=== PATIENT | male | born 1955 | race Caucasian/White ===

== ENCOUNTER 2022-10-31 07:12 | Day surgery (SDC) | payer OTHER ==
[2022-10-29 13:40] LABS: Protime INR 5.25
[2022-10-31 07:51] LABS: Hematocrit 46.9 % (39.6-49.0); Lymphocytes % 21.9 % (15.3-44.8); MCV 89.4 fL (80-100); RBC Red Blood Cell Count 5.25 M/uL (4.33-5.43)
[2022-10-31 08:00] LABS: Protime INR 1.83
[2022-10-31 08:05] LABS: Potassium 4.6 mmol/L (3.5-5.1)
[2022-10-31] MEDS ORDERED: Ringers Lactate 1,000 ML IV ONE (08:15)
[2022-10-31] MEDS ORDERED: CEFAZOLIN SODIUM 1 GM/VIAL ONE (08:15)
[2022-10-31] MEDS ORDERED: LIDOCAINE 1% MPF 30 ML VIAL ONE (08:52)
--- NOTE | 2022-10-31 08:55 | RAD REPORT ---
EXAM DESCRIPTION: RAD - Chest Single View - 10/31/2022 7:30 am CLINICAL HISTORY: PRE-OP Chest pain. COMPARISON: CHEST SINGLE VIEW dated 10/20/2010; CHEST SINGLE VIEW dated 10/20/2010; CHEST SINGLE VIEW dated 09/27/2010; CHEST SINGLE VIEW dated 09/24/2009 FINDINGS: Portable technique limits examination quality. The lungs are grossly clear. The heart is normal in size. No displaced fractures.Postsurgical clips a re present upper right chest. Cervical hardware plate. IMPRESSION: No acute intrathoracic process suspected.
--- NOTE | 2022-10-31 09:55 | RAD REPORT ---
EXAM DESCRIPTION: RAD - Fluoroscopy <1 Hour - 10/31/2022 9:51 am CLINICAL HISTORY: FB REMOVAL FROM LEFT HAND COMPARISON: No comparisons FINDINGS: Fluoroscopy time: 0.1 minutes
--- NOTE | 2022-10-31 09:59 | P.OP ---
Date of Service: 10/31/22 Preop diagnosis: Foreign body left hand Postop diagnosis: Same Procedure performed: Removal foreign body left hand and fluoroscopy Surgeon: Arturo Vuong MD Frog Catcher: None Estimated blood loss: Minimal Specimen: Foreign body, piece of wood Findings: As above Anesthesia: Local Complications: None Drains: None Fluids and blood products: Nonapplicable Disposition: Day surgery Operative note: Patient brought to the OR and placed in supine position. Patient prepped and draped in usual sterile fashion. Lidocaine 1% infiltrated locally. C arm used but was unable to localize the foreign body. A 2 cm incision was made on the thenar eminence of the left hand overlying the suspected area of the foreign body. Subcutaneous tissue divided. Bleeding controlled with cautery. Wound examined and a 2.5 cm piece of wood identified and removed. Wound thoroughly irrigated with saline. No other foreign body seen. 5-0 nylon used to close skin. Sterile dressing applied. Patient awakened and taken to day surgery in good general condition. CC:
[2022-10-31] MEDS ORDERED: HYDROCODONE/APAP 7.5/325 MG TAB PO PRN (10:02)
[2022-10-31 14:22] VITALS: BP 127/76; TEMP 97.2; O2SAT 100
--- NOTE | 2022-10-31 18:11 | EKG ---
Test Date: 2022-10-31 Test Time: 08:06:37 [place] Operator: KEISHA MEASUREMENT RESULTS: Intervals: Rate: 61 DE: 212 QRSD: 112 QT: 394 QTc: 396 [place]: P: 48 DE: 212 QRS: 45 T: 35 INTERPRETIVE STATEMENTS: Sinus rhythm with 1st degree AV block with premature atrial complexes in a pattern of bigeminy Moderate voltage criteria for LVH, may be normal variant Early repolarization Borderline ECG Compared to ECG 04/04/2012 19:04:12 Atrial premature complex(es) now present First degree AV block now present Sinus bradycardia no longer present Electronically Signed On 10-31-22 18:10:25 [employer] by Nicolas Whitmore
== END 2022-10-31 10:28 | disposition home or self-care (01) ==
LOC: OR 07:12
PROVIDERS: ATTEND Surgery
PROC: 0JCK0ZZ Extirpation of Matter from Left Hand Subcutaneous Tissue and Fascia, Open Approach (ICD-10-PCS; principal; 2022-10-31 09:30)
DX: S61.442A Puncture wound with foreign body of left hand, initial encounter (principal); X58.XXXA Exposure to other specified factors, initial encounter
CPT/HCPCS: 93005; 85025; 80048; 36415 ×2; 85610 ×2; 88300; 71045; 10120; J2001; J7120; J0690; 76000

== ENCOUNTER 2023-02-21 20:39 | Emergency (ER) | payer OTHER ==
--- OUTSIDE RECORDS SUMMARY | 2023-02-21 20:48 | XMS REPORT | Continuity of Care Document ---
:1955 Author Organization [facility] t Address [address] [place] [address] Care Team Providers Name Role Phone Vickie Avila MD Primary Care Physician Ghassan Bright Attending Clinician Unavailable Obinna Wallace Attending Clinician Unavailable GREYSON NGUYEN Attending Clinician Unavailable RAMÍREZ FORREST Attending Clinician Unavailable EDA ALANIS Attending Clinician Unavailable IVA MEREDITH Attending Clinician Unavailable Mateo Saxena MD Attending Clinician MYRNA SEE Attending Clinician Unavailable Clara Pop MA Attending Clinician Unavailable Kiki Clark MA Attending Clinician Unavailable Estrella Attending Clinician Unavailable VICKIE GARAY Attending Clinician Unavailable ANGELIQUE FELIPE Attending Clinician Unavailable EL ARAYA Attending Clinician Unavailable MD EL ARAYA Attending Clinician Unavailable MD VICKIE GARAY Attending Clinician Unavailable FELA BOOGIE Attending Clinician Unavailable MD ANGELIQUE FELIPE Attending Clinician Unavailable MATEUS BIRD Attending Clinician Unavailable CHEL LOVE Attending Clinician Unavailable LAMBERTO PAGAN M.D. Attending Clinician UnavailELVIN Contreras Attending Clinician Unavailable SIMEON BARAKAT Attending Clinician Unavailable BASIL CRUZ Attending Clinician Unavailable CELESTINO GUSMAN Attending Clinician Unavailable NICHOLE METZGER Attending Clinician Unavailable SABRINA LOPEZ Attending Clinician Unavailable GERTRUDIS QUEEN Attending Clinician Unavailable Kanu Douglas PA-C Attending Clinician OUMOU BOYKIN Attending Clinician Unavailable ANALIA MALLORY M.D. Attending Clinician Unavailable ZIYAD CUMMINGS M.D. Attending Clinician Unavailable TINO MART M.D. Attending Clinician Unavailable MATEO SAXENA Attending Clinician Unavailable UNDEFINED Admitting Clinician Unavailable Physician, No Primary or Family Admitting Clinician UnavailEDA Shah Admitting Clinician Unavailable Estrella Admitting Clinician Unavailable EL ARAYA Admitting Clinician Unavailable MD EL ARAYA Admitting Clinician Unavailable VICKIE GARAY Admitting Clinician Unavailable MD VICKIE GARAY Admitting Clinician Unavailable ANGELIQUE FELIPE Admitting Clinician Unavailable MD ANGELIQUE FELIPE Admitting Clinician Unavailable MATEUS BIRD Admitting Clinician Unavailable BASIL CRUZ Admitting Clinician Unavailable VICKIE NAVARRETE Admitting Clinician Unavailable OUMOU BOYKIN Admitting Clinician Unavailable Payers Payer Name Policy Type Policy Number Effective Date Expiration Date S aye [employer] MEDICARE PPO [id number] 2022 00:00:00 PPO/POS - [employer] [id number] 2016 00:00:00 PPO/EPO - BCBS [id number] 2015 00:00:00 CHOICE/CHOICE [id number] PLUS/OPTIONS O - UHC MEDICARE PART A [id number] \\T\\ B - MEDICARE [employer] [id number] (PPO) Problems Condition Condition Condition Status Onset Resolution Last Treating Co mments Source Name Details Category Date Date Treatment Clinician Date Left-sided Left-sided Disease Active 0 M ethodi weakness weakness 6-11 st 00:00: Hospita 00 l Protruding Protruding Disease Active M ethodi sternal sternal 4-09 st wires wires 00:00: Hospita 00 l Lipoma of Lipoma of Disease Active Met hodi both upper both upper 4-09 st extremitie extremitie 00:00: Ho spita s s 00 l S/P AVR S/P AVR Disease Active Overview: Meth clark 4- Formattin st 00:00: g of this Hospita 00 note l might be different from the original. Added automatic ally from request for surgery [id number] Denervatio Denervatio Disease Active M ethodi n of n of 1 st muscle muscle 00:00: Hospita 00 l Pre-op Pre-op Disease Active Methodi testing testing 1 st 00:00: Hospita 00 l Atrial Atrial Disease Active 2019-[address] Method[facility] [address] 00:00: Hospita 00 l Nerve Nerve Disease Active Overview: Method i injury injury [address] 00:00: g of this Hospita 00 note l might be different from the original. 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 CVA CVA Disease Active Methodi (cerebral (cerebral [address] st vascular vascular 00:00: Hospit a accident) accident) 00 l Prosthetic Prosthetic Disease Active M ethodi valve valve 224 st endocardit endocardit 00:00: Ho spita is is 00 l Paced Paced Disease Active Methodi rhythm on rhythm on [address] st cardiac cardiac 00:00: Hospita monitor monitor 00 l s/p Redo s/p Redo Disease Active Metho di Aortic Aortic [address] st Root Root 00:00: Hospita Replacemen Replacemen 00 l t with t with Mechanical Mechanical AV Conduit AV Conduit Nonrheumat Nonrheumat Disease Active Overview : Methodi ic aortic ic aortic 2-13 Formattin s t valve valve 00:00: g of this Hospita insufficie insufficie 00 note l ncy ncy might be different from the original. Added automatic ally from request for surgery [id number] Chest pain Chest pain Disease Active M ethodi 2- st 00:00: Hospita 00 l Dyspnea on Dyspnea on Disease Active M ethodi exertion exertion 2-09 st 00:00: Hospita 00 l Postoperat Postoperat Disease Active M ethodi ariana ariana 4-18 st hemorrhage hemorrhage 00:00: Ho spita of of 00 l musculoske musculoske letal letal structure structure following following musculoske musculoske letal letal procedure procedure Osteoarthr Osteoarthr Disease Active M ethodi itis of itis of 3-14 st hip hip 00:00: Hospita 00 l Low Low Disease Active Methodi testostero testostero 1-16 st ne in male ne in male 00:00: Ho spita 00 l Vitamin D Vitamin D Disease Active Met hodi deficiency deficiency 1-16 st 00:00: Hospita 00 l Paget's Paget's Disease Active Methodi bone bone 1-16 st disease disease 00:00: Hospita 00 l Postprandi Postprandi Disease Active M ethodi al al 1-16 st hypoglycem hypoglycem 00:00: Ho spita ia ia 00 l Osteoarthr Osteoarthr Disease Active M ethodi itis itis 1-08 st resulting resulting 00:00: Hosp debbie from right from right 00 l hip hip dysplasia dysplasia Paroxysmal Paroxysmal Disease Active M ethodi atrial atrial 4-11 st fibrillati fibrillati 00:00: Ho spita on on 00 l Dry eye Dry eye Disease Active [facility] 3-13 College 00:00: of 00 Medicin e MGD MGD Disease Active [facility] (meibomian (meibomian 3-13 Co llege gland gland 00:00: of disease) disease) 00 Medici n e Conjunctiv Conjunctiv Disease Active [facility] ochalasis ochalasis 3-13 [place] 00:00: of 00 Medicin e Atrial Atrial Disease Active Methodi fibrillati fibrillati 2-23 st on, on, 00:00: Hospita persistent persistent 00 l Weakness Weakness Disease Active 2015-10 Metho di 10-26 st 00:00: Hospita 00 l 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 ethodi 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 [place] sioux 00:00: Hospita 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 Hypertensi Hypertensi Problem Active [facility] ve ve 8-04 Family disorder Disorder 00:00: Practi c 00 e Hiatal Hiatal Problem Active [place] her[facility] Hernia 8-04 Family 00:00: Practic 00 e Hx of Hx of Disease Active [facility] gastroesop gastroesop 5-16 Serge kes hageal hageal 00:00: Medical reflux reflux 00 Center (GERD) (GERD) S/P Alida S/P Alida Disease Active [facility] fundoplica fundoplica 5-16 Serge kes tion tion 00:00: Medical 00 Center Aortic Aortic Disease Active [facility] replacemen replacemen 00:00: Me dical t in 2002 t in 2002 00 Cent er with with [address] stentless stentless root root replacemen replacemen t t History of History of Disease Active [facility] Low Low 5-16 [facility] testostero testostero 00:00: Me dical ne ne 00 Center Aortic Aortic Disease Active [facility] insufficie insufficie 5-15 Serge kes ncy ncy 00:00: Medical 00 Center s/p re-do s/p re-do Disease Active [facility] sternotomy sternotomy 5-15 Serge kes , , 00:00: Medical bioprosthe bioprosthe 00 Ce nter tic aortic tic aortic valve valve replacemen replacemen t, repair t, repair of of ascending ascending aortic aortic aneurysm aneurysm and and paulina-arch paulina-arch repair repair (02/17) (02/17) Aortic Aortic Disease Active [facility] regurgitat regurgitat 4-15 Co llege ion ion 00:00: of 00 Medicin e Hypogonadi Hypogonadi Disease Active [facility] sm male sm male 8-31 College 00:00: 00 Medicin e Hiatal Hiatal Disease Active [facility] hernia hernia 3-08 College 00:00: of 00 Medicin e Aneurysm Aneurysm Problem Active [place] [facility] of of 10-06 Family ascending Ascending 00:00: Prac tic aorta Aorta 00 e Primary Primary Problem Active 2020-10-12 Me moria osteoarthr osteoarthr 03:50:26 l itis, itis, Dick right hand right hand Active Problem 10/12/2020 [facility] Chronic Chronic Problem Active 2020-10-12 M emoria fatigue fatigue 03:50:26 l Active [place] Problem 10/12/2020 [facility] Hypoglycem Hypoglyce Problem Active 2020-10-12 Memoria ia jasmeet Active 03:50:26 l Problem Dick 10/12/2020 [facility] Arm Arm Problem Active 2020-10-12 Memor ia paresthesi paresthesi 03:50:26 l a, left a, left [place] Active Problem 10/12/2020 [facility] Primary Primary Problem Active 2020-10-12 M emoria osteoarthr osteoarthr 03:50:26 l itis of itis of Dick left hand left hand Active Problem 10/12/2020 [facility] Food Food Problem Active 2018-10-21 Memor ia allergy allergy 03:52:44 l Active Dick Problem 10/21/2018 [facility] Chronic Chronic Problem Active 2020-10-12 Me moria GERD GERD 03:50:26 l Active Dick Problem 10/12/2020 [facility] History of History Problem Active 2020-10-12 Memoria Alida of Alida 03:50:26 l fundoplica fundoplica He rmann tion tion Active Problem 10/12/2020 [facility] Family Family Problem Active 2020-10-12 [place] history of history of 03:50:26 l pancreatic pancreatic He rmann cancer cancer Active Problem 10/12/2020 [facility] Vitamin D Vitamin D Problem Active 2020-10-12 Memoria deficiency deficiency 03:50:26 l Active [place] Problem 10/12/2020 [facility] Paget Paget Problem Active 2020-10-12 Memor ia disease of disease of 03:50:26 l bone bone [place] Active Problem 10/12/2020 [facility] Insomnia, Insomnia, Problem Active 2020-10-12 Memoria unspecifie unspecifie 03:50:26 l d type d type Dick Active Problem 10/12/2020 [facility] Osteoarthr Osteoarth Problem Active 2020-10-12 Memoria itis of ritis of 03:50:26 l hip hip Active David n Problem 10/12/2020 [facility] Hyperchole Hyperchol Problem Active 2020-10-12 Memoria sterolemia esterolemi 03:50:26 l a Active [place] Problem 10/12/2020 [facility] Osteopenia Problem Active 2020-10-12 M emoria of Osteopenia 03:50:26 l multiple of [place] sites multiple sites Active Problem 10/12/2020 [facility] Fatigue, Fatigue, Diagnosis Active 2019-09-11 Memoria unspecifie unspecifie 03:45:34 l d type d type Dick Active Diagnosis 09/11/2019 [facility] Stage 3 Stage 3 Diagnosis Active 2017-07-10 Memoria chronic chronic 02:50:13 l kidney kidney [place] disease disease Active Diagnosis 07/10/2017 [facility] History of History Diagnosis Active 2017-06-06 Memoria atrial of atrial 02:48:11 l fibrillati fibrillati He rmann on on Active Diagnosis 06/06/2017 [facility] Polyarthra Diagnosis Active 2017-06-06 Memoria lgia Polyarthra 02:48:11 l lgia Dick Active Diagnosis 06/06/2017 [facility] Cervical Cervical Diagnosis Active 2018-06-23 Memoria radiculopa radiculopa 02:48:49 l thy at C7 thy at C7 Herm yesy Active Diagnosis 06/23/2018 [facility] MARY GRACE MARY GRACE Diagnosis Active 2017-07-10 Mem oria positive positive 02:50:13 l Active [place] Diagnosis 07/10/2017 [facility] Encounter Diagnosis Active 2019-09-11 Memoria for Encounter 03:45:34 l immunizati for David n on immunizati on Active Diagnosis 09/11/2019 [facility] Paroxysmal Paroxysma Diagnosis Active 2020-10-12 Memoria atrial l atrial 03:50:26 l fibrillati fibrillati He rmann on on Active Diagnosis 10/12/2020 [facility] Anemia due Anemia Problem Active 2020-10-12 Memoria to blood due to 03:50:26 l loss blood loss David n Active Problem 10/12/2020 [facility] Endocardit Endocardi Problem Active 2020-10-12 Memoria is and tis and 03:50:26 l heart heart [place] valve valve disorders disorders in in diseases diseases classified classified elsewhere elsewhere Active Problem 10/12/2020 [facility] Cerebrovas Cerebrova Problem Active 2020-10-12 Memoria cular scular 03:50:26 l accident accident David n (CVA) due (CVA) due to other to other mechanism mechanism Active Problem 10/12/2020 [facility] Screening Screening Diagnosis Active 2019-06-20 Memoria for for 02:45:31 l prostate prostate David n cancer cancer Active Diagnosis 06/20/2019 [facility] Screening Screening Diagnosis Active 2019-06-20 Memoria for HIV for HIV 02:45:31 l (human (human [place] immunodefi immunodefi ciency ciency virus) virus) Active Diagnosis 06/20/2019 [facility] Cough Cough Diagnosis Active 2019-09-11 Mem oria Active 03:45:45 l Diagnosis Dick 09/11/2019 [facility] Wheezing Wheezing Diagnosis Active 2017-12-27 Memoria Active 02:49:23 l Diagnosis Dick 12/27/2017 [facility] Groin Groin Diagnosis Active 2018-02-19 Mem oria strain, strain, 02:48:22 l right, right, [place] initial initial encounter encounter Active Diagnosis 02/19/2018 [facility] Fungal Fungal Diagnosis Active 2018-06-23 Me moria infection infection 02:48:49 l Active [place] Diagnosis 06/23/2018 [facility] Right Right Diagnosis Active 2018-02-19 Mem oria groin pain groin pain 02:48:22 l Active [place] Diagnosis 02/19/2018 [facility] Depression Depressio Diagnosis Active 2018-02-19 Memoria screening n 02:48:22 l screening [place] Active Diagnosis 02/19/2018 [facility] Bronchitis Bronchiti Diagnosis Active 2019-09-11 Memoria s Active 03:45:40 l Diagnosis [place] 09/11/2019 [facility] Adventitio Adventiti Diagnosis Active 2017-12-27 Memoria us breath ous breath 02:48:30 l sounds sounds Dick Active Diagnosis 12/27/2017 [facility] Encounter Encounter Diagnosis Active 2018-10-21 Memoria for for 03:49:00 l preprocedu preprocedu He rmann ral ral cardiovasc cardiovasc ular ular examinatio examinatio n n Active Diagnosis 10/21/2018 [facility] Right hip Right hip Diagnosis Active 2018-10-10 Memoria pain pain 03:45:10 l Active [place] Diagnosis 10/10/2018 [facility] Burning Burning Diagnosis Active 2018-10-10 Memoria with with 03:45:10 l urination urination Herm ysey Active Diagnosis 10/10/2018 [facility] SOB SOB Diagnosis Active 2019-09-11 Mem oria (shortness (shortness 03:45:40 l of breath) of breath) He rmann Active Diagnosis 09/11/2019 [facility] Generalize Generaliz Diagnosis Active 2019-09-11 Memoria d ed 03:45:34 l abdominal abdominal Herm yesy pain pain Active Diagnosis 09/11/2019 [facility] Abnormal Abnormal Diagnosis Active 2019-09-11 Memoria stool stool 03:45:34 l color color [place] Active Diagnosis 09/11/2019 [facility] Diarrhea, Diarrhea, Diagnosis Active 2019-09-11 Memoria unspecifie unspecifie 03:45:34 l d type d type [place] Active Diagnosis 09/11/2019 [facility] PND PND Diagnosis Active 2019-09-11 Mem oria (post-nasa (post-nasa 03:45:45 l l drip) l drip) Dick Active Diagnosis 09/11/2019 [facility] COVID-19 COVID-19 Diagnosis Active 2020-10-12 Memoria virus virus 03:50:26 l infection infection Herm yesy Active Diagnosis 10/12/2020 [facility] Sore Sore Diagnosis Active 2019-09-11 Mem oria throat throat 03:45:45 l Active [place] Diagnosis 09/11/2019 [facility] Encounter Diagnosis Active 2020-09-20 Memoria for Encounter 03:58:24 l screening for [place] laboratory screening testing laboratory for testing COVID-19 for virus COVID-19 virus Active Diagnosis 09/20/2020 [facility] Viral Viral Diagnosis Active 2020-09-20 Mem oria illness illness 03:58:24 l Active Dick Diagnosis 09/20/2020 [facility] Mechanical Mechanica Problem Active 2020-10-12 Memoria heart l heart 03:50:26 l valve valve [place] present present Active Problem 10/12/2020 [facility] Testostero Testoster Problem Active 2020-10-12 Memoria ne one 03:50:26 l deficiency deficiency He rmann Active Problem 10/12/2020 [facility] History of History Problem Active 2020-10-12 Memoria hypothyroi of 03:50:26 l dism hypothyroi David n dism Active Problem 10/12/2020 [facility] History of History of Problem Resolve [facility] blood blood d Physici transfusio transfusio an s n n Low Low Problem Active [facility] testostero testostero Ph ysici ne in male ne in male an s Encounter Encounter Problem Active [facility] to to Physici establish establish ans care care Obesity Obesity Problem Active [facility] Physici ans Allergies, Adverse Reactions, Alerts Allergy Allergy Status Severity Reaction(s) Onset Inactive Treating Comm ents Source Name Type Date Date Clinician Citrullu Allergy Active [facility] s to 06-05 Health Vulgaris substan 00:00: e 00 [place] Allergy Active [facility] Extract to 06-05 Health substan 00:00: e 00 Evolocum Allergy Active [facility] ab to 06-05 Health substan 00:00: e 00 Iodine Allergy Active [facility] to 06-05 Health substan 00:00: e 00 Vacciniu Allergy Active [facility] m to 06-05 Health Angustif substanc 00:00: olium e 00 Atorvast Propensi Active Anaphylaxis 2020-10 [facility] at[facility] ty to 2-16 College adverse 00:00: of reaction 00 Medicin s to e drug Iodinate Propensi Active 2020-10 [facility] d ty to 2-16 College Diagnost adverse 00:00: of ic reaction 00 Medicin Agents s to e drug Wheat Propensi Active 2020-10 [facility] Husk ty to 2-16 College Fiber adverse 00:00: of reaction 00 Medicin s to e drug Iodinate Allergy Active 2020-10 [facility] d to 216 Health Diagnost substanc 00:00: ic e 00 Agents Wheat Allergy Active 2020-10 Other [facility] Bran to 216 reaction( Health substan 00:00: s): GI e 00 Intoleran ceDue to Celiac disease Atorvast Allergy Active Anaphylaxis [facility] atin to 6-12 Health substanc 00:00: e 00 Atorvast Propensi Active Anaphylaxis M ethodi atin ty to 6-12 st adverse 00:00: Hospita reaction 00 l s to drug Cyanoacr Propensi Active 2021-0 Other [facility] ylate ty to 01-10 reaction( Health adverse 00:00: s): Other reaction 00 (See s Comments) Skin tear Octyl Propensi Active Other (See Skin tear M ethodi 2-Cyanoa ty to Comments) 01-10 st crylate adverse 00:00: Hospita reaction 00 l s to drug Hydrocod Propensi Active Other [facility] one-Acet ty to 01-02 reaction( Healt h aminophe adverse 00:00: s): n reaction 00 Hallucina s tions Hydrocod Propensi Active Hallucinatio Methodi one-Acet ty to ns 3- st aminophe adverse 00:00: Hospita n reaction 00 l s to drug hydrocod hydrocod Active Hallucinatio 2019-1 Memoria one one ns 2-17 l 00:00: [place] 00 oxycodon oxycodon Active Hallucinatio 2019-1 Memoria e e ns 2-17 l 00:00: Dick 00 nuts nuts Active hives 2019-1 Memoria 2-17 l 00:00: Dick 00 diazepam DA Active SV 2020-0 [facility] 06[facility]06 [place] 00:[facility]: [facility] 00 dic Hospita l hydrocod DA Active U 2020-0 [facility] one 06-06 [place] 00:00: [facility] 00 dic Hospita l acetamin DA Active U 2020-0 [facility] ophen 06-06 [place] 00:00: Orth[facility] 00 dic Hospita l diazepam DA Active SV DIZZINESS 2020-0 [facility] 06-06 [place] 00:00: [facility] 00 dic Hospita l hydrocod DA Active U HALLUCINATIO 2020-0 HC A one NS 06-06 [place] 00:00: Orthope 00 dic Hospita l hydrocod DA Active U HALLUCINATIO 2020-0 HC A one NS 06-06 [place] 00:00: Orthope 00 dic Hospita l acetamin DA Active U HALLUCINATIO 2020-0 HC A ophen NS 06-06 [place] 00:00: Orthope 00 dic Hospita l Acetamin Propensi Active 2019-0 Other [facility] ophen ty to 06-06 reaction( [place] adverse 00:00: s): of reaction 00 HALLUCINA Medic in s to TIONS e drug Diazepam Propensi Active 2019-0 Other [facility] ty to 06-06 reaction( [place] adverse 00:00: s): of reaction 00 DIZZINESS Medic in s to e drug Diazepam Allergy Active 2020-0 Other [facility] to 06-06 reaction( Health substanc 00:00: s): e 00 DIZZINESS Other reaction( s): DIZZINESS Acetamin Allergy Active 2020-0 Other [facility] ophen to 06-06 reaction( Health substanc 00:00: s): e 00 HALLUCINA TIONSOthe r reaction( s): HALLUCINA TIONS Amiodaro Propensi Active Anaphylaxis Other [facility] ty to 06-02 reaction( College adverse 00:00: s): VERY of reaction 00 HARD TO Medicin s to BREATH e drug Justicia Propensi Active Other [facility] Adhatoda ty to 06-02 reaction( [facility] ge adverse 00:00: s): SWELL of reaction 00 UP, VERY Medici n s to HARD TO e drug BREATHE Justicia Allergy Active 0 Other [facility] Adhatoda to 06-02 reaction( Healt h substanc 00:00: s): SWELL e 00 UP, VERY HARD TO BREATHE Other reaction( s): SWELL UP, VERY HARD TO BREATHE nitrogly DA Active SV 2020-0 [facility] cerin 8-28 Clear 00:00: [facility] lactose FA Active WI 2020-0 [facility] 8-28 Clear 00:00: [facility] amiodaro DA Active SV 2020-0 [facility] ne 8- Clear 00:00: [facility] egg yolk FA Active [place] 2020-0 [facility] 8-28 Clear 00:00: [facility] gluten FA Active MO 2020-0 [facility] 8-28 Clear 00:00: [facility] tree nut FA Active SV 2020-0 [facility] 8-28 Clear 00:00: [facility] SURGICAL DA Active MO VERY ITCHY. 2020-0 [facility] GLUE 8-28 Clear 00:00: [facility] tree nut FA Active SV SWELL UP, 2020-0 [facility] VERY HARD TO 8-28 Maddy r BREATHE 00:00: [facility] nitrogly DA Active SV RAISES BP UP 2020-0 HC A cerin TO 2OO AND 8- Clear HEADACHE 00:00: [facility] lactose FA Active WI INTOLERANT - 2020-0 [facility] DIARRHEA 8-28 Clear 00:00: Louise 00 [facility] amiodaro DA Active SV VERY HARD TO HC A ne BREATH 06-02 Clear 00:00: [facility] egg yolk FA Active [place] GASTRO [facility] PROBLEMS. 8 Clear 00:00: [facility] gluten FA Active MO GET SORE, [facility] DIARRHEA 06-02 Clear 00:00: [facility] morphine morphine Active itchy Memori a 4-30 l 00:00: [place] 00 Eggshell Propensi Active Other [facility] Membrane ty to 2-06 reaction( Colle ge (Chicken adverse 00:00: s): of ) reaction 00 GASTRO Medicin s to PROBLEMS. e drug , GI Intoleran ce Egg Allergy Active Other [facility] Shells to 2-06 reaction( Health substanc 00:00: s): e 00 GASTRO PROBLEMS. , GI Intoleran ce Egg Yolk Allergy Active Other [facility] to 2-06 reaction( Health substanc 00:00: s): e 00 GASTRO PROBLEMS. , GI Intoleran ce Gluten Allergy Active Other [facility] Meal to 2-06 reaction( Health substanc 00:00: s): GET e 00 SORE, DIARRHEA, Unknown ReactionO ther reaction( s): GET SORE, DIARRHEA, Unknown Reaction" get sore""get sore" Chocolat Propensi Active Unknown " Metho di e Flavor ty to Reaction 2-[address] adverse 00:00: breaks Hospita reaction 00 out" l s to drug Egg Yolk Propensi Active GI Method i ty to Intolerance 2-06 st adverse 00:00: Hospita reaction 00 l s to drug Gluten Propensi Active Unknown "get Methodi ty to Reaction 2-06 sore" st adverse 00:00: Hospita reaction 00 l s to drug Latex Propensi Active Rash " skin Methodi ty to 2-[address] adverse 00:00: [facility] a reaction 00 y" l s to drug peanut FA Active MO 2018-10 [facility] 2-12 Clear 00:00: [facility] adhesive DA Active U 2018-10 [facility] tape 2- Clear 00:00: [facility] chocolat FA Active [place] 2018-10 [facility] e flavor 2-12 Clear 00:00: [facility] latex DA Active WI 2018- [facility] 2-12 Clear 00:00: [facility] shrimp FA Active MO 2018- [facility] 2-12 Clear 00:00: [facility] latex DA Active WI RASH;SKIN 2018-10 [facility] IRRITATION 212 Clear 00:00: [facility] shrimp FA Active MO swelling 2018-10 [facility] 2-12 Clear 00:00: [facility] peanut FA Active MO stiff joints 2018-10 [facility] 2-12 Clear 00:00: [facility] adhesive DA Active U RASH, PEELS 2018-10 [facility] tape SKIN OFF 12 Clear 00:00: [facility] chocolat FA Active WI ITCHING 2018-10 [facility] e flavor 2-12 Clear 00:00: [facility] ADHESIVE Allergy Active Moderate Rash [place] ge TAPE to to severe 04-26 Family substanc 00:00: Practic e 00 e Hydrocod Propensi Active Hallucinatio Other [facility] one ty to ns 4-24 reaction( College adverse 00:00: s): of reaction 00 Hallucina Medic in s to tions, e drug HALLUCINA TIONS Morphine Propensi Active Other [facility] ty to 4-24 reaction( College adverse 00:00: s): itchy of reaction 00 Medicin s to e drug Oxycodon Propensi Active Other Chente e ty to 4-24 reaction( College adverse 00:00: s): of reaction 00 Hallucina Medic in s to tions e drug Morphine Morphine Active itchy Memori a 4-24 l 00:00: Dick 00 Hydrocod Allergy Active Hallucinatio Other U T one to ns 4-24 reaction( Health substanc 00:00: s): e 00 HALLUCINA TIONS, HALLUCINA TIONSOthe r reaction( s): Hallucina tions, HALLUCINA TIONS Oxycodon Allergy Active Other UT e to 4-24 reaction( Health substanc 00:00: s): e 00 Hallucina tionsOthe r reaction( s): Hallucina tions Lactose Allergy Active Other [facility] to 3-04 reaction( Health substanc 00:00: s): GI e 00 Intoleran ce, INTOLERAN T - DIARRHEAO ther reaction( s): GI Intoleran ce, INTOLERAN T - DIARRHEAL actose Intoleran tLactose Intoleran t Lactose Propensi Active GI Lactose Method i ty to Intolerance 3-[address] adverse 00:00: t Hospita reaction 00 l s to drug Nitrogly Allergy Active 2016-10 Other [facility] cerin to 10-06 reaction( Health substanc 00:00: s): Other e 00 (See Comments) , RAISES BP UP TO 2OO AND HEADACHE, Tachycard iaOther reaction( s): Other (See Comments) , RAISES BP UP TO 2OO AND HEADACHE, Tachycard ia"Raises blood pressure up to 200 and head pain""Winters ses blood pressure up to 200 and head pain" Warfarin Allergy Active 2016-10 Other [facility] to 10-06 reaction( Health substanc 00:00: s): Other e 00 (See Comments) Nitrogly Propensi Active Other (See 2016-10 "Raises M ethodi cerin ty to Comments) 10-[address] adverse 00:00: pressure Hospita reaction 00 up to 200 l s to and head drug pain" N.K.D.A. N.K.D.A. Active Info Not [place] Available 8-31 l 00:00: [place] 00 Propafen Allergy Active Shortness of U T one to breath 4-11 Health substanc 00:00: e 00 Amiodaro Allergy Active Shortness of Other U T ne to breath 4-11 reaction( Health substanc 00:00: s): VERY e 00 HARD TO BREATHOth er reaction( s): VERY HARD TO BREATH Amiodaro Propensi Active Shortness Of Methodi ne ty to Breath 4-11 st adverse 00:00: Hospita reaction 00 l s to drug Peanut-C Propensi Active Swelling 2015-10 Other [facility] or ontainin ty to 10-28 reaction( Colle ge g Drug adverse 00:00: s): stiff of Products reaction 00 joints Medici n s to e drug Peanut-C Allergy Active Swelling 2015-10 Other [facility] ontainin to 10-28 reaction( Healt h g Drug substanc 00:00: s): stiff Products e 00 joints Other reaction( s): stiff joints Shrimp Propensi Active Swelling 2015-10 joints Method i ty to 10-26 adverse 00:00: Hospita reaction 00 l s to drug adhesive DA Active U [facility] tape 06-24 00:00: [facility] chocolat FA Active WI [facility] e flavor 06-24 00:00: [facility] latex DA Active [place] [facility] 06-24 00:00: [facility] SHRIMP DA Active [place] [facility] 06-24 [place] 00:00: [facility] 00 dic [facility] l Adhesive Propensi Active Rash Other [facility] Tape ty to 06-24 reaction( [place] adverse 00:00: s): RASH, of reaction 00 PEELS Medicin s to SKIN OFF e substanc e Chocolat Propensi Active Other (See Other Ba ylor e Flavor ty to Comments) 06-24 reaction( Co llege adverse 00:00: s): of reaction 00 ITCHING" Medici n s to psoriasis e drug breaks out" Latex Propensi Active Rash Other [facility] ty to 06-24 reaction( [place] adverse 00:00: s): of reaction 00 RASH;SKIN Medic in s to IRRITATIO e substanc N" skin e comes off eventuall y" Shrimp Propensi Active Other [facility] ty to 06-24 reaction( [place] adverse 00:00: s): of reaction 00 swelling Medici n s to e food Latex Allergy Active Rash Other [facility] to 06-24 reaction( Health substanc 00:00: s): e 00 RASH;SKIN IRRITATIO NOther reaction( s): RASH;SKIN IRRITATIO N" skin comes off eventuall y"" skin comes off eventuall y" Shrimp Allergy Active Swelling Other UT Extract to 06-24 reaction( Health Allergy substanc 00:00: s): Skin e 00 swellingO Test ther reaction( s): swellingj oints Adhesive Drug Active Rash Other UT Tape Allergy 06-24 reaction( Health 00:00: s): RASH, 00 PEELS SKIN OFFOther reaction( s): RASH, PEELS SKIN OFF Chocolat Allergy Active Other UT e Flavor to 06-24 reaction( Healt h substanc 00:00: s): e 00 ITCHING, Other (See Comments) , Unknown ReactionO ther reaction( s): ITCHING" psoriasis breaks out"" psoriasis breaks out" NUTS DA Active [place] [facility] 06-08 [place] 00:00: [facility] 00 dic Hospita l Nuts Propensi Active Other [facility] ty to 06-08 reaction( College adverse 00:00: s): hives of reaction 00 Medicin s to e food Other Allergy Active Other [facility] to 06-08 reaction( Health substanc 00:00: s): e 00 hivesOthe r reaction( s): hives Morphine Drug Active Rash [facility] MORPHINE Allergy Active Med Rash [facility] PEANUTS DA Active [place] 2010-10 [facility] 10-06 [place] 00:00: [facility] 00 dic Hospita l Peanuts Propensi Active 2010-10 [facility] ty to 10-06 College adverse 00:00: of reaction 00 Medicin s to e food Morphine Propensi Active Rash 2010-10 [facility] Sulfate ty to 0 College adverse 00:00: of reaction 00 Medicin s to e drug Morphine Allergy Active Rash 2010-10 Other [facility] to reaction( Health substanc 00:00: s): e 00 itchyOthe r reaction( s): itchy Atorvast Allergy Active Severe Anaphylaxis Vi llage atin to Family substanc Practic e e Shrimp Allergy Active UT to Physici substanc ans e (finding ) Wheat Allergy Active UT to Physici substanc ans e (finding ) Nuts Allergy Active UT to Physici substanc ans e (finding ) amiodaro Allergy Active UT ne to drug Physici (finding ans ) Wheat Propensi Active GI Due to Methodi ty to Intolerance Celiac st adverse disease Hospita reaction l s to drug Family History Family Member Diagnosis Comments Start Date Stop Date Source Natural brother Psoriasis [facility] father Arthritis [facility] Natural father Hypertension [facility] Natural mother [facility] mother Hypertension [facility] Mother Family [facility] of [facility] heart disease Father Family history of [facility] pancreatic cancer Social History Social Habit Start Date Stop Date Quantity Comments Source Exposure to 2022-05-26 2022-06-05 Not sure [facility] SARS-CoV-2 00:00:00 10:24:00 (event) Tobacco use and 2021-01-10 2021-01-10 Smokeless tobacco [facility] exposure 00:00:[facility] 00:00:00 non-user Hospital Alcohol Comment 2021-01-10 2021-01-10 None [facility] Tobacco Comment 2018-12-07 2018-12-07 Father [facility] 00:[facility] Hospital Alcohol intake 2014-02-18 2014-02-18 [facility]00 of [facility] (finding) Sex Ass[birth year] At [birth year] FAISAL [facility] 00:[facility] Smoking Status Start Date Stop Date Source Never smoked tobacco [facility] Medications Ordered Filled Start Stop Current Ordering Indication Dosage Frequency Signature Comments Components Source Medication Medication Date Date Medication? Clinician (SIG) Name Name quin Yes 20mg Inject 20 U T e enanthate 8-31 mg into Healt h ([place] 10:57: the l) 200 49 shoulder, MG/ML thigh, or injection buttocks 2 (two) times a week. metoprolol Yes metoprolol U T succinate 8-31 succinate Healt h XL 10:57: ER 25 mg (Toprol-XL) 49 tablet,ext 25 MG 24 hr ended tablet release 24 hr as needed esomeprazol Yes esomeprazo UT e (NexIUM) 8-[address] 10:57: magnesium capsule 49 40 mg capsule,de layed release TAKE ONE (1) CAPSULE(S) BY MOUTH ONCE A DAY. albuterol Yes albuterol UT 108 (90 8-31 sulfate Health Base) 10:57: HFA 90 MCG/ACT 48 mcg/actuat inhaler ion aerosol inhaler INHALE ONE (1) PUFF(S) BY MOUTH EVERY 6 HOURS NEEDED FOR WHEEZING. warfarin Yes warfarin 5 UT (Coumadin) 8-31 mg tablet Heal th 5 MG tablet 10:57: TAKE ONE 48 (1) TABLET BY MOUTH DAILY ON FRI, FRI, Fri, AND FRI, 2 BY MOUTH ON FRI AND BRAND NAME ONLY. anastrozole Yes .5mg Q.5W Take 0.5 [facility] (ARIMIDEX) 6-[address] 1 mg chemo 11:37: mouth 2 Hosp [facility]bie tablet 51 (two) l times a week. On Friday and Friday albuterol Yes 1{puff} Q6H Inhale 1 M ethodi (PROAIR 6-[address] HFA) 90 11:37: 6 (six) Hospita mcg/actuati 51 hours as l on inhaler needed for wheezing or shortness of breath. testosteron Yes 20mg Q.5W Inject 20 M ethodi e enanthate 6-[address] (DELATESTRY 11:37: the Hospit a L) 200 51 shoulder, l mg/mL thigh, or injection buttocks 2 (two) times a week. On Friday and Friday metoprolol Yes 12.5mg Q.5D Take 12.5 Methodi tartrate 6-[address] (LOPRESSOR) 11:37: mouth 2 Hos anila 25 mg 51 (two) l tablet times a day as needed (HR>60). esomeprazol Yes 40mg QD Take 40 mg Methodi e (NexIUM) 6-[address] 40 MG 11:37: daily Hospita capsule 51 before l breakfast. warfarin Yes 5mg QD Take 5 mg Meth clark (COUMADIN) 6-[address] 5 MG tablet 11:37: daily. At H ospita 51 9am. INR l Goal: 2.6-3.5Ind ication: Artificial Heart Valve Anastrozole 2020-10- No anastrozol [facility] (ARIMIDEX 2-16 e 0.5mg Colleg e OR) 12:11: 00:00 once a of 00 :00 week Medicin e warfarin 2020-10- No 7mg 7 mg. [facility] (COUMADIN) [id number] College 3 MG tablet 12:09: 00:00 of 24 :00 Medicin e anastrozole 2020-10 Yes Take one Ba ylor (ARIMIDEX) 2-16 tablet by [place] 1 MG tablet 00:00: mouth of 00 twice Medicin weekly. e anastrozole 2020-10 Yes 1{tbl} Take 1 UT (Arimidex) 2-16 tablet by Heal th 1 MG chemo 00:00: mouth 2 tablet 00 (two) times a week. metoprolol 2020-10 Yes TAKE ONE [facility] (LOPRESSOR) 1-22 (1) College 25 MG 00:00: TABLET(S) of tablet 00 BY MOUTH Medicin TWICE A e DAY. doxycycline 2020-10 Yes TAKE ONE Ba ylor (PERIOSTAT) 0-04 (1) College 20 MG 00:00: TABLET(S) of tablet 00 BY MOUTH Medicin TWICE A e DAY. metoprolol Yes metoprolol [place] (TOPROL-XL) 8-23 succinate Col lege 25 MG XL 12:26: ER 25 mg of tablet 44 tablet,ext Medicin ended e release 24 hr as needed doxycycline TAKE ONE [place] (PERIOSTAT) 6-15 12-16 (1) College 20 MG 00:00: 00:00 TABLET(S) of tablet 00 :00 BY MOUTH Medicin TWICE A e DAY. meloxicam Yes meloxicam UT (Mobic) 15 3-25 15 mg Health MG tablet 00:00: tablet 00 TAKE ONE (1) TABLET(S) BY MOUTH ONCE A DAY. meloxicam Yes 15mg Q24H Take 15 mg [facility] (MOBIC) 15 3-[address] mg tablet 00:00: daily as [facility]osp [facility] 00 needed for l mild pain. Albuterol Yes DILEEP 2 puffs Mem oria 1-07 CLE[facility] l 03:50: DOXYCYCLINE Yes DILEEP 1 tab(s) Memoria (GEN) 1- CLEMENT l 03:50: testosteron Yes DILEEP 200 mg Me moria e 1-07 CLEMENT l 03:50: Coumadin Yes DILEEP 1 tab(s) Mem oria 1-07 CLEMENT l 03:50: [place] 26 meloxicam Yes DILEEP TAKE ONE Me moria 1-07 CLEMENT (1) l 03:50: TABLET(S) [place] 26 BY MOUTH ONCE A DAY. Metoprolol 0 Yes DILEEP 1/2 tab(s) Memoria Tartrate 1-07 CLEMENT l 03:50: [place] 26 anastrozole 0 Yes DILEEP 1 tab(s) Memoria 1-07 CLEMENT l 03:50: Ventolin 0 Yes DILEEP 2 puff(s) Me moria HFA 1-07 CLEMENT l 03:50: anastrozole Yes DILEEP 1 tab(s) Memoria 1-07 CLEMENT l 03:50: Metoprolol Yes DILEEP 1/2 tab(s) Memoria Tartrate 1-07 CLEMENT l 03:50: meloxicam Yes DILEEP TAKE ONE Me moria 1-07 CLEMENT (1) l 03:50: TABLET(S) [place] 26 BY MOUTH ONCE A DAY. Albuterol Yes DILEEP 2 puffs Mem oria 1-07 CLEMENT l 03:50: DOXYCYCLINE 0 Yes DILEEP 1 tab(s) Memoria (GEN) 1-07 CLEMENT l 03:50: testosteron 0 Yes DILEEP 200 mg Me moria e 1-07 CLEMENT l 03:50: Coumadin 0 Yes DILEEP 1 tab(s) Mem oria 1-07 CLEMENT l 03:50: Ventolin 0 Yes DILEEP 2 puff(s) Me moria HFA 1-07 CLEMENT l 03:50: anastrozole 0 Yes DILEEP 1 tab(s) Memoria 1-07 CLEMENT l 03:50: Metoprolol 0 Yes DILEEP 1/2 tab(s) Memoria Tartrate 1-07 CLEMENT l 03:50: meloxicam 0 Yes DILEEP TAKE ONE Me moria 1-07 CLEMENT (1) l 03:50: TABLET(S) Dick 26 BY MOUTH ONCE A DAY. Albuterol 2021-0 Yes DILEEP 2 puffs Mem oria 1-07 CLEMENT l 03:50: [place] 26 DOXYCYCLINE 0 Yes DILEEP 1 tab(s) Memoria (GEN) 1-07 CLEMENT l 03:50: [place] testosteron Yes DILEEP 200 mg Me moria e -07 CLEMENT l 03:50: [place] 26 Coumadin 0 Yes DILEEP 1 tab(s) Mem oria 1-07 CLEMENT l 03:50: [place] Ventolin 0 Yes DILEEP 2 puff(s) Me moria HFA -07 CLEMENT l 03:50: [place] anastrozole Yes DILEEP 1 tab(s) Memoria 1-07 CLEMENT l 03:50: Metoprolol Yes DILEEP 1/2 tab(s) Memoria Tartrate -07 CLEMENT l 03:50: [place] 26 meloxicam Yes DILEEP TAKE ONE Me moria 1-07 CLEMENT (1) l 03:50: TABLET(S) Dick 26 BY MOUTH ONCE A DAY. Albuterol Yes DILEEP 2 puffs Mem oria 1-07 CLEMENT l 03:50: [place] 26 DOXYCYCLINE 0 Yes DILEEP 1 tab(s) Memoria (GEN) -07 CLEMENT l 03:50: [place] testosteron 0 Yes DILEEP 200 mg Me moria e -07 CLEMENT l 03:50: Coumadin Yes DILEEP 1 tab(s) Mem oria 1-07 CLEMENT l 03:50: [place] Ventolin Yes DILEEP 2 puff(s) Me moria HFA 1-07 CLEMENT l 03:50: [place] anastrozole 0 Yes DILEEP 1 tab(s) Memoria 1-07 CLEMENT l 03:50: Dick Metoprolol 0 Yes DILEEP 1/2 tab(s) Memoria Tartrate 1-07 CLEMENT l 03:50: [place] 26 meloxicam 0 Yes DILEEP TAKE ONE Me moria 1-07 CLEMENT (1) l 03:50: TABLET(S) Dick 26 BY MOUTH ONCE A DAY. Albuterol Yes DILEEP 2 puffs Mem oria 1-07 CLEMENT l 03:50: [place] DOXYCYCLINE 0 Yes DILEEP 1 tab(s) Memoria (GEN) 1-07 CLEMENT l 03:50: [place] 26 testosteron Yes DILEEP 200 mg Me moria e 1-07 CLEMENT l 03:50: Coumadin Yes DILEEP 1 tab(s) Mem oria 1-07 CLEMENT l 03:50: Ventolin Yes DILEEP 2 puff(s) Me moria HFA 1-07 CLEMENT l 03:50: anastrozole Yes DILEEP 1 tab(s) Memoria 1-07 CLEMENT l 03:50: Metoprolol Yes DILEEP 1/2 tab(s) Memoria Tartrate 1-07 CLEMENT l 03:50: meloxicam Yes DILEEP TAKE ONE Me moria 1-07 CLEMENT (1) l 03:50: TABLET(S) [place] 26 BY MOUTH ONCE A DAY. Albuterol Yes DILEEP 2 puffs Mem oria 1-07 CLEMENT l 03:50: DOXYCYCLINE 0 Yes DILEEP 1 tab(s) Memoria (GEN) 1-07 CLEMENT l 03:50: testosteron 0 Yes DILEEP 200 mg Me moria e 1-07 CLEMENT l 03:50: Coumadin Yes DILEEP 1 tab(s) Mem oria 1-07 CLEMENT l 03:50: Ventolin Yes DILEEP 2 puff(s) Me moria HFA 1-07 CLEMENT l 03:50: anastrozole 0 Yes DILEEP 1 tab(s) Memoria 1-07 CLEMENT l 03:50: Metoprolol 0 Yes DILEEP 1/2 tab(s) Memoria Tartrate 1-07 CLEMENT l 03:50: meloxicam Yes DILEEP TAKE ONE Me moria 1-07 CLEMENT (1) l 03:50: TABLET(S) [place] 26 BY MOUTH ONCE A DAY. Albuterol Yes DILEEP 2 puffs Mem oria -07 CLEMENT l 03:50: DOXYCYCLINE Yes DILEEP 1 tab(s) Memoria (GEN) 10-12 CLEMENT l 03:50: testosteron Yes DILEEP 200 mg Me moria e - CLEMENT l 03:50: Coumadin Yes DILEEP 1 tab(s) Mem oria -07 CLEMENT l 03:50: Ventolin Yes DILEEP 2 puff(s) Me moria HFA - CLEMENT l 03:50: anastrozole Yes DILEEP 1 tab(s) Memoria 07 CLEMENT l 03:50: Metoprolol Yes DILEEP 1/2 tab(s) Memoria Tartrate 10-12 CLEMENT l 03:50: meloxicam Yes DILEEP TAKE ONE Me moria - CLEMENT (1) l 03:50: TABLET(S) [place] 26 BY MOUTH ONCE A DAY. Albuterol Yes DILEEP 2 puffs Mem oria -07 CLEMENT l 03:50: DOXYCYCLINE Yes DILEEP 1 tab(s) Memoria (GEN) 10-12 CLEMENT l 03:50: testosteron Yes DILEEP 200 mg Me moria e - CLEMENT l 03:50: Coumadin Yes DILEEP 1 tab(s) Mem oria -07 CLEMENT l 03:50: Ventolin Yes DILEEP 2 puff(s) Me moria HFA -07 CLEMENT l 03:50: Albuterol 0 Yes DILEEP 2 puffs Mem oria -07 CLEMENT l 03:50: DOXYCYCLINE Yes DILEEP 1 tab(s) Memoria (GEN) -07 CLEMENT l 03:50: testosteron 0 Yes DILEEP 200 mg Me moria e -07 CLEMENT l 03:50: [place] 26 Coumadin 2020- Yes DILEEP 1 tab(s) Mem oria -07 CLEMENT l 03:50: Dick meloxicam 2020- Yes DILEEP TAKE ONE Me moria -07 CLEMENT (1) l 03:50: TABLET(S) [place] 26 BY MOUTH ONCE A DAY. Metoprolol Yes DILEEP 1/2 tab(s) Memoria Tartrate - CLEMENT l 03:50: [place] 26 anastrozole 2020- Yes DILEEP 1 tab(s) Memoria - CLEMENT l 03:50: [place] Ventolin Yes DILEEP 2 puff(s) Me moria HFA - CLEMENT l 03:50: [place] 26 Lamisil 2019-10 Yes CHANTELL 1 tab(s) M emoria 2-16 ARAM l 03:58: [place] 24 Robitussin 2019- Yes CHANTELL 2 Me moria AC 2-16 ARAM teaspoons l 03:58: [place] 24 benzonatate 2019- Yes CHANTELL TAKE ONE Memoria 2-16 ARAM (1) l 03:58: CAPSULE(S) [place] 24 BY MOUTH THREE TIMES A DAY FOR 5 DAYS. Valacyclovi 2019-10 Yes CHANTELL 1 tab(s) Memoria r 2-16 ARAM l Hydrochlori 03:58: David n de 24 Terbinafine 2019- Yes CHANTELL 1 tab(s) Memoria Hydrochlori 2-16 ARAM l de 03:58: [place] 24 prednisone 2019- Yes CHANTELL 1 tab(s) Memoria 2-16 ARAM l 03:58: [place] 24 Eliquis 2020- Yes CHANTELL 1 tab(s) M emoria 2-16 ARAM l 03:58: [place] 24 Lamisil 2020- Yes CHANTELL 1 tab(s) M emoria 2-16 ARAM l 03:58: [place] 24 Robitussin 2020- Yes CHANTELL 2 Me moria AC 2-16 ARAM teaspoons l 03:58: [place] 24 benzonatate 2020- Yes CHANTELL TAKE ONE Memoria 2-16 ARAM (1) l 03:58: CAPSULE(S) [place] 24 BY MOUTH THREE TIMES A DAY FOR 5 DAYS. Valacyclovi 2020- Yes CHANTELL 1 tab(s) Memoria r 2-16 ARAM l Hydrochlori 03:58: David n de 24 Terbinafine 2020- Yes CHANTELL 1 tab(s) Memoria Hydrochlori 2-16 ARAM l de 03:58: [place] 24 prednisone 2020- Yes CHANTELL 1 tab(s) Memoria 2-16 ARAM l 03:58: [place] 24 Eliquis 2020- Yes CHANTELL 1 tab(s) M emoria 2-16 ARAM l 03:58: [place] 24 Lamisil 2020- Yes CHANTELL 1 tab(s) M emoria 2-16 ARAM l 03:58: [place] 24 Robitussin 2020- Yes CHANTELL 2 Me moria AC 2-16 ARAM teaspoons l 03:58: [place] 24 benzonatate 2020- Yes CHANTELL TAKE ONE Memoria 2-16 ARAM (1) l 03:58: CAPSULE(S) [place] 24 BY MOUTH THREE TIMES A DAY FOR 5 DAYS. Valacyclovi 2020- Yes CHANTELL 1 tab(s) Memoria r 2-16 ARAM l Hydrochlori 03:58: [place] n de 24 Terbinafine 2020- Yes CHANTELL 1 tab(s) Memoria Hydrochlori 2-16 ARAM l de 03:58: [place] 24 prednisone 2020-1 Yes CHANTELL 1 tab(s) Memoria 2-16 ARAM l 03:58: [place] 24 Eliquis 2020-1 Yes CHANTELL 1 tab(s) M emoria 2-16 ARAM l 03:58: [place] 24 Lamisil 2020- Yes CHANTELL 1 tab(s) M emoria 2-16 ARAM l 03:58: [place] 24 Robitussin 2020-1 Yes CHANTELL 2 Me moria AC 2-16 ARAM teaspoons l 03:58: [place] 24 benzonatate 2020- Yes CHANTELL TAKE ONE Memoria 2-16 ARAM (1) l 03:58: CAPSULE(S) [place] 24 BY MOUTH THREE TIMES A DAY FOR 5 DAYS. Valacyclovi 2020-1 Yes CHANTELL 1 tab(s) Memoria r 2-16 ARAM l Hydrochlori 03:58: [place] n de 24 Terbinafine 2020- Yes CHANTELL 1 tab(s) Memoria Hydrochlori 2-16 ARAM l de 03:58: [place] 24 prednisone 2019- Yes CHANTELL 1 tab(s) Memoria 2-16 ARAM l 03:58: [place] 24 Eliquis 2020 Yes CHANTELL 1 tab(s) M emoria 2-16 ARAM l 03:58: [place] 24 Lamisil 2020- Yes CHANTELL 1 tab(s) M emoria 2-16 ARAM l 03:58: [place] 24 Robitussin 2020- Yes CHANTELL 2 Me moria AC 2-16 ARAM teaspoons l 03:58: [place] 24 benzonatate 2019-10 Yes CHANTELL TAKE ONE Memoria 2-16 ARAM (1) l 03:58: CAPSULE(S) [place] 24 BY MOUTH THREE TIMES A DAY FOR 5 DAYS. Valacyclovi 2020 Yes CHANTELL 1 tab(s) Memoria r 2-16 ARAM l Hydrochlori 03:58: [place] n de 24 Terbinafine 2020 Yes CHANTELL 1 tab(s) Memoria Hydrochlori 2-16 ARAM l de 03:58: [place] 24 prednisone 2019- Yes CHANTELL 1 tab(s) Memoria 2-16 ARAM l 03:58: [place] 24 Eliquis 2019-10 Yes CHANTELL 1 tab(s) M emoria 2-16 ARAM l 03:58: [place] 24 Lamisil 2020- Yes CHANTELL 1 tab(s) M emoria 2-16 ARAM l 03:58: [place] 24 Robitussin 2020- Yes CHANTELL 2 Me moria AC 2-16 ARAM teaspoons l 03:58: [place] 24 benzonatate 2020- Yes CHANTELL TAKE ONE Memoria 2-16 ARAM (1) l 03:58: CAPSULE(S) [place] 24 BY MOUTH THREE TIMES A DAY FOR 5 DAYS. Valacyclovi 2020 Yes CHANTELL 1 tab(s) Memoria r 2-16 ARAM l Hydrochlori 03:58: [place] n de 24 Terbinafine 2020-1 Yes CHANTELL 1 tab(s) Memoria Hydrochlori 2-16 ARAM l de 03:58: [place] 24 prednisone 2020- Yes CHANTELL 1 tab(s) Memoria 2-16 ARAM l 03:58: [place] 24 Eliquis 2020- Yes CHANTELL 1 tab(s) M emoria 2-16 ARAM l 03:58: [place] 24 Lamisil 2020- Yes CHANTELL 1 tab(s) M emoria 2-16 ARAM l 03:58: [place] 24 Robitussin 2020- Yes CHANTELL 2 Me moria AC 2-16 ARAM teaspoons l 03:58: [place] 24 benzonatate 2020- Yes CHANTELL TAKE ONE Memoria 2-16 ARAM (1) l 03:58: CAPSULE(S) [place] 24 BY MOUTH THREE TIMES A DAY FOR 5 DAYS. Valacyclovi 2019-10 Yes CHANTELL 1 tab(s) Memoria r 2-16 ARAM l Hydrochlori 03:58: [place] n de 24 Terbinafine 2020- Yes CHANTELL 1 tab(s) Memoria Hydrochlori 2-16 ARAM l de 03:58: [place] 24 prednisone 2019- Yes CHANTELL 1 tab(s) Memoria 2-16 ARAM l 03:58: [place] 24 Eliquis 2020- Yes CHANTELL 1 tab(s) M emoria 2-16 ARAM l 03:58: [place] 24 Lamisil 2020- Yes CHANTELL 1 tab(s) M emoria 2-16 ARAM l 03:58: [place] 24 Robitussin 2020- Yes CHANTELL 2 Me moria AC 2-16 ARAM teaspoons l 03:58: [place] 24 benzonatate 2020- Yes CHANTELL TAKE ONE Memoria 2-16 ARAM (1) l 03:58: CAPSULE(S) [place] 24 BY MOUTH THREE TIMES A DAY FOR 5 DAYS. Valacyclovi 2020- Yes CHANTELL 1 tab(s) Memoria r 2-16 ARAM l Hydrochlori 03:58: [place] n de 24 Terbinafine 2020- Yes CHANTELL 1 tab(s) Memoria Hydrochlori 2-16 ARAM l de 03:58: [place] 24 prednisone 2019-10 Yes CHANTELL 1 tab(s) Memoria -16 ARAM l 03:58: [place] 24 Eliquis 2019-10 Yes CHANTELL 1 tab(s) M emoria -16 ARAM l 03:58: [place] 24 Lamisil 2019-10 Yes CHANTELL 1 tab(s) M emoria 2-16 ARAM l 03:58: [place] 24 Robitussin 2019-10 Yes CHANTELL 2 Me moria AC -16 ARAM teaspoons l 03:58: [place] 24 benzonatate 2019-10 Yes CHANTELL TAKE ONE Memoria -16 ARAM (1) l 03:58: CAPSULE(S) [place] 24 BY MOUTH THREE TIMES A DAY FOR 5 DAYS. Valacyclovi 2019-10 Yes CHANTELL 1 tab(s) Memoria r 16 ARAM l Hydrochlori 03:58: David n Terbinafine 2019-10 Yes CHANTELL 1 tab(s) Memoria Hydrochlori 11-21 ARAM l de 03:58: [place] 24 prednisone 2019-10 Yes CHANTELL 1 tab(s) Memoria 16 ARAM l 03:58: [place] 24 Eliquis 2019-10 Yes CHANTELL 1 tab(s) M emoria -16 ARAM l 03:58: [place] 24 doxycycline 2019-10- No 20mg Take 1 [facility] (PERIOSTAT) 18 09-20 Tablet by Co llege 20 MG 00:00: 00:00 mouth two of tablet 00 :00 times Medicin daily. e esomeprazol 2019-10 Yes TAKE ONE Ba ylor e (NEXIUM) 1-17 (1) College 40 MG 00:00: CAPSULE(S) of capsule 00 BY MOUTH Medicin ONCE A e DAY. doxycycline 2019-10- No [id number] TAKE ONE [facility] (PERIOSTAT) 0-30 1216 (1) College 20 MG 00:00: 00:00 TABLET(S) of tablet 00 :00 BY MOUTH Medicin TWICE A e DAY. Afluria Afluria No Afluria Vill age [facility] Quad 9-30 Quad Family 00:00: Practic 60 mcg (15 60 mcg (15 00 60 mcg (15 e mcg x mcg x mcg x 4)/0.5 mL 4)/0.5 mL 4)/0.5 mL intramuscul intramuscul intramuscu ar susp. ar susp. lar susp. Ventolin Yes DILEEP 2 puff(s) Me moria HFA 5-06 CLEMENT l 02:47: Ventolin Yes DILEEP 2 puff(s) Me moria HFA 5-06 CLEMENT l 02:47: Ventolin 0 Yes DILEEP 2 puff(s) Me moria HFA 5-06 CLEMENT l 02:47: Ventolin Yes DILEEP 2 puff(s) Me moria HFA 5-06 CLEMENT l 02:47: Ventolin Yes DILEEP 2 puff(s) Me moria HFA 5-06 CLEMENT l 02:47: Ventolin Yes DILEEP 2 puff(s) Me moria HFA 5-06 CLEMENT l 02:47: Ventolin Yes DILEEP 2 puff(s) Me moria HFA 5-06 CLEMENT l 02:47: Ventolin Yes DILEEP 2 puff(s) Me moria HFA 5-06 CLEMENT l 02:47: Ventolin Yes DILEEP 2 puff(s) Me moria HFA 5-06 CLEMENT l 02:47: warfarin Yes Jantoven [facility] (JANTOVEN) 02-08 7.5 mg Friedens 7.5 MG 00:00: tablet of tablet 00 TAKE ONE Medicin (1) e TABLET(S) BY MOUTH DAILY. Albuterol 2020- No 2 puff(s) [facility] Sulfate 02-08 1216 [facility] (VENTOLIN 00:00: 00:00 of HFA) 108 00 :00 Medicin (90 Base) e MCG/ACT AERS Coenzyme 2019-0 Yes DILEEP 1 tab(s) Mem oria Q10 4-30 CLEMENT l 00:00: Dick 00 Coenzyme 2020-0 Yes 1 tab(s) Bay[facility] r Q-10 200 MG 4-30 College CAPS 00:00: of 00 Medicin e Coenzyme 2020-0 Yes DILEEP 1 tab(s) Mem oria Q10 4-30 CLEMENT l 00:00: Coenzyme 2020-0 Yes DILEEP 1 tab(s) Mem oria Q10 4-30 CLEMENT l 00:00: Coenzyme 2020-0 Yes DILEEP 1 tab(s) [facility] Q10 4-30 CLE[facility] l 00:00: Coenzyme 2020-0 Yes DILEEP 1 tab(s) [facility] Q10 4-30 CLEMENT l 00:00: Coenzyme 2020-0 Yes DILEEP 1 tab(s) [facility] Q10 4-30 CLEMENT l 00:00: Coenzyme 2020-0 Yes DILEEP 1 tab(s) [facility] Q10 4-30 CLEMENT l 00:00: Coenzyme 2020-0 Yes DILEEP 1 tab(s) [facility] Q10 4-30 CLEMENT l 00:00: Coenzyme 2020-0 Yes DILEEP 1 tab(s) [facility] Q10 4-30 CLEMENT l 00:00: Testosteron 2020-0 2021- No Apply 2 Ba ylor e - 12-16 pumps to College ([facility]) 00:00: 00:00 each thigh of 10 MG/ACT 00 :00 daily Medicin (2%) GEL e Flonase 2018-10 Yes CHANTELL 27.5 mcg M emoria Sensimist 1-25 ARAM l 00:00: benzonatate 2018-10 Yes KAIA 1 cap(s) M emoria 1-25 JUDY l 00:00: Flonase 2018-10 Yes CHANTELL 27.5 mcg M emoria Sensimist 1-25 ARAM l 00:00: benzonatate 2018-10 Yes KAIA 1 cap(s) M emoria 1-25 JUDY l 00:00: Flonase 2018-10 Yes CHANTELL 27.5 mcg M emoria Sensimist 1-25 ARAM l 00:00: benzonatate 2018-10 Yes KAIA 1 cap(s) M emoria 1-25 JUDY l 00:00: Flonase 2018-10 Yes CHANTELL 27.5 mcg M emoria Sensimist 1-25 ARAM l 00:00: benzonatate 2018-10 Yes KAIA 1 cap(s) M emoria 1-25 JUDY l 00:00: Flonase 2018-10 Yes CHANTELL 27.5 mcg M emoria Sensimist 1-25 ARAM l 00:00: benzonatate 2018-10 Yes KAIA 1 cap(s) M emoria 1-25 JUDY l 00:00: Flonase 2018-10 Yes CHANTELL 27.5 mcg M emoria Sensimist 1-25 ARAM l 00:00: benzonatate 2018-10 Yes KAIA 1 cap(s) M emoria 1-25 JUDY l 00:00: Flonase 2018-10 Yes CHANTELL 27.5 mcg M emoria Sensimist 1-25 ARAM l 00:00: benzonatate 2018-10 Yes KAIA 1 cap(s) M emoria 1-25 JUDY l 00:00: Flonase 2018-10 Yes CHANTELL 27.5 mcg M emoria Sensimist 1-25 ARAM l 00:00: benzonatate 2018-10 Yes KAIA 1 cap(s) M emoria -25 JUDY l 00:00: Flonase 2018-10 Yes CHANTELL 27.5 mcg M emoria Sensimist 1-25 ARAM l 00:00: benzonatate 2018-10 Yes KAIA 1 cap(s) M emoria 1-25 JUDY l 00:00: testosteron 2018-10 Yes [id number] Inject [facility] e cypionate 1-06 0.2ml [employer] ([facility] 00:00: subcutaneo of ERONE 00 usly twice Medicin CYPIONATE) per week e 200 MG/ML injection testosteron 2018-10 Yes [id number] Inject [facility] e cypionate 1-06 0.2ml [facility] ([facility] 00:00: subcutaneo of ERONE 00 usly twice Medicin CYPIONATE) per week e 200 MG/ML injection Cipro 2018-10 Yes DILEEP 1 tab(s) Memori a 0-23 CLEMENT l 00:00: Cipro 2019- Yes CHANTELL 1 tab(s) Mem [facility]ria 0-23 ARAM l 00:00: Cipro 2019- Yes DILEEP 1 tab(s) Memori a 0-23 CLEMENT l 00:00: Cipro 2019- Yes CHANTELL 1 tab(s) Mem oria 0-23 ARAM l 00:00: Cipro 2019- Yes DILEEP 1 tab(s) Memori a 0-23 CLEMENT l 00:00: Cipro 2019- Yes CHANTELL 1 tab(s) Mem oria 0-23 ARAM l 00:00: Cipro 2019- Yes DILEEP 1 tab(s) Memori a 0-23 CLEMENT l 00:00: Cipro 2019-1 Yes CHANTELL 1 tab(s) Mem oria 0-23 ARAM l 00:00: Cipro 2019- Yes DILEEP 1 tab(s) Memori a 0-23 CLEMENT l 00:00: Cipro 2019- Yes CHANTELL 1 tab(s) Mem oria 0-23 ARAM l 00:00: Cipro 2019- Yes DILEEP 1 tab(s) Memori a 0-23 CLEMENT l 00:00: Cipro 2019- Yes CHANTELL 1 tab(s) Mem [facility]ria 0-23 ARAM l 00:00: Cipro 2019- Yes DILEEP 1 tab(s) Memori a 0-23 CLEMENT l 00:00: Cipro 2019- Yes CHANTELL 1 tab(s) Mem [facility]ria 0-23 ARAM l 00:00: Cipro 2019- Yes DILEEP 1 tab(s) Memori a 0-23 CLEMENT l 00:00: Cipro 2019-1 Yes CHANTELL 1 tab(s) Mem [facility]ria 0-23 ARAM l 00:00: Cipro 2019-1 Yes DILEEP 1 tab(s) Memori a 0-23 CLEMENT l 00:00: Cipro 2019-1 Yes CHANTELL 1 tab(s) Mem [facility]ria 0-23 ARAM l 00:00: doxycycline 2019- Yes [id number] TAKE ONE [facility] (PERIOSTAT) 0-16 (1) College 20 MG 00:00: TABLET(S) of tablet 00 BY MOUTH Medicin TWICE A e DAY. bifidobacte 2018-10 Yes CHANTELL 1 tab(s) Memoria rium-lactob 0-15 ARAM l acillus 00:00: Xifaxan 2018-10 Yes KAIA 1 tab(s) Memor ia 0-15 JUDY l 00:00: bifidobacte 2018-10 Yes CHANTELL 1 tab(s) Memoria rium-lactob 0-15 ARAM l acillus 00:00: Xifaxan 2018-10 Yes KAIA 1 tab(s) Memor ia 0-15 JUDY l 00:00: bifidobacte 2019 Yes CHANTELL 1 tab(s) Memoria rium-lactob 0-15 ARAM l acillus 00:00: Xifaxan 2018-10 Yes KAIA 1 tab(s) Memor ia 0-15 JUDY l 00:00: bifidobacte 2019 Yes CHANTELL 1 tab(s) Memoria rium-lactob 0-15 ARAM l acillus 00:00: Xifaxan 2018-10 Yes KAIA 1 tab(s) Memor ia 0-15 JUDY l 00:00: bifidobacte 2019 Yes CHANTELL 1 tab(s) Memoria rium-lactob 0-15 ARAM l acillus 00:00: Xifaxan 2018-10 Yes KAIA 1 tab(s) Memor ia 0-15 JUDY l 00:00: bifidobacte 2019 Yes CHANTELL 1 tab(s) Memoria rium-lactob 0-15 ARAM l acillus 00:00: Xifaxan 2019 Yes KAIA 1 tab(s) Memor ia 0-15 JUDY l 00:00: bifidobacte 2019 Yes CHANTELL 1 tab(s) Memoria rium-lactob 0-15 ARAM l acillus 00:00: Xifaxan 2018-10 Yes KAIA 1 tab(s) Memor ia 0-15 JUDY l 00:00: bifidobacte 2018-10 Yes CHANTELL 1 tab(s) Memoria rium-lactob 0-15 ARAM l acillus 00:00: Xifaxan 2018-10 Yes KAIA 1 tab(s) Memor ia 0-15 JUDY l 00:00: bifidobacte 2018-10 Yes CHANTELL 1 tab(s) Memoria rium-lactob 0-15 ARAM l acillus 00:00: Xifaxan 2018-10 Yes KAIA 1 tab(s) Memor ia 0-15 JUDY l 00:00: anastrozole Yes TAKE ONE [facility]lor (ARIMIDEX) 9-09 (1) College 1 MG tablet 00:00: TABLET(S) o f 00 BY MOUTH Medicin TWO TIMES e A WEEK. meloxicam Yes TAKE ONE [facility] (MOBIC) 15 5-08 (1) College MG tablet 00:00: TABLET(S) of 00 BY MOUTH Medicin DAILY. e meloxicam 2020- No TAKE ONE [facility] (MOBIC) 15 5-08 12-16 (1) College MG tablet 00:00: 00:00 TABLET(S) of 00 :00 BY MOUTH Medicin DAILY. e testosteron 2019- No [id number] Inject [facility] e cypionate 02-10 11-06 0.2ml Colleg e (DEPOTESTOT 00:00: 00:00 subcutaneo of ERONE 00 :00 usly twice Medicin CYPIONATE) per week e 200 MG/ML injection Testosteron Testosteron Yes LAMBERTO Receives [place] e Powder e Powder 2-05 DIANA-EFTE 20 mg Physici 00:00: TAVO Govea compounded a ns 00 testostero ne twice a week Valacyclovi Yes DILEEP 1 tab(s) Memoria r 1-16 CLEMENT l Hydrochlori 03:49: David n de Valacyclovi Yes DILEEP 1 tab(s) Memoria r 1-16 CLEMENT l Hydrochlori 03:49: David n de 00 Valacyclovi 2019-0 Yes DILEEP 1 tab(s) Memoria r 1-16 CLEMENT l Hydrochlori 03:49: David n de Valacyclovi 2019-0 Yes DILEEP 1 tab(s) Memoria r 1-16 CLE[facility] l Hydrochlori 03:49: David n de Valacyclovi 2019-0 Yes DILEEP 1 tab(s) Memoria r 1-16 CLEMENT l Hydrochlori 03:49: David n de Valacyclovi 2019-0 Yes DILEEP 1 tab(s) Memoria r 1-16 CLE[facility] l Hydrochlori 03:49: David n de Valacyclovi 2019-0 Yes DILEEP 1 tab(s) Memoria r 1-16 CLEMENT l Hydrochlori 03:49: David n Valacyclovi 2019-0 Yes DILEEP 1 tab(s) Memoria r 1-16 CLEMENT l Hydrochlori 03:49: David n Valacyclovi 2019-0 Yes DILEEP 1 tab(s) Memoria r 1-16 CLEMENT l Hydrochlori 03:49: David n Acetaminoph 2019-0 Yes DILEEP 1 tab(s) Memoria en-Hydrocod 1-03 CLEMENT l one 00:00: [place] Bitartrate 00 Acetaminoph 2019-0 Yes CHANTELL 1 tab(s) Memoria en-Hydrocod 1-03 ARAM l one 00:00: Dick Bitartrate 00 Acetaminoph 2019-0 Yes DILEEP 1 tab(s) Memoria en-Hydrocod 1-03 CLEMENT l one 00:00: [place] Bitartrate 00 Acetaminoph 2019-0 Yes CHANTELL 1 tab(s) Memoria en-Hydrocod 1-03 ARAM l one 00:00: [place] Bitartrate 00 Acetaminoph 2019-0 Yes DILEEP 1 tab(s) Memoria en-Hydrocod 1-03 CLEMENT l one 00:00: Dick Bitartrate 00 Acetaminoph 2019-0 Yes CHANTELL 1 tab(s) Memoria en-Hydrocod 1-03 ARAM l one 00:00: Dick Bitartrate 00 Acetaminoph 2019-0 Yes DILEEP 1 tab(s) Memoria en-Hydrocod 1-03 CLEMENT l one 00:00: Dick Bitartrate 00 Acetaminoph 2019-0 Yes CHANTELL 1 tab(s) Memoria en-Hydrocod 1-03 ARAM l one 00:00: [place] Bitartrate 00 Acetaminoph 2019-0 Yes DILEEP 1 tab(s) Memoria en-Hydrocod 1-03 CLEMENT l one 00:00: Dick Bitartrate 00 Acetaminoph 2019-0 Yes CHANTELL 1 tab(s) Memoria en-Hydrocod 1-03 ARAM l one 00:00: Dick Bitartrate 00 Acetaminoph 2019-0 Yes DILEEP 1 tab(s) Memoria en-Hydrocod 1-03 CLEMENT l one 00:00: Dick Bitartrate 00 Acetaminoph 2019-0 Yes CHANTELL 1 tab(s) Memoria en-Hydrocod 1-03 ARAM l one 00:00: [place] Bitartrate 00 Acetaminoph 2019-0 Yes DILEEP 1 tab(s) Memoria en-Hydrocod 1-03 CLEMENT l one 00:00: [place] Bitartrate 00 Acetaminoph 2019-0 Yes CHANTELL 1 tab(s) Memoria en-Hydrocod 1-03 ARAM l one 00:00: Dick Bitartrate 00 Acetaminoph 2019-0 Yes DILEEP 1 tab(s) Memoria en-Hydrocod 1-03 CLEMENT l one 00:00: Dick Bitartrate 00 Acetaminoph 2019-0 Yes CHANTELL 1 tab(s) Memoria en-Hydrocod 1-03 ARAM l one 00:00: [place] Bitartrate 00 Acetaminoph 2019-0 Yes DILEEP 1 tab(s) Memoria en-Hydrocod 1-03 CLEMENT l one 00:00: [place] Bitartrate 00 Acetaminoph 2019-0 Yes CHANTELL 1 tab(s) Memoria en-Hydrocod 1-03 ARAM l one 00:00: Dick Bitartrate 00 cyanocobala 2018- Yes [id number] INJECT ONE [facility] min 1000 0-16 (1) ML(S) Colleg e MCG/ML 00:00: INTO THE of injection 00 MUSCLE Medicin EVERY 30 e DAYS. doxycycline 2018-0 Yes [id number] TAKE ONE [facility] (PERIOSTAT) 9-18 (1) [facility] 20 MG 00:00: TABLET(S) of tablet 00 BY MOUTH Medicin TWICE A e DAY. doxycycline 2020- No [id number] TAKE ONE [facility] (PERIOSTAT) 06-23 (1) [facility] 20 MG 00:00: 00:00 TABLET(S) of tablet 00 :00 BY MOUTH Medicin TWICE A e DAY. Lamisil Yes DILEEP 1 tab(s) [place] 9-13 CLEMENT l 00:00: Lamisil Yes DILEEP 1 tab(s) [place] 9-13 CLEMENT l 00:00: Lamisil 0 Yes DILEEP 1 tab(s) [place] 9-13 CLEMENT l 00:00: Lamisil Yes DILEEP 1 tab(s) [place] 9-13 CLEMENT l 00:00: Lamisil Yes DILEEP 1 tab(s) [place] 9-13 CLEMENT l 00:00: Lamisil Yes DILEEP 1 tab(s) [place] 9-13 CLEMENT l 00:00: Lamisil 0 Yes DILEEP 1 tab(s) [place] 9-13 CLEMENT l 00:00: Lamisil 0 Yes DILEEP 1 tab(s) [place] 9-13 CLEMENT l 00:00: Lamisil 0 Yes DILEEP 1 tab(s) [place] 9-13 CLEMENT l 00:00: 00 Testosteron Yes [id number] APPLY FOUR [facility] e 10 MG/ACT 7-19 (4) PUMPS Col lege (2%) GEL 00:00: TO EACH of 00 INNER Medicin THIGH e DAILY. Testosteron 2020- No [id number] APPLY FOUR [facility] e 10 MG/ACT 7-19 -16 (4) PUMPS [facility] (2%) GEL 00:00: 00:00 TO EACH of 00 :00 INNER Medicin THIGH e DAILY. Fortesta Yes DILEEP 4 pump(s) Me moria 7-03 CLEMENT l 02:50: Fortesta 2018-0 Yes DILEEP 4 pump(s) Me mor[place] 7-03 CLEMENT l 02:50: Fortesta 2018-0 Yes DILEEP 4 pump(s) Me [facility] 7-03 CLEMENT l 02:50: Fortesta 2018-0 Yes DILEEP 4 pump(s) Me mor[place] 7-03 CLEMENT l 02:50: Fortesta 2018-0 Yes DILEEP 4 pump(s) Me [facility] 7-03 CLEMENT l 02:50: Fortesta [id number] Yes DILEEP 4 pump(s) Me [facility] 7-03 CLEMENT l 02:50: Fortesta 2018-0 Yes DILEEP 4 pump(s) Me moria 7-03 CLEMENT l 02:50: Fortesta 0 Yes DILEEP 4 pump(s) Me mor[place] 7-03 CLEMENT l 02:50: Fortesta Yes DILEEP 4 pump(s) Me [facility] 7-03 CLEMENT l 02:50: Terbinafine [id number] Yes DILEEP 1 tab(s) Memoria Hydrochlori 6-27 CLEMENT l de 00:00: Terbinafine 2018-0 Yes DILEEP 1 tab(s) [facility] Hydrochlori 6-27 CLEMENT l de 00:00: Terbinafine 2018-0 Yes DILEEP 1 tab(s) [facility] Hydrochlori 6-27 CLEMENT l de 00:00: Terbinafine 2018-0 Yes DILEEP 1 tab(s) [facility] Hydrochlori 6-27 CLEMENT l de 00:00: Terbinafine 2018-0 Yes DILEEP 1 tab(s) [facility] Hydrochlori 6-27 CLEMENT l de 00:00: Terbinafine 2018-0 Yes DILEEP 1 tab(s) Memoria Hydrochlori 6-27 CLEMENT l de 00:00: Terbinafine 2018-0 Yes DILEEP 1 tab(s) Memoria Hydrochlori 6-27 CLEMENT l de 00:00: Terbinafine 2018-0 Yes DILEEP 1 tab(s) [facility] Hydrochlori 6-27 CLEMENT l de 00:00: Terbinafine 2018-0 Yes DILEEP 1 tab(s) [facility] Hydrochlori 6-27 CLEMENT l de 00:00: prednisone 2018-0 Yes DILEEP 1 tab(s) M emoria 5-14 CLEMENT l 00:00: Lamisil 2018-0 Yes DILEEP 1 tab(s) [place] 5-14 CLEMENT l 00:00: prednisone 2018-0 Yes DILEEP 1 tab(s) M emoria 5-14 CLEMENT l 00:00: Lamisil 2018-0 Yes DILEEP 1 tab(s) [place] 5-14 CLEMENT l 00:00: prednisone 2018-0 Yes DILEEP 1 tab(s) M emoria 5-14 CLEMENT l 00:00: Lamisil 2018-0 Yes DILEEP 1 tab(s) [place] 5-14 CLEMENT l 00:00: prednisone 2018-0 Yes DILEEP 1 tab(s) M emoria 5-14 CLEMENT l 00:00: Lamisil 2018-0 Yes DILEEP 1 tab(s) [place] 5-14 CLEMENT l 00:00: prednisone 2018-0 Yes DILEEP 1 tab(s) M emoria 5-14 CLEMENT l 00:00: Lamisil 2018-0 Yes DILEEP 1 tab(s) [place] 5-14 CLEMENT l 00:00: prednisone 2018-0 Yes DILEEP 1 tab(s) M emoria 5-14 CLEMENT l 00:00: Lamisil 2018-0 Yes DILEEP 1 tab(s) [place] 5-14 CLEMENT l 00:00: prednisone 2018-0 Yes DILEEP 1 tab(s) M emoria 5-14 CLEMENT l 00:00: Lamisil 2018-0 Yes DILEEP 1 tab(s) [place] 5-14 CLEMENT l 00:00: prednisone 2018-0 Yes DILEEP 1 tab(s) M emoria 5-14 CLEMENT l 00:00: Lamisil 2018-0 Yes DILEEP 1 tab(s) [place] 5-14 CLEMENT l 00:00: prednisone 2018-0 Yes DILEEP 1 tab(s) M emoria 5-14 CLEMENT l 00:00: Lamisil 2018-0 Yes DILEEP 1 tab(s) [place] 5-14 CLEMENT l 00:00: ProAir HFA 2018-0 Yes DILEEP 2 puff(s) Memoria 2-23 CLEMENT l 00:00: Levaquin 2018-0 Yes SHARON 1 tab(s) [place] 2-23 ALBERST[place]T l 00:00: ProAir HFA 2018-0 Yes DILEEP 2 puff(s) Memoria 2-23 CLEMENT l 00:00: Levaquin 2018-0 Yes SHARON 1 tab(s) [place] 2-23 ALBERSTADT l 00:00: ProAir HFA 2018-0 Yes DILEEP 2 puff(s) Memoria 2-23 CLEMENT l 00:00: Levaquin 2018-0 Yes SHARON 1 tab(s) [place] 2-23 ALBERSTADT l 00:00: ProAir HFA 2018-0 Yes DILEEP 2 puff(s) Memoria 2-23 CLEMENT l 00:00: Levaquin 2018-0 Yes SHARON 1 tab(s) [place] 2-23 ALBERSTADT l 00:00: ProAir HFA 2018-0 Yes DILEEP 2 puff(s) Memoria 2-23 CLEMENT l 00:00: Levaquin 2018-0 Yes SHARON 1 tab(s) [place] 2-23 ALBERSTADT l 00:00: ProAir HFA 2018-0 Yes DILEEP 2 puff(s) Memoria 2-23 CLEMENT l 00:00: Levaquin 2018-0 Yes SHARON 1 tab(s) [place] 2-23 ALBERSTADT l 00:00: ProAir HFA 2018-0 Yes DILEEP 2 puff(s) Memoria 2-23 CLEMENT l 00:00: Levaquin 2018-0 Yes SHARON 1 tab(s) [place] 2-23 ALBERSTADT l 00:00: ProAir HFA 2018-0 Yes DILEEP 2 puff(s) Memoria 2-23 CLEMENT l 00:00: Dick 00 Levaquin 2018-0 Yes SHARON 1 tab(s) [place] 2-23 ALBERSTADT l 00:00: ProAir HFA 2017-0 Yes DILEEP 2 puff(s) Memoria 2-23 CLEMENT l 00:00: [place] 00 Levaquin 2018-0 Yes SHARON 1 tab(s) [place] 2-23 ALBERSTADT l 00:00: [place] 00 PROVENTIL Yes INHALE [facility] HFA 108 (90 2-21 FOUR (4) [place] BASE) 00:00: PUFF(S) BY of MCG/ACT 00 MOUTH Medicin inhaler TWICE A e DAY. PROVENTIL Yes INHALE [facility] HFA 108 (90 2-21 FOUR (4) [place] B[place]) 00:00: PUFF(S) BY of MCG/ACT 00 MOUTH Medicin inhaler TWICE A e DAY. ASPIRIN 2016-10 Yes 81mg 81 mg as [facility] 0-11 needed. 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 [facility] 12-16 Reported College 14:20: on of 46 12/16/2016 Medicin e doxycycline Yes 20mg Q.5D Take 20 mg [facility] (PERIOSTAT) - by mouth [facility] 20 MG 00:00: (two) [facility] tablet 00 times a l day. 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 Medicin e doxycycline 2020- No [id number] 20mg Take 1 Tab [facility] (PERIOSTAT) -13 12-16 by mouth [facility] lege 20 MG 00:00: 00:00 two times of tablet 00 :00 daily. Medicin e Valacyclovi 2015-10 Yes SARAI 1 tab(s) Memoria r 2-09 MAREN l Hydrochlori 00:00: David n Valacyclovi 2015-10 Yes SARAI 1 tab(s) Memoria r 2-09 MAREN l Hydrochlori 00:00: [place] n Valacyclovi 2015-10 Yes SARAI 1 tab(s) Memoria r 2-09 MAREN l Hydrochlori 00:00: [place] n Valacyclovi 2015-10 Yes SARAI 1 tab(s) Memoria r 2-09 MAREN l Hydrochlori 00:00: [place] n Valacyclovi 2015-10 Yes SARAI 1 tab(s) Memoria r 2-09 MAREN l Hydrochlori 00:00: [place] n Valacyclovi 2015-10 Yes SARAI 1 tab(s) Memoria r 2-09 MAREN l Hydrochlori 00:00: [place] n Valacyclovi 2015-10 Yes SARAI 1 tab(s) Memoria r 2-09 MAREN l Hydrochlori 00:00: David Valacyclovi 2015-10 Yes SARAI 1 tab(s) Memoria r 2-09 MAREN l Hydrochlori 00:00: David Valacyclovi 2015-10 Yes SARAI 1 tab(s) Memoria r 2-09 MAREN l Hydrochlori 00:00: [place] Tamsulosin Yes .4mg Take 0.4 [facility] HCl 3-02 mg by [facility] (FLOMAX) 00:00: mouth of 0.4 MG CAPS 00 daily. Medici n e Tamsulosin 2020- No .4mg Take 0.4 [facility] HCl 3-02 12-16 mg by [facility] (FLOMAX) 00:00: 00:00 mouth of 0.4 MG CAPS 00 :00 daily. Medici n e aspirin 81 Yes 81mg QD Take [address] [facility] 5-22 by mouth [facility] tablet 15:09: daily. [address] aspirin 81 Yes 81mg QD Take [address] [facility] EC 5-22 by mouth [facility] tablet 15:09: daily. [address] albuterol albuterol No albuterol [place] sulfate HFA sulfate HFA sulfate Family 90 90 HFA 90 Practic mcg/actuati mcg/actuati mcg/actuat e on aerosol on aerosol ion inhaler inhaler aerosol INHALE ONE INHALE ONE inhaler (1) PUFF(S) (1) PUFF(S) INHALE ONE BY MOUTH BY MOUTH (1) EVERY 6 EVERY 6 PUFF(S) BY HOURS HOURS MOUTH NEEDED FOR NEEDED FOR EVERY 6 WHEEZING. WHEEZING. HOURS NEEDED FOR WHEEZING. anastrozole anastrozole No anastrozol [facility] 0.5mg once 0.5mg once e 0.5mg Family a week a week once a Practic week e aspirin 81 aspirin 81 No aspirin 81 [place] mg mg mg Family tablet,uma tablet,uma tablet,del Practic yed release yed release ayed e TAKE 1 TAKE 1 release TABLET (81 TABLET (81 TAKE 1 MG TOTAL) MG TOTAL) TABLET (81 BY MOUTH BY MOUTH MG TOTAL) DAILY FOR DAILY FOR BY MOUTH 30 DAYS. 30 DAYS. DAILY FOR 30 DAYS. celecoxib celecoxib No celecoxib [place] 100 mg 100 mg 100 mg Family capsule capsule capsule Practi c TAKE 1 TAKE 1 TAKE 1 e CAPSULE CAPSULE CAPSULE (100 MG (100 MG (100 MG TOTAL) BY TOTAL) BY TOTAL) BY MOUTH 2 MOUTH 2 MOUTH 2 (TWO) TIMES (TWO) TIMES (TWO) A DAY FOR A DAY FOR TIMES A 15 DAYS. 15 DAYS. DAY FOR 15 DAYS. Coumadin 3 Coumadin 3 No 7mg Q1D Coumadin 3 [place] mg tablet mg tablet mg tablet Family Take 7 mg Take 7 mg Take 7 mg Practic every day every day every day e by oral by oral by oral route as route as route as directed. directed. directed. doxycycline doxycycline No doxycyclin [facility] hyclate 20 hyclate 20 e hyclate Family mg tablet mg tablet 20 mg Prac tic TAKE ONE TAKE ONE tablet e (1) (1) TAKE ONE TABLET(S) TABLET(S) (1) BY MOUTH BY MOUTH TABLET(S) TWICE A TWICE A BY MOUTH DAY. DAY. TWICE A DAY. enoxaparin enoxaparin No enoxaparin [facility] 100 mg/mL 100 mg/mL 100 mg/mL [facility] subcutaneou subcutaneou subcutaneo Practic s syringe s syringe us syringe e INJECT INJECT INJECT SUBCUTANEOU SUBCUTANEOU SUBCUTANEO SLY SLY USLY CONTENTS OF CONTENTS OF CONTENTS ONE SYRINGE ONE SYRINGE OF ONE TWO DAYS TWO DAYS SYRINGE BEFORE AND BEFORE AND TWO DAYS TWO DAYS TWO DAYS BEFORE AND AFTER AFTER TWO DAYS SURGERY SURGERY AFTER DIRECTED DIRECTED SURGERY DIRECTED esomeprazol esomeprazol No esomeprazo [place] e magnesium e magnesium le F amily 40 mg 40 mg magnesium Practic capsule,del capsule,del 40 mg e ayed ayed capsule,de release release layed TAKE ONE TAKE ONE release (1) (1) TAKE ONE CAPSULE(S) CAPSULE(S) (1) BY MOUTH BY MOUTH CAPSULE(S) ONCE A DAY. ONCE A DAY. BY MOUTH ONCE A DAY. Jantoven Jantoven No Jantoven Ulysses wily 7.5 mg 7.5 mg 7.5 mg Family tablet TAKE tablet TAKE tablet Practic ONE (1) ONE (1) TAKE ONE e TABLET(S) TABLET(S) (1) BY MOUTH BY MOUTH TABLET(S) DAILY. DAILY. BY MOUTH DAILY. meloxicam meloxicam No meloxicam [facility] 15 mg 15 mg 15 mg Family tablet TAKE tablet TAKE tablet Practic ONE (1) ONE (1) TAKE ONE e TABLET(S) TABLET(S) (1) BY MOUTH BY MOUTH TABLET(S) ONCE A DAY. ONCE A DAY. BY MOUTH ONCE A DAY. methylpredn methylpredn No methylpred [facility] isolone 4 isolone 4 nisolone 4 Family mg tablets mg tablets mg tablets Practic in a dose in a dose in a dose e pack pack pack metoprolol [facility]oprolol [facility] succinate succinate succinate Family ER 25 mg ER 25 mg ER 25 mg Pra ctic tablet,exte tablet,exte tablet,ext e nded nded ended release 24 release 24 release 24 hr as hr as hr as needed needed needed metoprolol [facility]op[facility] tartrate 25 tartrate 25 tartrate Family mg tablet mg tablet 25 mg Prac tic TAKE ONE TAKE ONE tablet e (1) (1) TAKE ONE TABLET(S) TABLET(S) (1) BY MOUTH BY MOUTH TABLET(S) TWICE A TWICE A BY MOUTH DAY. DAY. TWICE A DAY. minocycline minocycline No minocyclin [facility] 100 mg 100 mg e 100 mg Family capsule capsule capsule Practi c TAKE 1 TAKE 1 TAKE 1 e CAPSULE CAPSULE CAPSULE (100 MG (100 MG (100 MG TOTAL) BY TOTAL) BY TOTAL) BY MOUTH 2 MOUTH 2 MOUTH 2 (TWO) TIMES (TWO) TIMES (TWO) A DAY FOR 7 A DAY FOR 7 TIMES A DAYS. DAYS. DAY FOR 7 DAYS. pregabalin pregabalin No pregabalin [facility] 75 mg 75 mg 75 mg Family capsule capsule capsule Practi c TAKE 1 TAKE 1 TAKE 1 e CAPSULE (75 CAPSULE (75 CAPSULE MG TOTAL) MG TOTAL) (75 MG BY MOUTH 2 BY MOUTH 2 TOTAL) BY (TWO) TIMES (TWO) TIMES MOUTH 2 A DAY FOR A DAY FOR (TWO) 15 DAYS. 15 DAYS. TIMES A DAY FOR 15 DAYS. Repatha Repatha No Repatha [place] [facility] SureClick SureClick Family 140 mg/mL 140 mg/mL 140 mg/mL Practic subcutaneou subcutaneou subcutaneo e s pen s pen us pen injector injector injector INJECT THE INJECT THE INJECT THE CONTENTS OF CONTENTS OF CONTENTS ONE (1) ONE (1) OF ONE (1) PREFILLED PREFILLED PREFILLED AUTOINJECTO AUTOINJECTO AUTOINJECT R R OR SUBCUTANEOU SUBCUTANEOU SUBCUTANEO SLY EVERY SLY EVERY USLY EVERY 14 DAYS. 14 DAYS. 14 DAYS. terbinafine terbinafine No terbinafin [facility] HCl 250 mg HCl 250 mg e HCl 250 Family tablet TAKE tablet TAKE mg tablet Practic ONE (1) ONE (1) TAKE ONE e TABLET(S) TABLET(S) (1) BY MOUTH BY MOUTH TABLET(S) ONCE A DAY. ONCE A DAY. BY MOUTH ONCE A DAY. testosteron testosteron No testostero [place] e cypionate e cypionate ne F amily twice a twice a cypionate Prac tic week week twice a e week tramadol 50 tramadol 50 No tramadol [place] mg tablet mg tablet 50 mg Fami ly TAKE ONE TAKE ONE tablet Pract ic (1) TABLET (1) TABLET TAKE ONE e (50 MG (50 MG (1) TABLET TOTAL) BY TOTAL) BY (50 MG MOUTH EVERY MOUTH EVERY TOTAL) BY 8 (EIGHT) 8 (EIGHT) MOUTH HOURS HOURS EVERY 8 NEEDED FOR NEEDED FOR (EIGHT) SEVERE PAIN SEVERE PAIN HOURS FOR UP TO 3 FOR UP TO 3 NEEDED FOR DAYS. DAYS. SEVERE PAIN FOR UP TO 3 DAYS. warfarin 5 warfarin 5 No warfarin 5 [place] mg tablet mg tablet mg tablet Family TAKE ONE TAKE ONE TAKE ONE Pra ctic (1) TABLET (1) TABLET (1) TABLET e BY MOUTH BY MOUTH BY MOUTH DAILY ON DAILY ON DAILY ON FRI, FRI, FRI, FRI, FRI, FRI, FRI SAT, FRI SAT, FRI SAT, AND SUN, 2 AND SUN, 2 AND SUN, 2 BY MOUTH ON BY MOUTH ON BY MOUTH TUE AND TUE AND ON TUE AND THUR BRAND THUR BRAND THUR BRAND NAME ONLY. NAME ONLY. NAME ONLY. acetaminoph acetaminoph No acetaminop [facility] en 300 en 300 hen 300 Family mg-codeine mg-codeine mg-codeine Pract[facility] 30 mg 30 mg 30 mg e tablet TAKE tablet TAKE tablet ONE (1) ONE (1) TAKE ONE TABLET(S) TABLET(S) (1) BY MOUTH BY MOUTH TABLET(S) EVERY FOUR EVERY FOUR BY MOUTH TO SIX TO SIX EVERY FOUR HOURS HOURS TO SIX NEEDED FOR NEEDED FOR HOURS PAIN. PAIN. NEEDED FOR PAIN. Metoprolol Metoprolol Yes .5 QD TAKE 0.5 UT Tartrate 25 Tartrate 25 TABLET [facility] MG Oral MG Oral DAILY PRN ans Tablet Tablet Immunizations Ordered Immunization Filled Date Status Comments Sour ce Name Immunization Name influenza, influenza, 2020-07-05 Completed [facility] injectable, injectable, 00:00:00 [facility] quadrivalent quadrivalent Pneumovax 2019-07-20 [facility] [place] Influenza Fluzone 2019-07-20 [facility]:00 [place] Pneumovax 2019-07-20 [facility] [place] Influenza Fluzone 2019-07-20 [facility] 00:00:00 [place] Pneumovax 2019-07-20 [facility] [place] Influenza Fluzone 2019-07-20 [facility] 00:[facility]:00 [place] Pneumovax 2019-07-20 [facility] [place] Influenza Fluzone 2019-07-20 [facility] 00:00:00 [place] Pneumovax 2019-07-20 [facility] [place] Influenza Fluzone 2019-07-20 [facility]pleted [facility] 00:00:00 [place] Pneumovax 2019-07-20 [facility]:00 [place] Influenza Fluzone 2019-07-20 [facility] 00:00:00 [place] Pneumovax 2019-07-20 [facility]00 [place] Influenza Fluzone 2019-07-20 Completed [facility] 00:00:00 [place] Pneumovax 23 2019-07-20 [facility] [place] Influenza Fluzone 2019-07-20 Completed [facility] 00:00:00 [place] Pneumovax 23 2019-07-20 Completed [facility] 00:[facility] [place] Influenza Fluzone 2019-07-20 Completed [facility] 00:00:00 [facility] Tdap 2019-01-27 Completed [facility] 00:[facility]:00 [place] Tdap 2019-01-27 Completed [facility] 00:[facility]:00 [facility] Tdap 2019-01-27 Completed [facility] 00:[facility]:00 [place] Tdap 2019-01-27 Completed [facility] 00:00:00 [place] Tdap 2019-01-27 Completed [facility] 00:[facility] [place] Tdap 2019-01-27 Completed [facility] 00:[facility]:00 [facility] Tdap 2019-01-27 Completed [facility] 00:00:00 [place] Tdap 2019-01-27 Completed [facility] 00:00:00 [facility] Tdap 2019-01-27 [facility]pleted [facility] 00:[facility] [place] Zostavax 2017-07-04 Completed [facility] 00:00:00 [facility] Zostavax 2017-07-04 Completed [facility] 00:[facility]:00 [facility] Zostavax 2017-07-04 Completed [facility] 00:[facility]:00 [facility] Zostavax 2017-07-04 Completed [facility] 00:00:00 [place] Zostavax 2017-07-04 Completed [facility] 00:00:00 [facility] Zostavax 2017-07-04 Completed [facility] 00:00:00 [place] Zostavax 2017-07-04 Completed [facility] 00:00:00 [facility] Zostavax 2017-07-04 Completed [facility] 00:00:00 [facility] Zostavax 2017-07-04 [facility]pleted [facility] [place] FLUZONE QUAD PF 2016-08-16 [facility] Influenza (whole) 2014-09-13 Completed [facility] 00:00:00 of Medicine Pneumococcal 2014-09-13 Completed [facility] ge Polysaccharide 00:00:00 of Medicin e Influenza (whole) 2014-09-13 Completed [facility] 00:00:00 of Medicine Pneumococcal 2014-09-13 Completed [facility] ge Polysaccharide 00:00:00 of Medicin e Influenza (whole) 2014-07-20 Completed [facility] 00:00:00 of Medicine Influenza (whole) 2014-07-20 Completed [facility] 00:00:00 [facility] Medicine Tdap Unknown Completed [facility] Zoster (Zostavax) Unknown [facility] Vital Signs Vital Name Observation Time Observation Value Comments Source Systolic blood 2022-06-05 152 mm[Hg] [facility] pressure 15:53:00 Diastolic blood 2022-06-05 106 mm[Hg] [facility] pressure 15:53:00 Heart rate 2022-06-05 49 /min [facility] 15:53:00 Body height 2022-06-05 188 cm [facility] 15:53:00 Body weight 2022-06-05 98.431 kg [facility] 15:53:00 BMI 2022-06-05 27.86 kg/m2 [facility] 15:53:00 Body weight 2021-09-20 96.163 kg [facility] 17:55:00 of Medicine BMI 2021-09-20 27.22 kg/m2 [facility] 17:55:00 of Medicine Systolic blood 2021-09-20 138 [facility]Hg[facility] Diastolic blood 2021-09-20 88 mm[Hg] [facility] pressure 17:55:00 of Medicine Heart rate 2021-09-20 87 /min [facility] 17:55:00 of Medicine Body height 2021-09-20 188 cm [facility] 17:55:00 of Medicine BP Diastolic 2021-04-17 76 mm[Hg] [facility]00 [facility] Height 2021-04-17 73 [in_i] [facility] 00:[facility]:00 [facility] BMI (Body Mass 2021-04-17 27.7 kg/m2 [facility] BP Systolic 2021-04-17 130 mm[Hg] [facility] 00:00:00 [facility] Body Weight 2021-04-17 210 [lb_av] [facility] 00:00:00 Practice BP Diastolic 2020-07-07 98 mm[Hg] [facility] 00:00:00 [facility] Height 2020-07-07 73 [in_i] [facility] 00:00:00 Practice BMI (Body Mass 2020-07-07 27 kg/m2 [facility] BP Systolic 2020-07-07 130 mm[Hg] [facility] 00:00:00 Practice Body Weight 2020-07-07 204.5 [lb_av] [facility] 00:00:00 Practice Systolic blood 2019-08-11 158 mm[Hg] [employer] pressure 15:09:00 of Medicine Diastolic blood 2019-08-11 85 mm[Hg] [employer] [facility] pressure 15:09:00 of Medicine Heart rate 2019-08-11 55 /min [facility] 15:09:00 of Medicine Body temperature 2019-08-11 36.39 [facility] 15:09:00 of Medicine Systolic blood 2019-08-11 158 mm[Hg] [employer] pressure 15:09:00 of Medicine Diastolic blood 2019-08-11 85 mm[Hg] [facility] pressure 15:09:00 of Medicine Heart rate 2019-08-11 55 /min [facility] 15:09:00 of Medicine Body temperature 2019-08-11 36.39 [facility] 15:09:00 of Medicine Systolic blood 2022-03-07 119 mm[Hg] [facility] 16[facility]36[facility] Diastolic blood 2022-03-07 80 mm[Hg] [facility] 16:36:00 Hospital Heart rate 2022-03-07 61 /min [facility] 16:36:[facility] Body temperature 2022-03-07 36.44 [facility] 16:36:00 [facility] Body height 2022-03-07 185.4 cm [facility] 16:36:00 [facility] Body weight 2022-03-07 95.255 kg [facility] 16:36:00 [facility] BMI 2022-03-07 27.71 kg/m2 [facility] 16:36:00 [facility] Oxygen saturation 2022-03-07 99 /min [facility] Arterial blood 16:36:00 Hospital by Pulse oximetry Respiratory rate 2022-03-07 17 /min [facility] 14:50:00 Hospital Diastolic (mm Hg) 2020-09-21 [facility] ermann 17:45:00 Systolic (mm Hg) 2020-09-21 [facility] rmyesy 17:45:00 Temperature Oral 2020-09-21 97.0 F [facility] rmann (F) 17:45:00 Weight 2020-09-21 [facility] David n 17:45:00 Height 2020-09-21 [facility] 17:45:00 Respitory Rate 2020-09-21 [facility] 17:45:00 Temperature Oral 2020-09-13 98.1 F [facility] (F) 21:00:00 Weight 2020-09-13 [facility] 21:00:00 Height 2020-09-13 [facility] 21:00:00 Respitory Rate 2020-09-13 [facility] 21:00:00 Diastolic (mm Hg) 2020-09-13 [facility] 21:00:00 Systolic (mm Hg) 2020-09-13 [facility] 21:00:00 Systolic blood 2020-06-21 120 mm[Hg] [facility] Physicia ns pressure 15:41:00 Position: Sitting Diastolic blood 2020-06-21 79 mm[Hg] Location: [facility] Physici ans pressure 15:41:00 Position: Sitting Body height 2020-06-21 73.5 [in_us] [facility] 15:41:00 Weight 2020-06-21 205 [lb_av] [facility] 15:41:00 Body mass index 2020-06-21 26.68 kg/m2 [facility] (BMI) [Ratio] 15:41:00 Body temperature 2020-06-21 97 [degF] Method[facility] 15:[facility]00 Temporal Heart Rate 2020-06-21 72 /min [facility]: [facility] 15:41:00 Brachial Artery; Quality: Normal Respiratory rate 2020-06-21 14 /min Quality: Normal [facility] 15:41:00 O2 SAT 2020-06-21 97 % Source: [facility] 15:41:00 Temperature Oral 2019-12-10 97.9 F [facility] (F) 19:15:00 Weight 2019-12-10 [facility] 19:15:00 Height 2019-12-10 [facility] 19:15:00 Respitory Rate 2019-12-10 [facility] 19:15:00 Diastolic (mm Hg) 2019-12-10 [facility] 19:15:00 Systolic (mm Hg) 2019-12-10 [facility] 19:15:00 Temperature Oral 2019-09-06 96.0 F [facility] (F) 20:45:00 Weight 2019-09-06 [facility] 20:45:00 Height 2019-09-06 [facility] 20:45:00 Respitory Rate 2019-09-06 [facility] 20:45:00 Diastolic (mm Hg) 2019-09-06 [facility] 20:45:00 Systolic (mm Hg) 2019-09-06 [facility] 20:45:00 Temperature Oral 2019-08-30 97.2 F [facility] (F) 16:30:00 Weight 2019-08-30 [facility] 16:30:00 Height 2019-08-30 [facility] 16:30:00 Respitory Rate 2019-08-30 [facility] 16:30:00 Diastolic (mm Hg) 2019-08-30 [facility] 16:30:00 Systolic (mm Hg) 2019-08-30 [facility] 16:30:00 Temperature Oral 2019-07-20 96.5 F [facility] (F) 19:45:00 Weight 2019-07-20 [facility] 19:45:00 Height 2019-07-20 [facility] 19:45:00 Respitory Rate 2019-07-20 [facility] 19:45:00 Diastolic (mm Hg) 2019-07-20 [facility] 19:45:00 Systolic (mm Hg) 2019-07-20 [facility] 19:45:00 Temperature Oral 2019-07-02 97.4 F [facility] (F) 17:15:00 Weight 2019-07-02 [facility] 17:15:00 Height 2019-07-02 [facility] 17:15:00 Respitory Rate 2019-07-02 [facility] 17:15:00 Diastolic (mm Hg) 2019-07-02 [facility] 17:15:00 Systolic (mm Hg) 2019-07-02 [facility] 17:15:00 BP Systolic 2019-06-23 127 mm[Hg] Location: [facility]; [facility] 16:25:00 Position: Sitting BP Diastolic 2019-06-23 81 mm[Hg] Location: [facility]; [facility] 16:25:00 Position: Sitting Height 2019-06-23 74 [in_us] [facility] 16:25:00 Weight 2019-06-23 202 [lb_av] [facility] 16:25:00 Body Mass Index 2019-06-23 25.94 kg/m2 [facility] Calculated 16:25:00 Temperature 2019-06-23 98 [degF] Method: [facility] 16:25:00 Temporal Heart Rate 2019-06-23 60 /min Location: L [facility] 16:25:00 Brachial Artery; Quality: Normal Respiration Rate 2019-06-23 16 /min Quality: Normal [facility] 16:25:00 O2 SAT 2019-06-23 99 % Source: [facility] 16:25:00 Temperature Oral 2019-02-08 97.8 F [facility] (F) 20:45:00 Weight 2019-02-08 [facility] 20:45:00 Height 2019-02-08 [facility] 20:45:00 Respitory Rate 2019-02-08 [facility] 20:45:00 Diastolic (mm Hg) 2019-02-08 [facility] 20:45:00 Systolic (mm Hg) 2019-02-08 [facility] 20:45:00 Temperature Oral 2019-01-27 97.8 F [facility] (F) 13:30:00 Weight 2019-01-27 [facility] 13:30:00 Height 2019-01-27 [facility] 13:30:00 Respitory Rate 2019-01-27 [facility] 13:30:00 Diastolic (mm Hg) 2019-01-27 [facility] 13:30:00 Systolic (mm Hg) 2019-01-27 [facility] 13:30:00 BP Systolic 2018-11-10 130 mm[Hg] Location: [facility]; [facility] 10:15:00 Position: Sitting BP Diastolic 2018-11-10 73 mm[Hg] Location: [place]; [facility] 10:15:00 Position: Sitting Height 2018-11-10 74 [in_us] [facility] 10:15:00 Weight 2018-11-10 203.3125 [lb_av] [facility] 10:15:00 Body Mass Index 2018-11-10 26.1 kg/m2 [facility] Calculated 10:15:00 Temperature 2018-11-10 96.8 [degF] Method: [facility] 10:15:00 Tympanic Heart Rate 2018-11-10 56 /min Location: L [facility] 10:15:00 Brachial Artery; Quality: Normal Respiration Rate 2018-11-10 16 /min Quality: Normal [facility] 10:15:00 O2 SAT 2018-11-10 100 % Source: RA [facility] 10:15:00 Temperature Oral 2018-10-16 97.7 F [facility] (F) 14:15:00 Weight 2018-10-16 [facility] 14:15:00 Height 2018-10-16 [facility] 14:15:00 Respitory Rate 2018-10-16 [facility] 14:15:00 Diastolic (mm Hg) 2018-10-16 [facility] 14:15:00 Systolic (mm Hg) 2018-10-16 [facility] 14:15:00 Temperature Oral 2018-10-08 97.3 F [facility] (F) 15:15:00 Weight 2018-10-08 [facility] 15:15:00 Height 2018-10-08 [facility] 15:15:00 Respitory Rate 2018-10-08 [facility] 15:15:00 Diastolic (mm Hg) 2018-10-08 [facility] 15:15:00 Systolic (mm Hg) 2018-10-08 [facility] 15:15:00 BP Systolic 2018-10-05 147 mm[Hg] Location: [facility]; [facility] 08:10:00 Position: Sitting BP Diastolic 2018-10-05 78 mm[Hg] Location: [facility]; [facility] 08:10:00 Position: Sitting Height 2018-10-05 74 [in_us] [facility] 08:10:00 Weight 2018-10-05 205 [lb_av] [facility] 08:10:00 Body Mass Index 2018-10-05 26.32 kg/m2 [facility] Calculated 08:10:00 Temperature 2018-10-05 96 [degF] Method: [facility] 08:10:00 Tympanic Heart Rate 2018-10-05 56 /min [facility] 08:10:00 Respiration Rate 2018-10-05 15 /min [facility] 08:10:00 BP Systolic 2018-08-10 161 mm[Hg] Location: [facility]; [facility] 13:54:00 Position: Sitting BP Diastolic 2018-08-10 80 mm[Hg] Location: [facility]; [facility] 13:54:00 Position: Sitting Height 2018-08-10 74 [in_us] [facility] 13:54:00 Weight 2018-08-10 207.375 [lb_av] [facility] 13:54:00 Body Mass Index 2018-08-10 26.63 kg/m2 [facility] Calculated 13:54:00 Temperature 2018-08-10 97.2 [degF] Method: [facility] 13:54:00 Tympanic Heart Rate 2018-08-10 54 /min [facility] 13:54:00 O2 SAT 2018-08-10 99 % Source: RA [facility] 13:54:00 Temperature Oral 2018-06-18 98.0 F [facility] rmann (F) 18:15:00 Weight 2018-06-18 [facility] David n 18:15:00 Height 2018-06-18 [facility] David n 18:15:00 Respitory Rate 2018-06-18 [facility] Herm yesy 18:15:00 Diastolic (mm Hg) 2018-06-18 [facility] H ermann 18:15:00 Systolic (mm Hg) 2018-06-18 [facility] rmann 18:15:00 BP Systolic 2018-06-09 148 mm[Hg] Location: [facility]; [facility] 13:47:00 Position: Sitting BP Diastolic 2018-06-09 74 mm[Hg] Location: [facility]; [facility] 13:47:00 Position: Sitting BP Systolic 2018-06-09 144 mm[Hg] Location: [facility]; [facility] 13:43:00 Position: Sitting BP Diastolic 2018-06-09 78 mm[Hg] Location: [facility]; [facility] 13:43:00 Position: Sitting Height 2018-06-09 74 [in_us] [facility] 13:43:00 Weight 2018-06-09 208.5 [lb_av] [facility] 13:43:00 Body Mass Index 2018-06-09 26.77 kg/m2 [facility] Calculated 13:43:00 Temperature 2018-06-09 97.5 [degF] Method: [facility] 13:43:00 Tympanic Heart Rate 2018-06-09 54 /min [facility] 13:43:00 O2 SAT 2018-06-09 98 % Source: RA [facility] 13:43:00 BP Systolic 2018-05-26 131 mm[Hg] Location: [facility]; [facility] 14:55:00 Position: Sitting BP Diastolic 2018-05-26 77 mm[Hg] Location: [facility]; [facility] 14:55:00 Position: Sitting Height 2018-05-26 74 [in_us] [facility] 14:55:00 Weight 2018-05-26 205 [lb_av] [facility] 14:55:00 Body Mass Index 2018-05-26 26.32 kg/m2 [facility] Calculated 14:55:00 Temperature 2018-05-26 97.7 [degF] Method: [facility] 14:55:00 Tympanic Heart Rate 2018-05-26 55 /min [facility] 14:55:00 O2 SAT 2018-05-26 97 % Source: [facility] 14:55:00 Temperature Oral 2018-04-01 97.9 F [facility] (F) 16:15:00 Weight 2018-04-01 [facility] 16:15:00 Height 2018-04-01 [facility] 16:15:00 Respitory Rate 2018-04-01 [facility] 16:15:00 Diastolic (mm Hg) 2018-04-01 [facility] 16:15:00 Systolic (mm Hg) 2018-04-01 [facility] 16:15:00 Weight 2018-02-16 [facility] 19:45:00 Height 2018-02-16 [facility] 19:45:00 Respitory Rate 2018-02-16 [facility] 19:45:00 Diastolic (mm Hg) 2018-02-16 [facility] 19:45:00 Systolic (mm Hg) 2018-02-16 [facility] 19:45:00 Temperature Oral 2017-12-09 97.4 F [facility] (F) 16:00:00 Weight 2017-12-09 [facility] 16:00:00 Height 2017-12-09 [facility] 16:00:00 Respitory Rate 2017-12-09 [facility] 16:00:00 Diastolic (mm Hg) 2017-12-09 [facility] 16:00:00 Systolic (mm Hg) 2017-12-09 [facility] 16:00:00 Temperature Oral 2017-11-28 96.8 F [facility] (F) 15:30:00 Weight 2017-11-28 [facility] 15:30:00 Height 2017-11-28 [facility] 15:30:00 Respitory Rate 2017-11-28 [facility] 15:30:00 Diastolic (mm Hg) 2017-11-28 [facility] 15:30:00 Systolic (mm Hg) 2017-11-28 [facility] 15:30:00 Temperature Oral 2017-07-04 98.4 F [facility] rmann (F) 18:00:00 Weight 2017-07-04 [facility] 18:00:00 Height 2017-07-04 [facility] 18:00:00 Respitory Rate 2017-07-04 [facility] 18:00:00 Diastolic (mm Hg) 2017-07-04 [facility] 18:00:00 Systolic (mm Hg) 2017-07-04 [facility] 18:00:00 Temperature Oral 2017-06-05 97.3 F [facility] rmann (F) 18:30:00 Weight 2017-06-05 [facility] 18:30:00 Height 2017-06-05 [facility] 18:30:00 Respitory Rate 2017-06-05 [facility] 18:30:00 Diastolic (mm Hg) 2017-06-05 [facility] ermann 18:30:00 Systolic (mm Hg) 2017-06-05 [facility] rmann 18:30:00 Procedures Procedure Date / Time Performing Clinician Source Performed URINE CULTURE 2022-12-13 09:59:31 [facility] URINALYSIS AUTO W/SCOPE 2022-12-13 09:59:31 [facility] TESTOSTERONE, FREE/TOTAL 2022-09-05 08:19:00 [facility] Medicine ESTRADIOL 2022-09-05 08:19:00 [facility] PSA 2022-09-05 08:19:00 [facility] HEMOGLOBIN AND HEMATOCRIT, 2022-09-05 08:19:00 [facility] URINE CULTURE 2022-09-05 08:19:00 [facility] URINALYSIS AUTO W/SCOPE 2022-09-05 08:19:00 [facility] TESTOSTERONE, FREE/TOTAL 2022-08-15 10:25:57 [facility] Medicine ESTRADIOL 2022-08-15 10:25:57 [facility] PSA 2022-08-15 10:25:57 [facility] HEMOGLOBIN AND HEMATOCRIT, 2022-08-15 10:25:57 B [facility] URINE CULTURE 2022-08-15 10:25:57 [facility] URINALYSIS AUTO W/SCOPE 2022-08-15 10:25:57 [facility] [place] ESOPHAGRAM DOUBLE 2021-10-24 18:40:00 Greyson Nguyen [facility] CONTRAST [QL] CMP W/EGFR 2020-05-10 00:00:00 [facility] [QL] ALKALINE PHOSPHATASE, 2020-05-10 00:00:00 [facility] BONE SPECIFIC [QLH] CMP W/EGFR 2019-05-26 00:00:00 [facility] [QLH] ALKALINE 2019-05-26 00:00:00 [facility] PHOSPHATASE, BONE SPECIFIC [Q] COMPREHENSIVE 2019-05-26 00:00:00 [facility] METABOLIC PANEL W/eGFR (REFL) [QLH] CMP W/EGFR 2018-11-10 00:00:00 [facility] [QLH] ALKALINE 2018-11-10 00:00:00 [facility] PHOSPHATASE, BONE SPECIFIC [QLH] CMP W/EGFR 2018-08-10 00:00:00 [facility] [QLH] CMP W/EGFR 2018-06-09 00:00:00 [facility] [QLH] VITAMIN D, 2018-06-09 00:00:00 [facility] 25-HYDROXY, LC/MS/MS [QLH] ALKALINE 2018-06-09 00:00:00 [facility] PHOSPHATASE, BONE SPECIFIC [QLH] CMP W/EGFR 2018-05-26 00:00:00 [facility] [LH] TSH+Free T4 2018-05-26 00:00:00 [facility] [LH] CBC (without 2018-05-26 00:00:00 [facility] differential) [QLH] PHOSPHATE ( 2018-05-26 00:00:00 [facility] PHOSPHORUS) [QLH] PTH, INTACT (WITHOUT 2018-05-26 00:00:00 [facility] CALCIUM) [QLH] VITAMIN D, 2018-05-26 00:00:00 [facility] 25-HYDROXY, LC/MS/MS [B] BONE ALKALINE 2018-05-26 00:00:00 [facility] PHOSPHATASE [facility] History of [facility]ortic valve [facility] replacement History of [facility]ia repair [facility] Plan of Care Planned Activity Planned Date Details Comments Source Future Scheduled 2022-08-11 HEPATITIS B VACCINES (1 [facility] 12:18:09 of 3 - 3-dose series) Hospit al [code = HEPATITIS B VACCINES (1 of 3 - 3-dose series)] Future Scheduled 2022-08-11 COVID-19 [facility]ACCINE (#1) [facility] 12:18[facility] [code = COVID-19 Hospital VACCINE (#1)] Future Scheduled 2022-08-11 Hepatitis C screening [facility] 12:18:09 (procedure) [code = Hospital 515322755] Future Scheduled 2022-08-11 SHINGLES VACCINES (1 [facility] 12:18:09 2) [code = SHINGLES Hospital VACCINES (1 of 2)] Future Scheduled 2022-08-11 COLONOSCOPY SCREENING [facility] 12:18:09 [code = COLONOSCOPY Hospital SCREENING] Future Scheduled 2022-08-11 65+ [address] [facility] Test 12:18:09 VACCINE (2 - PCV) [code Hosp ital = 65+ PNEUMOCOCCAL VACCINE (2 - PCV)] Future Scheduled 2022-08-11 INFLUENZA VACCINE [code [facility] 12:18:09 = INFLUENZA VACCINE] Hospita l Future Scheduled 2021-09-20 URINALYSIS AUTO W/SCOPE Ordered: [facility] Test 12:12:15 [code = 34332-3] 09/20/2021 of Medicine Future Scheduled 2021-09-20 CULTURE, Ordered: [facility] Test 12:12:15 URINE/SENSITIVITY ON 09/20/2021 of Medi cine ALL [code = 00309-8] Future Scheduled 2021-09-20 Screening for malignant [facility] Test 11:57:52 neoplasm of colon of Medicin e (procedure) [code = 924405192] Future Scheduled 2021-09-20 COVID-19 Vaccine (1) [facility] Test 11:57:52 [code = COVID-19 of Medicine Vaccine (1)] Future Scheduled 2021-09-20 TETANUS SHOT (ADULT) [facility] Test 11:57:52 [code = TETANUS SHOT of Medi cine (ADULT)] Future Scheduled 2021-09-20 BMI FOLLOW UP PLAN [facility] Test 11:57:52 [code = BMI FOLLOW UP of Med icine PLAN] Future Scheduled 2021-09-20 Hepatitis C screening [facility] Test 11:57:52 (procedure) [code = of Medic ine 124105518] Future Scheduled 2021-09-20 Human immunodeficiency B [facility] Test 11:57:52 virus screening of Medicine (procedure) [code = 463188208] Future Scheduled 2021-09-20 ZOSTER VACCINE (1 of 2) [facility] Test 11:57:52 [code = ZOSTER VACCINE of Me dicine (1 of 2)] Future Scheduled 2021-09-20 FLU VACCINE > 6 MONTHS [facility] Test 11:57:52 [code = FLU VACCINE > 6 of M edicine MONTHS] Future Scheduled 2020-05-22 [QL] CMP W/EGFR [code = [facility] Test 00:00:00 [QL] CMP W/EGFR] Future Scheduled 2020-05-22 [QL] [facility]ALINE [facility] 00:00:00 PHOSPHATASE, BONE SPECIFIC [code = [QL] ALKALINE PHOSPHATASE, BONE SPECIFIC] Diagnostic Test 2019-08-25 TESTOSTERONE-TOTAL(URO Expected: [facility] Pending 00:00:00 DEPT) [code = 2986-8] 08/25/2019 of Med icine (Approximate), Expires: 09/10/2019 Future Scheduled ESTRADIOL [code = Ordered: [facility] Test 2243-4] 08/11/2019 of Medicine Future Scheduled HEMOGLOBIN AND Ordered: [facility] Test HEMATOCRIT, BLOOD [code 08/11/2019 of M edicine = 53112-9] Future Scheduled COLON CANCER SCREENING: [facility] Test COLONOSCOPY [code = of Medic ine COLON CANCER SCREENING: COLONOSCOPY] Future Scheduled TETANUS SHOT (ADULT) [facility] Test [code = TETANUS SHOT of Medi cine (ADULT)] Future Scheduled BMI FOLLOW UP PLAN [facility] Test [code = BMI FOLLOW UP of Med icine PLAN] Future Scheduled HEPATITIS C SCREENING [facility] Test [code = HEPATITIS C of Medic ine SCREENING] Future Scheduled HIV SCREENING [code = [facility] Test HIV SCREENING] of Medicine Future Scheduled FLU VACCINE > 6 MONTHS [facility] Test [code = FLU VACCINE > 6 of M edicine MONTHS] Encounters Start End Encounter Admission Attending Care Care Encounter Source Date/Time Date/Time Type Type Clinicians Facility Department ID 2023-02-21 Outpatient [id number] [facility] 20:42:06 [id number] -[id number] Dick [id number] 2022-12-13 Outpatient [id number] [facility] 09:48:50 [id number] l -[id number] Dick [id number] 2022-11-13 Outpatient [id number] [facility] 15:01:10 [id number] -[id number] Dick [id number] 2022-11-12 Outpatient [id number] [facility] 06:23:22 [id number] -[id number] Dick [id number] GRETEL [id number] 2022-10-17 Outpatient [id number] [facility] 16:09:38 [id number] l -[id number] Dick [id number] 2022-10-16 Outpatient [facility] [id number] [place] 16:30:18 [id number] [facility] 2022-10-14 Outpatient [id number] [facility] 07:38:56 [id number] l -[id number] Dick [id number] 2022-09-23 Outpatient [id number] [facility] 09:38:16 [id number] -[id number] Dick [id number] 2022-08-15 Outpatient [id number] [facility] 09:40:48 [id number]- [id number] l -[id number] Dick [id number] 2022-07-08 Outpatient [id number] [facility] 09:04:04 5664-4FD2 64-3WU7-ZZJ 664-4FD2- B l -BDA7-7CE [id number] DA7-2SW690 Dick [id number] [id number] 2022-06-05 Outpatient [facility] [id number] [place] 10:25:04 [id number] [facility] 2022-06-04 Outpatient [facility] [id number] [place] 16:59:09 [id number] [facility] 2021-05-31 Outpatient [id number] Memoria 10:25:36 GL9L-425X 1F-457E-82A A9M-941L- 8 l -84K1-MS6 9-YJ25JB2I5 2Z0-OK65CK Dick [id number] 0AE 3D20AE 2020-06-06 Inpatient Ryan DAVIDA HIGUERA [id number] [facility] 13:45:00 [facility] 2020-04-20 Inpatient GLEN WallaceDAVIDA [id number] [facility] 07:45:00 [place] [facility] 2022-12-26 2022-12-26 Outpatient [facility] [id number] [address] [place] [address] 00:00:00 00:00:00 EDWARD 035 [facility] 2022-12-13 2022-12-13 Outpatient BRENNAN FORREST [facility] [id number] [facility] 09:48:32 09:53:04 BASIL [employer] 2022-11-13 2022-11-13 Outpatient ANNABELLE, [facility] [id number] [place] 00:00:00 00:00:00 EDA 111 Method i 2022-10-17 2022-10-17 Outpatient VIRI, [facility] [id number] [place] 00:00:00 00:00:00 IVA 950 Method i 2022-10-14 2022-10-14 Outpatient HOANGHEAD, [facility] [id number] [place] 00:00:00 00:00:00 EDA 605 Method i 2022-10-04 2022-10-04 Outpatient PATRICK, [facility] [id number] [place] 00:00:00 00:00:00 EDWARD 163 Method i 2022-09-23 2022-09-23 Outpatient NGUYEN, [facility] [id number] [place] 00:00:00 00:00:00 EDWARD 164 Method i 2022-08-15 2022-08-15 Outpatient VINEETMENA, [facility] [id number] [facility] 09:40:34 10:05:58 BASIL [employer] 2022-06-05 2022-06-[address] [facility] 1.2.840.114 [id number] [place] 10:00:00 12:04:51 Visit [facility] 350.1.13.58 H [facility] 9.2.7.2.686 3 [id number] 1 2022-04-15 2022-04-15 Outpatient BRENNAN SEE [facility] [id number] [facility] 09:16:51 19:51:07 MYRNA [employer] 2022-03-07 2022-03-07 Office Viri, 1.2.840.0 [id number] Methodi 11:15:00 13:07:40 Visit Iva 00317.1.1 158 3.430.2.7 Hospit a .3.225249 l .8 2022-03-07 2022-03-07 Office [facility], 1.2.840.1 [id number] 6686 Methodi 10:00:00 12:17:57 Visit Edbrianna Neely.H. 34318.1.[address] 3.430.2.7 Hospit a .3.304592 l .8 2022-03-07 2022-03-07 Travel 1.2.840.1 1.2.379.569 [id number] Methodi 00:00:00 00:00:[address] 3.430.2.7 0.2.7.3.698 Ho spita .3.955193 084.8 l .8 2022-03-06 2022-03-06 [facility] Donn, 1.2.840.1 [id number] Methodi 00:00:00 00:00:[address] 3.430.2.7 Hospit a .3.325975 l .8 2021-10-25 2021-10-25 Office [facility], 1.2.840.1 [id number] 3606 Methodi 08:30:00 09:15:51 Visit Greyson Neely.H. 28660.1.[address] 3.430.2.7 Hospit a .3.089516 l .8 2021-10-24 2021-10-24 [facility], 1.2.840.1 [id number] 87627 Methodi 11:30:00 23:59:00 Encounter Edbrianna Neely.H. 01037.1.[address] 3.430.2.7 Hospit a .3.662795 l .8 2021-10-24 2021-10-24 Travel 1.2.840.1 1.2.885.771 9601 [id number] Methodi 00:00:00 00:00:[address] 3.430.2.7 0.2.7.3.698 Ho spita .3.210744 084.8 l .8 2021-10-22 2021-10-22 Abstract Donn, 1.2.840.1 [id number] [id number] Methodi 00:00:00 00:00:[address] 3.430.2.7 Hospit a .3.950326 l .8 2021-10-22 2021-10-22 Travel 1.2.840.1 1.2.056.870 6121 [id number] Methodi 00:00:00 00:00:[address] 3.430.2.7 0.2.7.3.698 Ho spita .3.550695 084.8 l .8 2021-10-22 2021-10-22 Orders Eduardo, 1.2.840.1 [id number] 9922 Methodi 00:00:00 00:00:00 Only Kiki [address]804.1.[address] 3.430.2.7 Hospit a .3.130219 l .8 2021-09-20 2021-09-20 Office SAMI FORREST 1.2.840.[id number] [place] [address] 11:27:53 13:10:07 Visit BASIL AMBULATOR 350.1.13.21 College Y 0.2.7.2.686 of [id number] Medi jennifer 300 e 2021-07-11 2021-07-11 Outpatient Hodge_D VFP VFP [id number] -20 [facility] 07:45:00 07:45:00 [id number] Family Practic e 2021-05-01 2021-05-01 [facility] [id number] [place] 00:00:00 00:00:00 VICKIE [address] 2021-04-17 2021-04-17 Outpatient Hodge_D VFP VFP [id number] -20 [facility] 04:21:00 04:21:00 [id number] Family Practic e 2021-04-17 2021-04-17 Bach-Sindy VFP [place] - [id number] [facility] 00:00:00 00:00:00 Nancy Uriarte, [facility] jose PA: [id number] Medical [facility]_HOU_Memo e Place, rial [address], Clinical [facility] [phone] , Ph. 2021-04-13 2021-04-13 Outpatient ECHO, [facility] [id number] [place] 00:00:00 00:00:00 ANGELIQUE [address] 2021-03-29 2021-03-29 Outpatient DAVIDA Villanueva RADI [id number] [facility] 06:56:00 06:56:00 Ghassan Foss [facility] 2021-03-22 2021-03-22 Outpatient JARROD, [facility] [id number] [place] 00:00:00 00:00:00 VICKIE [address] 2021-03-16 2021-03-17 Outpatient MARSHALEL [facility] [id number] [place] 00:00:00 00:00:[address] 2021-02-13 2021-02-13 Outpatient JARROD, [facility] [id number] [place] 00:00:00 00:00:00 VICKIE [address] 2021-01-25 2021-01-25 Outpatient JARROD, [facility] [id number] [place] 00:00:00 00:00:00 VICKIE [address] 2021-01-12 2021-01-12 Inpatient JARROD, [facility] [id number] [place] 00:00:00 00:00:00 VICKIE [address] 2021-01-10 2021-01-10 Outpatient JARROD, [facility] [id number] [place] 00:00:00 00:00:00 VICKIE [address] 2021-01-10 2021-01-10 Outpatient REMYA, FELA [facility] [id number] [place] 00:00:00 00:00:[address] 2021-01-02 2021-01-02 Outpatient JARROD, [facility] [id number] [place] 00:00:00 00:00:00 VICKIE [address] 2020-12-08 2020-12-08 Outpatient ECHO, [facility] [id number] [place] 00:00:00 00:00:00 ANGELIQUE [address] 2020-11-02 2020-11-02 Outpatient [facility] [id number] [place] 00:00:00 00:00:[address] 2020-10-26 2020-10-27 Outpatient ECHO, [facility] [id number] [place] 00:00:00 00:00:00 ANGELIQUE [address] 2020-10-23 2020-10-23 Outpatient ECHO, [facility] [id number] [place] 00:00:00 00:00:00 ANGELIQUE [address] 2020-10-13 2020-10-13 Outpatient ECHO, [facility] [id number] [place] 00:00:00 00:00:00 ANGELIQUE [address] 2020-10-13 2020-10-13 Outpatient ECHO, [facility] [id number] [place] 00:00:00 00:00:00 ANGELIQUE [address] 2020-09-21 2020-09-21 Outpatient [facility] [id number] eClinic 11:45:00 11:45:00 [facility] Med Care Med 2020-09-20 2020-09-20 Outpatient [facility] [id number] eClinic 16:06:00 16:06:00 [facility] Med Care Med 2020-09-15 2020-09-15 Emergency MATEUS BIRD [facility] [id number] [place] 00:00:00 00:00:[address] 2020-09-13 2020-09-13 Outpatient [facility] [id number] eClinic 15:00:00 15:00:00 [facility] Med Care Med 2020-08-11 2020-08-11 Outpatient ECHO, [facility] [id number] [place] 00:00:00 00:00:00 ANGELIQUE 721 Method i 2020-07-18 2020-07-18 Emergency KATE, [facility] [id number] [place] 00:00:00 00:00:00 CHEL [address] 2020-07-13 2020-07-13 Outpatient Hodge_D VFP VFP [id number] -[id number] [facility] 10:59:00 10:59:00 [id number] Family Practic e 2020-07-07 2020-07-07 Outpatient Hodge_D VFP VFP [id number] -20 [facility] 05:53:00 05:53:00 Family Practic e 2020-07-07 2020-07-07 Bach-Sindy VFP [place] - [id number] [facility] 00:00:00 00:00:00 Nancy Uriarte, [facility] [place]: [id number] Medical - Prac tic Courtland Price _HOU_Memo e [facility], ria [address], Clinical [facility] [address] , Ph. 2020-07-05 2020-07-05 Outpatient Hodge_D VFP VFP [id number] - [facility] 10:20:00 10:20:00 Family Practic e 2020-06-21 2020-06-21 Appointmen MEGAN [facility] [id number] [place] 15:40:00 15:40:00 t; jean marie QUEEN - [facility] KARLA ORANTES [facility], trini VO M.D. [address] Jeferson ORANTES 2020-06-02 2020-06-02 Outpatient Ryan, HCACL LABO [id number] [facility] 18:00:00 18:00:00 Ghassan 79 [facility] 2020-06-02 2020-06-02 Outpatient Ryan, HCAWH SIST [id number] [facility] 17:19:00 17:19:00 [facility]assan [facility] 2020-05-25 2020-05-25 Outpatient ELVIN NIELSEN [facility] [id number] [place] 00:00:00 00:00:[address] 2020-04-28 2020-04-28 Outpatient Hodge_D VFP VFP [id number] - [facility] 03:19:00 03:19:00 [id number] Family Practic e 2020-04-21 2020-04-21 Outpatient ECHO, [facility] [id number] [place] 00:00:00 00:00:00 ANGELIQUE [address] 2020-04-18 2020-04-18 Outpatient Hodge_D VFP VFP [id number] - [facility] 08:40:00 08:40:00 [id number] Family Practic e 2020-04-14 2020-04-14 Outpatient Hodge_D VFP VFP [id number] -20 [facility] 11:39:00 11:39:00 Family Practic e 2020-04-14 2020-04-14 Bach-Sindy VFP [place] - [id number] [facility] 00:00:00 00:00:00 [place]ry Fami ly PA: [id number] Medical - [facility] tic [facility]_HOU_Memo e [facility], [facility] [address], Clinical [facility] [address] , Ph. 2020-04-13 2020-04-13 Outpatient Hodge_D VFP VFP [id number] -20 [facility] 11:21:00 11:21:00 Family Practic e 2020-04-12 2020-04-12 Outpatient Hodge_D VFP VFP [id number] -20 [facility] 11:54:00 11:54:00 Family Practic e 2020-04-03 2020-04-03 Outpatient SIMEON BARAKAT [facility] [id number] [place] 00:00:00 00:00:[address] 2020-03-29 2020-03-29 Outpatient YUVAL [facility] [id number] [place] 00:00:00 00:00:[address] 2020-03-24 2020-03-24 Outpatient SIMEON BARAKAT [facility] [id number] [place] 00:00:00 00:00:[address] 2020-03-24 2020-03-24 Outpatient SIMEON BARAKAT [facility] [id number] [place] 00:00:00 00:00:[address] 2020-03-21 2020-03-21 Outpatient JARROD, [facility] [id number] [place] 00:00:00 00:00:00 VICKIE [address] 2020-03-03 2020-03-04 Outpatient Esthela CRUZ [facility] [id number] Memoria 17:36:00 10:45:00 BASIL [facility] 2020-02-29 2020-02-29 Outpatient UZMA [facility] [id number] Memoria 07:25:00 12:55:00 CELESTINO [facility] 2020-02-14 2020-02-14 Outpatient [facility] [id number] [place] 00:00:00 00:00:[address] 2020-02-10 2020-02-10 Outpatient Hodge_D VFP VFP [id number] -20 [facility] 06:57:00 06:57:00 [id number] Family Practic e 2020-02-03 2020-02-03 Outpatient [facility] [id number] eClinic 15:54:00 15:54:00 [facility] Med Care Med 2020-02-03 2020-02-03 Outpatient [facility] [id number] eClinic 15:30:00 15:30:00 [facility] Care Med 2020-02-02 2020-02-02 Outpatient [facility] [id number] eClinic 15:11:00 15:11:00 [facility] Care Med 2020-01-18 2020-01-31 Outpatient JARROD, [facility] [id number] [place] 00:00:00 00:00:00 VICKIE [address] 2020-01-27 2020-01-29 Inpatient YASSINE, [facility] [id number] [place] 00:00:00 00:00:00 NICHOLE [address] 2019-12-21 2019-12-21 Outpatient JARROD, [facility] [id number] [place] 00:00:00 00:00:00 VICKIE [address] 2019-12-13 2019-12-13 Outpatient 2.16.840. 2.16.840.1. 1 [id number] eClinic 10:17:00 10:17:00 1.328411. 560856.4.39 alWorks 4.391.11. 1.11.4701 [id number] 2019-12-13 2019-12-13 Outpatient [facility] [id number] eClinic 06:29:00 06:29:00 [facility] Med Care Med 2019-12-10 2019-12-10 Outpatient [facility] [id number] eClinic 14:15:00 14:15:00 [facility] al orks Prime Care Med Care Med 2019-12-10 2019-12-10 Outpatient [facility] [id number] eClinic 07:46:00 07:46:00 [facility] Prime al orks Prime Care Med Care Med 2019-12-08 2019-12-08 Outpatient [facility] [id number] eClinic 10:57:00 10:57:00 [facility] Med Care Med 2019-11-14 2019-12-05 Inpatient LOPEZ, [facility] [id number] [place] 00:00:00 00:00:[address] 2019-11-11 2019-11-11 Emergency GERTRUDIS QUEEN [facility] [id number] [place] 00:00:00 00:00:[address] 2019-09-28 2019-09-28 Outpatient [facility] [id number] Memoria 07:11:00 07:11:00 l Dick chairez [facility] 2019-09-07 2019-09-07 Outpatient [facility] [id number] eClinic 11:06:00 11:06:00 [facility] Prime alW orks Prime Care Med Care Med 2019-09-06 2019-09-06 Outpatient [facility] [id number] eClinic 14:45:00 14:45:00 [facility] Prime al orks Prime Care Med Care Med 2019-09-06 2019-09-06 Outpatient [facility] [id number] eClinic 08:39:00 08:39:00 [facility] Prime al orks Prime Care Med Care Med 2019-08-31 2019-08-31 Outpatient [facility] [id number] eClinic 09:00:00 09:00:00 [facility] Prime al orks Prime Care Med Care Med 2019-08-30 2019-08-30 Outpatient [facility] [id number] eClinic 10:30:00 10:30:00 [facility] Prime al ormnii Prime Care Med Care Med 2019-08-29 2019-08-29 Emergency E [facility] [id number] Memoria 21:24:00 21:24:00 contreras chairez [facility] 2019-08-11 2019-08-11 Office BRENNAN Douglas 1.2.840.[id number] [place] [address] 08:40:37 09:46:28 Visit Kanu Barreto AMBULATOR 350.1.13.21 College Y 0.2.7.2.686 of [id number] [facility] jennifer 300 e 2019-08-11 2019-08-11 Office BRENNAN Douglas 1.2.840.114 [id number] 08:40:37 09:46:28 Visit Kanu Barreto AMBULATOR 350.1.13.21 Y 0.2.7.2.686 [id number] 300 2019-08-06 2019-08-06 Outpatient [facility] [id number] eClinic 11:33:00 11:33:00 [facility] Prime alW orks Prime Care Med Care Med 2019-07-29 2019-07-29 Outpatient 2.16.840. 2.16.840.1. 1 [id number] eClinic 10:25:00 10:25:00 1.744168. 282203.4.39 alWorks 4.391.11. 1.11.4701 [id number] 2019-07-28 2019-07-28 Outpatient [facility] [id number] eClinic 16:28:00 16:28:00 [facility] Prime alW orks Prime Care Med Care Med 2019-07-27 2019-07-27 Outpatient [facility] [id number] eClinic 23:18:00 23:18:00 [facility] Prime alW orks Prime Care Med Care Med 2019-07-22 2019-07-22 Outpatient [facility] [id number] eClinic 18:14:00 18:14:00 [facility] Prime alW orks Prime Care Med Care Med 2019-07-20 2019-07-20 Outpatient [facility] [id number] eClinic 13:45:00 13:45:00 [facility] Prime alW orks Prime Care Med Care Med 2019-07-20 2019-07-20 Outpatient [facility] [id number] eClinic 07:35:00 07:35:00 [facility] Prime alW orks Prime Care Med Care Med 2019-07-19 2019-07-19 Outpatient [facility] [id number] eClinic 09:52:00 09:52:00 [facility] Prime alW orks Prime Care Med Care Med 2019-07-15 2019-07-15 Outpatient [facility] [id number] eClinic 08:27:00 08:27:00 [facility] Prime alW orks Prime Care Med Care Med 2019-07-11 2019-07-11 Outpatient [facility] [id number] eClinic 20:50:00 20:50:00 [facility] Prime alW orks Prime Care Med Care Med 2019-07-04 2019-07-04 Outpatient [facility] [id number] eClinic 14:54:00 14:54:00 [facility] Prime alW orks Prime Care Med Care Med 2019-07-02 2019-07-02 Outpatient [facility] [id number] eClinic 11:15:00 11:15:00 [facility] Prime alW orks Prime Care Med Care Med 2019-06-23 2019-06-23 [facility] DIANA-EFTEK [facility] Multispecia [id number] [place] 16:40:00 16:40:00 t; jean marie QUEEN - [facility] Deborah MOODY, trini VO M.D. [address] Jeferson ORANTES 2019-05-31 2019-05-31 Outpatient [facility] [id number] eClinic 16:50:00 16:50:00 [facility] Med Care Med 2019-05-17 2019-05-17 Outpatient [facility] [id number] eClinic 16:48:00 16:48:00 [facility] Med Care Med 2019-04-21 2019-04-21 Outpatient [facility] [id number] eClinic 09:42:00 09:42:00 [facility] Med Care Med 2019-03-02 2019-04-02 Outpatient C LUCRETIA, [facility]MI[facility] [id number] [facility] 10:58:00 23:59:00 [facility] 2019-02-08 2019-02-08 Outpatient [facility] [id number] eClinic 15:45:00 15:45:00 [facility] Med Care Med 2019-02-04 2019-02-04 Outpatient [facility] [id number] eClinic 08:25:00 08:25:00 [facility] Prime Care Med Care Med 2019-01-27 2019-01-27 Outpatient [facility] [id number] eClinic 09:43:00 09:43:00 [facility] Prime Care Med Care Med 2019-01-27 2019-01-27 Outpatient [facility] [id number] eClinic 08:30:00 08:30:00 [facility] Med Care Med 2018-12-21 2018-12-21 Appointmen YUSUF MALLORY [facility] [id number] [place] 08:40:00 08:40:00 t; ANALIA MALLORY M.D. P hysici MARC, M.D. [facility] 2018-11-10 2018-11-17 [id number] 10:20:00 13:06:32 2018-11-10 2018-11-10 Appointmen DIANA-JUANTEK [facility] [id number] [place] 10:20:00 10:20:00 t; BERNICE, Multi-Speci Ph chi Kitchen M.D. Clinic, [place], [address] Jeferson 2018-11-09 2018-11-09 YUSUF Gómez UTP [id number] [place] 13:40:00 13:40:00 t; Micki LACKEY i, M.D. ans OSSAMA, M.D. 2018-10-18 2018-10-18 Outpatient [facility] [id number] eClinic 22:20:00 22:20:00 [facility] Med Care Med 2018-10-16 2018-10-16 Outpatient [facility] [id number] eClinic 13:52:00 13:52:00 [facility] Med Care Med 2018-10-16 2018-10-16 Outpatient [facility] [id number] eClinic 08:15:00 08:15:00 [facility] Prime Care Med Care Med 2018-10-08 2018-10-08 Outpatient [facility] [id number] eClinic 10:24:00 10:24:00 [facility] Med Care Med 2018-10-08 2018-10-08 Outpatient [facility] [id number] eClinic 09:15:00 09:15:00 [facility] Med Care Med 2018-10-05 2018-10-05 YUSUF Martínez Endocrinolo [id number] [place] 08:00:00 08:00:00 t; ANALIA MALLORY M.D. Eder HELMS M.D. ans 2018-08-10 2018-08-10 Leatha [facility] [place] 4 [id number] [place] 13:40:00 13:40:00 t; ZIYAD Multi-Speci Ph Jeferson Izaguirre [address] s OSSAMA, 3 M.D. 2018-08-07 2018-08-07 Outpatient [facility] [id number] eClinic 16:00:00 16:00:00 [facility] Prime Care Med Care Med 2018-06-18 2018-06-18 [facility] [id number] eClinic 13:15:00 13:15:00 [place] Prime Care Med Care Med 2018-06-09 2018-06-09 Appointmichael [facility], YUSUF [facility] 4 [id number] [place] 13:40:00 13:40:00 t; Hali LACKEY-Speci Ph Jeferson Izaguirre Jeanine an s ZIYAD 1 Jeferson 2018-05-26 2018-05-26 Appointmichael [facility] UTP [id number] [place] 15:00:00 15:00:00 t; Micki LACKEY i, M.D. ans OSSAMA, M.D. 2018-05-13 2018-05-13 YUSUF Llamas UTP [id number] [place] 10:00:00 10:00:00 t; TINO MART, Ph Jeferson Mercedes M.D. 2018-04-16 2018-04-16 Outpatient [facility] [id number] eClinic 16:52:00 16:52:00 [facility] Prime alW orks Prime Care Med Care Med 2018-04-14 2018-04-14 Outpatient [facility] [id number] eClinic 07:17:00 07:17:00 [facility] Prime alW orks Prime Care Med Care Med 2018-04-01 2018-04-01 Outpatient [facility] [id number] eClinic 11:15:00 11:15:00 [facility] Prime alW orks Prime Care Med Care Med 2018-02-26 2018-02-26 Outpatient [facility] [id number] eClinic 06:24:00 06:24:00 [facility] Prime alW orks Prime Care Med Care Med 2018-02-16 2018-02-16 Outpatient [facility] [id number] eClinic 14:45:00 14:45:00 [facility] Prime alW orks Prime Care Med Care Med 2017-12-09 2017-12-09 Outpatient [facility] [id number] eClinic 11:37:00 11:37:00 [facility] Prime alW orks Prime Care Med Care Med 2017-12-09 2017-12-09 Outpatient [facility] [id number] eClinic 11:00:00 11:00:00 [facility] Prime alW orks Prime Care Med Care Med 2017-12-01 2017-12-01 Outpatient [facility] [id number] eClinic 07:27:00 07:27:00 [facility] Prime alW orks Prime Care Med Care Med 2017-11-28 2017-11-28 Outpatient [facility] [id number] eClinic 10:30:00 10:30:00 [facility] Prime alW orks Prime Care Med Care Med 2017-09-03 2017-09-03 Outpatient Kaplana - Kalp[place] - [id number] eClinic 08:42:00 08:42:00 [facility] [place] [facility] 2017-07-15 2017-07-15 Outpatient [facility] [id number] eClinic 21:24:00 21:24:00 [facility] Prime alW or[facility] Prime Care Med Care Med 2017-07-07 2017-07-07 Outpatient Kalpana - [place]pana - [id number] eClinic 11:32:00 11:32:00 [facility] [place] [facility] 2017-07-04 2017-07-04 Outpatient [facility] [id number] eClinic 13:00:00 13:00:00 [facility] Prime al orks Prime Care Med Care Med 2017-07-04 2017-07-04 Outpatient [facility] [id number] eClinic 13:00:00 13:00:00 [facility] Prime alW orks Prime Care Med Care Med 2017-06-23 2017-06-23 YUSUF Hodges UTP [id number] [place] 14:30:00 14:30:00 t; MATEO SAXENA 2017-06-18 2017-06-18 Outpatient [facility] [id number] eClinic 05:24:00 05:24:00 [facility] Prime alW orks Prime Care Med Care Med 2017-06-05 2017-06-05 Outpatient [facility] [id number] eClinic 13:30:00 13:30:00 [facility] Prime alW orks Prime Care Med Care Med 2017-05-15 2017-05-15 YUSUF Hodges UTP [id number] [place] 07:45:00 07:45:00 t; MATEO SAXENA 2017-03-07 2017-03-07 YUSUF Hodges UTP [id number] [place] 14:00:00 14:00:00 t; MATEO SAXENA Results Test Description Test Time Test Comments Results Result Sourc e Comments - MRI C-SPINE W/O 2021-03-29 CONT 09:47:00 [facility] 1955 Sex: M Patient Name: AISHA PARKER Unit No: [id number] EXAMS: CPT CODE: [id number] MRI C-SPINE W/O CONT 74150 DIAGNOSIS: 1. At C2-3 there is no evidence for disc bulge or herniation, bony canal or foraminal stenosis. Asymmetric left facet degeneration is present. 2. At C3-4 there is a grade 1 degenerative spondylolisthesis and mild disc bulging with moderate right foraminal narrowing and moderate to marked left-sided stenosis. The canal is stenotic with an AP diameter of 11 mm. Bilateral facet degeneration is present. 3. At C4-5 there is a slight degenerative spondylolisthesis without a focal disc abnormality. Canal is mildly stenotic with an AP diameter of 12 mm. Bilateral facet degeneration is present. There is moderate right foraminal narrowing without left-sided stenosis. 4. At C5-6 the patient is status post anterior fusion and the canal is stenotic with an AP diameter of 11 mm. Marked right and moderate to marked left foraminal narrowing is seen. 5. At C6-7 the patient is status post anterior fusion and the canal is stenotic with an AP diameter of 11 mm. Marked right foraminal narrowing is present with moderate left-sided stenosis. Facet degeneration is present. 6. At C7-T1 there is no evidence for disc bulge or herniation, bony canal or foraminal stenosis. COMMENT: COMPARISON: No prior exams available. Scans were performed in the sagittal and axial planes utilizing T1, gradient echo, T2 and inversion recovery images. Postsurgical change is present from C5 to C7. Disc degeneration is present at the nonoperative levels. The cord appears normal in size and signal. at 0947 Reported and signed by: Ghassan Clay MD CC: Ghassan Bright M.D. Technologist: Joana Chirinos(R) Transcribed D/ (5349) [facility] NAME: AISHA PARKER [address] [place] [address] PHYS: Ghassan Stanley MD : 1955 AGE: 66 SEX: M [place] [address] LOC: Y.MRI PHONE #: [phone] EXAM DATE: 03/29/2021 STATUS: REG CLI FAX #: [phone] RAD #: [id number] D/C DT PAGE 1 Signed Report Patient Name: AISHA PARKER Unit No: [id number] EXAMS: CPT CODE: [id number] MRI C-SPINE W/O CONT 21082 (Continued) Orig Print D/T: S: 03/29/2021 (0950) [facility] NAME: AISHA PARKER [address] [place] [address] PHYS: Ghassan Stanley MD : 1955 AGE: 66 SEX: M [place] [address] LOC: Y.MRI PHONE #: [phone] EXAM DATE: 03/29/2021 STATUS: REG CLI FAX #: [phone] RAD #: [id number] D/C DT PAGE 2 Signed Report - XR C-SPINE 4-5 2021-03-29 V 08:44:00 [facility] 1955 Sex: M Patient Name: AISHA PARKER Unit No: [id number] EXAMS: CPT CODE: [id number] XR C-SPINE 4-5 V 63238 Cervical spine 2 views plus flexion and extension COMMENT: Anterior fusion has been performed from C5 to C7. Vertebral body heights and interspaces are maintained. Grade 1 spondylolisthesis is seen at C2-3, C3-4 and C4-5. Abnormal motion is present at C2-3 with reduction of the spondylolisthesis at 0844 Reported and signed by: Ghassan Clay MD CC: Ghassan Bright M.D. Technologist: RT. Tate(R) Transcribed D/ (0844) [facility] NAME: AISHA PARKER [address] [place] [address] PHYS: Ghassan Stanley MD : 1955 AGE: 66 SEX: M [place] [address] LOC: Y.MRI PHONE #: [phone] EXAM DATE: 03/29/2021 STATUS: REG CLI FAX #: [phone] RAD #: [id number] D/C DT PAGE 1 Signed Report Patient Name: AISHA PARKER Unit No: [id number] EXAMS: CPT CODE: [id number] XR C-SPINE 4-5 V 75373 (Continued) Orig Print D/T: S: 03/29/2021 (0847) [facility] NAME: AISHA PARKER [address] [place] [address] PHYS: Ghassan Stanley MD : 1955 AGE: 66 SEX: M [place], [place] [address] LOC: Y.MRI PHONE #: [phone] EXAM DATE: 03/29/2021 STATUS: REG CLI FAX #: [phone] RAD #: [id number] D/C DT PAGE 2 Signed Report SARS-CoV-2 (COVID-19) RNA [Presence] in Respiratory sp ecimen by 2021-03-16 21:33:21 BRADLEY with probe detection Test Item Value Reference Range Interpretation Comme nts SARS-CoV-2 (COVID-19) RNA [Presence] in Respiratory Not detected No t-Detected specimen by BRADLEY with probe detection (test code = 06254-4) Whether patient is employed in a healthcare setting (test code = 68792-6) Whether the patient has symptoms related to condition of interest (test code = 56202-3) Patient was hospitalized because of this condition (test code = 07985-9) Whether the patient was admitted to intensive care unit (ICU) for condition of interest (test code = 49436-6) Whether patient resides in a congregate care setting (test code = 31594-1) YORDY PASTORSARS-CoV-2 (COVID-19) RNA [Presence] in Respiratory specimen by BRADLEY with probe [id number] 22:10:45 Test Item Value Reference Range Interpretation Comments SARS-CoV-2 (COVID-19) RNA Not detected Not-Detected [Presence] in Respiratory specimen by BRADLEY with probe detection (test code = 15871-6) YORDY PASTORSARS-CoV-2 (COVID-19) RNA [Presence] in Respiratory specimen by BRADLEY with probe [id number] 23:42:53 Test Item Value Reference Range Interpretation Comments SARS-CoV-2 (COVID-19) RNA Not detected Not-Detected [Presence] in Respiratory specimen by BRADLEY with probe detection (test code = 90429-4) [facility] BY [id number] 15:03:00 Test Item Value Reference Range Interpretation Comments HEPATITIC C BY PCR NEGATIVE NONE DETECT Negative: HCV RNA Not (test code = HEPCT) Detected DONE AT: [address] [address] HEPATITIS C BY [id number] 14:04:00 Test Item Value Reference Range Interpretation Comments HEPATITIS C BY PCR Negative Negative Negative: HCV RNA Not (test code = HEPCT) Detected Performed At: [facility] [id number] [place], [place] [id number] ra Nir AGUILA Ph:[phone] 4 - XR SPINE 1 V SPEC [id number] 10:25:00 Patient Name: AISHA PARKER Unit No: [id number] EXAMS: CPT CODE: [id number] XR SPINE 1 V SPEC [id number] LATERAL INTRAOPERATIVE VIEWS OF THE CERVICAL SPINE Film 1: Metal marker overlies soft tissues anterior to C6-7. Film 2: Anterior screws overlie the C5 and C6 vertebral bodies. Film 3: Patient status post anterior discectomy at the C5-6 and C6-7 levels with interbody bone grafts and anterior interconnecting plate. at 1025 Reported and signed by: Vinny Almaguer MD CC: Ghassan Bright M.D. Technologist: NASIR ROMO (RT.R) Transcribed D/ (1029) [facility] NAME: AISHA PARKER [address] [place] [address] PHYS: Ghassan Stanley MD : 1955 AGE: 65 SEX: M [place] [address] LOC: Y.523 A PHONE #: [phone] EXAM DATE: 06/06/2020 STATUS: ADM IN FAX #: [phone] RAD #: [id number] D/C DT PAGE 1 Signed Report Patient Name: AISHA PARKER Unit No: [id number] EXAMS: CPT CODE: [id number] XR SPINE 1 V SPEC LEVEL 57862 (Continued) Orig Print D/T: S: 06/07/2020 (1028) [facility] NAME: AISHA PARKER [address] [place] [address] PHYS: Ghassan Stanley MD : 1955 AGE: 65 SEX: M [place], [place] [address] LOC: Y.523 A PHONE #: [phone] DATE: 06/06/2020 STATUS: ADM IN FAX #: [phone] RAD #: [id number] D/C DT PAGE 2 Signed Report- XR SPINE 1 V SPEC [id number] 10:25:00 Patient Name: AISHA PARKER Unit No: [id number] EXAMS: CPT CODE: [id number] XR SPINE 1 V SPEC [id number] LATERAL INTRAOPERATIVE VIEWS OF THE CERVICAL SPINE Film 1: Metal marker overlies soft tissues anterior to C6-7. Film 2: Anterior screws overlie the C5 and C6 vertebral bodies. Film 3: Patient status post anterior discectomy at the C5-6 and C6-7 levels with interbody bone grafts and anterior interconnecting plate. at 1025 Reported a nd signed by: Vinny Almaguer MD CC: Ghassan Bright M.D. Technologist: NASIR ROMO (RT.R) Transcribed D/ (8910) [facility] NAME: AISHA PARKER [address] [place] [address] PHYS: Ghassan Stanley MD : 1955 AGE: 65 SEX: M [place] [address] LOC: Y.523 A PHONE #: [phone] EXAM DATE: 06/06/2020 STATUS: ADM IN FAX #: [phone] RAD #: [id number] D/C DT PAGE 1 Signed Report Patient Name: AISHA PARKER Unit No: [id number] EXAMS: CPTCODE: [id number] XR SPINE 1 V SPEC LEVEL 35766 (Continued) Orig Print D/T: S: 06/07/2020 (1028) [facility] NAME: AISHA PARKER [address] [place] [address] PHYS: Ghassan Stanley MD : 1955 AGE: 65 SEX: M [place], [place] [address] LOC: Y.523 A PHONE #: [phone] EXAM DATE: 06/06/2020 STATUS: ADM IN FAX #: [phone] RAD #: [id number] D/C DT PAGE 2 Signed Report- XR SPINE 1 V SPEC [id number] 10:25:00 Patient Name: AISHA PARKER Unit No: [id number] EXAMS: CPT CODE: [id number] XR SPINE 1 V SPEC [id number] LATERAL INTRAOPERATIVE VIEWS OF THE CERVICAL SPINE Film 1: Metal marker overlies soft tissues anterior to C6-7. Film 2: Anterior screws overlie the C5 and C6 vertebral bodies. Film 3: Patient status post anterior discectomy at the C5-6 and C6-7 levels with interbody bone grafts and anterior interconnecting plate. at 1025 Reported and signed by: Vinny Almaguer MD CC: Ghassan Bright M.D. Technologist: NASIR ROMO (RT.R) Transcribed D/ (1027) [facility] NAME: AISHA PARKER [address] [place] [address] PHYS: Ghassan Stanley MD : 1955 AGE: 65 SEX: M [place], [place] [address] LOC: Y.523 A PHONE #: [phone] EXAM DATE: 06/06/2020 STATUS: ADM IN FAX #: [phone] RAD #: [id number] D/C DT PAGE 1 Signed Report Patient Name: AISHA PARKER Unit No: [id number] EXAMS: CPT CODE: [id number] XR SPINE 1 V SPEC LEVEL 86373 (Continued) Orig Print D/T: S: 06/07/2020 (1028) [facility] NAME: AISHA PARKER [address] [place] [address] PHYS: Ghassan Stanley MD : 1955 AGE: 65 SEX: M [place], [place] [address] LOC: Y.523 A PHONE #: [phone] EXAM DATE: 06/06/2020 STATUS: ADM IN FAX #: [phone] RAD #: [id number] D/C DT PAGE 2 Signed ReportPROTHROMBIN [id number] 07:09:00 Test Item Value Reference Range Interpretation Comments PROTHROMBIN TIME 13.1 secs 10.1-12.5 H PATIENT (test code = PTP) INTERNATIONAL NORMAL 1.17 <2.0 RECOMME NDED THERAPEUTIC RATIO (test code = RANGE FOR ORAL INR) ANTICOAGULANTTR EATMENT: CONDITION INRPr ophylaxis of venous throm bosis in 2.0 - 3.0 high- risk medical or surg ical patientsTreatme nt of venous thrombos is 2.0 - 3.0Prevention o f embolism 2.0 - 3.0Prevention o f recurrent embol ism, or 3.0 - 4.5 patie nts with mechanical pros thetic intravascular v hyman IS PATIENT ON ANTICOAGULANTS ? YTHROMBOPLASTIN TIME [id number] 07:09:00 Test Item Value Reference Range Interpretation Comments PTT ACTIVATED (test code = APTT) 30.4 secs 24.9-37.0 N IS PATIENT ON ANTICOAGULANTS ? YBASIC METABOLIC [id number] 06:54:00 Test Item Value Reference Range Interpretation Comments SODIUM (test code = 139 mmol/L 136-145 N NA) POTASSIUM (test code = 4.8 mmol/L 3.5-5.1 N K) CHLORIDE (test code = 103.0 mmol/L 98-107 N CL) CARBON DIOXIDE (test 27.1 mmol/L 21-32 N code = CO2) GLUCOSE (test code = 120 mg/dL 70-110 H GLU) BLOOD UREA NITROGEN 23 mg/dL 7-18 H (test code = BUN) GLOMERULAR FILTRATION 60.6 >60 Unit o f measure: RATE (test code = GFR) mL/mi n/1.73 [id number] Range:Healthy Adults >90 mL/min/1.73 m2 For Chronic Kidney Disease: Stage II Mild Decrease i n GFR 60-90 Stage III Moderate Decrea se in GFR 30-59 St age IV Severe Decre ase in GFR 15-29 St age V Kidney Failur e <15 CREATININE (test code 1.21 mg/dL 0.55-1.30 N = CREAT) CALCIUM (test code = 8.4 mg/dL 8.2-10.1 N CA) Novel Coronavirus 2018 [id number] 04:58:00 Test Item Value Reference Range Interpretation Comments Novel Coronavirus 2018 Inhouse (test Negative Negative code = COVNONPUI) Novel Coronavirus 2019 [id number] 04:57:00 Test Item Value Reference Range Interpretation Comments Novel Coronavirus 2019 Inhouse (test Negative Negative code = COVNONPUI) ACUTE HEPATITIS [id number] 21:10:00 Test Item Value Reference Range Interpretation Comments AB HEPATITIS A IGM NONREACTIVE NONREACTIVE (test code = HAVMAB) AG HEPATITIS B NONREACTIVE NONREACTIVE SURFACE (test code = HBSAG) AB HEPATITIS B NONREACTIVE NONREACTIVE CORE IGM (test code = HBCMAB) AB HEPATITIS C EQUIVOCAL NONREACTIVE A Reported to [ ]by INFCE, (test code = on 06/02/20 at [facility]) 2103.RESULTS VE RIFIED BY REPEAT ANALYSIS RESULTS CALLED TO DENNY ORD .READ BACK & CONFIRME D? YES.BY F.LAB.IR1 06/02.Reported t kodi Marie O.by Y.LAB.CD, on 06/02/20 at 210 7.Results faxed to the do ctor's office. SIGNAL TO CUTOFF 1.28 <0.80 H (test code = CUTOFF) AB HIV 21:10:00 Test Item Value Reference Range Interpretation Comments AB HIV 1 (test code NONREACTIVE NONREACTIVE Done by [employer] = HIV1AB) 4th Gen HIV Ag/ Ab Combo Screen ACUTE HEPATITIS [id number] 21:04:00 Test Item Value Reference Range Interpretation Comments AB HEPATITIS A IGM NONREACTIVE NONREACTIVE (test code = HAVMAB) AG HEPATITIS B NONREACTIVE NONREACTIVE SURFACE (test code = HBSAG) AB HEPATITIS B NONREACTIVE NONREACTIVE CORE IGM (test code = HBCMAB) AB HEPATITIS C EQUIVOCAL NONREACTIVE A Reported to [ ]by INFCE, (test code = on 06/02/20 at [facility]) 2103.RESULTS VE RIFIED BY REPEAT ANALYSIS RESULTS CALLED TO DENNY ORD .READ BACK & CONFIRME D? YES.BY F.LAB.IR1 06/02. SIGNAL TO CUTOFF 1.28 <0.80 H (test code = CUTOFF) AB HIV 21:04:00 Test Item Value Reference Range Interpretation Comments AB HIV 1 (test code NONREACTIVE NONREACTIVE Done by [employer] = HIV1AB) 4th Gen HIV Ag/ Ab Combo Screen ACUTE HEPATITIS [id number] 21:03:00 Test Item Value Reference Range Interpretation Comments AB HEPATITIS A IGM NONREACTIVE NONREACTIVE (test code = HAVMAB) AG HEPATITIS B NONREACTIVE NONREACTIVE SURFACE (test code = HBSAG) AB HEPATITIS B NONREACTIVE NONREACTIVE CORE IGM (test code = HBCMAB) AB HEPATITIS C EQUIVOCAL NONREACTIVE A RESULTS VERIF IED BY (test code = REPEAT ANALYSIS RESULTS HCVAB) CALLED TO DENNY ORD .READ BACK & CONFIRME D? YES.BY F.LAB.IR1 06/02 2103. SIGNAL TO CUTOFF 1.28 <0.80 H (test code = CUTOFF) AB HIV 1 21:03:00 Test Item Value Reference Range Interpretation Comments AB HIV 1 2 (test NONREACTIVE NONREACTIVE Done by [employer] code = [id number]) 4th Gen HIV Ag/Ab Combo Screen ACUTE HEPATITIS [id number] 19:27:00 Test Item Value Reference Range Interpretation Comments AB HEPATITIS A IGM (test code = NONREACTIVE NONREACTIVE HAVMAB) AG HEPATITIS B SURFACE (test code NONREACTIVE NONREACTIVE = HBSAG) AB HEPATITIS B CORE IGM (test NONREACTIVE NONREACTIVE code = HBCMAB) AB HEPATITIS C (test code = NONREACTIVE HCVAB) SIGNAL TO CUTOFF (test code = 1.28 <0.80 H CUTOFF) AB HIV 19:27:00 Test Item Value Reference Range Interpretation Comments AB HIV 1 (test code NONREACTIVE NONREACTIVE Done by [employer] = HIV1AB) 4th Gen HIV Ag/ Ab Combo Screen ACUTE HEPATITIS [id number] 19:26:00 Test Item Value Reference Range Interpretation Comments AB HEPATITIS A IGM (test code = NONREACTIVE NONREACTIVE HAVMAB) AG HEPATITIS B SURFACE (test code NONREACTIVE NONREACTIVE = HBSAG) AB HEPATITIS B CORE IGM (test NONREACTIVE NONREACTIVE code = HBCMAB) AB HEPATITIS C (test code = NONREACTIVE HCVAB) SIGNAL TO CUTOFF (test code = 1.28 <0.80 H CUTOFF) AB HIV 1 19:26:00 Test Item Value Reference Range Interpretation Comments AB HIV 1 2 (test NONREACTIVE NONREACTIVE Done by Sie [employer] Diagn[employer]aur code = [id number]) 4th Gen HIV Ag/Ab Combo Screen ACUTE HEPATITIS [id number] 18:53:00 Test Item Value Reference Range Interpretation Comments AB HEPATITIS A IGM (test code = NONREACTIVE HAVMAB) AG HEPATITIS B SURFACE (test code NONREACTIVE NONREACTIVE = HBSAG) AB HEPATITIS B CORE IGM (test code = HBCMAB) AB HEPATITIS C (test code = NONREACTIVE HCVAB) SIGNAL TO CUTOFF (test code = CUTOFF) AB HIV 18:53:00 Test Item Value Reference Range Interpretation Comments AB HIV 1 (test code = HIV1AB) NONREACTIVE ACUTE HEPATITIS [id number] 18:53:00 Test Item Value Reference Range Interpretation Comments AB HEPATITIS A IGM (test code = NONREACTIVE HAVMAB) AG HEPATITIS B SURFACE (test code NONREACTIVE NONREACTIVE = HBSAG) AB HEPATITIS B CORE IGM (test NONREACTIVE code = HBCMAB) AB HEPATITIS C (test code = NONREACTIVE HCVAB) SIGNAL TO CUTOFF (test code = <0.80 CUTOFF) AB HIV 1 18:53:00 Test Item Value Reference Range Interpretation Comments AB HIV 1 2 (test code = [id number]) NONREACTIVE COMPREHENSIVE METABOLIC [id number] 18:22:00 Test Item Value Reference Range Interpretation Comments SODIUM (test code = 143 mmol/L 136-145 N NA) POTASSIUM (test code = 4.1 mmol/L 3.5-5.1 N K) CHLORIDE (test code = 106.0 mmol/L 98-107 N CL) CARBON DIOXIDE (test 29.8 mmol/L 21-32 N code = CO2) GLUCOSE (test code = 72 mg/dL 70-110 N GLU) BLOOD UREA NITROGEN 19 mg/dL 7-18 H (test code = BUN) GLOMERULAR FILTRATION 49.5 >60 Unit o f measure: RATE (test code = GFR) mL/mi n/1.73 [id number] Range:Healthy Adults >90 mL/min/1.73 m2 For Chronic Kidney Disease: Stage II Mild Decrease i n GFR 60-90 Stage III Moderate Decrea se in GFR 30-59 St age IV Severe Decre ase in GFR 15-29 S tage V Kidney Failur e <15 CREATININE (test code 1.44 mg/dL 0.55-1.30 H = CREAT) TOTAL PROTEIN (test 6.8 g/dL 6.4-8.2 N code = PROT) ALBUMIN (test code = 3.8 g/dL 3.4-5.0 N ALB) GLOBULIN (test code = 3.0 g/dL 2.2-4.2 N GLOB) ALBUMIN/GLOBULIN RATIO 1.3 0.7-2.0 N (test code = A/G) CALCIUM (test code = 8.7 mg/dL 8.2-10.1 N CA) BILIRUBIN TOTAL (test 0.70 mg/dL 0.2-1.00 N code = BILT) SGOT/AST (test code = 21.0 U/L 15-37 N AST) SGPT/ALT (test code = 27.0 U/L 12-78 N Please note new ALT) normal range. ALKALINE PHOSPHATASE 64 U/L 46-116 N TOTAL (test code = ALKP) PROTHROMBIN [id number] 18:20:00 Test Item Value Reference Range Interpretation Comments PROTHROMBIN TIME 26.1 secs 10.1-12.5 H PATIENT (test code = PTP) INTERNATIONAL NORMAL 2.35 <2.0 RECOMME NDED THERAPEUTIC RATIO (test code = RANGE FOR ORAL INR) ANTICOAGULANTTR EATMENT: CONDITION INRPr ophylaxis of venous throm bosis in 2.0 - 3.0 high- risk medical or surg ical patientsTreatme nt of venous thrombos is 2.0 - 3.0Prevention o f embolism 2.0 - 3.0Prevention o f recurrent embol ism, or 3.0 - 4.5 patie nts with mechanical pros thetic intravascular v hyman IS PATIENT ON ANTICOAGULANTS ? YLIST ANTICOAGULANT/ANTI PLT MEDICATION : CoumadinHas Lab been notified if Patient is on Heparin Drip? NOIf Yes, order CBC, OCCULT BLOOD, PT every other day NTHROMBOPLASTIN TIME [id number] 18:20:00 Test Item Value Reference Range Interpretation Comments PTT ACTIVATED (test code = APTT) 39.6 secs 24.9-37.0 H IS PATIENT ON ANTICOAGULANTS ? YLIST ANTICOAGULANT/ANTI PLT MEDICATION : CoumadinHas Lab been notified if Patient is on Heparin Drip? NOIf Yes, order CBC, OCCULT BLOOD, PT every other day NCBC W/AUTO [id number] 18:16:00 Test Item Value Reference Range Interpretation Comments WHITE BLOOD CELL (test code = WBC) 6.1 K/mm3 5.7-10.5 N RED BLOOD CELL (test code = RBC) 5.20 M/mm3 4.2-5.4 N HEMOGLOBIN (test code = HGB) 14.5 g/dL 12-16 N HEMATOCRIT (test code = HCT) 45.4 % 37-47 N MEAN CELL VOLUME (test code = MCV) 87 fL 80-98 N MEAN CELL HGB (test code = MCH) 27.9 pg 27-34 N MEAN CELL HGB CONCENTRATION (test 31.9 g/dL 30.8-34.1 N code = MCHC) RED CELL DISTRIBUTION WIDTH (test 14.8 % 11-16 N code = RDW) PLT (test code = PLT) 143 K/mm3 130-400 N MEAN PLATELET VOLUME (test code = 12.4 fL 8.9-12.1 H MPV) NEUTROPHIL % (test code = NT%) 67.5 % 45-70 N LYMPHOCYTE % (test code = LY%) 20.5 % 20-40 N MONOCYTE % (test code = MO%) 8.3 % 3-10 N EOSINOPHIL % (test code = EO%) 3.3 % 1-5 N BASOPHIL % (test code = BA%) 0.2 % 0.0-1.1 N NEUTROPHIL # (test code = NT#) 4.15 K/mm3 2.00-7.50 N LYMPHOCYTE # (test code = LY#) 1.26 K/mm3 1.50-4.00 L MONOCYTE # (test code = MO#) 0.51 K/mm3 0.2-0.8 N EOSINOPHIL # (test code = EO#) 0.20 K/mm3 0.04-0.4 N BASOPHIL # (test code = BA#) 0.01 K/mm3 0.02-0.10 L MANUAL DIFF REQUIRED (test code = NO MANUAL DIFF MDIFF) NUCLEATED RED BLOOD CELL (test 0 % 0-0 N code = NRBC) [QL] CMP [id number] 08:02:00 Test Item Value Reference Range Interpretation Comments GLUCOSE; Normal 97 mg/dl 65-99 N Fasting refe rence (test code = interval 1547-9) UREA NITROGEN (BUN) 21 mg/dl 7-25 N (test code = UREA NITROGEN (BUN)) CREATININE (test 1.28 mg/dl 0.70-1.25 For patient s >49 years code = CREATININE) of age, t he reference limitfor Creati nine is approximately 1 3% higher for peopleidentifie d as -Slime n. eGFR NON-AFR. 59 > OR = 60 PANAMANIAN (test code {ML/MIN/1.7} = eGFR NON-AFR. PANAMANIAN) eGFR 69 > OR = 60 N PANAMANIAN (test code {ML/MIN/1.7} = eGFR ) BUN/CREATININE 16 {CALC} 6-22 N RATIO (test code = BUN/CREATININE RATIO) SODIUM (test code = 140 mmol/L 135-146 N SODIUM) POTASSIUM (test 4.3 mmol/L 3.5-5.3 N code = POTASSIUM) CHLORIDE (test code 107 mmol/L 98-110 N = CHLORIDE) CARBON DIOXIDE 29 mmol/L 20-32 N (test code = CARBON DIOXIDE) CALCIUM (test code 9.6 mg/dl 8.6-10.3 N = CALCIUM) PROTEIN, TOTAL 7.0 g/dl 6.1-8.1 N (test code = PROTEIN, TOTAL) ALBUMIN (test code 4.3 g/dl 3.6-5.1 N = ALBUMIN) GLOBULIN (test code 2.7 {G/DL 1.9-3.7 N = GLOBULIN) CALC} ALBUMIN/GLOBULIN 1.6 {CALC} 1.0-2.5 N RATIO (test code = ALBUMIN/GLOBULIN RATIO) BILIRUBIN, TOTAL; 1.0 mg/dl 0.2-1.2 N Normal (test code = 55103-1) ALKALINE 55 u/l 35-144 N PHOSPHATASE (test code = ALKALINE PHOSPHATASE) AST; Normal (test 19 u/l 10-35 N code = 1916-6) ALT; Normal (test 15 u/l 9-46 N code = 1742-6) [facility][QL] ALKALINE PHOSPHATASE, BONE [id number] 08:02:00 Test Item Value Reference Range Interpretation Comments BONE SPECIFIC (test code = BONE 12.7 {mcg/L} 7.6-14.9 SPECIFIC) [facility]- XR C-SPINE 4-5 [id number] 06:38:00 Patient Name: AISHA PARKER Unit No: [id number] EXAMS: CPT CODE: [id number] XR C-SPINE 4-5 V 40516 C OMPARISON: Concurrent MRI. IMAGES PROVIDED: 4 FINDINGS: Grade 1 spondylolisthesis of C4-C5 and grade1 retrolisthesis of C5-C6. No pathologic motion with flexion/extension. No acute fracture. Marked disc degeneration is seen at C5-C6 and C6-C7. Moderate cervical facet hypertrophy. Sternotomy wires arepresent. Visualized lungs are clear. IMPRESSION: Advanced cervical spondylosis without evidence of dynamic instability. at 0638 Reported and signed by: Michael Driver M.D. CC: Ghassan Bright M.D. Technologist: BRIAN KENNEDY RT(R) Transcribed D/ (06) [facility] NAME: ALEXANDRE PARKERY[address] [facility] PHYS: Ghassan Stanley MD : 1955 AGE: 65 SEX: M [place] [address] LOC: Y.MRI PHONE #: [phone] EXAM DATE: 04/20/2020 STATUS: DEP CLI FAX #:[phone] RAD #: [id number] D/C DT PAGE 1 Signed Report Patient Name: AISHA PARKER Unit No: [id number] EXAMS: CPT CODE: [id number] XR C-SPINE 4-5 V 79036 (Continued) Orig Print D/T: S: 04/21/2020 (0641) [facility] NAME: AISHA PARKER [address] [place] [address] PHYS: Ghassan Stanley MD : 1955 AGE: 65 SEX: M [place] [id number] LOC: Y.MRI PHONE #: [phone] EXAM DATE: 04/20/2020 STATUS: DEP CLI FAX #: [phone] RAD #: [id number] D/C DT PAGE 2 SignedReport- MRI LW JNT W/O CONT [id number] 11:40:00 Patient Name: AISHA PARKER Unit No: [id number] EXAMS: CPT CODE: [id number] MRI [place] JNT W/[place] [address] TECHNIQUE: Multiplanar, multisequence MRI of the right knee without contrast. COMPARISON: None available. FINDINGS: Menisci: Complex medial meniscal tear is demonstrated with a prominent horizontal component extending from the posterior horn to the meniscal body. The free edge of the posterior horn is displaced centrally. There is also horizontal signal within the lateral meniscal body, concerning for possible tear. Ligament and tendons: ACL and PCL are intact. Collateral ligaments are maintained. Mild quadriceps tendinosis is seen without evidence of tear. The patellar tendon is normal. Cartilage/ bone: Broad partial-thickness cartilage loss of the patellar apex and lateral patellar facet is greatest at the superior patellar apex with there is prominent subchondral edema. Low-grade cartilage irregularity of the medial compartment is noted diffusely without evidence of full-thickness defect. The lateral compartment cartilage is maintained. No acute fracture. Other: A small joint effusionis present. Large popliteal cyst. IMPRESSION: 1. Complex medial meniscal tear with prominent horizontal component extending from the posterior horn and meniscal body. 2. Possible horizontal tear of thelateral meniscal body. 3. High-grade cartilage degeneration of the patellar apex/medial patellar face t. at 1140 Reported and signed by: Michael Driver M.D. CC: Obinna Wallace MD Technologist: Joana Chirinos(R) Transcribed D/ (1140) t.[facility]ORAR.[facility] NAME: AISHA PARKER [address] [facility] PHYS: Obinna Prince MD : 1955 AGE: 65 SEX: M [place], [place] [address] LOC: Y.MRI PHONE #: [phone] EXAM DATE: 04/20/2020 STATUS: REG CLI FAX #: [phone] #: [id number] D/C DT PAGE 1 Signed Report Patient Name: AISHA PARKER Unit No: [id number] EXAMS:CPT CODE: [id number] MRI LW JNT W/[place] [id number] (Continued) Orig Print D/T: S: 04/20/2020 (1143) [facility] NAME: AISHA PARKER [address] [facility] [facility] PHYS: Obinna Prince MD : 1955 AGE: 65 SEX: M [place], [place] [address] LOC: Y.MRI PHONE #: [phone] EXAM DATE: 04/20/2020 STATUS: REG CLI FAX #: [phone] RAD #: [id number] D/C DT PAGE 2 Signed Report- MRI C- SPINE W/O [id number] 10:59:00 Patient Name: AISHA PARKER Unit No: [id number] EXAMS: CPT CODE: [id number] MRI C-SPINE W/O CONT 56443 TECHNIQUE: Multiplanar, multisequence MRI examination performed of the cervical spine without intravenous contrast material. COMPARISON: Concurrent radiographs FINDINGS: Alignment: Slight spondylolisthesis of C3-C4 as well as grade 1 retrolisthesis of C5-C6. Bone Lesion / Fracture: None present. Cervical Spinal Cord: No cord expansion or abnormal signal. Prevertebral / Paraspinal Soft Tissues: Unremarkable. C2/3: Disc desiccation and minimal bulge. Left greater than right facet and uncovertebral hypertrophy results in moderate left, mild to moderate right foraminal stenosis. Mild central canalstenosis. C3/4: Slight spondylolisthesis. Broad disc bulge osteophyte complex is noted as well as sev ere bilateral uncovertebral and facet hypertrophy. There is moderate central canal stenosis as well as severe bilateral foraminal stenosis. C4/5: Small disc bulge is present. Bilateral uncovertebral hypertrophy is demonstrated. There is mild left, moderate to severe right foraminal stenosis. No significant central canal stenosis. C5/6: Grade 1 retrolisthesis. Large disc bulge osteophyte complex is demonstrated as well as severe bilateral uncovertebral hypertrophy. There is severe central canal stenosis as well as severe bilateral foraminal narrowing. C6/7: Severe disc degeneration with a large right asymmetric disc bulge osteophyte complex. Severe bilateral uncovertebral hypertrophy results in severe foraminal stenosis bilaterally, greater on the right. Severe central canal stenosis is noted withslight mass effect on the spinal cord. C7/T1: No significant disc bulge or herniation. Mild bilateral facet hypertrophy. There is moderate bilateral foraminal stenosis. No significant central canal stenosis IMPRESSION: Advanced cervical spondylosis with severe central canal stenosis at C5-C6 and C6-C7. at 1059 Reported and signed by: Michael Driver M.D. [facility] NAME: AISHA PARKER [address] [place] [address] PHYS: Ghassan Stanley MD : 1955 AGE: 65 SEX: M [place] [address] LOC: Y.MRI PHONE #: [phone] EXAM DATE: 04/20/2020 STATUS: REG CLI FAX #: [phone] RAD #: [id number] D/C DT PAGE 1 Signed Report (CONTINUED) Patient Name: AISHA PARKER Unit No: [id number] EXAMS: CPT CODE: [id number] MRI C-SPINE W/O CONT 96279 (Continued) CC: Ghassan Bright M.D. Technologist: Joana Chirinos(R) Transcribed D/ (1059) [facility] NAME: AISHA PARKER [address] [place] [address] PHYS: Ghassan Stanley MD : 1955 AGE: 65 SEX: M [place] [address] LOC: Y.MRI PHONE #: [phone] EXAM DATE: 04/20/2020 STATUS:REG CLI FAX #: [phone] RAD #: [id number] D/C DT PAGE 2 Signed Report Patient Name: Brad PARKER No: [id number] EXAMS: CPT CODE: [id number] MRI C-SPINE W/O CONT 29161 (Continued) Orig Print D/T: S: 04/20/2020 (1102) [facility] NAME: AISHA PARKER [address] [place] [address] PHYS: Ghassan Stanley MD : 1955 AGE: 65 SEX: M [place], [place] [address] LOC: OmarMRI PHONE #: [phone] EXAM DATE: 04/20/2020 STATUS: REG CLI FAX #: [phone] RAD #: [id number] D/C DT PAGE 3 Signed Report- XR FLUORO FOR SPINE [id number] 19:27:00 Patient Name: AISHA PARKER Unit No: [id number] EXAMS: CPT CODE: [id number] XR FLUORO FOR SPINE INJ 05482 LUMBAR EPIRADICULAR INJECTION REFERRAL PHYSICIAN: Ghassan Bright M.D. PREOPERATIVE DIAGNOSIS: Lumbar Radiculitis POSTOPERATIVE DIAGNOSIS: L3-4 lateral listhesis with right L3-4 disc displacement, lateral recess and foraminal stenosis with right L3 and right L4 radicular pain PROCEDURES PERFORMED: Fluoroscopically guided needle localization of the right L3 and right L4 spinal nerves with transforaminal epidurograms and epidural injection of local anesthetic and steroid. FINDINGS: Good flow seen through the right L4-5 foramen. Horizontal root changes with cephalad displacement of the nerve root sleeve through the foramen was seen at the L3-4 level. Moderate anterior epidural displacement seenacross the L2-3 and L3-4 discs. Provocation was negative. Anesthetic response was positive with the patient noting relief of his right low back and lower extremity pain. Preinjection VAS 4/10. Postinjection VAS 0/10. Steroid response pending follow- up. ESTIMATED BLOOD LOSS: Minimal ANESTHESIA: TIVA COMPLICATIONS: None DETAILS OF PROCEDURE: After obtaining stable vital signs, informed consent and IV a ccess, with no contraindications, the patient was taken to the operating room and placed in a prone position with all extremities padded and appropriate monitors placed. The patient was sterilely prepped and draped over the lumbosacral spine. Using fluoroscopic visualization the insertion sites were m arked for paravertebral approaches and using standard technique, a 25 gauge needle was advanced to the base of each pedicle without paresthesias. Isovue-300 contrast 0.2 mL of was injected incrementally with frequent negative aspirations to produce each epidurogram. There were no signs of intravascular or intrathecal uptake. Bupivicaine 0.75% 0.25 mL with lidocaine 4% 0.5 mL and Decadron 8 mg was then incrementally injected with frequent negative aspirations and again there were no signs of intravascular or intrathecal uptake. The needles were removed and the patient was taken to the PACU in good condition. at 1927 Reported and signed by: Vickie Mullen M.D. CC: Vickie Mullen MD Technologist: WOLF JUAN RT(R) Transcribed D/ (1926) [facility] NAME: AISHA PARKER [address] [place], [place] [address]PHYS: Vickie Drew MD [place] [address] : 1955 AGE: 64 SEX: M LOC: ZURI PHONE #: [phone] EXAM DATE: 09/17/2019 STATUS: REG [facility] [place] [facility] FAX #: [phone] RAD #: [id number] D/C DT PAGE 1 Signed Report Patient Name: AISHA PARKER Unit No: [id number] EXAMS: CPT CODE: [id number] XR FLUORO FOR SPINE INJ 44442 (Continued) Orig Print D/T: S: 09/17/2019 (1930) [facility] NAME: AISHA PARKER [address] [place] [address] Main PHYS: Vickie Drew MD [place] [address] : 1955 AGE: 64 SEX: M LOC: ZURI PHONE #: [phone] EXAM DATE: 09/17/2019 STATUS: REG [facility] [place] FAX #: [phone] RAD #: [id number] D/C DT PAGE 2 Signed Report- XR L- SPINE W/BEND [id number] 12:16:00 Patient Name: AISHA PARKER Unit No: [id number] EXAMS: CPT CODE: [id number] XR L-SPINE W/BEND [id number] LUMBAR SPINE 5 VIEWS PLUS FLEXION AND EXTENSION COMMENT: COMPARISON: No prior exams available.Vertebral body heights are maintained. There is interspace narrowing and endplate degenerative change from L2 to L5. Lumbar scoliosis convex left is present. No abnormal motion is seen with flexion andextension. Increased bone density is seen in the left side of the pubic symphysis and the superior and inferior pubic rami the etiology of which is not certain. This may represent Paget's disease. Correlation is recommended. at 1216 Reported and signed by: Ghassan Clay MD CC: Ghassan Bright M.D. Technologist: VERNON CAMACHO, RT(R) Transcribed D/ (1216) [facility] NAME: AISHA PARKER [address] [place] [address] PHYS: Ghassan Stanley MD : 1955 AGE: 64 SEX: M [place] [address] LOC: Y.RAD PHONE #: [phone] EXAM DATE: 08/09/2019 STATUS: DEP CLI FAX #: [phone] RAD #: [id number] D/C DT PAGE 1 Signed Report Patient Name: AISHA PARKER Unit No: [id number] EXAMS: CPT CODE: [id number] XR L-SPINE W/BEND VIEW 51145 (Continued) Orig Print D/T: S: 08/10/2019 (1219) [facility] NAME: AISHA PARKER [address] [place] [address] PHYS: Ghassan Stanley MD : 1955 AGE: 64 SEX: M [place] [address] LOC: Y.RAD PHONE #: [phone] EXAM DATE: 08/09/2019 STATUS: DEP CLI FAX #: [phone] RAD #: [id number] D/C DT PAGE 2 Signed Report- CT L-SPINE W/O [id number] 07:14:00 Patient Name: AISHA PARKER Unit No: [id number] EXAMS: CPT CODE: [id number] CT L-SPINE W/O [id number] DIAGNOSIS: 1. At L1-2 there is no evidence for disc bulge or herniation. Facet degeneration ispresent with slight narrowing of the central canal. No foraminal narrowing is seen. 2. At L2-3 thereare bilateral L2 spondylolysis defects with a mild spondylolisthesis. Endplate spur formation is seen with disc bulging. Moderate right foraminal narrowing is present with mild left-sided stenosis. Mild central canal stenosis is seen with facet degeneration. 3. At L3-4 there are bilateral L3 spondylolysis defects with marked disc and endplate degenerative change and a grade 1 spondylolisthesis. 6 mm of disc bulging is seen lateralizing into the right neural foramen with marked right foraminal narrowing and mild left-sided stenosis. Moderate constriction of the thecal sac is present due to facet andligamentum flavum hypertrophic and degenerative change and disc. 4. At L4-5 there are bilateral L4 spondylolysis defects with a mild spondylolisthesis. 3 mm of disc bulging is seen with marked left foraminal narrowing and moderate to marked right-sided stenosis. Moderate central canal stenosis is present with facet and ligamentum flavum hypertrophic and degenerative change. 5. At L5-S1 there is 2 mm of disc bulging and mild foraminal narrowing. Mild central canal stenosis is seen with facet and ligamentum flavum hypertrophic and degenerative change. COMMENT: COMPARISON: No prior exams available. Scans were performed from L1 to S1 without contrast and reconstructions were obtained. There is an hemangioma of bone in S1. A scoliosis convex left is present. Disc configurations are as described. Spondylitic changes are as noted. The description these findings assumes a normal count of 5 lumbar type vertebra. at 0714 Reported and signed by: Ghassan Clay MD CC: Ghassan Bright M.D. Technologist: RT Raul(R) CTDI: DLP: Trnscrpt: 08/10/2019 (0714) [facility] NAME: AISHA PARKER [address] PHYS: Ghassan Stanley MD : 1955 AGE: 64 SEX: M [place], [place] [address] LOC: YAbhijeetRAD PHONE #: [phone] EXAM DATE: 08/09/2019 STATUS: DEP CLI FAX #: [phone] RAD #: [id number] D/C DT PAGE 1 Signed Report Patient Name: AISHA PARKER Unit No: [id number] EXAMS:CPT CODE: [id number] CT L-SPINE W/O CONTRAST 78946 (Continued) Orig Print D/T: S: 08/10/2019 (0717) [facility] NAME: AISHA PARKER [address] [facility] PHYS: Ghassan Stanley MD : 1955 AGE: 64 SEX: M [place], [place] [address] LOC: OmarRAD PHONE #: [phone] DATE: 08/09/2019 STATUS: DEP CLI FAX #: [phone] RAD #: [id number] D/C DT PAGE 2 Signed Report[PENDING SALE TO [facility]] CMP [id number] 11:27:00 Test Item Value Reference Range Interpretation Comments GLUCOSE; Normal 98 mg/dl 65-139 N Non-fasting reference (test code = interval 1547-9) UREA NITROGEN 14 mg/dl 7-25 N (BUN) (test code = UREA NITROGEN (BUN)) CREATININE (test 1.39 mg/dl 0.70-1.25 For patient s >49 years code = CREATININE) of age, t he reference limitfor Creati nine is approximately 1 3% higher for peopleidentifie d as -Slime n. eGFR NON- 54 > OR = 60 PANAMANIAN (test {ML/MIN/1.7} code = eGFR NON-) eGFR 63 > OR = 60 N PANAMANIAN (test {ML/MIN/1.7} code = eGFR ) BUN/CREATININE 10 {CALC} 6-22 N RATIO (test code = BUN/CREATININE RATIO) SODIUM (test code 136 mmol/L 135-146 N = SODIUM) POTASSIUM (test 4.6 mmol/L 3.5-5.3 N code = POTASSIUM) CHLORIDE (test 102 mmol/L 98-110 N code = CHLORIDE) CARBON DIOXIDE 28 mmol/L 20-32 N (test code = CARBON DIOXIDE) CALCIUM (test code 9.2 mg/dl 8.6-10.3 N = CALCIUM) PROTEIN, TOTAL 6.1 g/dl 6.1-8.1 N (test code = PROTEIN, TOTAL) ALBUMIN (test code 4.0 g/dl 3.6-5.1 N = ALBUMIN) GLOBULIN (test 2.1 {G/DL 1.9-3.7 N code = GLOBULIN) CALC} ALBUMIN/GLOBULIN 1.9 {CALC} 1.0-2.5 N RATIO (test code = ALBUMIN/GLOBULIN RATIO) BILIRUBIN, TOTAL; 1.2 mg/dl 0.2-1.2 N Normal (test code = 91153-8) ALKALINE 56 u/l 40-115 N PHSPHATASE (test code = ALKALINE PHSPHATASE) AST; Normal (test 20 u/l 10-35 N code = 1916-6) ALT; Normal (test 17 u/l 9-46 N code = 1742-6) [facility][QL] ALKALINE PHOSPHATASE, BONE [id number] 11:27:00 Test Item Value Reference Range Interpretation Comments BONE SPECIFIC (test code = BONE 11.0 {mcg/L} 7.6-14.9 SPECIFIC) [facility][QL] CMP [id number] 10:50:01 Test Item Value Reference Range Interpretation Comments Sodium Level 142 {mEq/l} 135-145 (test code = 2951-2) Potassium Level 4.6 {mEq/l} 3.5-5.1 (test code = 2823-3) Chloride Level 105 {mEq/l} 95-109 (test code = 2075-0) Carbon Dioxide; 33 {mEq/l} 24-32 Above High Threshold (test code = 2027-) AGAP; Below Low 8.6 {mEq/l} 10.0-20.0 Threshold (test code = 15245-5) Glucose Lvl (test 77 mg/dl 70-99 Adult refe rence range code = 2345-7) values reflec t the clinical guidel inesof the [place] [employer]et es Association. Creatinine Lvl; 1.50 mg/dl 0.50-1.40 Above High Threshold (test code = 2160-0) Blood Urea 21 mg/dl 7-22 Nitrogen (test code = 3094-0) BUN/Creatinine 14 6-25 Ratio (test code = 3097-3) Total Protein; 6.2 g/dl 6.4-8.4 Below Low Threshold (test code = 2885-2) Albumin Lvl (test 3.9 g/dl 3.5-5.0 code = 1751-7) Globulin; Below 2.3 g/dl 2.7-4.2 Low Threshold (test code = 42406-7) A/G Ratio; Above 1.7 0.7-1.6 High Threshold (test code = 1759-0) Calcium Level 8.9 mg/dl 8.5-10.5 Total (test code = 48378-5) ALT (test code = 29 u/l 0-65 1743-4) AST (test code = 26 u/l 0-37 01694-9) Alk Phos (test 48 u/l 39-136 code = 1783-0) Bili Total (test 1.1 mg/dl 0.2-1.3 code = 1974-) eGFR (test code = 50 The eGFR i s calculated 91304-7) {ML/MIN/1.7} using the CKD-E PI formula. In mos t young, healthyindividu als the eGFR will be >9 0 mL/min/1.73m2. The eGFR declines with a ge. AneGFR of 60-89 may be normal in some population s, particularly th e elderly, forwhom the CKD -EPI formula has not been extensively leslie idated. Use of the eGFR isnot recommended in the following populations:Ind ividuals with unstable c reatinine concentrations, including patient s and those with seri ous co-morbid conditions.Latrice ents with extremes in mus vernell mass or diet.The luciano a above are obtained fr om the National Kidney Disease Education Progr am(NKDEP) which additiona lly recommends that when the eGFR is used in patientswith ex tremes of body mass index for purposes of parker g dosing, the eGFR should be multiplied by t he estimated BMI. [facility][PENDING SALE TO [facility]] ALKALINE PHOSPHATASE, BONE [id number] 10:50:01 Test Item Value Reference Range Interpretation Comments Alkaline Phosphatase 11.4 {UG/L} 7.5-25.4 Perform ed At: [facility] (test code = [facility] Alkaline Phosphatase [place] [id number] [facility] [place], [place] [id number] ra Nir AGUILA Ph:[phone] [facility][PENDING SALE TO [facility]] CMP [id number] 14:30:01 Test Item Value Reference Range Interpretation Comments Sodium Level 141 {mEq/l} 135-145 (test code = 2951-2) Potassium Level 4.2 {mEq/l} 3.5-5.1 (test code = 2823-3) Chloride Level 107 {mEq/l} 95-109 (test code = 2075-0) Carbon Dioxide 27 {mEq/l} 24-32 (test code = 2027-9) AGAP (test code = 11.2 {mEq/l} 10.0-20.0 99265-9) Glucose Lvl (test 90 mg/dl 70-99 Adult refe rence range code = 2345-7) values reflec t the clinical guidel inesof the [place] Diabet es Association. Creatinine Lvl; 1.80 mg/dl 0.50-1.40 Above High Threshold (test code = 2160-0) Blood Urea 27 mg/dl 7-22 Nitrogen; Above High Threshold (test code = 3094-0) BUN/Creatinine 15 6-25 Ratio (test code = 3097-3) Total Protein; 6.3 g/dl 6.4-8.4 Below Low Threshold (test code = 2885-2) Albumin Lvl (test 3.8 g/dl 3.5-5.0 code = 1751-7) Globulin; Below 2.5 g/dl 2.7-4.2 Low Threshold (test code = 27337-1) A/G Ratio (test 1.5 0.7-1.6 code = 1759-0) Calcium Level 8.5 mg/dl 8.5-10.5 Total (test code = 50144-3) ALT (test code = 35 u/l 0-65 3-4) AST (test code = 24 u/l 0-37 16705-6) Alk Phos (test 111 u/l 39-136 code = 1783-0) Bili Total (test 1.2 mg/dl 0.2-1.3 code = 1974-) eGFR (test code = 40 The eGFR i s calculated 88225-4) {ML/MIN/1.7} using the CKD-E PI formula. In mos t young, healthyindividu als the eGFR will be >9 0 mL/min/1.73m2. The eGFR declines with a ge. AneGFR of 60-89 may be normal in some population s, particularly th e elderly, forwhom the CKD -EPI formula has not been extensively leslie idated. Use of the eGFR isnot recommended in the following populations:Ind ividuals with unstable c reatinine concentrations, including patient s and those with seri ous co-morbid conditions.Latrice ents with extremes in mus vernell mass or diet.The luciano a above are obtained fr om the National Kidney Disease Education Progr am(NKDEP) which hedy cole recommends that when the eGFR is used in patientswith ex tremes of body mass index for purposes of parker g dosing, the eGFR should be multiplied by t he estimated BMI. [facility][PENDING SALE TO [facility]] VITAMIN D, 25-HYDROXY, [id number] 07:25:00 Test Item Value Reference Range Interpretation Comments VITAMIN 25 ng/ml 30-100 Vitamin D Statu s 25-OH D,25-OH,TOTAL,IA Vitamin D: Deficiency: (test code = VITAMIN <20 ng/ mLInsufficiency: D,25-OH,TOTAL,IA) 20 - 29 ng /mLOptimal: > or = 30 ng/mL F or 25-OH Vitamin D testi ng on patients on D2-supplementat ion and patients for wh om quantitation of D2 and D3 fractions is required, the QuestAssureD(TM )25-OH VIT D, (D2,D3), LC/MS/MS is recommended: order code 57398 (pat ients >2yrs). For mor e information on this test, go to:http://educa tion.ques tdiagnostics.co m/faq/FAQ 163(This link i s being provided for informational/e ducationa l purposes only .) [facility][PENDING SALE TO [facility]] CBC (INCLUDES DIFF/PLT)2018-05-27 07:25:00 Test Item Value Reference Range Interpretation Comments WHITE BLOOD CELL COUNT 4.4 {Thousand/u} 3.8-10.8 N (test code = WHITE BLOOD CELL COUNT) RED BLOOD CELL COUNT (test 4.84 {Million/uL} 4.20-5.80 N code = RED BLOOD CELL COUNT) HEMAGLOBIN; Normal (test 15.0 g/dl 13.2-17.1 N code = 15521-6) HEMATOCRIT; Normal (test 43.3 % 38.5-50.0 N code = 4544-3) MCV; Normal (test code = 89.5 fL 80.0-100.0 N 787-2) MCHC; Normal (test code = 34.6 g/dl 32.0-36.0 N 07774-7) RDW; Normal (test code = 12.8 % 11.0-15.0 N 788-0) PLATELET COUNT; Below Low 93 {Thousand/u} 140-400 Threshold (test code = 777-3) MPV; Above High Threshold 12.8 fL 7.5-12.5 (test code = 39375-7) ABSOLUTE NEUTROPHILS (test 2882 {cells/uL} 8612-0883 N code = ABSOLUTE NEUTROPHILS) ABSOLUTE LYMPHOCYTES (test 1091 {cells/uL} 850-3900 N code = ABSOLUTE LYMPHOCYTES) ABSOLUTE MONOCYTES (test 286 {cells/uL} 200-950 N code = ABSOLUTE MONOCYTES) ABSOLUTE EOSINOPHILS (test 110 {cells/uL} 15-500 N code = ABSOLUTE EOSINOPHILS) ABSOLUTE BASOPHILS (test 31 {cells/uL} 0-200 N code = ABSOLUTE BASOPHILS) NEUTROPHILS (test code = 65.5 % N NEUTROPHILS) LYMPHOCYTES (test code = 24.8 % N LYMPHOCYTES) MONOCYTES; Normal (test 6.5 % N code = 52449-6) EOSINOPHILS; Normal (test 2.5 % N code = 80336-3) BASOPHILS; Normal (test 0.7 % N code = 05058-9) [facility][QL] ALKALINE PHOSPHATASE, BONE [id number] 07:25:00 Test Item Value Reference Range Interpretation Comments BONE SPECIFIC (test code = BONE 33.7 {mcg/L} 7.6-14.9 SPECIFIC) [facility][QL] PTH, INTACT (WITHOUT CALCIUM)2018-05-27 07:25:00 Test Item Value Reference Range Interpretation Comments PARATHYROID 68 pg/ml 14-64 Interpretive Gu john Intact PTH HORMONE, INTACT Calcium----- (test code = ---- ---Normal PARATHYROID Parathyroid Nor mal HORMONE, INTACT) NormalHypop arathyroidism Low or Low Normal LowHyperparathy roidism Primary Normal or High High Secondary High Normal or Low Tertiary High HighNon-Parathy roid Hypercalcemia L ow or Low Normal High [facility][QL] TSH, 3RD GENERATION W/REFLEX TO [id number] 07:25:00 Test Item Value Reference Range Interpretation Comments TSH, 3RD GENERATION W/REFLEX TO 3.15 {MIU/L} 0.40-4.50 N FT4 (test code = TSH, 3RD GENERATION W/REFLEX TO FT4) [facility][QL] PHOSPHATE ( PHOSPHORUS)2018-05-27 07:25:00 Test Item Value Reference Range Interpretation Comments PHOSPHATE ( PHOSPHORUS) (test 3.6 mg/dl 2.5-4.5 N code = PHOSPHATE ( PHOSPHORUS)) [facility][QLH] CMP [id number] 07:25:00 Test Item Value Reference Range Interpretation Comments GLUCOSE; Above 103 mg/dl 65-99 Fasting refer ence High Threshold interval For someone (test code = without known d tali, 1547-9) a glucose value between 100 and 125 mg/ dL is consistent withprediabetes and should be confi rmed with afollow-up test. UREA NITROGEN 18 mg/dl 7-25 N (BUN) (test code = UREA NITROGEN (BUN)) CREATININE (test 1.41 mg/dl 0.70-1.25 For patient s >49 years code = CREATININE) of age, t he reference limitfor Creati nine is approximately 1 3% higher for peopleidentifie d as -Slime n. eGFR NON- 53 > OR = 60 PANAMANIAN (test {ML/MIN/1.7} code = eGFR NON-) eGFR 62 > OR = 60 N PANAMANIAN (test {ML/MIN/1.7} code = eGFR ) BUN/CREATININE 13 {CALC} 6-22 N RATIO (test code = BUN/CREATININE RATIO) SODIUM (test code 140 mmol/L 135-146 N = SODIUM) POTASSIUM (test 4.4 mmol/L 3.5-5.3 N code = POTASSIUM) CHLORIDE (test 105 mmol/L 98-110 N code = CHLORIDE) CARBON DIOXIDE 29 mmol/L 20-32 N (test code = CARBON DIOXIDE) CALCIUM (test code 9.2 mg/dl 8.6-10.3 N = CALCIUM) PROTEIN, TOTAL 6.3 g/dl 6.1-8.1 N (test code = PROTEIN, TOTAL) ALBUMIN (test code 4.1 g/dl 3.6-5.1 N = ALBUMIN) GLOBULIN (test 2.2 {G/DL 1.9-3.7 N code = GLOBULIN) CALC} ALBUMIN/GLOBULIN 1.9 {CALC} 1.0-2.5 N RATIO (test code = ALBUMIN/GLOBULIN RATIO) BILIRUBIN, TOTAL; 1.1 mg/dl 0.2-1.2 N Normal (test code = 38029-3) ALKALINE 121 u/l 40-115 PHSPHATASE (test code = ALKALINE PHSPHATASE) AST; Normal (test 19 u/l 10-35 N code = 1916-6) ALT; Normal (test 16 u/l 9-46 N code = 1742-6) [facility][U] XRAY HIP UNILATERAL MIN 2 VWS RIGHT [id number] 09:50:00 Images acquired, not reported on this accession number.[facility] Notes Date/Time Note Provider Source 2020-06-07 09:56:00-00:00 [facility] ([facility]) Pain Management Progress Note REPORT#:[id number] REPORT STATUS: Signed DATE:06/07/20 TIME: 955 PATIENT: AISHA PARKER UNIT #: [id number] ROOM/BED: [address] : [birth year] AGE: 65 SEX: M ATTEND: Daisy Bright MD ADM AUTHOR: Marcie Montes PERSONAL ASSISTANT * ALL edits or amendments must be made on the Naked/Summify document * Subjective Chief Complaint: NECK PAIN S/P ACDF Comments: Last Documented: Result Date Time Pulse Ox 99 06/07 927 O2 Delivery Nasal cannula 06/07 927 O2 Flow Rate 3.694656 06/07 927 B/P 115/74 06/07 700 B/P Mean 87.5 06/07 700 Temp 36.5 06/07 07 Pulse 73 06/07 0700 Resp 17 06/07 07 FiO2 32 06/07 0208 History: PMH: GERD, HTN, AVR-REPLACED 3 TIMES POD: 1 APMS RN: Briseyda GUERRERO RN Medication: MORPHINE Pump settings: BASAL RATE: O DOSE: 1 MG DELAY: 8 MIN 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 Pain: STATES HAS LITTLE PAIN Physical Exam: VAS: 2 LOS: 1 Resp Quality: 1 Side Effects: NONE PT APPEARS COMFORTABLE AT THIS TIME. Plan: CAPACITOR PACK PRESS OPERATOR TO BE DC'D BY FLOOR NURSE THIS AM PT TO TRANSITION TO ORAL PAIN MEDS ANTICIPATE D/C HOME TODAY. at 0958 RPT #:[id number] END OF REPORT 2020-06-07 09:56:00-00:00 [facility] ([facility]) Pain Management Progress Note REPORT#:[id number] REPORT STATUS: Signed DATE:06/07/20 TIME: 09 PATIENT: AISHA PARKER UNIT #: [id number] ROOM/BED: [address] : 59 AGE: 65 SEX: M ATTEND: Daisy Bright MD ADM AUTHOR: Marcie Montes NP * ALL edits or amendments must be made on the Naked/computer document * Subjective Chief Complaint: NECK PAIN S/P ACDF Comments: Last Documented: Result Date Time Pulse Ox 99 06/07 927 O2 Delivery Nasal cannula 06/07 927 O2 Flow Rate 3.302183 06/07 927 B/P 115/74 06/07 700 B/P Mean 87.5 06/07 700 Temp 36.5 06/07 07 Pulse 73 06/07 0700 Resp 17 06/07 07 FiO2 32 06/07 0208 History: PMH: GERD, HTN, AVR-REPLACED 3 TIMES POD: 1 APMS RN: Briseyda GUERRERO RN Medication: MORPHINE Pump settings: BASAL RATE: O DOSE: 1 MG DELAY: 8 MIN 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 Pain: STATES HAS LITTLE PAIN Physical Exam: VAS: 2 LOS: 1 Resp Quality: 1 Side Effects: NONE PT APPEARS COMFORTABLE AT THIS TIME. Plan: CAPACITOR PACK PRESS OPERATOR TO BE DC'D BY FLOOR NURSE THIS AM PT TO TRANSITION TO ORAL PAIN MEDS ANTICIPATE D/C HOME TODAY. at 0958 at 0639 RPT #:[id number] END OF REPORT 2020-06-07 07:45:00-00:00 [facility] ([facility]) Internal Medicine Prog. Note REPORT#:[id number] REPORT STATUS: Signed DATE:06/07/20 TIME: 744 PATIENT: AISHA PARKER UNIT #: [id number] ROOM/BED: [address] : 57 AGE: 65 SEX: M ATTEND: Daisy Bright MD ADM AUTHOR: Sebastián Patel MD * ALL edits or amendments must be made on the Naked/computer document * Subjective Patient reports: no complain ts, no abdominal pain, no chest pain, no dizziness ( when getting OOB), no heartb urn, no nausea, no shortness of breath, no vomiting, feeling better, good urine output, pain controll ed, passing flatus Objective General VS/I O: Vital Signs Date Temp Pulse Resp B/P B/P Mean Pulse Ox FiO2 06/06-06/07 96.8-98.6 66-82 12-19 102-133/60-94 78.9-87.5 100 32 Last Documented: Result Date Time Pulse Ox 99 06/07 0700 B/P 115/74 06/07 0700 B/P Mean 87.5 06/07 0700 O2 Delivery Nasal cannula 06/07 07 Temp 97.7 06/07 0700 Pulse 73 06/07 0700 Resp 17 06/07 07 O2 Flow Rate 3.386648 06/07 0348 FiO2 32 06/07 0208 24 hour I O ending at 0700: 06/07 0700 06/06 1900 Intake Total 130.00 Output Total 330 Balance -200.00 Intake, IV 100.00 Intake, Oral 30 Output, 80 Drainage Output, Urine 250 Patient 212 lb Weight Weight Standing scale Measurement Method Patient Weight Weight (lb): 212 Weight (oz): 1.36 Weight (kg): 96.200 Post-op: day 1 Physical Exam General appearance: alert, awake, no acute distr ess Cardiovascular: regular rate rhythm, mechanical valve click present Murmur: Systolic 2/6 (LUSB) Respiratory: clear to auscultation Abdomen: non-tender, normal bowel sounds, soft, no distention Genitourinary: no bustillo Extremities: Extremities: no calf tenderness, no edema Results Findings/Data: Laboratory Tests 06/07/20439: [Embedded Image Not Available] Laboratory Tests 06/07 440 Chemistry Sodium (136 - 145 mmol/L) 139 Potassium (3.5 - 5.1 mmol/L) 4.8 Chloride (98 - 107 mmol/L) 103.0 Carbon Dioxide (21 - 32 mmol/L) 27.1 BUN (7 - 18 mg/dL) 23 H Creatinine (0.55 - 1.30 mg/dL) 1.21 Glomerular Filtr Rate (>60) 60.6 Glucose (70 - 110 mg/dL) 120 H Calcium (8.2 - 10.1 mg/dL) 8.4 Laboratory Tests 06/07 440 Coagulation PT (10.1 - 12.5 secs) 13.1 H INR (<2.0) 1.17 APTT (24.9 - 37.0 secs) 30.4 Results: labs reviewed Diagnosis, Assessment Plan Problem List/A P: 1. Afib Pt remains in a regular cardiac rhythm. 2. Gastro-esophageal reflux disease without eso phagitis Asymptomatic. 3. CKD (chronic kidney disease), stage III Renal fct has improved. 4. Mechanical heart valve present Pt needs to stay off anticoagulation for 5 days to allow for adequate post surgical clotting. Free Text DxA P Notes Free text DxA P notes: Continue current treatment. Continue to mobilize . Pt again instructed on the importance of not restarting anticoagulation "to o soon" in order to prevent cervical hematoma formation. Pt to resta rt enoxaparin 100 mg q AM and warfarin 7.5 mg daily starting on 06/11/20. Pt to check his INR daily starting on 06/12/20 and then DC enoxaparin once his INR is >/ 2.5. Electronically Signed by Sebastián Patel MD on 11/25 at 0854 RPT #:[id number] END OF REPORT 2020-06-07 06:29:00-00:00 [facility] ([facility]) Ortho / Spine Progress Note REPORT#:[id number] REPORT STATUS: Signed DATE:06/07/20 TIME: 628 PATIENT: AISHA PARKER UNIT #: [id number] ROOM/BED: [address] : 57 AGE: 65 SEX: M ATTEND: Daisy Bright MD ADM AUTHOR: Ghassan Bright MD * ALL edits or amendments must be made on the Naked/Summify document * Subjective Patient Reports: ambulating, feeling better, waldo n controlled Nursing Reports: HEMOVAC OUTPUT 30 CC`S Objective General VS/I O: Vital Signs: Date Time Temp Pulse Resp B/P B/P Pulse O2 O2 F low FiO2 Mean Ox Delivery Rate 06/07 0348 98.1 76 18 114/74 87.2 97 Nasal 3.00 0000 cannula 06/07 0208 95 Nasal 3.386072 32 cannula 06/06 2236 98.6 78 16 111/71 84.5 97 Nasal 3.0 93646 cannula 06/06 1915 96 Nasal 3.503306 32 cannula 06/06 1911 Nasal 3.085961 cannula 06/06 1909 96.8 82 16 104/66 78.9 96 Nasal 3.0 16807 cannula 06/06 1840 80 15 109/62 100 Nasal 3.933870 cannula 06/06 1825 97.9 81 12 108/64 100 Nasal 3.965954 cannula 06/06 1820 Simple 6.274169 mask 06/06 1810 79 14 110/62 100 Nasal 3.473927 cannula 06/06 1755 75 12 106/62 100 Nasal 3.872663 cannula 06/06 1740 73 13 102/60 100 Nasal 3.809716 cannula 06/06 1725 98.0 71 13 115/71 100 Nasal 3.335358 cannula 06/06 1710 68 13 130/81 100 Nasal 3.091998 cannula 06/06 1655 68 12 132/71 100 Simple 6.565920 mask 06/06 1640 66 19 118/68 12 Simple 6.583137 mask 06/06 0831 97.9 68 16 133/94 98 Room air 24 hour I O ending at 0700: 06/07 0700 06/06 1900 Intake Total 130.00 Output Total 330 Balance -200.00 Intake, IV 100.00 Intake, Oral 30 Output, 80 Drainage Output, Urine 250 Patient 212 lb Weight Weight Standing scale Measurement Method Patient Weight Weight (lb): 212 Weight (oz): 1.36 Weight (kg): 96.200 Post Op: day 1 Status post: Status Post: ACDF C5--C7 Physical Exam General appearance: alert, awake, oriented UE Neuro/Cervical: Bilateral: No obv. UE defici t:, deltoids:, biceps:, triceps:, wrist extension:, wrist flexion:, mp extension :, mp flexion:, intrinsics:, supination:, pronation: , sensation c5:, sensation c6:, sensation c7:, s ensation c8:, sensation t1:. Diagnosis, Assessment Plan Hospital course to date: OK TO DISCHARGE HOME WHEN HEMOVAC REMOVED: OUTPU T SHOULD BE 20 CC`S OR LESS AT HOME OK TO REMOVE BRACE IN 2 DAYS AVOID IMPACT LOADING ACTIVITIES AVOID NSAIDS FOLLOWUP IN 2 WEEKS Electronically Signed by Ghassan Bright MD on 0 06/07/20 at 0632 RPT #:[id number] END OF REPORT 2020-06-06 20:56:00-00:00 [facility] ([facility]) Ortho / Spine Progress Note REPORT#:[id number] REPORT STATUS: Signed DATE:06/06/20 TIME: 2055 PATIENT: AISHA PARKER UNIT #: [id number] ROOM/BED: [address] : 57 AGE: 65 SEX: M ATTEND: Daisy Bright MD ADM AUTHOR: Ghassan Birght MD * ALL edits or amendments must be made on the el ectronic/computer document * Subjective Patient Reports: comfortable, pain controlled Objective General VS/I O: Vital Signs: Date Time Temp Pulse Resp B/P B/P Pulse O2 O2 F low FiO2 Mean Ox Delivery Rate 06/06 1911 Nasal 3.806270 cannula 06/06 1909 96.8 82 16 104/66 78.9 96 Nasal 3.00 0000 cannula 06/06 1840 80 15 109/62 100 Nasal 3.496770 cannula 06/06 1825 97.9 81 12 108/64 100 Nasal 3.342415 cannula 06/06 1820 Simple 6.451325 mask 06/06 1810 79 14 110/62 100 Nasal 3.240299 cannula 06/06 1755 75 12 106/62 100 Nasal 3.967060 cannula 06/06 1740 73 13 102/60 100 Nasal 3.175742 cannula 06/06 1725 98.0 71 13 115/71 100 Nasal 3.177162 cannula 06/06 1710 68 13 130/81 100 Nasal 3.788881 cannula 06/06 1655 68 12 132/71 100 Simple 6.797259 mask 06/06 1640 66 19 118/68 12 Simple 6.515933 mask 06/06 0831 97.9 68 16 133/94 98 Room air Patient Weight Weight (lb): 212 Weight (oz): 1.36 Weight (kg): 96.200 Post Op: post surgery rounds Status post: Status Post: acdf c5-6 and c6-7 Physical Exam General appearance: alert, awake, oriented UE Neuro/Cervical: Bilateral: No obv. UE deficit:. Sensory Sensory/Sensation: DEC Right upper extremity: Electronically Signed by Ghassan Bright MD on 0 06/06/20 at 2056 RPT #:[id number] END OF REPORT 2020-06-06 20:07:00-00:00 [facility] ([facility]) Brief Op Note REPORT#:[id number] REPORT STATUS: Signed DATE:06/06/20 TIME: 2006 PATIENT: AISHA PARKER UNIT #: [id number] ROOM/BED: [address] : [birth year] AGE: 65 SEX: M ATTEND: Daisy Bright MD ADM AUTHOR: Ghassan Bright MD * ALL edits or amendments must be made on the el ectronic/computer document * Op/Inv Proc Note - Brief Pre-procedure diagnosis: STENOSIS C5-6 AND C6-7 Post-procedure diagnosis: same as pre procedure dx Procedures performed: ACDF C5-6 AND C6-7 Primary Surgeon: RYAN Rn Intern(s): PAUL Findings: SEE DICTATION TO FOLLOW Complications: none Estimated blood loss in ml's: 20 CC`S Specimens removed/altered: none Electronically Signed by Ghassan Bright MD on 0 06/06/[address] [facility] #:[id number] END OF REPORT 2020-06-06 19:50:00-00:00 [id number] [place] [address] PATIENT NAME: AISHA PARKER ADMIT DATE: 0 ACCOUNT NO: [id number] ROOM NO: Y.523 AGE: 65 REPORT TYPE: CONSULTATION REPORT SEX: M ADMITTING PHYSICIAN:Ghassan Bright MD ATTENDING PHYSICIAN:Ghassan Bright MD CONSULTATION DATE: 06/06/2020 CONSULTING PHYSICIAN: Sebastián Patel MD MEDICINE CONSULTATION ATTENDING PHYSICIAN: Ghassan Bright MD REASON FOR CONSULTATION: Postoperative medical e valuation and management of patient with multiple medical problems. HISTORY OF PRESENT ILLNESS: The patient is a 65- year-old white male with cervical stenosis, who under went anterior cervical diskectomy and fusion, C5-C7, earlier today. The patient tolerated the surgery well. He currently denies any chest pain, shortness of breath, nausea, or vomi ting. He is able to swallow liquids with little difficulty. He has not yet b een up, out of bed since surgery. 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 PAST MEDICAL HISTORY: Paroxysmal atrial fibrilla tion. The patient is status post 3 ablations. He also has a history of aorti c valve replacement with 2 bioprosthetic valves in 2002 and 2013 an d a mechanical valve in November 2019. The patient also has a history of potential stro ke several months ago, presenting as dizziness. The patient's INR was s lightly subtherapeutic at the time. No other etiology was found. The patient h as no residual deficit from this. He also has hypogonadism, gastroes ophageal reflux disease, hypertension, allergic asthma. He denies any diabetes, coronar y artery disease, congestive heart failure, sleep apnea, benign prostatic hyp erplasia, renal disease, or history of deep venous thrombosis, chronic kidne y disease stage III. PAST SURGICAL HISTORY: As above. ORIF of right f emur fracture. Vasectomy. Wrist surgery. Right elbow surgery. left shoulde r arthroscopy. Cholecystectomy. Abdominal herniorrhaphy. Alida fundoplication. ORIF of right clavicular fracture. Right shoulder arthro scopy. Left biceps tear repair. Removal of sternal hardware. Right total hip arthroplasty. I and D of right hip hematoma. Femoral herniorrhaphy. I and D of right femoral hematoma. ALLERGIES: NITROGLYCERIN, AMIODARONE. CURRENT MEDICATIONS: Warfarin 5 to 7.5 mg daily. The patient will adjust dose as per home INR (this medication is curr ently on hold), testosterone enanthate 0.2 mL IM twice weekly, doxycycline 25 mg b.i.d. , anastrozole 0.5 mg b.i.d., Ventolin HFA 2 puffs q.6 hours p.r.n. sh ortness of breath/wheezing, metoprolol PATIENT NAME: AISHA PARKER 1177 tartrate 12.5 mg b.i.d. FAMILY HISTORY: Mother had hypertension, coronar y artery disease. 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 H e does not smoke and occasionally drinks alcohol. REVIEW OF SYSTEMS: The patient denies exertional chest pain, dyspnea on exertion, orthopnea, PND, black tarry stools, br ight red blood per rectum, or dysuria. PHYSICAL EXAMINATION: GENERAL: Well-developed, overweight white male, in no apparent distress. VITAL SIGNS: Pulse 82, regular, respirations 16, blood pressure 104/66, temperature 97.0, oxygen saturation 96% on 3 L O 2. EYES: EOMI. PERRLA. Sclerae are anicteric. Oroph arynx is clear. NECK: No adenopathy, thyromegaly, masses, tender ness, JVD, or carotid bruits. LUNGS: Clear to auscultation. HEART: Regular rate and rhythm with a II/ syst olic ejection murmur at the left upper sternal border without radiation. No S3 or S4. Mechanical aortic valve click present. ABDOMEN: Hypoactive bowel sounds throughout. No hepatosplenomegaly, masses, tenderness, bruits, or distention. EXTREMITIES: No clubbing, cyanosis, or edema. No calf or thigh swelling or posterior tenderness bilater ally. No Homans sign or palpable cords bilaterally. LABORATORY DATA: Preoperativ e laboratories 06/02/2020, BUN 19, creatinine 1.44, GFR 49.5. IMPRESSION: 1. History of mechanical aortic valve. The patie nt cannot be restarted on anticoagulation too quickly because of t he high risk of bleeding following his cervical fusion surgery. Should the patient rest arted too quickly, he may develop a hematoma (as he did for this previous to femoral hernia, and hip replacement surgeries), that may cause compressi on of his trachea needing emergency hematoma drainage. 2. Paroxysmal atrial fibrillation. The patient i s currently in a regular cardiac rhythm. 3. Hypertension. Blood pressure low normal at pr esent time. 4. Allergic asthma. Asymptomatic. 5. Gastroesophageal reflux disease. Asymptomatic . 6. Hypogonadism. 7. Chronic kidney disease stage III. 8. Status post cervical fusion. The patient is c urrently stable. PLAN: 1. Clear liquid diet. We will advance to low-bob t diet as tolerated. 2. Thigh-high JAN hose. 3. Sequential compression devices to both feet. 4. Begin mobilization later tonight. 5. Check chem-6 in a.m. 6. The patient may restart enoxaparin 10 0 mg daily, beginning on postop day #5 (06/11/2020). 7. The patient to restart warfarin 7.5 mg daily beginning on 06/11/2020. PATIENT NAME: AISHA PARKER 1177 8. The patient to check his INR daily and to sto p enoxaparin once his INR is 2.5 or greater. The patient will then re turn to adjusting his warfarin dose as per his usual routine. 9. Maalox 30 mL p.o. q.4 hours p.r.n. indigestio n. 10. Hold metoprolol tartrate for systolic blood pressure less than 105 or heart rate less than 50. Thank you very much for this consultation. I jonas l follow patient with you during his hospitalization. Dictated By: Sebastián Patel MD WT: CON:DANIEL/STEFFEN/NTS Conf#: [id number]#: [id number] Authenticated by Sebastián Patel MD On 06/09/2020 08:27:06 AM Electronically Signed by Sebastián Patel MD on at 0827 PATIENT NAME: AISHA PARKER 1177 2020-06-06 19:25:00-00:00 [facility] ([facility]) Internal Medicine Prog. Note REPORT#:[id number] REPORT STATUS: Signed DATE:06/06/20 TIME: 1924 PATIENT: AISHA PARKER UNIT #: [id number] ROOM/BED: [address] : [birth year] AGE: 65 SEX: M ATTEND: Daisy Bright MD ADM AUTHOR: Sebastián Patel MD * ALL edits or amendments must be made on the Naked/computer document * Subjective Comments: Consult Note Dictated Objective General VS/I O: Vital Signs Date Temp Pulse Resp B/P B/P Mean Pulse Ox FiO2 06/06 96.8-98.0 66-82 09-23 102-133/60-94 78.9 Last Documented: Result Date Time O2 Delivery Nasal cannula 06/06 1911 O2 Flow Rate 3.234353 06/06 1911 Pulse Ox 96 06/06 1909 B/P 104/66 06/06 1909 B/P Mean 78.9 06/06 1909 Temp 96.8 06/06 1909 Pulse 82 06/06 190 Resp 16 06/06 1909 Patient Weight Weight (lb): 212 Weight (oz): 1.36 Weight (kg): 96.200 Diagnosis, Assessment Plan Problem List/A P: 1. Afib 2. Gastro-esophageal reflux disease without eso phagitis 3. Hypogonadism male 4. History of CVA (cerebrovascular accident) 5. CKD (chronic kidney disease), stage III Electronically Signed by Sebastián Patel MD on 10/25 at 1959 RPT #:[id number] END OF REPORT
[2023-02-21] MEDS ORDERED: FENTANYL CITR 100 MCG/2 ML ONE (22:16)
[2023-02-21] MEDS ORDERED: NA CHLORIDE 0.9% 1,000 ML ONE (22:16)
[2023-02-21 22:29] LABS: Absolute Lymphocytes (CBC) 1.1 K/uL (0.7-4.9); Hematocrit 42.7 % (39.6-49.0); Lymphocytes % 20.1 % (15.3-44.8); MCV 89.3 fL (80-100); MPV 10.5 fL (7.6-11.3); RBC Red Blood Cell Count 4.78 M/uL (4.33-5.43)
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
[2023-02-22 01:52] VITALS: TEMP 98.1
[2023-02-22 01:58] VITALS: O2SAT 100
[2023-02-22 01:59] VITALS: BP 154/88
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
== END 2023-02-22 01:31 | disposition home or self-care (01) ==
LOC: ER 20:39
DX: S16.1XXA Strain of muscle, fascia and tendon at neck level, initial encounter (principal); V59.40XA Driver of pick-up truck or van injured in collision with unspecified motor vehicles in traffic accident, initial encounter; Z88.8 Allergy status to other drugs, medicaments and biological substances
CPT/HCPCS: 85025; 80048; 36415; 86900; 86850; 86902; 86870; 86901; 70450; 72125; 71260; 74177; Q9967; J3010; J7030

== ENCOUNTER 2023-04-13 09:33 | Emergency (ER) | payer OTHER ==
--- OUTSIDE RECORDS SUMMARY | 2023-04-13 09:44 | XMS REPORT | Continuity of Care Document ---
:1955 Author Organization [facility] t Address [address] [place] [address] Care Team Providers Name Role Phone Austin AGUILA, Vickie Proctor Primary Care Physician Ghassan Bright Attending Clinician Unavailable Obinna Wallace Attending Clinician Unavailable Gaurang AGUILA, Robley [facility] Yvonne Attending Clinician Esthela Ramirez MA Attending Clinician Unavailable Price AGUILA, Greyson Y[facility] Attending Clinician Reena Villar NP Attending Clinician Shahana Dove MA Attending Clinician Unavailable Shannon AGUILA, Kemar Kerr Attending Clinician Philip GARCIA, Phuc Garner Attending Clinician [phone] Thien Bowman DO Attending Clinician Veronica Arellano MD Attending Clinician Melida Corley MD Attending Clinician [phone] Sim Nina MD Attending Clinician Alberto FISHER, Nilda Attending Clinician Kiana Bridges MA Attending Clinician Unavailable Iva Moore MD Attending Clinician Rufina Ramirez MA Attending Clinician Unavailable Kiki Clark MA Attending Clinician Unavailable Mateo Saxena MD Attending Clinician Clara Pop MA Attending Clinician Unavailable Og_Robyn Attending Clinician Unavailable VICKIE GARAY Attending Clinician [...] Physician, No Primary or Family Admitting Clinician UnavailVERONICA Frank Admitting Clinician Unavailable KEMAR ORTEGA Admitting Clinician Unavailable Estrella Admitting Clinician Unavailable [...] Expiration Date S aye [employer] MEDICARE PPO [id number] 2022 00:00:00 [facility] [id number] (PPO) Problems Condition Condition Condition Status Onset Resolution Last Treating Co mments Source Name Details Category Date Date Treatment Clinician Date Acute on Acute on Disease Active Metho di chronic chronic 04-11 st heart heart 00:00: Hospita failure, failure, 00 l unspecifie unspecifie d heart d heart failure failure type type Chest pain Chest pain Disease Active M ethodi on on 04-03 st breathing breathing 00:00: Hosp debbie 00 l Hiatal Hiatal Disease Active Methodi hernia hernia 01-28 st with GERD with GERD 00:00: Hosp debbie 00 l Left-sided Left-sided Disease Active M ethodi weakness weakness 03-16 st 00:00: Hospita 00 l Protruding Protruding Disease Active M ethodi sternal sternal 4 st wires wires 00:00: Hospita 00 l Lipoma of Lipoma of Disease Active Met hodi both upper both upper 4 st extremitie extremitie 00:00: Ho spita s s 00 l S/P AVR S/P AVR Disease Active Overview: Meth clark 01-[address] 00:00: g of this Hospita 00 note l might be different from the original. Added automatic ally from request for surgery [id number] Denervatio Denervatio Disease Active M ethodi n of n of [address] muscle muscle 00:00: Hospita 00 l Pre-op Pre-op Disease Active Methodi testing testing 1- st 00:00: Hospita 00 l Atrial Atrial Disease Active 2019-10 Methodi flutter flutter 11-16 st 00:00: Hospita 00 l Nerve Nerve Disease Active Overview: Method i injury injury 7-[address] 00:00: g of this Hospita 00 note l might be different from the original. 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 Hypertensi Hypertensi Problem Active V illage ve ve 8-04 Family disorder Disorder 00:00: Practi c 00 e Hiatal Hiatal Problem Active [place] hernia Hernia 8-04 Family 00:00: Practic 00 e Hx of Hx of Disease Active [facility] gastroesop gastroesop 5-16 [facility] hageal hageal 00:00: Medical reflux reflux 00 Center (GERD) (GERD) S/P Alida S/P Alida Disease Active [facility] fundoplica fundoplica 5-16 [facility] tion tion 00:00: Medical 00 Center Aortic Aortic Disease Active [facility] replacemen replacemen 00:00: Me dical t in 2002 t in 2002 00 Cent er with with [facility] stentless stentless root root replacemen replacemen t t History of History of Disease Active [facility] Low Low 5[facility]16 [facility] testostero testostero 00:00: Me dical ne ne 00 Center Aortic Aortic Disease Active [facility] insufficie insufficie 5-15 [facility] ncy ncy 00:00: Medical 00 Center s/p re-do s/p re-do Disease Active [facility] sternotomy sternotomy 5-15 [facility] , , 00:00: Medical bioprosthe bioprosthe 00 Ce nter tic aortic tic aortic valve valve replacemen replacemen t, repair t, repair of of ascending ascending aortic aortic aneurysm aneurysm and and paulina-arch paulina-arch repair repair (02/17) (02/17) Aneurysm Aneurysm Problem Active [place] of of 10-06 Family ascending Ascending 00:00: Prac tic aorta Aorta 00 e Primary Primary Problem Active 2020-10-12 Me moria osteoarthr osteoarthr 03:50:26 l itis, itis, Dick right hand right hand Active Problem 10/12/2020 [facility] Chronic Chronic Problem Active 2020-10-12 Me moria fatigue fatigue 03:50:26 l Active Dick Problem 10/12/2020 [facility] Hypoglycem Hypoglyce Problem Active 2020-10-12 Memoria ia jasmeet Active 03:50:26 l Problem Dick 10/12/2020 [facility] Arm Arm Problem Active 2020-10-12 Memor ia paresthesi paresthesi 03:50:26 l a, left a, left Dick Active Problem 10/12/2020 [facility] Primary Primary Problem Active 2020-10-12 Me moria osteoarthr osteoarthr 03:50:26 l itis of itis of Ethel left hand left hand Active Problem 10/12/2020 [...] 2020-10-12 Memoria deficiency deficiency 03:50:26 l Active Dick Problem 10/12/2020 [facility] Paget Paget Problem Active 2020-10-12 [place] disease of disease of 03:50:26 l bone bone Ethel Active Problem 10/12/2020 [facility] Insomnia, Insomnia, Problem Active 2020-10-12 Memoria unspecifie unspecifie 03:50:26 l d type d type Dick Active Problem 10/12/2020 [facility] Osteoarthr Osteoarth Problem Active 2020-10-12 Memoria itis of ritis of 03:50:26 l hip hip Active David n Problem 10/12/2020 [facility] Hyperchole Hyperchol Problem Active 2020-10-12 Memoria sterolemia esterolemi 03:50:26 l a Active Dick Problem 10/12/2020 [facility] Osteopenia Osteopeni Problem Active 2020-10-12 Memoria of a of 03:50:26 l multiple multiple David n sites sites Active Problem 10/12/2020 [facility] Fatigue, Fatigue, Diagnosis Active 2019-09-11 Memoria unspecifie unspecifie 03:45:34 l d type d type Dick Active Diagnosis 09/11/2019 [facility] Stage 3 Stage 3 Diagnosis Active 2017-07-10 Memoria chronic chronic 02:50:13 l kidney kidney Dick disease disease Active Diagnosis 07/10/2017 [facility] History of History Diagnosis Active 2017-06-06 Memoria atrial of atrial 02:48:11 l fibrillati fibrillati He rmann on on Active Diagnosis 06/06/2017 [facility] Polyarthra Polyarthr Diagnosis Active 2017-06-06 Memoria lgia algia 02:48:11 l Active Dick Diagnosis 06/06/2017 [facility] Cervical Cervical Diagnosis Active 2018-06-23 Memoria radiculopa radiculopa 02:48:49 l thy at C7 thy at C7 Herm yesy Active Diagnosis 06/23/2018 [facility] MARY GRACE MARY GRACE Diagnosis Active 2017-07-10 Mem oria positive positive 02:50:13 l Active Ethel Diagnosis 07/10/2017 [facility] Encounter Encounter Diagnosis Active 2019-09-11 Memoria for for 03:45:34 l immunizati immunizati He rmann on on Active Diagnosis 09/11/2019 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) Active Diagnosis 06/20/2019 [facility] Cough Cough Diagnosis Active 2019-09-11 Me moria Active 03:45:45 l Diagnosis Dick 09/11/2019 [facility] Wheezing Wheezing Diagnosis Active 2017-12-27 Memoria Active 02:49:23 l Diagnosis Ethel 12/27/2017 [facility] Groin Groin Diagnosis Active 2018-02-19 Mem oria strain, strain, 02:48:22 l right, right, Dick initial initial encounter encounter Active Diagnosis 02/19/2018 [facility] Fungal Fungal Diagnosis Active 2018-06-23 M emoria infection infection 02:48:49 l Active Dick Diagnosis 06/23/2018 [facility] Right Right Diagnosis Active 2018-02-19 Mem oria groin pain groin pain 02:48:22 l Active Ethel Diagnosis 02/19/2018 [facility] Depression Depressio Diagnosis Active 2018-02-19 Memoria screening n 02:48:22 l screening Ethel Active Diagnosis 02/19/2018 [facility] Bronchitis Diagnosis Active 2019-09-11 Memoria Bronchitis 03:45:40 l Active Ethel Diagnosis 09/11/2019 [facility] Adventitio Adventiti Diagnosis Active 2017-12-27 Memoria us breath ous breath 02:48:30 l sounds sounds Dick Active Diagnosis 12/27/2017 [facility] Encounter Encounter Diagnosis Active 2018-10-21 Memoria for for 03:49:00 l preprocedu preprocedu He rmann ral ral cardiovasc cardiovasc asad kamara examinatio examinatio n n Active Diagnosis 10/21/2018 [facility] Right hip Right hip Diagnosis Active 2018-10-10 Memoria pain pain 03:45:10 l Active Ethel Diagnosis 10/10/2018 [facility] Burning Burning Diagnosis Active 2018-10-10 Memoria with with 03:45:10 l urination urination Herm yesy Active Diagnosis 10/10/2018 [facility] SOB SOB Diagnosis Active 2019-09-11 Mem oria (shortness (shortness 03:45:40 l of breath) of breath) He rmann Active Diagnosis 09/11/2019 [facility] Generalize Generaliz Diagnosis Active 2019-09-11 Memoria d ed 03:45:34 l abdominal abdominal Herm yesy pain pain Active Diagnosis 09/11/2019 [facility] Abnormal Abnormal Diagnosis Active 2019-09-11 Memoria stool stool 03:45:34 l color color Ethel Active Diagnosis 09/11/2019 [facility] Diarrhea, Diarrhea, Diagnosis Active 2019-09-11 Memoria unspecifie unspecifie 03:45:34 l d type d type Ethel Active Diagnosis 09/11/2019 [facility] PND PND Diagnosis Active 2019-09-11 Mem oria (post-nasa (post-nasa 03:45:45 l l drip) l drip) Dick Active Diagnosis 09/11/2019 [facility] COVID-19 COVID-19 Diagnosis Active 2020-10-12 Memoria virus virus 03:50:26 l infection infection Herm yesy Active Diagnosis 10/12/2020 [facility] Sore Sore Diagnosis Active 2019-09-11 Mem oria throat throat 03:45:45 l Active Dick Diagnosis 09/11/2019 [facility] Encounter Encounter Diagnosis Active 2020-09-20 Memoria for for 03:58:24 l screening screening Herm yesy laboratory laboratory testing testing for for COVID-19 COVID-19 virus virus Active Diagnosis 09/20/2020 [facility] Viral Viral Diagnosis Active 2020-09-20 Mem oria illness illness 03:58:24 l Active Dick Diagnosis 09/20/2020 [facility] Mechanical Mechanica Problem Active 2020-10-12 Memoria heart l heart 03:50:26 l valve valve Ethel present present Active Problem 10/12/2020 [facility] Testostero Testoster Problem Active 2020-10-12 Memoria ne one 03:50:26 l deficiency deficiency He rmann Active Problem 10/12/2020 [facility] History of History Problem Active 2020-10-12 Memoria hypothyroi of 03:50:26 l dism hypothyroi David n dism Active Problem 10/12/2020 [facility] History of History of Problem [...] ents Source Name Type Date Date Clinician Strawber Propensi Active Swelling Meth clark ry ty to 10-29 st adverse 00:00: Hospita reaction 00 l s to drug Blueberr Propensi Active Headache dizzy Meth clark y ty to 06-05 adverse 00:00: Hospita reaction 00 l s to drug Due West Propensi Active Itching Metho di ty to 06-05 adverse 00:00: Hospita reaction 00 l s to drug Evolocum Propensi Active Anaphylaxis M ethodi ab ty to 06-05 adverse 00:00: Hospita reaction 00 l s to drug Watermel Propensi Active Itching Metho di on ty to 06-05 adverse 00:00: Hospita reaction 00 l s to drug Citrullu Allergy Active [place] s to 06-05 Health Vulgaris substanc 00:00: e 00 [place] Allergy Active UT Extract to 06-05 Health substanc 00:00: e 00 Evolocum Allergy Active UT ab to 06-05 Health substanc 00:00: e 00 Iodine Allergy Active UT to 06-05 Health substanc 00:00: e 00 Vacciniu Allergy Active UT m to 8 Health Angustif substan 00:00: olium e 00 Iodinate Allergy Active 2020-10 UT d to 11-21 Health Diagnost substan 00:00: ic e 00 Agents Wheat Allergy Active 2020-10 Other UT Bran to 16 reaction( Health substan 00:00: s): GI e 00 Intoleran ceDue to Celiac disease Atorvast Propensi Active Anaphylaxis M ethodi atin ty to 03-17 st adverse 00:00: Hospita reaction 00 l s to drug Atorvast Allergy Active Anaphylaxis UT atin to 03-17 Health substan 00:00: e 00 2-Octyl Propensi Active Other (See Skin tear Methodi Cyanoacr ty to Comments) 01-10 st ylate adverse 00:00: Hospita reaction 00 l s to drug Cyanoacr Propensi Active Other UT ylate ty to 01-10 reaction( Health adverse 00:00: s): Other reaction 00 (See s Comments) Skin tear Hydrocod Propensi Active Hallucinatio Methodi one-Acet ty to ns 3-30 st aminophe adverse 00:00: Hospita n reaction 00 l s to drug Hydrocod Propensi Active Other [place] one-Acet ty to 3-30 reaction( Healt h aminophe adverse 00:00: s): n reaction 00 Hallucina s tions hydrocod hydrocod Active Hallucinatio 2019-10 Memoria one one ns 2-17 l 00:00: Ethel 00 oxycodon oxycodon Active Hallucinatio 2019-10 Memoria e e ns 2-17 l 00:00: Ethel 00 nuts nuts Active hives 2019-10 Memoria 2-17 l 00:00: Ethel 00 Diazepam Propensi Active Other (See Other Me thodi ty to Comments) 06-06 reaction( st adverse 00:00: s): Hospita reaction 00 DIZZINESS l s to Other drug reaction( s): DIZZINESS Other reaction( s): DIZZINESS Other reaction( s): DIZZINESS Other reaction( s): DIZZINESS Other reaction( s): DIZZINESS Diazepam Allergy Active 2020-0 Other UT to 06-06 reaction( Health substanc 00:00: s): e 00 DIZZINESS Other reaction( s): DIZZINESS Acetamin Allergy Active 2020-0 Other UT ophen to 06-06 reaction( Health substanc 00:00: s): e 00 HALLUCINA TIONSOthe r reaction( s): HALLUCINA TIONS diazepam DA Active SV 2020-0 [facility] 06-06 [place] 00:[facility] 00 [facility]ospita l hydrocod DA Active U 2020-0 [facility] one 06-06 00:00: [facility] 00 dic Hospita l acetamin DA Active U 2020-0 [facility] ophen 06-06 [place] 00:00: [facility] 00 dic Hospita l diazepam DA Active SV DIZZINESS 2020-0 [facility] 06-06 [place] 00:00: [facility] 00 dic Hospita l hydrocod DA Active U HALLUCINATIO 2020-0 HC A one NS 06-06 [place] 00:00: Orthope 00 dic Hospita l hydrocod DA Active U HALLUCINATIO 2020-0 HC A one NS 06-06 [place] 00:00: [facility] 00 dic Hospita l acetamin DA Active U HALLUCINATIO 2020-0 HC A ophen NS 06-06 [place] 00:00: [facility]ope 00 dic Hospita l Tree Nut Propensi Active Swelling 2020-0 Meth clark ty to 8 st adverse 00:00: Hospita reaction 00 l s to drug Justicia Allergy Active 2019-0 Other UT Adhatoda to 06-02 reaction( Healt h substanc 00:00: s): SWELL e 00 UP, VERY HARD TO BREATHE Other reaction( s): SWELL UP, VERY HARD TO BREATHE nitrogly DA Active SV 2020-0 [facility] cerin 8-28 Clear 00:00: Louise [facility] lactose FA Active [place] 2020-0 [facility] 8-28 Clear 00:00: [facility] amiodaro DA Active SV 2020-0 [facility] ne 8-28 Clear 00:00: [facility] egg yolk FA Active [place] 2020-0 [facility] 8-28 Clear 00:00: [facility] gluten FA Active [place] 2020-0 [facility] 8-28 Clear 00:00: [facility] tree nut FA Active SV 2020-0 [facility] 8-28 Clear 00:00: [facility] SURGICAL DA Active MO VERY ITCHY. 2020-0 [facility] GLUE 8 Clear 00:00: [facility] tree nut FA Active SV SWELL UP, 2019-0 [facility] VERY HARD TO 8 Maddy r BREATHE 00:00: [facility] nitrogly DA Active SV RAISES BP UP 2019-0 HC A cerin TO 2OO AND 8 Clear HEADACHE 00:00: Louise [facility] lactose FA Active [place] INTOLERANT - [facility] DIARRHEA 06-02 Clear 00:00: Louise [facility] amiodaro DA Active SV VERY HARD TO 2020-0 HC A ne BREATH 06-02 Clear 00:00: Moca [facility] egg yolk FA Active [place] GASTRO [facility] PROBLEMS. 06-02 Clear 00:00: Moca [facility] gluten FA Active [place] GET SORE, [facility] DIARRHEA 06-02 Clear 00:00: Louise [facility] morphine morphine Active itchy Memori a 4-30 l 00:00: Ethel 00 Chocolat Propensi Active Unknown 0 " Metho di e Flavor ty to Reaction 2-[address] adverse 00:00: breaks Hospita reaction 00 out" l s to drug Egg Yolk Propensi Active GI Method i ty to Intolerance 2-06 st adverse 00:00: Hospita reaction 00 l s to drug Gluten Propensi Active Unknown 0 "get Methodi ty to Reaction 2-06 sore" st adverse 00:00: Hospita reaction 00 l s to drug Latex Propensi Active Rash " skin Methodi ty to 2-[address] adverse 00:00: eventuall Hospit a reaction 00 y" l s to drug Egg Allergy Active 0 Other UT Shells to 2-06 reaction( Health substanc 00:00: s): e 00 GASTRO PROBLEMS. , GI Intoleran ce Egg Yolk Allergy Active 2019-0 Other UT to 2-06 reaction( Health substanc 00:00: s): e 00 GASTRO PROBLEMS. , GI Intoleran ce Gluten Allergy Active 2019-0 Other UT Meal to 2-06 reaction( Health substanc 00:00: s): GET e 00 SORE, DIARRHEA, Unknown ReactionO ther reaction( s): GET SORE, DIARRHEA, Unknown Reaction" get sore""get sore" latex DA Active [place] 2018- [facility] 2-12 Clear 00:00: Louise 00 [facility] shrimp FA Active [place] 2018-10 [facility] 2-12 Clear 00:00: Louise 00 [facility] latex DA Active [place] RASH;SKIN 2018-10 [facility] IRRITATION 2-12 Clear 00:00: Louise 00 [facility] shrimp FA Active [place] swelling 2018-10 [facility] 2-12 Clear 00:00: Louise 00 [facility] peanut FA Active [place] stiff joints 2018-10 [facility] 2-12 Clear 00:00: Louise 00 [facility] adhesive DA Active U RASH, PEELS 2018-10 [facility] tape SKIN OFF 2-12 Clear 00:00: Louise 00 [facility] chocolat FA Active [place] ITCHING 2018-10 [facility] e flavor 2-12 Clear 00:00: Louise 00 [facility] peanut FA Active [place] 2018-10 [facility] 2-12 Clear 00:00: Louise 00 [facility] adhesive DA Active U 2018-10 [facility] tape 2-12 Clear 00:00: Louise 00 [facility] chocolat FA Active [place] 2018-10 [facility] e flavor 2-12 Clear 00:00: Louise 00 [facility] ADHESIVE Allergy Active Moderate Rash [place] ge TAPE to to severe 7-22 Family substanc 00:00: Practic e 00 e Morphine Morphine Active itchy Memori a 4-24 l 00:00: Dick 00 Hydrocod Allergy Active Hallucinatio Other U T one to ns 4-24 reaction( Health substanc 00:00: s): e 00 HALLUCINA TIONS, HALLUCINA TIONSOthe r reaction( s): Hallucina tions, HALLUCINA TIONS Oxycodon Allergy Active Other UT e to 4-24 reaction( Health substanc 00:00: s): e 00 Hallucina tionsOthe r reaction( s): Hallucina tions Lactose Propensi Active GI Lactose Method i ty to Intolerance 3-[address] adverse 00:00: t Hospita reaction 00 l s to drug Lactose Allergy Active Other UT to 3-04 reaction( Health substanc 00:00: s): GI e 00 Intoleran ce, INTOLERAN T - DIARRHEAO ther reaction( s): GI Intoleran ce, INTOLERAN T - DIARRHEAL actose Intoleran tLactose Intoleran t Nitrogly Propensi Active Other (See 2016-10 "Raises M ethodi cerin ty to Comments) 10-[address] adverse 00:00: pressure Hospita reaction 00 up to 200 l s to and head drug pain" Nitrogly Allergy Active 2016-10 Other UT cerin [...] 00:00: s): Other e 00 (See Comments) N.K.D.A. N.K.D.A. Active Info Not [place] Available 8-31 l 00:00: Ethel 00 Amiodaro Propensi Active Shortness Of Methodi ne ty to Breath 4-11 st adverse 00:00: Hospita reaction 00 l s to drug Propafen Allergy Active Shortness of U T one to breath 4-11 Health substanc 00:00: e 00 Amiodaro Allergy Active Shortness of Other U T ne to breath 4-11 reaction( Health substanc 00:00: s): VERY e 00 HARD TO BREATHOth er reaction( s): VERY HARD TO BREATH Peanut Propensi Active Swelling 2015-10 Method i ty to 10-28 st adverse 00:00: Hospita reaction 00 l s to drug Peanut-C Allergy Active Swelling 2015-10 Other UT ontainin to 10-28 reaction( Healt h g Drug substanc 00:00: s): stiff Products e 00 joints Other reaction( s): stiff joints Shrimp Propensi Active Swelling 2015-10 joints Method i ty to 10-26 st adverse 00:00: Hospita reaction 00 l s to drug Latex Allergy Active Rash Other UT to [...] ITCHING" psoriasis breaks out"" psoriasis breaks out" adhesive DA Active U [facility] tape 06-24 [place] 00:00: [facility] 00 dic [facility]osp[facility] l chocolat FA Active [place] [facility] e flavor 06-24 [place] 00:00: [facility] 00 dic Hospita l latex DA Active [place] [facility] 06-24 [place] 00:00: [facility] 00 dic Hospita l SHRIMP DA Active [place] [facility] 06-24 [place] 00:00: [facility] 00 dic Hospita l Other Allergy Active Other UT to 06-08 reaction( Health substanc 00:00: s): e 00 hivesOthe r reaction( s): hives NUTS DA Active [place] [facility] 06-08 [place] 00:00: [facility] 00 dic Hospita l MORPHINE Allergy Active [facility] Morphine Drug Active Rash [facility] PEANUTS DA Active [place] 2010-10 [facility] 10-06 [place] 00:00: [facility] 00 dic Hospita l Morphine Allergy Active Rash 2010-10 Other UT [...] Date Stop Date Source Natural brother Psoriasis [facility] Natural father Arthritis [facility] Natural father Hypertension [facility] Natural mother Arthritis [facility] mother Hypertension [facility] Mother [facility] heart disease Father Family history of [facility] pancreatic cancer Social History Social Habit Start Date Stop Date Quantity Comments Source Gender identity 2021-01-02 Identifies as male M ethodist 12:52:21 gender (finding) Hospital Sexual orientation 2021-01-02 Heterosexual Meth odist 12:52:21 (finding) Hospital History of Social 2023-04-11 2023-04-[address] function 00:00:00 00:00:00 Hospital Tobacco use and 2022-09-18 2022-09-18 Smokeless tobacco Me thodist exposure 00:00:00 00:00:00 non-user Hospital Tobacco Comment 2022-09-18 2022-09-18 Father smoked in [facility] 00:00:00 00:00:00 home Hospital Exposure to 2022-05-26 2022-06-05 Not sure [facility] SARS-CoV-2 (event) 00:00:00 10:24:00 Alcohol Comment 2021-01-10 2021-01-10 None [facility] 00:00:[facility] 00:[facility]:00 Hospital Alcohol intake 2014-02-18 2014-02-18 [facility] Sex Assigned At [address] [facility] 00:[facility] Smoking Status Start Date Stop Date Source Never smoked tobacco [facility] Medications Ordered Filled Start Stop Current Ordering Indication Dosage Frequency Signature Comments Components Source Medication Medication Date Date Medication? Clinician (SIG) Name Name anastrozole Yes .5mg Q.5W Take 0.5 Me [facility] (ARIMIDEX) 7-[address] 1 mg chemo 11:23: (0.5 mg [facility] tablet 33 total) by l mouth 2 (two) times a week. On Friday and Friday albuterol Yes 1{puff} Q6H Inhale 1 M ethodi (PROAIR 7-[address] HFA) 90 11:23: 6 (six) [facility]ospita mcg/actuati 33 hours as l on inhaler needed for wheezing or shortness of breath. testosteron Yes 20mg Q.5W Inject 0.1 [facility] e enanthate 7-07 mL ([address] (DELATESTRY 11:23: total) [facility] L) 200 33 into the l mg/mL shoulder, injection thigh, or buttocks 2 (two) times a week. Friday & Friday warfarin Yes 5mg QD Take 1 [facility] (COUMADIN) - tablet (5 st 5 MG tablet 11:23: mg total) H [facility]sp[facility] 33 by mouth l daily. At 9am. Last INR on 04/09/23 was 2.9 per Pt.Indicat ion: Artificial Heart Valve terbinafine Yes 250mg QD Take 1 Met hodi HCL - tablet st (LamiSIL) 11:23: (250 mg Hospi ta 250 mg 33 total) by l tablet mouth daily. sucralfate 2022- Yes 1g Q.25D Take 10 mL [facility] (Carafate) 04-11 ([address] 100 mg/mL 00:00: 04:59 total) by [facility] suspension 00 :00 mouth 4 l (four) times a day for 30 days. famotidine 0 2022- Yes 20mg Q.5D Take 1 Meth clark (PEPCID) 20 04-11- tablet (20 s t MG tablet 00:00: 04:59 mg total) Ho [facility] 00 :00 by mouth 2 l (two) times a day for 30 days. esomeprazol Yes TAKE ONE Me [facility]odi e (NexIUM) 7-03 (1) st 40 MG 00:00: CAPSULE(S) Hospit a capsule 00 BY MOUTH l ONCE A DAY. esomeprazol 2022- No 40mg QD Take 1 Met hodi e (NexIUM) 01-20 04-[address] 40 MG 07:53: 00:00 (40 mg Hospita capsule 22 :00 total) by l mouth daily before breakfast. esomeprazol No TAKE ONE M ethodi e (NexIUM) 01-20 (1) st 40 MG 00:00: 12:25 CAPSULE(S) Hospi ta capsule 00 :00 BY MOUTH l ONCE A DAY. metoprolol 2022- No 12.5mg Q.5D Take 0.5 [facility] tartrate 208 -[address] (LOPRESSOR) 11:17: 00:00 (12.5 mg H [facility]sp[facility] 25 mg 11 :00 total) by l tablet mouth 2 (two) times a day as needed (HR>60). amoxicillin 2022- No TAKE ONE M ethodi -pot 10-31 (1) st clavulanate 00:00: 00:00 TABLET(S) Hospita (AUGMENTIN) 00 :00 BY MOUTH l 875-125 mg TWICE A per tablet DAY UNTIL FINISHED. metoprolol Yes 12.5mg Q.5D Take 0.5 M ethodi succinate 1-[address] XL 00:00: (12.5 mg Hospita (TOPROL-XL) 00 total) by l 25 mg 24 hr mouth 2 tablet (two) times a day. enoxaparin 2022- No INJECT ONE [facility] (LOVENOX) 10-19 (1) st 100 mg/mL 00:00: 00:00 SYRINGE [facility] syringe 00 :00 INTO SKIN l DAILY FOR THREE DAYS BEFORE AND TWO DAYS AFTER SURGERY DIRECTED. sodium,pota No [id number] Drink 1 [facility] ssium,mag 10-[address] sulfates 00:00: 00:00 directed [facility] (Suprep 00 :00 for dose 1 l Bowel Prep and 1 Kit) bottle as 17.5-3.13-1 directed .6 gram for dose recon soln 2. sildenafiL 2021-10 Yes 100mg Take 1 Meth [facility] (VIAGRA) 1-[address] 100 MG 00:00: (100 mg [facility]ospita tablet 00 total) by l mouth as needed for erectile dysfunctio n. testosteron 2022-0 Yes 20mg Inject 20 U T e enanthate 8-31 mg into [facility]alt [facility] (Delatestry 10:57: the l) 200 49 shoulder, MG/ML thigh, or injection buttocks 2 (two) times a week. metoprolol Yes metoprolol U T succinate 06-05 succinate Healt h XL 10:57: ER 25 mg (Toprol-XL) 49 tablet,ext 25 MG 24 hr ended tablet release 24 hr as needed esomeprazol Yes esomeprazo UT e (NexIUM) 06-[address] [facility] [address] 10:57: magnesium capsule 49 40 mg capsule,de layed release TAKE ONE (1) CAPSULE(S) BY MOUTH ONCE A DAY. albuterol Yes albuterol UT 108 (90 06-05 sulfate Health Base) 10:57: HFA 90 MCG/ACT [...] l Goal: 2.6-3.5Ind ication: Artificial Heart Valve anastrozole 2020-10 Yes 1{tbl} Take 1 [facility] (Arimidex) 2-16 tablet by Heal th 1 MG chemo 00:00: mouth 2 tablet 00 (two) times a week. meloxicam Yes meloxicam [facility] (Mobic) 15 3-25 15 mg Health MG tablet 00:00: tablet 00 TAKE ONE (1) TABLET(S) BY MOUTH ONCE A DAY. meloxicam Yes 15mg Q24H Take 15 mg Me [facility] (MOBIC) 15 3-[address] mg tablet 00:00: daily as [facility] 00 needed for l mild pain. meloxicam Yes 15mg Q24H Take 1 Method i (MOBIC) 15 3-25 tablet (15 st mg tablet 00:00: mg total) Hos anila 00 by mouth l daily as needed for mild pain. Albuterol Yes DILEEP 2 puffs Mem oria -07 CLEMENT l 03:50: Dick 26 DOXYCYCLINE Yes DILEEP 1 tab(s) Memoria (GEN) 1-07 CLEMENT l 03:50: Ethel 26 testosteron Yes DILEEP 200 mg Me moria e -07 CLEMENT l 03:50: Dick 26 Coumadin Yes DILEEP 1 tab(s) Mem oria -07 CLEMENT l 03:50: Ethel 26 meloxicam Yes DILEEP TAKE ONE Me moria -07 CLEMENT (1) l 03:50: TABLET(S) Dick BY MOUTH ONCE A DAY. Metoprolol 2021-0 Yes DILEEP 1/2 tab(s) Memoria Tartrate 1-07 CLEMENT l 03:50: Ethel 26 anastrozole 0 Yes DILEEP 1 tab(s) Memoria 1-07 CLEMENT l 03:50: Dick Ventolin 0 Yes DILEEP 2 puff(s) Me moria HFA 1-07 CLEMENT l 03:50: Dick anastrozole 0 Yes DILEEP 1 tab(s) Memoria 1-07 CLEMENT l 03:50: Dick 26 Metoprolol 0 Yes DILEEP 1/2 tab(s) [facility] Tartrate 1-07 CLEMENT l 03:50: Ethel 26 meloxicam 0 Yes DILEEP TAKE ONE Me moria 1-07 CLEMENT (1) l 03:50: TABLET(S) Ethel 26 BY MOUTH ONCE A DAY. Albuterol 0 Yes DILEEP 2 puffs Mem oria 1-07 CLEMENT l 03:50: Dick 26 DOXYCYCLINE 0 Yes DILEEP 1 tab(s) Memoria (GEN) 1-07 CLEMENT l 03:50: Dick 26 testosteron 0 Yes DILEEP 200 mg Me moria e 1-07 CLEMENT l 03:50: Dick 26 Coumadin 0 Yes DILEEP 1 tab(s) Mem oria 1-07 CLEMENT l 03:50: Dick 26 Ventolin 0 Yes DILEEP 2 puff(s) Me moria HFA 1-07 CLEMENT l 03:50: Ethel 26 anastrozole 0 Yes DILEEP 1 tab(s) Memoria 1-07 CLEMENT l 03:50: Ethel 26 Metoprolol 0 Yes DILEEP 1/2 tab(s) [facility]oria Tartrate 1-07 CLEMENT l 03:50: Dick 26 meloxicam 0 Yes DILEEP TAKE ONE Me moria 1-07 CLEMENT (1) l 03:50: TABLET(S) Ethel 26 BY MOUTH ONCE A DAY. Albuterol 0 Yes DILEEP 2 puffs Mem oria 1-07 CLEMENT l 03:50: Ethel 26 DOXYCYCLINE 2020-0 Yes DILEEP 1 tab(s) Memoria (GEN) 1-07 CLEMENT l 03:50: Dick 26 testosteron 0 Yes DILEEP 200 mg Me moria e 1-07 CLEMENT l 03:50: Ethel 26 Coumadin 0 Yes DIELEP 1 tab(s) Mem oria 1-07 CLEMENT l 03:50: Ethel Ventolin 0 Yes DILEEP 2 puff(s) Me moria HFA 1-07 CLEMENT l 03:50: Ethel 26 anastrozole 0 Yes DILEEP 1 tab(s) Memoria 1-07 CLEMENT l 03:50: Dick Metoprolol 0 Yes DILEEP 1/2 tab(s) [facility] Tartrate 1-07 CLEMENT l 03:50: Dick meloxicam 0 Yes DILEEP TAKE ONE Me moria 1-07 CLEMENT (1) l 03:50: TABLET(S) Dick 26 BY MOUTH ONCE A DAY. Albuterol 0 Yes DILEEP 2 puffs Mem oria 1-07 CLEMENT l 03:50: Ethel 26 DOXYCYCLINE 0 Yes DILEEP 1 tab(s) [facility] (GEN) 1-07 CLEMENT l 03:50: Ethel testosteron 0 Yes DILEEP 200 mg Me moria e 1-07 CLEMENT l 03:50: Dikc 26 Coumadin 0 Yes DILEEP 1 tab(s) Mem oria 1-07 CLEMENT l 03:50: Ethel Ventolin 0 Yes DILEEP 2 puff(s) Me moria HFA 1-07 CLEMENT l 03:50: Ethel 26 anastrozole 0 Yes DILEEP 1 tab(s) Memoria 1-07 CLEMENT l 03:50: Ethel 26 Metoprolol 0 Yes DILEEP 1/2 tab(s) [facility] Tartrate 1-07 CLEMENT l 03:50: Dick 26 meloxicam 0 Yes DILEEP TAKE ONE Me moria 1-07 CLEMENT (1) l 03:50: TABLET(S) Ethel 26 BY MOUTH ONCE A DAY. Albuterol 0 Yes DILEEP 2 puffs Mem [facility]ria 1-07 CLEMENT l 03:50: Dick 26 DOXYCYCLINE 2021-0 Yes DILEEP 1 tab(s) [facility] (GEN) 1-07 CLEMENT l 03:50: Ethel testosteron Yes DILEEP 200 mg Me moria e 1-07 CLEMENT l 03:50: Ethel 26 Coumadin 0 Yes DILEEP 1 tab(s) Mem oria 1-07 CLEMENT l 03:50: Ethel Ventolin Yes DILEEP 2 puff(s) Me moria HFA 1-07 CLEMENT l 03:50: Ethel 26 anastrozole 0 Yes DILEEP 1 tab(s) Memoria 1-07 CLEMENT l 03:50: Dick 26 Metoprolol Yes DILEEP 1/2 tab(s) [facility] Tartrate 1-07 CLEMENT l 03:50: Dick 26 meloxicam Yes DILEEP TAKE ONE Me moria 1-07 CLEMENT (1) l 03:50: TABLET(S) Ethel 26 BY MOUTH ONCE A DAY. Albuterol Yes DILEEP 2 puffs Mem [facility]ria 1-07 CLEMENT l 03:50: Ethel 26 DOXYCYCLINE 0 Yes DILEEP 1 tab(s) [facility] (GEN) 1-07 CLEMENT l 03:50: testosteron Yes DILEEP 200 mg Me moria e 1-07 CLEMENT l 03:50: Coumadin Yes DILEEP 1 tab(s) Mem oria 1-07 CLEMENT l 03:50: Ventolin Yes DILEEP 2 puff(s) Me moria HFA 1-07 CLEMENT l 03:50: Ethel anastrozole 0 Yes DILEEP 1 tab(s) Memoria 1-07 CLEMENT l 03:50: Ethel 26 Metoprolol 0 Yes DILEEP 1/2 tab(s) [facility] Tartrate 1-07 CLEMENT l 03:50: Dick meloxicam 0 Yes DILEEP TAKE ONE Me moria 1-07 CLEMENT (1) l 03:50: TABLET(S) Ethel 26 BY MOUTH ONCE A DAY. Albuterol 0 Yes DILEEP 2 puffs Mem [facility]ria 1-07 CLEMENT l 03:50: Ethel 26 DOXYCYCLINE Yes DILEEP 1 tab(s) Mem[facility] (GEN) 10-12 CLEMENT l 03:50: testosteron Yes DILEEP 200 mg Me moria e - CLEMENT l 03:50: Coumadin Yes DILEEP 1 tab(s) Mem oria -07 CLEMENT l 03:50: Ventolin Yes DILEEP 2 puff(s) Me moria HFA - CLEMENT l 03:50: anastrozole Yes DILEEP 1 tab(s) Memoria 10-12 CLEMENT l 03:50: Metoprolol Yes DILEEP 1/2 tab(s) [facility] Tartrate 10-12 CLEMENT l 03:50: meloxicam Yes DILEEP TAKE ONE Me moria 10-12 CLEMENT (1) l 03:50: TABLET(S) BY MOUTH ONCE A DAY. Albuterol Yes DILEEP 2 puffs Mem [facility] -07 CLEMENT l 03:50: DOXYCYCLINE Yes DILEEP 1 tab(s) [facility] (GEN) 10-12 CLEMENT l 03:50: testosteron Yes DILEEP 200 mg Me moria e 10-12 CLEMENT l 03:50: Coumadin Yes DILEEP 1 tab(s) Mem oria -07 CLMEENT l 03:50: Ventolin Yes DILEEP 2 puff(s) Me moria HFA -07 CLEMENT l 03:50: Albuterol Yes DILEEP 2 puffs Mem oria -07 CLEMENT l 03:50: DOXYCYCLINE 0 Yes DILEEP 1 tab(s) Memoria (GEN) - CLEMENT l 03:50: testosteron 0 Yes DILEEP 200 mg Me moria e -07 CLEMENT l 03:50: Coumadin Yes DILEEP 1 tab(s) Mem oria -07 CLEMENT l 03:50: Ethel 26 meloxicam Yes DILEEP TAKE ONE Me moria 1-07 CLEMENT (1) l 03:50: TABLET(S) Dick 26 BY MOUTH ONCE A DAY. Metoprolol 0 Yes DILEEP 1/2 tab(s) [facility] Tartrate 1-07 CLEMENT l 03:50: Dick anastrozole 0 Yes DILEEP 1 tab(s) Memoria 1-07 CLEMENT l 03:50: Ethel Ventolin 0 Yes DILEEP 2 puff(s) Me moria HFA 1-07 CLEMENT l 03:50: Ethel Albuterol 0 Yes DILEEP 2 puffs Mem oria 1-07 CLEMENT l 03:50: Dick 26 DOXYCYCLINE 0 Yes DILEEP 1 tab(s) Memoria (GEN) 1-07 CLEMENT l 03:50: Dick 26 testosteron 0 Yes DILEEP 200 mg Me moria e 1-07 CLEMENT l 03:50: Dick 26 Coumadin 0 Yes DILEEP 1 tab(s) Mem oria 1-07 CLEMENT l 03:50: Dick 26 meloxicam 0 Yes DILEEP TAKE ONE Me moria 1-07 CLEMENT (1) l 03:50: TABLET(S) Ethel 26 BY MOUTH ONCE A DAY. Metoprolol 0 Yes DILEEP 1/2 tab(s) [facility] Tartrate 1-07 CLEMENT l 03:50: Dick 26 anastrozole 0 Yes DILEEP 1 tab(s) Memoria 1-07 CLEMENT l 03:50: Dick 26 Ventolin 0 Yes DILEEP 2 puff(s) Me moria HFA 1-07 CLEMENT l 03:50: Ethel 26 Albuterol 0 Yes DILEEP 2 puffs Mem oria 1-07 CLEMENT l 03:50: Dick 26 DOXYCYCLINE 0 Yes DILEEP 1 tab(s) [facility] (GEN) 1-07 CLEMENT l 03:50: Ethel testosteron 0 Yes DILEEP 200 mg Me moria e 1-07 CLEMENT l 03:50: Dick 26 Coumadin 0 Yes DILEEP 1 tab(s) Mem oria 1-07 CLEMENT l 03:50: Dick 26 meloxicam Yes DILEEP TAKE ONE Me moria 1-07 CLEMENT (1) l 03:50: TABLET(S) Ethel 26 BY MOUTH ONCE A DAY. Metoprolol Yes DILEEP 1/2 tab(s) [facility] Tartrate 1-07 CLEMENT l 03:50: Dick 26 anastrozole Yes DILEEP 1 tab(s) [facility]oria 1-07 CLEMENT l 03:50: Ethel Ventolin Yes DILEEP 2 puff(s) Me moria HFA 1-07 CLEMENT l 03:50: Ethel 26 Albuterol Yes DILEEP 2 puffs Mem o[facility] 1-07 CLEMENT l 03:50: Ethel 26 DOXYCYCLINE Yes DILEEP 1 tab(s) [facility] (GEN) 1-07 CLEMENT l 03:50: testosteron Yes DILEEP 200 mg Me moria e 1-07 CLEMENT l 03:50: Dick 26 Coumadin Yes DILEEP 1 tab(s) Mem [facility]ria 1-07 CLEMENT l 03:50: Dick 26 meloxicam Yes DILEEP TAKE ONE Me moria 1-07 CLEMENT (1) l 03:50: TABLET(S) Dick 26 BY MOUTH ONCE A DAY. Metoprolol Yes DILEEP 1/2 tab(s) [facility] Tartrate 1-07 CLEMENT l 03:50: Dick 26 anastrozole Yes DILEEP 1 tab(s) Memoria 1-07 CLEMENT l 03:50: Dick 26 Ventolin Yes DILEEP 2 puff(s) Me moria HFA 1-07 CLEMENT l 03:50: Dick 26 Lamisil 2019-10 Yes CHANTELL 1 tab(s) M emoria 2-16 ARAM l 03:58: Ethel Robitussin 2019-10 Yes CHANTELL 2 Me moria AC 2-16 ARAM teaspoons l 03:58: Dick 24 benzonatate 2019-10 Yes CHANTELL TAKE ONE Memoria 2-16 ARAM (1) l 03:58: CAPSULE(S) Ethel 24 BY MOUTH THREE TIMES A DAY FOR 5 DAYS. Valacyclovi 2020- Yes CHANTELL 1 tab(s) Memoria r 2-16 ARAM l Hydrochlori 03:58: David n de 24 Terbinafine 2020- Yes CHANTELL 1 tab(s) [facility] Hydrochlori 2-16 ARAM l de 03:58: Ethel 24 prednisone 2020- Yes CHANTELL 1 tab(s) Memoria 2-16 ARAM l 03:58: Dick 24 Eliquis 2020- Yes CHANTELL 1 tab(s) M emoria 2-16 ARAM l 03:58: Ethel 24 Lamisil 2020- Yes CHANTELL 1 tab(s) M emoria 2-16 ARAM l 03:58: Ethel 24 Robitussin 2020- Yes CHANTELL 2 Me [...] Memoria Hydrochlori 2-16 ARAM l de 03:58: Ethel 24 prednisone 2019-1 Yes CHANTELL 1 tab(s) Memoria 2-16 ARAM l 03:58: Dick 24 Eliquis 2020-1 Yes CHANTELL 1 tab(s) M emoria 2-16 ARAM l 03:58: Dick 24 Lamisil 2020- Yes CHANTELL 1 tab(s) M emoria 2-16 ARAM l 03:58: Dick 24 Robitussin 2020-1 Yes CHANTELL 2 Me moria AC 2-16 ARAM teaspoons l 03:58: Ethel 24 benzonatate 2020- Yes CHANTELL TAKE ONE Memoria 2-16 ARAM (1) l 03:58: CAPSULE(S) Dick 24 BY MOUTH THREE TIMES A DAY FOR 5 DAYS. Valacyclovi 2020-1 Yes CHANTELL 1 tab(s) Memoria r 2-16 ARAM l Hydrochlori 03:58: David n de 24 Terbinafine 2020-1 Yes CHANTELL 1 tab(s) [facility]oria Hydrochlori 2-16 ARAM l de 03:58: Ethel 24 prednisone 2020-1 Yes CHANTELL 1 tab(s) Memoria 2-16 ARAM l 03:58: Dick 24 Eliquis 2020- Yes CHANTELL 1 tab(s) M emoria 2-16 ARAM l 03:58: Ethel 24 Lamisil 2020-1 Yes CHANTELL 1 tab(s) M emoria 2-16 ARAM l 03:58: Ethel 24 Robitussin 2020-1 Yes CHANTELL 2 Me moria AC 2-16 ARAM teaspoons l 03:58: Ethel 24 benzonatate 2020- Yes CHANTELL TAKE ONE Memoria 2-16 ARAM (1) l 03:58: CAPSULE(S) Dick 24 BY MOUTH THREE TIMES A DAY FOR 5 DAYS. Valacyclovi 2020-1 Yes CHANTELL 1 tab(s) Memoria r 2-16 ARAM l Hydrochlori 03:58: David n de 24 Terbinafine 2020-1 Yes CHANTELL 1 tab(s) [facility] Hydrochlori 2-16 ARAM l de 03:58: Ethel 24 prednisone 2020-1 Yes CHANTELL 1 tab(s) Memoria 2-16 ARAM l 03:58: Dick 24 Eliquis 2020- Yes CHANTELL 1 tab(s) M emoria 2-16 ARAM l 03:58: Dick 24 Lamisil 2020-1 Yes CHANTELL 1 tab(s) M emoria 2-16 ARAM l 03:58: Dick 24 Robitussin 2020-1 Yes CHANTELL 2 Me moria AC 2-16 ARAM teaspoons l 03:58: Dick 24 benzonatate 2020-1 Yes CHANTELL TAKE ONE [facility] 2-16 ARAM (1) l 03:58: CAPSULE(S) Ethel 24 BY MOUTH THREE TIMES A DAY FOR 5 DAYS. Valacyclovi 2020-1 Yes CHANTELL 1 tab(s) Memoria r 2-16 ARAM l Hydrochlori 03:58: David n de 24 Terbinafine 2020-1 Yes CHANTELL 1 tab(s) [facility] Hydrochlori 2-16 ARAM l de 03:58: Ethel 24 prednisone 2020-1 Yes CHANTELL 1 tab(s) Memoria 2-16 ARAM l 03:58: Ethel 24 Eliquis 2020- Yes CHANTELL 1 tab(s) M emoria 2-16 ARAM l 03:58: Ethel 24 Lamisil 2020- Yes CHANTELL 1 tab(s) M emoria 2-16 ARAM l 03:58: Ethel 24 Robitussin 2020-1 Yes CHANTELL 2 Me moria AC 2-16 ARAM teaspoons l 03:58: Ethel 24 benzonatate 2020- Yes CHANTELL TAKE ONE [facility] 2-16 ARAM (1) l 03:58: CAPSULE(S) Ethel 24 BY MOUTH THREE TIMES A DAY FOR 5 DAYS. Valacyclovi 2020- Yes CHANTELL 1 tab(s) Memoria r 2-16 ARAM l Hydrochlori 03:58: David n de 24 Terbinafine 2020- Yes CHANTELL 1 tab(s) [facility] Hydrochlori 2-16 ARAM l de 03:58: Ethel 24 prednisone 2020-1 Yes CHANTELL 1 tab(s) Mem[facility] 2-16 ARAM l 03:58: Dick 24 Eliquis 2020- Yes CHANTELL 1 tab(s) M emoria 2-16 ARAM l 03:58: Dick 24 Lamisil 2020- Yes CHANTELL 1 tab(s) M emoria 2-16 ARAM l 03:58: Dick 24 Robitussin 2020-1 Yes CHANTELL 2 Me moria AC 2-16 ARAM teaspoons l 03:58: Dick 24 benzonatate 2020-1 Yes CHANTELL TAKE ONE [facility] 2-16 ARAM (1) l 03:58: CAPSULE(S) Dick 24 BY MOUTH THREE TIMES A DAY FOR 5 DAYS. Valacyclovi 2020-1 Yes CHANTELL 1 tab(s) Memoria r 2-16 ARAM l Hydrochlori 03:58: David n de 24 Terbinafine 2020-1 Yes CHANTELL 1 tab(s) [facility] Hydrochlori 2-16 ARAM l de 03:58: Ethel 24 prednisone 2020-1 Yes CHANTELL 1 tab(s) Mem[facility] 2-16 ARAM l 03:58: Dick 24 Eliquis 2020-1 Yes CHANTELL 1 tab(s) M emoria 2-16 ARAM l 03:58: Ethel 24 Lamisil 2020-1 Yes CHANTELL 1 tab(s) M emoria 2-16 ARAM l 03:58: Ethel 24 Robitussin 2020-1 Yes CHANTELL 2 Me moria AC 2-16 ARAM teaspoons l 03:58: Dick 24 benzonatate 2020-1 Yes CHANTELL TAKE ONE [facility] 2-16 ARAM (1) l 03:58: CAPSULE(S) Ethel 24 BY MOUTH THREE TIMES A DAY FOR 5 DAYS. Valacyclovi 2020-1 Yes CHANTELL 1 tab(s) Memoria r 2-16 ARAM l Hydrochlori 03:58: David n de 24 Terbinafine 2020- Yes CHANTELL 1 tab(s) Memoria Hydrochlori 2-16 ARAM l de 03:58: Dick 24 prednisone 2020-1 Yes CHANTELL 1 tab(s) Memoria 2-16 ARAM l 03:58: Dick 24 Eliquis 2020- Yes CHANTELL 1 tab(s) M emoria 2-16 ARAM l 03:58: Ethel 24 Lamisil 2020- Yes CHANTELL 1 tab(s) M emoria 2-16 ARAM l 03:58: Dick 24 Robitussin 2020- Yes CHANTELL 2 Me moria AC 2-16 ARAM teaspoons l 03:58: Ethel 24 benzonatate 2020-1 Yes CHANTELL TAKE ONE [facility] 2-16 ARAM (1) l 03:58: CAPSULE(S) Dick 24 BY MOUTH THREE TIMES A DAY FOR 5 DAYS. Valacyclovi 2020-1 Yes CHANTELL 1 tab(s) Memoria r 2-16 ARAM l Hydrochlori 03:58: Daivd n de 24 Terbinafine 2020-1 Yes CHANTELL 1 tab(s) Memoria Hydrochlori 2-16 ARAM l de 03:58: Ethel 24 prednisone 2020-1 Yes CHANTELL 1 tab(s) Memoria 2-16 ARAM l 03:58: Dick 24 Eliquis 2020- Yes CHANTELL 1 tab(s) M emoria 2-16 ARAM l 03:58: Dick 24 Lamisil 2020- Yes CHANTELL 1 tab(s) M emoria 2-16 ARAM l 03:58: Ethel 24 Robitussin 2020- Yes CHANTELL 2 Me [...] prednisone 2019-10 Yes CHANTELL 1 tab(s) Memoria 2-16 ARAM l 03:58: Ethel 24 Eliquis 2020- Yes CHANTELL 1 tab(s) M emoria 2-16 ARAM l 03:58: Dick 24 Lamisil 2019-10 Yes CHANTELL 1 tab(s) M emoria 2-16 ARAM l 03:58: Ethel 24 Robitussin 2019- Yes CHANTELL 2 Me moria AC 2-16 ARAM teaspoons l 03:58: Ethel 24 benzonatate 2019- Yes CHANTELL TAKE ONE [facility] 2-16 ARAM (1) l 03:58: CAPSULE(S) Ethel 24 BY MOUTH THREE TIMES A DAY FOR 5 DAYS. Valacyclovi 2019- Yes CHANTELL 1 tab(s) Memoria r 2-16 ARAM l Hydrochlori 03:58: David n de 24 Terbinafine 2020- Yes CHANTELL 1 tab(s) Memoria Hydrochlori 2-16 ARAM l de 03:58: Dick 24 prednisone 2019- Yes CHANTELL 1 tab(s) Memoria 2-16 ARAM l 03:58: Dick 24 Eliquis 2020- Yes CHANTELL 1 tab(s) M emoria 2-16 ARAM l 03:58: Ethel 24 Lamisil 2019- Yes CHANTELL 1 tab(s) M emoria 2-16 ARAM l 03:58: Dick 24 Robitussin 2019- Yes CHANTELL 2 Me moria AC 2-16 ARAM teaspoons l 03:58: Dick 24 benzonatate 2019-10 Yes CHANTELL TAKE ONE Memoria -16 ARAM (1) l 03:58: CAPSULE(S) Dick 24 BY MOUTH THREE TIMES A DAY FOR 5 DAYS. Valacyclovi 2019- Yes CHANTELL 1 tab(s) Memoria r -16 ARAM l Hydrochlori 03:58: David n 24 Terbinafine 2019-10 Yes CHANTELL 1 tab(s) Memoria Hydrochlori 2-16 ARAM l de 03:58: Ethel 24 prednisone 2019-10 Yes CHANTELL 1 tab(s) Memoria -16 ARAM l 03:58: Dick 24 Eliquis 2019-10 Yes CHANTELL 1 tab(s) M emoria -16 ARAM l 03:58: Ethel 24 Afluria Afluria 2019- No Afluria Vill age Quad Quad 9-30 Quad Family 00:00: Practic 60 mcg (15 60 mcg (15 00 60 mcg (15 e mcg x mcg x mcg x 4)/0.5 mL 4)/0.5 mL 4)/0.5 mL intramuscul intramuscul intramuscu ar susp. ar susp. lar susp. Ventolin Yes DILEEP 2 puff(s) Me moria HFA 5-06 CLEMENT l 02:47: Ethel 28 Ventolin 2019-0 Yes DILEEP 2 puff(s) Me moria HFA 5-06 CLEMENT l 02:47: Dick 28 Ventolin 2020-0 Yes DILEEP 2 puff(s) Me moria HFA 5-06 CLEMENT l 02:47: Ethel 28 Ventolin 2020-0 Yes DILEEP 2 puff(s) Me moria HFA 5-06 CLEMENT l 02:47: Dick 28 Ventolin 2019-0 Yes DILEEP 2 puff(s) Me moria HFA 5-06 CLEMENT l 02:47: Ethel 28 Ventolin 2020-0 Yes DILEEP 2 puff(s) Me moria HFA 5-06 CLEMENT l 02:47: Ventolin 2020-0 Yes DILEEP 2 puff(s) Me moria HFA 5-06 CLEMENT l 02:47: Ethel 28 Ventolin 2020-0 Yes DILEEP 2 puff(s) Me moria HFA 5-06 CLEMENT l 02:47: Ventolin 2020-0 Yes DILEEP 2 puff(s) Me moria HFA 5-06 CLEMENT l 02:47: Ventolin 2020-0 Yes DILEEP 2 puff(s) Me moria HFA 5-06 CLEMENT l 02:47: Ventolin 2020-0 Yes DILEEP 2 puff(s) Me moria HFA 5-06 CLEMENT l 02:47: Ventolin 2020-0 Yes DILEEP 2 puff(s) Me moria HFA 5-06 CLEMENT l 02:47: Coenzyme 2020-0 Yes DILEEP 1 tab(s) Mem [...] l 00:00: Dick 00 Coenzyme 2020-0 Yes DILEEP 1 tab(s) Mem oria Q10 4-30 CLEMENT l 00:00: Ethel 00 Coenzyme 2020-0 Yes DILEEP 1 tab(s) Mem oria Q10 4-30 CLEMENT l 00:00: Flonase 2019- Yes CHANTELL 27.5 mcg M emoria Sensimist 1-25 ARAM l 00:00: benzonatate 2019- Yes KAIA 1 cap(s) M emoria 1-25 JUDY l 00:00: Flonase 2019- Yes CHANTELL 27.5 mcg M emoria Sensimist 1-25 ARAM l 00:00: benzonatate 2019- Yes KAIA 1 cap(s) M emoria 1-25 JUDY l 00:00: Flonase 2019 Yes CHANTELL 27.5 mcg M emoria Sensimist 1-25 ARAM l 00:00: benzonatate 2019- Yes KAIA 1 cap(s) M emoria 1-25 JUDY l 00:00: Flonase 2019 Yes CHANTELL 27.5 mcg M emoria Sensimist 1-25 ARAM l 00:00: benzonatate 2019- Yes KAIA 1 cap(s) M emoria 1-25 JUDY l 00:00: Flonase 2019 Yes CHANTELL 27.5 mcg M emoria Sensimist 1-25 ARAM l 00:00: benzonatate 2019- Yes KAIA 1 cap(s) M emoria 1-25 JUDY l 00:00: Flonase 2019- Yes CHANTELL 27.5 mcg M emoria Sensimist 1-25 ARAM l 00:00: benzonatate 2019- Yes KAIA 1 cap(s) M emoria 1-25 JUDY l 00:00: Flonase 2019 Yes CHANTELL 27.5 mcg M emoria Sensimist 1-25 ARAM l 00:00: benzonatate 2019- Yes KAIA 1 cap(s) M emoria 1-25 JUDY l 00:00: Flonase 2019 Yes CHANTELL 27.5 mcg M emoria Sensimist 1-25 ARAM l 00:00: benzonatate 2019 Yes KAIA 1 cap(s) M emoria 1-25 JUDY l 00:00: Flonase 2019 Yes CHANTELL 27.5 mcg M emoria Sensimist 1-25 ARAM l 00:00: benzonatate 2019 Yes KAIA 1 cap(s) M emoria 1-25 JUDY l 00:00: Flonase 2019 Yes CHANTELL 27.5 mcg M emoria Sensimist 1-25 ARAM l 00:00: benzonatate 2019 Yes KAIA 1 cap(s) M emoria 1-25 JUDY l 00:00: Flonase 2019 Yes CHANTELL 27.5 mcg M emoria Sensimist 1-25 ARAM l 00:00: benzonatate 2019 Yes KAIA 1 cap(s) M emoria 1-25 JUDY l 00:00: Flonase 2019 Yes CHANTELL 27.5 mcg M emoria Sensimist 1-25 ARAM l 00:00: benzonatate 2019 Yes KAIA 1 cap(s) M emoria 1-25 JUDY l 00:00: Cipro 2019- Yes DILEEP 1 [...] tab(s) Mem oria 0-23 ARAM l 00:00: bifidobacte 2019- Yes CHANTELL 1 tab(s) Memoria rium-lactob 0-15 ARAM l acillus 00:00: Xifaxan 2019- Yes KAIA 1 tab(s) Memor ia 0-15 JUDY l 00:00: bifidobacte 2019- Yes CHANTELL 1 tab(s) Memoria rium-lactob 0-15 ARAM l acillus 00:00: Xifaxan 2019- Yes KAIA 1 tab(s) Memor ia 0-15 JUDY l 00:00: bifidobacte 2019- Yes CHANTELL 1 tab(s) Memoria rium-lactob 0-15 ARAM l acillus 00:00: Xifaxan 2019- Yes KAIA 1 tab(s) Memor ia 0-15 JUDY l 00:00: bifidobacte 2019- Yes CHANTELL 1 tab(s) Memoria rium-lactob 0-15 ARAM l acillus 00:00: Xifaxan 2019- Yes KAIA 1 tab(s) Memor ia 0-15 JUDY l 00:00: bifidobacte 2019- Yes CHANTELL 1 tab(s) Memoria rium-lactob 0-15 ARAM l acillus 00:00: Xifaxan 2019- Yes KAIA 1 tab(s) Memor ia 0-15 JUDY l 00:00: bifidobacte 2019- Yes CHANTELL 1 tab(s) Memoria rium-lactob 0-15 ARAM l acillus 00:00: Xifaxan 2019- Yes KAIA 1 tab(s) Memor ia 0-15 JUDY l 00:00: bifidobacte 2019-1 Yes CHANTELL 1 tab(s) Memoria rium-lactob 0-15 ARAM l acillus 00:00: Xifaxan 2019- Yes KAIA 1 tab(s) Memor ia 0-15 [...] ARAM l acillus 00:00: Xifaxan 2018-10 Yes AKIA 1 tab(s) Memor ia 0-15 JUDY l 00:00: bifidobacte 2019 Yes CHANTELL 1 tab(s) Memoria rium-lactob 0-15 ARAM l acillus 00:00: Xifaxan 2018-10 Yes KAIA 1 tab(s) Memor ia 0-15 JUDY l 00:00: Testosteron Testosteron 2019-0 Yes LAMBERTO Receives [place] e Powder e Powder 2-05 DIANA-EFTE 20 mg Physici 00:00: TAVO Govea compounded a 00 testostero ne twice a week Valacyclovi 2019- Yes DILEEP 1 tab(s) Memoria r 1-16 CLEMENT l Hydrochlori 03:49: David Valacyclovi 2019- Yes DILEEP 1 tab(s) Memoria r 1-16 CLEMENT l Hydrochlori 03:49: David Valacyclovi 2019- Yes DILEEP 1 tab(s) Memoria r 1-16 CLEMENT l Hydrochlori 03:49: David Valacyclovi 2019-0 Yes DILEEP 1 tab(s) Memoria [...] Memoria en-Hydrocod 1-03 ARAM l one 00:00: Ethel Bitartrate 00 Acetaminoph 2019-0 Yes DILEEP 1 tab(s) Memoria en-Hydrocod 1-03 CLEMENT l one 00:00: Dick Bitartrate 00 Acetaminoph 2019-0 Yes CHANTELL 1 tab(s) Memoria en-Hydrocod 1-03 ARAM l one 00:00: Ethel Bitartrate 00 Acetaminoph 2019-0 Yes DILEEP 1 tab(s) Memoria en-Hydrocod 1-03 CLEMENT l one 00:00: Ethel Bitartrate 00 Acetaminoph 2019-0 Yes CHANTELL 1 tab(s) Memoria en-Hydrocod 1-03 ARAM l one 00:00: Ethel Bitartrate 00 Acetaminoph 2019-0 Yes DILEEP 1 tab(s) Memoria en-Hydrocod 1-03 CLEMENT l one 00:00: Ethel Bitartrate 00 Acetaminoph 2019-0 Yes CHANTELL 1 tab(s) Memoria en-Hydrocod 1-03 ARAM l one 00:00: Dick Bitartrate 00 Acetaminoph 2019-0 Yes DILEEP 1 tab(s) Memoria en-Hydrocod 1-03 CLEMENT l one 00:00: Ethel Bitartrate 00 Acetaminoph 2019-0 Yes CHANTELL 1 tab(s) Memoria en-Hydrocod 1-03 ARAM l one 00:00: Dick Bitartrate 00 Acetaminoph 2019-0 Yes DILEEP 1 tab(s) Memoria en-Hydrocod 1-03 CLEMENT l one 00:00: Dick Bitartrate 00 Acetaminoph 2019-0 Yes CHANTELL 1 tab(s) Memoria en-Hydrocod 1-03 ARAM l one 00:00: Ethel Bitartrate 00 Acetaminoph 2019-0 Yes DILEEP 1 tab(s) [facility]Hydrocod 1-03 [facility] one 00:00: Ethel Bitartrate 00 Acetaminoph 2019-0 Yes CHANTELL 1 tab(s) [facility] 1-03 ARAM l one 00:00: Dick Bitartrate 00 Acetaminoph 2019-0 Yes DILEEP 1 tab(s) [facility] 1-03 [facility] one 00:00: Dick Bitartrate 00 Acetaminoph 2019-0 Yes CHANTELL 1 tab(s) [facility]cod 1-03 ARAM l one 00:00: Ethel Bitartrate 00 Acetaminoph 2019-0 Yes DILEEP 1 tab(s) [facility]cod 1-03 [facility] one 00:00: Ethel Bitartrate 00 Acetaminoph 2019-0 Yes CHANTELL 1 tab(s) [facility]Hydrocod 1-03 ARAM l one 00:00: Dick Bitartrate 00 Acetaminoph 2019-0 Yes DILEEP 1 tab(s) [facility]cod 1-03 [facility] one 00:00: Ethel Bitartrate 00 Acetaminoph 2019-0 Yes CHANTELL 1 tab(s) [facility]Hydrocod 1-03 ARAM l one 00:00: Dick Bitartrate 00 Acetaminoph 2019-0 Yes DILEEP 1 tab(s) [facility]cod 1-03 [facility] l one 00:00: Ethel Bitartrate 00 Acetaminoph 2019-0 Yes CHANTELL 1 tab(s) [facility] en-Hydrocod 1-03 ARAM l one 00:00: Dick Bitartrate 00 Acetaminoph 2019-0 Yes DILEEP 1 tab(s) [facility]Hydrocod 1-03 [facility] one 00:00: Ethel Bitartrate 00 Acetaminoph 2019-0 Yes CHANTELL 1 tab(s) [facility]Hydrocod 1-03 ARAM l one 00:00: Ethel Bitartrate 00 Lamisil 2018-0 Yes DILEEP 1 tab(s) [place] 9-13 [facility] l 00:00: Ethel Lamisil 2018-0 Yes DILEEP 1 tab(s) [place] 9-13 [facility] l 00:00: Ethel Lamisil 2018-0 Yes DILEEP 1 tab(s) [place] 9-13 [facility] l 00:00: Dick Lamisil 2018-0 Yes DILEEP 1 tab(s) [place] 9-13 [facility] l 00:00: Dick Lamisil 2018-0 Yes DILEEP 1 tab(s) [place] 9-13 [facility] l 00:00: Dick Lamisil 2018-0 Yes DILEEP 1 tab(s) [place] 9-13 [facility] l 00:00: Ethel Lamisil 2018-0 Yes DILEEP 1 tab(s) [place] 9-13 [facility] l 00:00: Ethel Lamisil 2018-0 Yes DILEEP 1 tab(s) [place] 9-13 [facility] l 00:00: Ethel Lamisil 2018-0 Yes DILEEP 1 tab(s) [place] 9-13 [facility] l 00:00: Ethel Lamisil 2018-0 Yes DILEEP 1 tab(s) [place] 9-13 [facility] l 00:00: Lamisil 2018-0 Yes DILEEP 1 tab(s) [place] 9-13 [facility] l 00:00: Lamisil 2018-0 Yes DILEEP 1 tab(s) [place] 9-13 [facility] 00:00: Fortesta 2018-0 Yes DILEEP 4 pump(s) Me [...] Me moria 7-03 CLE[facility] l 02:50: Terbinafine 2018-0 Yes DILEEP 1 tab(s) [facility] Hydrochlori 6-27 CLE[facility] l de 00:00: Terbinafine 2018-0 Yes DILEEP 1 tab(s) [facility] Hydrochlori 6-27 CLE[facility] de 00:00: Terbinafine 20180 Yes DILEEP 1 tab(s) [facility] Hydrochlori 6-27 [facility] de 00:00: Terbinafine 2018-0 Yes DILEEP 1 tab(s) [facility] Hydrochlori 6-27 [facility] de 00:00: Terbinafine 20180 Yes DILEEP 1 tab(s) [facility] Hydrochlori 6-27 [facility] de 00:00: Terbinafine 2018 Yes DILEEP 1 tab(s) [facility] Hydrochlori 6-27 [facility] de 00:00: Terbinafine 2018 Yes DILEEP 1 tab(s) [facility] Hydrochlori 6-27 [facility] de 00:00: Terbinafine 2018 Yes DILEEP 1 tab(s) [facility] Hydrochlori 6-27 [facility] de 00:00: Terbinafine 2018 Yes DIELEP 1 tab(s) [facility] Hydrochlori 6-27 [facility] de 00:00: Terbinafine Yes DILEEP 1 tab(s) [facility] Hydrochlori 6-27 [facility] de 00:00: Terbinafine 2018 Yes DILEEP 1 tab(s) [facility] Hydrochlori 6-27 [facility] de 00:00: Terbinafine Yes DILEEP 1 tab(s) [facility] Hydrochlori 6-27 [facility] de 00:00: prednisone Yes DILEEP 1 tab(s) M emoria 5-14 CLE[facility] l 00:00: Lamisil 0 Yes DILEEP 1 tab(s) [place] 5-14 CLE[facility] l 00:00: prednisone Yes DILEEP 1 tab(s) M emoria 5-14 CLE[facility] l 00:00: Lamisil 0 Yes DILEEP 1 tab(s) [place] 5-14 [facility] l 00:00: prednisone Yes DILEEP 1 tab(s) M emoria 5-14 CLE[facility] l 00:00: Lamisil [id number] Yes DILEEP 1 tab(s) [place] 5-14 [...] 2 puff(s) [facility] 2-23 [facility] l 00:00: Ethel 00 Levaquin 20180 Yes SHARON 1 tab(s) [place] 2-23 ALBERST[place]T l 00:00: ProAir HFA 2018-0 Yes DILEEP 2 puff(s) [facility] 2-23 CLE[facility] l 00:00: Levaquin 2017-0 Yes SHARON 1 tab(s) [place] 2-23 [place]BER[place] l 00:00: ProAir HFA 2018-0 Yes DILEEP 2 puff(s) [facility] 2-23 CLE[facility] l 00:00: Levaquin 0 Yes SHARON 1 tab(s) [place] 2-23 [place] l 00:00: ProAir HFA 2017-0 Yes DILEEP 2 puff(s) [facility] 2-23 CLE[facility] l 00:00: Levaquin 0 Yes SHARON 1 tab(s) [place] 2-23 [place] l 00:00: ProAir HFA 0 Yes DILEEP 2 puff(s) [facility] 2-23 CLE[facility] l 00:00: Levaquin 0 Yes SHARON 1 tab(s) [place] 2-23 [place] l 00:00: doxycycline 2016-0 Yes 20mg Q.5D Take 20 mg [facility] (PERIOSTAT) 3-[address] 20 MG 00:00: (two) [facility]osp[facility] tablet 00 times a l day. group home therapy doxycycline 3- No 20mg Q.5D Take 1 [facility] (PERIOSTAT) 3-13 01-09 tablet (20 s t 20 MG 00:00: 00:00 mg total) Hospit a tablet 00 :00 by mouth 2 l (two) times a day. 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 [address] aspirin 81 Yes 81mg QD Take [address] [facility] 5-[facility] 15:09: daily. [address] aspirin 81 Yes 81mg QD Take [address] [facility] 5-[facility] 15:09: daily. [address] albuterol albuterol No albuterol [facility] sulfate [...] NEEDED FOR WHEEZING. anastrozole anastrozole No anastrozol [facility] 0.5mg once 0.5mg once e 0.5mg Family [...] FOR 30 DAYS. celecoxib celecoxib No celecoxib [facility] 100 mg 100 mg 100 mg Family [...] directed. directed. directed. doxycycline doxycycline No doxycyclin [facility] hyclate 20 hyclate 20 e hyclate Family mg tablet mg tablet 20 mg Prac tic TAKE ONE TAKE ONE tablet e (1) (1) TAKE ONE TABLET(S) TABLET(S) (1) BY MOUTH BY MOUTH TABLET(S) TWICE A TWICE A BY MOUTH DAY. DAY. TWICE A DAY. enoxaparin enoxaparin No enoxaparin [facility] 100 mg/mL 100 mg/mL 100 mg/mL [facility] subcutaneou subcutaneou subcutaneo Practic s syringe [...] DIRECTED SURGERY DIRECTED esomeprazol esomeprazol No esomeprazo [facility] e magnesium e magnesium le F amily 40 mg 40 mg magnesium Practic capsule,del capsule,del 40 mg e ayed ayed capsule,de release release layed TAKE ONE TAKE ONE release (1) (1) TAKE ONE CAPSULE(S) CAPSULE(S) (1) BY MOUTH BY MOUTH CAPSULE(S) ONCE A DAY. ONCE A DAY. BY MOUTH ONCE A DAY. Fertoven Fertoven No Haydee Arora wily 7.5 mg 7.5 mg 7.5 mg Family tablet TAKE tablet TAKE tablet Practic ONE (1) ONE (1) TAKE ONE e TABLET(S) TABLET(S) (1) BY MOUTH BY MOUTH TABLET(S) DAILY. DAILY. BY MOUTH DAILY. meloxicam meloxicam No meloxicam [facility] 15 mg 15 mg 15 mg Family tablet TAKE tablet TAKE tablet Practic ONE (1) ONE (1) TAKE ONE e TABLET(S) TABLET(S) (1) BY MOUTH BY MOUTH TABLET(S) ONCE A DAY. ONCE A DAY. BY MOUTH ONCE A DAY. methylpredn methylpredn No methylpred [facility] isolone 4 isolone 4 nisolone 4 Family mg tablets mg tablets mg tablets Practic in a dose in a dose in a dose e pack pack pack metoprolol [facility]op[facility] succinate succinate succinate Family ER 25 mg ER 25 mg ER 25 mg Pra ctic tablet,exte tablet,exte tablet,ext e nded nded ended release 24 release 24 release 24 hr as hr as hr as needed needed needed metoprolol metoprolol No metoprolol [facility] tartrate 25 tartrate 25 tartrate Family mg tablet mg tablet 25 mg Prac tic TAKE ONE TAKE ONE tablet e (1) (1) TAKE ONE TABLET(S) TABLET(S) (1) BY MOUTH BY MOUTH TABLET(S) TWICE A TWICE A BY MOUTH DAY. DAY. TWICE A DAY. minocycline minocycline No minocyclin [facility] 100 mg 100 mg e 100 mg [...] FOR 7 DAYS. pregabalin pregabalin No pregabalin [facility] 75 mg 75 mg 75 mg Family [...] DAYS. 14 DAYS. terbinafine terbinafine No terbinafin [facility] HCl 250 mg HCl 250 mg e [...] ONLY. NAME ONLY. acetaminoph acetaminoph No acetaminop [facility] en 300 en 300 hen 300 Family [...] DAILY PRN ans Tablet Tablet Immunizations Ordered Filled Date Status Comments Source Immunization Name Immunization Name influenza, influenza, 2020-07-[address] [facility] injectable, injectable, 00:00:00 Practice quadrivalent quadrivalent Pneumovax 2019-07-20 [facility]pleted [facility] 00:00:00 Influenza Fluzone 2019-07-20 Completed [facility] Dick Quadrivalent 00:00:00 Pneumovax 2019-07-20 Completed [facility] 00:00:00 Influenza Fluzone 2019-07-20 Completed [facility] Ethel Quadrivalent 00:00:00 Pneumovax 2019-07-20 Completed [facility] 00:00:00 Influenza Fluzone 2019-07-20 Completed [facility] Ethel Quadrivalent 00:00:00 Pneumovax 2019-07-20 Completed [facility] 00:00:00 Influenza Fluzone 2019-07-20 Completed [facility] Dick Quadrivalent 00:00:00 Pneumovax 2019-07-20 Completed [facility] 00:00:00 Influenza Fluzone 2019-07-20 Completed [facility] Dick Quadrivalent 00:00:00 Pneumovax 2019-07-20 Completed [facility] 00:00:00 Influenza Fluzone 2019-07-20 Completed [facility] Ethel Quadrivalent 00:00:00 Pneumovax 2019-07-20 Completed [facility] 00:00:00 Influenza Fluzone 2019-07-20 Completed [facility] Dick Quadrivalent 00:00:00 Pneumovax 2019-07-20 Completed [facility] 00:00:00 Influenza Fluzone 2019-07-20 Completed [facility] Dick Quadrivalent 00:00:00 Pneumovax 2019-07-20 Completed [facility] 00:00:00 Influenza Fluzone 2019-07-20 Completed [facility] Ethel Quadrivalent 00:00:00 Pneumovax 2019-07-20 Completed [facility] 00:00:00 Influenza Fluzone 2019-07-20 Completed [facility] Dick Quadrivalent 00:00:00 Pneumovax 2019-07-20 Completed [facility] 00:00:00 Influenza Fluzone 2019-07-20 Completed [facility] Dick Quadrivalent 00:00:00 Pneumovax 2019-07-20 Completed [facility] 00:00:00 Influenza Fluzone 2019-07-20 Completed [facility] Dick Quadrivalent 00:00:00 Tdap 2019-01-27 Completed [facility] 00:00:00 Tdap 2019-01-27 Completed [facility] 00:00:00 Tdap 2019-01-27 Completed [facility] 00:00:00 Tdap 2019-01-27 Completed [facility] 00:00:00 Tdap 2019-01-27 Completed [facility] 00:00:00 Tdap 2019-01-27 Completed [facility] 00:00:00 Tdap 2019-01-27 Completed [facility] 00:00:00 Tdap 2019-01-27 Completed [facility] 00:00:00 Tdap 2019-01-27 Completed [facility] 00:00:00 Tdap 2019-01-27 Completed [facility] 00:00:00 Tdap 2019-01-27 Completed [facility] 00:00:00 Tdap 2019-01-27 Completed [facility] 00:00:00 Zostavax 2017-07-04 Completed [facility] 00:00:00 Zostavax 2017-07-04 Completed [facility] 00:00:00 Zostavax 2017-07-04 Completed [facility] 00:00:00 Zostavax 2017-07-04 Completed [facility] 00:00:00 Zostavax 2017-07-04 Completed [facility] 00:00:00 Zostavax 2017-07-04 Completed [facility] 00:00:00 Zostavax 2017-07-04 Completed [facility] 00:00:00 Zostavax 2017-07-04 Completed [facility] 00:00:00 Zostavax 2017-07-04 Completed [facility] 00:00:00 Zostavax 2017-07-04 Completed [facility] 00:00:00 Zostavax 2017-07-04 Completed [facility] 00:00:00 Zostavax 2017-07-04 Completed [facility] 00:00:00 FLUZONE QUAD PF 2016-08-16 Completed [facility] FLUZONE QUAD PF 2016-08-16 Completed [facility] 00:[facility]:00 [facility] Tdap Unknown Completed [facility] Zoster (Zostavax) Unknown Completed [facility] Vital Signs Vital Name Observation Time Observation Value Comments Source Systolic blood 2022-06-05 152 mm[Hg] [facility] pressure 15:53:00 Diastolic blood 2022-06-05 106 mm[Hg] [facility] pressure 15:53:00 Heart rate 2022-06-05 49 /min [facility] 15:53:00 Body height 2022-06-05 188 cm [facility] 15:53:00 Body weight 2022-06-05 98.431 kg [facility] 15:53:00 BMI 2022-06-05 27.86 kg/m2 [facility] 15:53:00 BP Diastolic 2021-04-17 76 mm[Hg] [facility] 00:00:00 Practice Height 2021-04-17 73 [in_i] [facility] 00:00:00 Practice BMI (Body Mass 2021-04-17 27.7 kg/m2 [facility]) 00:00:00 Practice BP Systolic 2021-04-17 130 mm[Hg] [facility] 00:00:00 Practice Body Weight 2021-04-17 210 [lb_av] [facility] 00:00:00 Practice BP Diastolic 2020-07-07 98 mm[Hg] [facility] 00:00:00 Practice Height 2020-07-07 73 [in_i] [facility] 00:00:00 Practice BMI (Body Mass 2020-07-07 27 kg/m2 [facility]) 00:00:00 Practice BP Systolic 2020-07-07 130 mm[Hg] [facility] 00:00:00 Practice Body Weight 2020-07-07 204.5 [lb_av] [facility] 00:00:00 [facility] Systolic blood 2023-04-11 133 mm[Hg] [facility] pressure 19:30:00 Hospital Diastolic blood 2023-04-11 69 mm[Hg] [facility] pressure 19:30:00 Hospital Heart rate 2023-04-11 75 /min [facility] 19:30:00 Hospital Respiratory rate 2023-04-11 19 /min [facility] 19:30:00 Hospital Oxygen saturation 2023-04-11 97 /min [facility] in Arterial blood 19:30:00 Hospital by Pulse oximetry Body temperature 2023-04-11 36.83 [facility] 14:31:00 Hospital Body height 2023-04-11 185.4 cm [facility] 14:23:00 Hospital Body weight 2023-04-11 92.987 kg [facility] 14:23:00 Hospital BMI 2023-04-11 27.05 kg/m2 [facility] 14:23:00 [facility] Systolic blood 2022-03-07 119 mm[Hg] [facility] pressure 16:36:00 Hospital Diastolic blood 2022-03-07 80 mm[Hg] [facility] pressure 16:36:00 Hospital Heart rate 2022-03-07 61 /min [facility] 16:36:00 Hospital Body temperature 2022-03-07 36.44 [facility] 16:36:00 Hospital Body height 2022-03-07 185.4 cm [facility] 16:36:00 Hospital Body weight 2022-03-07 95.255 kg [facility] 16:36:00 Hospital BMI 2022-03-07 27.71 kg/m2 [facility] 16:36:00 Hospital Oxygen saturation 2022-03-07 99 /min [facility] in Arterial blood 16:36:00 Hospital by Pulse oximetry Respiratory rate 2022-03-07 17 /min [facility] 14:50:00 Hospital Diastolic (mm Hg) 2020-09-21 [facility] ermann 17:45:00 Systolic (mm Hg) 2020-09-21 [facility] rmann 17:45:00 Temperature Oral 2020-09-21 97.0 F [facility] rmann (F) 17:45:00 Weight 2020-09-21 [facility] David n 17:45:00 Height 2020-09-21 [facility] David n 17:45:00 Respitory Rate 2020-09-21 [facility] Lyndsey yesy 17:45:00 Temperature Oral 2020-09-13 98.1 F [facility] rmann (F) 21:00:00 Weight 2020-09-13 [facility] n 21:00:00 Height 2020-09-13 [facility] n 21:00:00 Respitory Rate 2020-09-13 [facility] 21:00:00 Diastolic (mm Hg) 2020-09-13 [facility] 21:00:00 Systolic (mm Hg) 2020-09-13 [facility] 21:00:00 Systolic blood 2020-06-21 120 mm[Hg] [facility] E[facility] 15:41:00 Position: Sitting Diastolic blood 2020-06-21 79 mm[Hg] [facility] 15:41:00 Position: Sitting Body height 2020-06-21 73.5 [in_us] [facility] 15:41:00 Weight 2020-06-21 205 [lb_av] [facility] 15:41:00 Body mass index 2020-06-21 26.68 kg/m2 [facility] (BMI) [Ratio] 15:41:00 Body temperature 2020-06-21 97 [degF] [facility] 15:41:00 Temporal Heart Rate 2020-06-21 72 /min Location: L [facility] 15:41:00 Brachial Artery; Quality: Normal Respiratory [...] 20:45:00 Temperature Oral 2019-08-30 97.2 F [facility] (F) 16:30:00 Weight 2019-08-30 [facility] David [...] 19:45:00 Temperature Oral 2019-07-02 97.4 F [facility] (F) 17:15:00 Weight 2019-07-02 [facility] David n 17:15:00 Height 2019-07-02 [facility] n 17:15:00 Respitory Rate 2019-07-02 [facility] 17:15:00 Diastolic (mm Hg) 2019-07-02 [facility] 17:15:00 Systolic (mm Hg) 2019-07-02 [facility] 17:15:00 BP Systolic 2019-06-23 127 mm[Hg] Location: [facility] 16:25:00 Position: Sitting BP Diastolic 2019-06-23 81 mm[Hg] Location: [facility] 16:25:00 Position: Sitting Height 2019-06-23 74 [in_us] [facility] 16:25:00 Weight 2019-06-23 202 [lb_av] [facility] 16:25:00 Body Mass Index 2019-06-23 25.94 kg/m2 [facility] Calculated 16:25:00 Temperature 2019-06-23 98 [degF] Method: [facility] 16:25:00 Temporal Heart Rate 2019-06-23 60 /min [facility]: [facility] 16:25:00 Brachial Artery; Quality: Normal Respiration Rate 2019-06-23 16 /min Quality: Normal [facility] 16:25:00 O2 SAT 2019-06-23 99 % Source: RA [facility] 16:25:00 Temperature Oral 2019-02-08 97.8 [...] BP Systolic 2018-11-10 130 mm[Hg] Location: [facility] 10:15:00 Position: Sitting BP Diastolic 2018-11-10 73 mm[Hg] Location: [facility] 10:15:00 Position: Sitting Height 2018-11-10 74 [...] 14:15:00 Temperature Oral 2018-10-08 97.3 F [facility] (F) 15:15:00 Weight 2018-10-08 [facility] David n 15:15:00 Height 2018-10-08 [facility] n 15:15:00 Respitory Rate 2018-10-08 [facility] 15:15:00 Diastolic (mm Hg) 2018-10-08 [facility] 15:15:00 Systolic (mm Hg) 2018-10-08 [facility] 15:15:00 BP Systolic 2018-10-05 147 mm[Hg] Location: R[facility]; [facility] 08:10:00 Position: Sitting BP Diastolic 2018-10-05 78 mm[Hg] Location: R[facility]; [facility] 08:10:00 Position: Sitting Height 2018-10-05 74 [in_us] [facility] 08:10:00 Weight 2018-10-05 205 [lb_av] [facility] 08:10:00 Body Mass Index 2018-10-05 26.32 kg/m2 [facility] Calculated 08:10:00 Temperature 2018-10-05 96 [degF] Method: [facility] 08:10:00 Tympanic Heart Rate 2018-10-05 56 /min [facility] 08:10:00 Respiration Rate 2018-10-05 15 /min [facility] 08:10:00 BP Systolic 2018-08-10 161 mm[Hg] Location: [facility] 13:54:00 Position: Sitting BP Diastolic 2018-08-10 80 mm[Hg] Location: L[facility]; [facility] 13:54:00 Position: Sitting Height 2018-08-10 74 [in_us] [facility] 13:54:00 Weight 2018-08-10 207.375 [lb_av] [facility] 13:54:00 Body Mass Index 2018-08-10 26.63 kg/m2 [facility] Calculated 13:54:00 Temperature 2018-08-10 97.2 [degF] Method: [facility] 13:54:00 Tympanic Heart Rate 2018-08-10 54 /min [facility] 13:54:00 O2 SAT 2018-08-10 99 % Source: RA [facility] 13:54:00 Temperature Oral 2018-06-18 98.0 F [facility] Rafa rmann (F) 18:15:00 Weight 2018-06-18 Cece Hernandez n 18:15:00 Height 2018-06-18 [facility] David n 18:15:00 Respitory Rate 2018-06-18 [facility] Herm yesy 18:15:00 Diastolic (mm Hg) 2018-06-18 [facility] Daksha ermann 18:15:00 Systolic (mm Hg) 2018-06-18 [facility] Rafa rmann 18:15:00 BP Systolic 2018-06-09 148 mm[Hg] Location: LUE; [facility] 13:47:00 Position: Sitting BP Diastolic 2018-06-09 74 mm[Hg] Location: LUE; [facility] 13:47:00 Position: Sitting BP Systolic 2018-06-09 144 mm[Hg] Location: LUE; [facility] 13:43:00 Position: Sitting BP Diastolic 2018-06-09 78 mm[Hg] Location: LUE; [facility] 13:43:00 Position: Sitting Height 2018-06-09 74 [in_us] [facility] 13:43:00 Weight 2018-06-09 208.5 [lb_av] [facility] 13:43:00 Body Mass Index 2018-06-09 26.77 kg/m2 [facility] Calculated 13:43:00 Temperature 2018-06-09 97.5 [degF] Method: [facility] 13:43:00 Tympanic Heart Rate 2018-06-09 54 /min [facility] 13:43:00 O2 SAT 2018-06-09 98 % Source: RA [facility] 13:43:00 BP Systolic 2018-05-26 131 mm[Hg] Location: LUE; [facility] 14:55:00 Position: Sitting BP Diastolic 2018-05-26 77 mm[Hg] Location: LUE; [facility] 14:55:00 Position: Sitting Height 2018-05-26 74 [in_us] [facility] 14:55:00 Weight 2018-05-26 205 [lb_av] [facility] 14:55:00 Body Mass Index 2018-05-26 26.32 kg/m2 [facility] Calculated 14:55:00 Temperature 2018-05-26 97.7 [degF] Method: [facility] 14:55:00 Tympanic Heart Rate 2018-05-26 55 /min [facility] 14:55:00 O2 SAT 2018-05-26 97 % Source: [facility] 14:55:00 Temperature Oral 2018-04-01 97.9 F [...] rmann 15:30:00 Temperature Oral 2017-07-04 98.4 F [facility] (F) 18:00:00 Weight 2017-07-04 [facility] David n 18:00:00 Height 2017-07-04 [facility] n 18:00:00 Respitory Rate 2017-07-04 [facility] 18:00:00 Diastolic (mm Hg) 2017-07-04 [facility] Daksha ermann 18:00:00 Systolic (mm Hg) 2017-07-04 Cece Craig rmann 18:00:00 Temperature Oral 2017-06-05 97.3 F Cece Criag rmann (F) 18:30:00 Weight 2017-06-05 Cece Hernandez n 18:30:00 Height 2017-06-05 Cece Hernandez n 18:30:00 Respitory Rate 2017-06-05 Cece Solorio yesy 18:30:00 Diastolic (mm Hg) 2017-06-05 Cece Crooks ermann 18:30:00 Systolic (mm Hg) 2017-06-05 [facility] Rafa rmann 18:30:00 Procedures Procedure Date / Time Performing Source Performed Clinician TROPONIN T 2023-04-11 Annalisa Merlosist 17:54:00 Hospital XR CHEST 1 VW PORTABLE 2023-04-[address] 14:42:14 Hospital CBC WITH PLATELET AND DIFFERENTIAL 2023-04-11 Annalisa Merlosist 14:33:00 Hospital PROTHROMBIN TIME WITH INR 2023-04-11 Annalisa Merlos Meth odist 14:33:00 Hospital PARTIAL THROMBOPLASTIN TIME (PTT) 2023-04-11 Annalisa Merlos [facility] 14:33:00 Hospital MAGNESIUM LEVEL 2023-04-11 Annalisa Merlos [facility] 14:33:00 Hospital CREATINE KINASE, TOTAL (CPK) 2023-04-11 Annalisa Merlos ethodist 14:33:00 Hospital TROPONIN T 2023-04-11 Annalisa Merlos [facility] 14:33:00 Hospital NT-PROBNP 2023-04-11 Annalisa Merlosist 14:33:00 Hospital LIPASE LEVEL 2023-04-11 Annalisa Merlosist 14:33:00 Hospital AMYLASE LEVEL 2023-04-11 Annalisa Merlos [facility] 14:33:00 Hospital ECG 12-LEAD 2023-04-11 Annalisa Merlosist 14:24:24 Hospital HEMOGLOBIN A1C 2023-04-10 Nguyen, Edward [facility]H. [facility] 13:53:00 Hospital CBC WITH PLATELET AND DIFFERENTIAL 2023-04-10 Greyson Nguyen [facility] 13:53:00 Hospital TYPE AND SCREEN 2023-04-10 Greyson Nguyen [facility] 13:53:00 Hospital PROTHROMBIN TIME WITH INR 2023-04-10 Greyson Nguyen [facility] 13:53:00 Hospital PARTIAL THROMBOPLASTIN TIME (PTT) 2023-04-10 Greyson Nguyen [facility] 13:53:00 Hospital COMPREHENSIVE METABOLIC PANEL 2023-04-10 Greyson Nguyen [facility] 13:53:00 Hospital ESTIMATED GFR 2023-04-10 Greyson Nguyen [facility] 13:53:00 Hospital ANTIBODY IDENTIFICATION 2023-04-10 Greyson Nguyen [facility] 13:53:00 Hospital TTE COMPLETE, WO CONTRAST, W 2023-04-04 Eula Rebolledo [facility] DOPPLER ([id number]) 14:48:15 Hospital CBC WITH PLATELET AND DIFFERENTIAL 2023-04-04 Eula Rebolledo 09:33:00 Hospital BASIC METABOLIC PANEL 2023-04-04 Kesha Eula [facility] 09:33:00 Hospital NT-PROBNP 2023-04-04 Eula Rebolledo [facility] 09:33:00 Hospital ESTIMATED GFR 2023-04-04 Kesha Eula [facility] 09:33:00 Hospital TROPONIN T 2023-04-03 Phuc Palacios 21:09:00 [facility] CTA ABD/PEL FOR BLEEDING 2023-04-03 Phuc Palacios dist 18:46:56 [facility] TROPONIN T 2023-04-03 Phuc Palacios 18:31:00 [facility] CT ANGIOGRAM PE CHEST 2023-04-03 Phuc Palaciosis t 18:24:59 [facility] CBC WITH PLATELET AND DIFFERENTIAL 2023-04-03 Yoel Palacios 15:26:00 [facility] COMPREHENSIVE METABOLIC PANEL 2023-04-03 Phuc Palacios 15:26:00 [facility] TROPONIN T 2023-04-03 Phuc Palacios 15:26:00 [facility] NT-PROBNP 2023-04-03 Phuc Palaciosist 15:26:00 [facility] PROTHROMBIN TIME WITH INR 2023-04-03 Phuc Palacios odist 15:26:00 [facility] PARTIAL THROMBOPLASTIN TIME (PTT) 2023-04-03 [place] [facility] 15:26:00 [facility] ESTIMATED GFR 2023-04-03 Phuc Palaciosist 15:26:00 [facility] ECG ED PRELIMINARY INTERPRETATION 2023-04-03 Román Bowmanist 15:11:16 [facility] ECG 12-LEAD 2023-04-03 Phuc Palacios 14:47:57 [facility] SURGICAL PATHOLOGY REQUEST 2022-11-13 Kemar Ortega [facility] 19:52:00 [facility] ESOPHAGOGASTRODUODENOSCOPY (EGD) 2022-11-13 [place] [facility]:[place]00 [facility] COLONOSCOPY 2022-11-13 [place] 18:33:00 [facility] RUSS PLACEMENT 2022-11-13 [place] 18:33:00 [facility] PROTHROMBIN TIME WITH INR, I-STAT 2022-11-13 [facility] [place] 17:36:00 [facility] SARS-COV-2 RNA (COVID-19), 2022-11-09 [place] [facility] QUALITATIVE NAAT 15:09:00 [facility] CT CHEST W CONTRAST ABDOMEN W 2022-10-04 Greyson Nguyen CONTRAST 20:44:13 Hospital POC CREATININE 2022-10-04 Greyson Nguyen 19:45:00 Hospital ESTIMATED GFR 2022-10-04 Greyson Nguyen 19:45:00 Hospital FL ESOPHAGRAM DOUBLE CONTRAST 2021-10-24 Greyson Nguyen 18:40:00 Hospital [QL] CMP W/EGFR 2020-05-10 [facility] 00:00:00 [QL] ALKALINE PHOSPHATASE, BONE 2020-05-10 [facility] SPECIFIC 00:00:00 [QLH] CMP W/EGFR 2019-05-26 [facility] 00:00:00 [QLH] ALKALINE PHOSPHATASE, BONE 2019-05-26 [facility] SPECIFIC 00:00:00 [Q] COMPREHENSIVE METABOLIC PANEL 2019-05-26 [facility] W/eGFR (REFL) 00:00:00 [QLH] CMP W/EGFR 2018-11-10 [facility] 00:00:00 [QLH] ALKALINE PHOSPHATASE, BONE 2018-11-10 [facility] SPECIFIC 00:00:00 [QLH] CMP W/EGFR 2018-08-10 [facility] 00:00:00 [QLH] CMP W/EGFR 2018-06-09 [facility] 00:00:00 [QLH] VITAMIN D, 25-HYDROXY, 2018-06-09 [facility] LC/MS/MS 00:00:00 [QLH] ALKALINE PHOSPHATASE, BONE 2018-06-09 [facility] SPECIFIC 00:00:00 [QLH] CMP W/EGFR 2018-05-26 [facility] 00:00:00 [LH] TSH+Free T4 2018-05-26 [facility] 00:00:00 [LH] CBC (without differential) 2018-05-26 [facility] 00:00:00 [QLH] PHOSPHATE ( PHOSPHORUS) 2018-05-26 [facility] 00:00:00 [QLH] PTH, INTACT (WITHOUT 2018-05-26 [facility] CALCIUM) 00:00:00 [QLH] VITAMIN D, 25-HYDROXY, 2018-05-26 [facility] LC/MS/MS 00:00:00 [B] BONE ALKALINE PHOSPHATASE 2018-05-26 [facility] 00:00:00 [facility]olecyst[facility] History of Aortic valve [facility] replacement History of Hernia repair [facility] History of Neck [facility] Plan of Care Planned Activity Planned Date Details Comments Source Future Scheduled 2023-04-11 [facility] Test 11:39:53 malignant neoplasm of colon (procedure) [code = 703699810] Future Scheduled 2023-04-11 Screening for [facility] Test 11:39:53 malignant neoplasm of colon (procedure) [code = 829523176] Future Scheduled 2023-04-11 Screening for [facility] Test 11:39:53 malignant neoplasm of colon (procedure) [code = 852029035] Future Scheduled 2023-04-11 COVID-19 VACCINE (#1) [facility] Test 11:39:53 [code = COVID-19 VACCINE (#1)] Future Scheduled 2023-04-11 Hepatitis C screening [facility] Test 11:39:53 (procedure) [code = 880586259] Future Scheduled 2023-04-11 Screening for [facility] Test 11:39:53 malignant neoplasm of colon (procedure) [code = 293031433] Future Scheduled 2023-04-11 Screening for [facility] Test 11:39:53 malignant neoplasm of colon (procedure) [code = 912203992] Future Scheduled 2023-04-11 SHINGLES VACCINES (1 [facility] Test 11:39:53 of 2) [code = SHINGLES VACCINES (1 of 2)] Future Scheduled 2023-04-11 65+ [facility] 11:39:53 VACCINE (2 - PCV) [code = 65+ PNEUMOCOCCAL VACCINE (2 - PCV)] Future Scheduled 2023-04-11 INFLUENZA VACCINE [facility] Test 11:39:53 [code = INFLUENZA VACCINE] Future Scheduled 2022-08-11 HEPATITIS B VACCINES [facility] Test 12:18:09 (1 of 3 - 3-dose series) [code = HEPATITIS B VACCINES (1 of 3 - 3-dose series)] Future Scheduled 2022-08-11 COVID-19 VACCINE (#1) [facility] Test 12:18:09 [code = COVID-19 VACCINE (#1)] Future Scheduled 2022-08-11 Hepatitis C screening [facility] Test 12:18:09 (procedure) [code = 858625672] Future Scheduled 2022-08-11 SHINGLES VACCINES (1 [facility] Test 12:18:09 of 2) [code = SHINGLES VACCINES (1 of 2)] Future Scheduled 2022-08-11 COLONOSCOPY SCREENING [facility] Test 12:18:09 [code = COLONOSCOPY SCREENING] Future Scheduled 2022-08-11 65+ [facility] 12:18:09 VACCINE (2 - PCV) [code = 65+ PNEUMOCOCCAL VACCINE (2 - PCV)] Future Scheduled 2022-08-11 INFLUENZA VACCINE [facility] Test 12:18:09 [code = INFLUENZA VACCINE] Future Scheduled 2020-05-22 [QL] CMP W/EGFR [code [facility] 00:00:00 = [QL] CMP W/EGFR] Future Scheduled 2020-05-22 [QL] ALKALINE [facility] 00:00:00 PHOSPHATASE, BONE SPECIFIC [code = [QL] ALKALINE PHOSPHATASE, BONE SPECIFIC] Future Appointment 2023-04-18 Greyson Nguyen MD, [address] [facility] 08:00:00 [facility]; [address], [place] [address] Future Appointment 2023-04-18 Greyson Nguyen MD, [address] [facility] 08:00:00 [facility]; [address], [place] [address] Procedure 2023-04-18 [facility]PA[facility] 13:00:00 HERNIA, LAPAROSCOPIC, ROBOT-ASSISTED Encounters Start End Encounter Admission Attending Care Care Encounter Source Date/Time Date/Time Type Type Clinicians Facility Department ID 2023-04-13 Outpatient [id number] [facility] 09:36:50 [id number] D4-4343-88A 2Q6-0403- 8 l -88AA-039 A-373L8Z6F3 8AA-039E3A Dick [id number] 3E9 0E33E9 2023-04-10 Outpatient [id number] A9F0-E [facility] 09:38:59 MQ81-4HZN 00-4BAA-A3E P09-0TGR- A l -I7N2-849 0-2139C9FEU 8D5-2136N1 Dick 9D2ZOYFZ3 CF2 FAECF2 2023-04-03 Outpatient [id number] BF6F-4 [facility] 12:43:21 436B-4F1E 6B-3H9O-U49 36B-4F1E- A l -Y220-595 [id number] 567-129D12 Dick [id number] 9DD 8019DD 2023-02-21 Outpatient [id number] D469-4 [facility] 20:42:05 41FF-42D6 FF-60I2-10J 1FF-42D6- 8 l -80C7-897 2-131IQ63Q1 0R7-882JR5 Dick [id number] 924 5D5584 2022-12-13 Outpatient [id number] [facility] 09:48:50 4872-4DA9 72-0KJ1-89D 872-4DA9- 9 l -28U0-W5M 6-S5QC2SF9S 3T5-C6LX2J Dick D3OF8L4E0 9C3 C6A9C3 2022-11-13 Outpatient [id number]-J3 A3D4 2D99-B [facility] 15:01:10 Y60E-7H67 0E-5H68-3Z4 90E-4A70- 9 l -1X85-206 6-615YL3BG1 D86-964TR1 Dick AD6QB5710 002 IR0993 2022-11-12 Outpatient [id number] 71E6 D819-8 [facility] 06:23:22 8ACE-41CA CE-41CA-81F MANDI-41CA- 8 l -81FA-583 A-77097A3TG 1FA-74211W Dick 24I8DNEAA GRETEL 6EFBEA 2022-10-17 Outpatient [id number]-E [facility] 16:09:38 Q40S-1654 9C-4812-A69 99C-4812- A l -T648-1G9 1-5U3797K0J 691-3Y6789 Dick 716O7K86V 02A C3A02A 2022-10-16 Outpatient [facility] [id number] NE 16:30:18 [id number] Health 2022-10-14 Outpatient [id number]-V6 EE6D 0BB0-B [facility] 07:38:56 C17R-01X4 7C-27G6-70K 87C-46B5- 9 l -92EB-5FF B-7WU028Q23 2EB-0VA368 Dick [id number] 50A K0093H 2022-09-23 Outpatient [id number] [id number] [facility] 09:38:16 [id number] 92-4189-242 335-2412- 8 l -811C-F8D C-U8LSC85AY 11C-F8DDF5 Dick QO60SME0V D2B 3CED2B 2022-08-15 Outpatient [id number] 9F80 A2A7-9 [facility]oria 09:40:48 901B-40B1 1B-93D8-Q20 01B-40B1- A l -E569-30G 7-62O3Z9776 037-34D6A0 Dick 4B5537V7T B6E 393B6E 2022-07-08 Outpatient [id number]- [id number] C8B2 59B6-5 [facility] 09:04:04 5664-4FD2 64-3WG1-MCI 664-4FD2- B l -BDA7-7CE 7-3VD24850O DA7-5YF992 Dick [id number] F83 93DF83 2022-06-05 Outpatient [facility] [id number] NE 10:25:04 [id number] [facility] 2022-06-04 Outpatient [facility] [id number] NE 16:59:09 [id number] [facility] 2021-05-31 Outpatient [id number] [id number] [facility] 10:25:36 TU0V-231F 1F-457E-82A A8B-902C- 8 l -01H0-LZ4 9-YY71ZM7Y8 1F7-GL99AZ Dick 9FF1V39LE 0AE 3D20AE 2020-06-06 Inpatient DAVIDA BrightTO [id number] [facility] 13:45:00 Ghassan [facility] 2020-04-20 Inpatient DAVIDA Pyle RADI [id number] [facility] 07:45:00 Obinna [facility] 2023-04-11 2023-04-11 Emergency Gaurang, 1.2.840.1 [id number] 2100 [id number] [facility] 09:20:00 15:34:00 Annalisa Russell 71658.1.[address] 3.430.2.7 Hospit a .3.306037 l .8 2023-04-11 2023-04-11 Telephone James, 1.2.840.1 [id number] 2 [id number] [facility] 00:00:00 00:00:[address] 3.430.2.7 Hospit a .3.203406 l .8 2023-04-11 2023-04-11 [facility]patient [facility] 620 [id number] 597 [place] 00:00:00 00:00:00 ANNALISA [address] 2023-04-10 2023-04-10 Lab Nguyen, 1.2.840.1 [id number] 6095 [facility] 08:40:00 08:45:00 Greyson Broderick 43876.1.[address] 3.430.2.7 Hospit a .3.839691 l .8 2023-04-10 2023-04-10 Outpatient [facility] [id number] 498 [place] 00:00:00 00:00:00 GREYSON [address] 2023-04-09 2023-04-09 Telephone Jian, 1.2.840.1 [id number] 2100 840093 [facility] 00:00:00 00:00:[address] Betzaida 3.430.2.7 Hospit a .3.480475 l .8 2023-04-07 2023-04-07 Telephone Derrell, 1.2.840.3 [id number] 21 [id number] [facility] 00:00:00 00:00:[address] 3.430.2.7 Hospit a .3.973369 l .8 2023-04-07 2023-04-07 Refjanis Ortega, 1.2.840.1 [id number] 665 3991638 [facility] 00:00:00 00:00:[address] [place] 3.430.2.7 Hospit a .3.208034 l .8 2023-04-03 2023-04-04 Emergency Phuc Palacios 1.2.840. 1 [id number] [facility] 09:42:00 15:44:00 Thien Bowman 36908.1.[address] Eileen, Veronica Kariminivas 3.430.2.7 Hospita Shane, Melida Suazonyl .3.789885 l .8 2023-04-03 2023-04-04 Outpatient [facility] 120 [id number] 118 [place] 00:00:00 00:00:00 MELIDA [address] 2023-01-28 2023-01-28 Prep for Jian, 1.2.840.1 [id number] 07611 25374 [facility] 00:00:00 00:00:00 Surgery Reena 72945.1.[address] Betzaida 3.430.2.7 Hospit a .3.844807 l .8 2023-01-28 2023-01-28 Telephone Derrell, 1.2.840.1 [id number] 110 8444576 Method[facility] 00:00:00 00:00:[address] 3.430.2.7 Hospit a .3.761972 l .8 2023-01-28 2023-01-28 Orders Jian, 1.2.840.1 [id number] 012877 1935 [facility] 00:00:00 00:00:00 Only Reena 96994.1.[address] Betzaida 3.430.2.7 Hospit a .3.038556 l .8 2023-01-17 2023-01-17 Refill Shannon, 1.2.840.1 [id number] 541 8655176 [facility] 00:00:00 00:00:[address] [place] 3.430.2.7 Hospit a .3.604523 l .8 2023-01-17 2023-01-17 Telephone Price, 1.2.840.5 [id number] 245 [id number] [facility] 00:00:00 00:00:00 [address].1.[address] 3.430.2.7 Hospit a .3.453050 l .8 2022-12-26 2022-12-26 Telemedici Nguyen, 1.2.840.1 [id number] 545 7981603 [facility] 13:00:00 13:16:43 ne Greyson NelsonH. 91672.1.[address] 3.430.2.7 Hospit a .3.894184 l .8 2022-12-26 2022-12-26 Outpatient [facility] [id number] [address] [place] [address] 00:00:00 00:00:00 EDWARD [address] 2022-12-25 2022-12-25 Abstract James, 1.2.840.1 [id number] 21 [id number] [facility]i 00:00:00 00:00:[address] 3.430.2.7 Hospit a .3.606870 l .8 2022-12-19 2022-12-19 Telephone Price, 1.2.840.5 [id number] 174 [id number] [facility] 00:00:00 00:00:00 Greyson NelsonHAbhijeet [address]12.1[address] 3.430.2.7 Hospit a .3.147935 l .8 2022-12-09 2022-12-09 Telephone Derrell, 1.2.840.1 [id number] 364 4822201 [facility] 00:00:00 00:00:[address] 3.430.2.7 Hospit a .3.940342 l .8 2022-11-13 2022-11-13 [facility], 1.2.840.1 [id number] Methodi 10:50:00 14:12:00 Encounter Kemar 10077.1.[address] [place] 3.430.2.7 Hospit a .3.220171 l .8 2022-11-13 2022-11-13 Anesthesia Sim Nina 1.2.840.1 [id number] [facility] 12:33:00 13:22:00 Event Nilda Dominguez 25257.1.[address] 3.430.2.7 Hospit a .3.341666 l .8 2022-11-13 2022-11-13 Surgery [place], 1.2.840.1 [id number] 582 7371449 [facility] 12:00:00 13:00:[address] [place] 3.430.2.7 Hospit a .3.622729 l .8 2022-11-13 2022-11-13 Travel 1.2.840.1 1.2.418.917 1452 991037 [facility] 00:00:00 00:00:[address] 3.430.2.7 0.2.7.3.698 Ho spita .3.090428 084.8 l .8 2022-11-13 2022-11-13 Outpatient [facility] 021 2100 178525 [place] 00:00:00 00:00:00 KEMAR [address] 2022-11-09 2022-11-09 Orders [place], 1.2.840.1 [id number] 025 9450311 [facility]i 00:00:00 00:00:00 Only Kemar 66528.1.[address] [place] 3.430.2.7 Hospit a .3.970741 l .8 2022-10-22 2022-10-22 Orders [place], 1.2.840.1 [id number] 90092 58404 Methodi 00:00:00 00:00:00 Only Kiana 28474.1.[address] 3.430.2.7 Hospit a .3.808289 l .8 2022-10-22 2022-10-22 Telephone [place], 1.2.840.1 [id number] 2 [id number] [facility]i 00:00:00 00:00:[address] [place] 3.430.2.7 Hospit a .3.584497 l .8 2022-10-17 2022-10-17 Telemedici Oscar, 1.2.840.7 [id number] 21 [id number] Methodi 12:15:00 15:45:37 ne Iva [address]603.1.[address] 3.430.2.7 Hospit a .3.346794 l .8 2022-10-17 2022-10-17 Documentat [place], 1.2.840.1 [id number] Methodi 00:00:00 00:00:00 ion Kemar 54724.1.[address] [place] 3.430.2.7 Hospit a .3.731127 l .8 2022-10-17 2022-10-17 Outpatient [facility] [id number] 323 [place] 00:00:00 00:00:00 IVA [address] 2022-10-16 2022-10-16 Telephone [place], 1.2.840.1 [id number] 2 [id number] Methodi 00:00:00 00:00:[address] [place] 3.430.2.7 Hospit a .3.712145 l .8 2022-10-15 2022-10-15 Telephone James, 1.2.840.1 [id number] 2 [id number] [facility]i 00:00:00 00:00:00 Rufina 96601.1.1 [address] 3.430.2.7 Hospit a .3.215453 l .8 2022-10-14 2022-10-14 Office [place], 1.2.840.1 [id number] 830 7479066 Methodi 08:00:00 08:36:38 Visit Kemar 72888.1.[address] [place] 3.430.2.7 Hospit a .3.637658 l .8 2022-10-14 2022-10-14 Outpatient [facility] 2100 [id number] [place] 00:00:00 00:00:00 KEMAR [address] 2022-10-10 2022-10-10 Telephone Price, 1.2.840.8 [id number] 722 [id number] Methodi 00:00:00 00:00:00 Greysno Broderick [address]497.1.[address] 3.430.2.7 Hospit a .3.445907 l .8 2022-10-04 2022-10-04 [facility], 1.2.840.1 [id number] 17568 55745 Methodi 13:12:42 23:59:00 Encounter Greyson Broderick 96200.1.[address] 3.430.2.7 Hospit a .3.809461 l .8 2022-10-04 2022-10-04 Travel 1.2.840.1 1.2.321.648 2999 538870 [facility]i 00:00:00 00:00:[address] 3.430.2.7 0.2.7.3.698 Ho spita .3.012190 084.8 l .8 2022-10-04 2022-10-04 Outpatient [facility] [id number] 085 [place] 00:00:00 00:00:00 EDBRIANNA [address] 2022-09-25 2022-09-25 Telephone Eduardo, 1.2.840.1 [id number] 2100 476078 Methodi 00:00:00 00:00:[address] 3.430.2.7 Hospit a .3.451749 l .8 2022-09-23 2022-09-23 Office [facility], 1.2.840.1 [id number] 869770 3129 Methodi 09:00:00 12:57:04 Visit Greyson Broderick 66039.1.[address] 3.430.2.7 Hospit a .3.352422 l .8 2022-09-23 2022-09-23 Telephone Derrell 1.2.840.1 [id number] 275 [id number] Methodi 00:00:00 00:00:[address] 3.430.2.7 Hospit a .3.413306 l .8 2022-09-23 2022-09-23 Outpatient [facility] [id number] 363 [place] 00:00:00 00:00:00 EDBRIANNA [address] 2022-09-18 2022-09-18 Abstract Derrell, 1.2.840.1 [id number] 2100 900657 Methodi 00:00:00 00:00:[address] 3.430.2.7 Hospit a .3.894853 l .8 2022-09-18 2022-09-18 Telephone Eduardo, 1.2.840.1 [id number] 2100 260124 Methodi 00:00:00 00:00:[address] 3.430.2.7 Hospit a .3.830106 l .8 2022-09-16 2022-09-16 Telephone Nguyen, 1.2.840.7 [id number] 803 7452518 Methodi 00:00:00 00:00:00 Edbrianna Y.H. 54670.1.[address] 3.430.2.7 Hospit a .3.157305 l .8 2022-09-10 2022-09-10 Telephone Eduardo, 1.2.840.1 [id number] 2100 998455 Methodi 00:00:00 00:00:[address] 3.430.2.7 Hospit a .3.073542 l .8 2022-06-05 2022-06-05 Office [facility] 1.2.840.114 894463 194 [place] 10:00:00 12:04:51 Visit [facility] 350.1.13.58 H [facility] 9.2.7.2.686 3 977.3671667 1 2022-03-07 2022-03-07 Office Oscar, 1.2.840.8 [id number] 69921 36462 Methodi 11:15:00 13:07:40 Visit Iva 85454.1.[address] 3.430.2.7 Hospit a .3.149131 l .8 2022-03-07 2022-03-07 Office Price, 1.2.840.1 158373702 617566 7202 Methodi 10:00:00 12:17:57 Visit Greyson Neely.H. 80629.1.[address] 3.430.2.7 Hospit a .3.765922 l .8 2022-03-07 2022-03-07 Travel 1.2.840.1 1.2.551.257 3696 560059 Methodi 00:00:00 00:00:[address] 3.430.2.7 0.2.7.3.698 Ho spita .3.728026 084.8 l .8 2022-03-06 2022-03-06 Abstract Donn, 1.2.840.1 [id number] 2099 323218 Methodi 00:00:00 00:00:[address] 3.430.2.7 Hospit a .3.008888 l .8 2021-10-25 2021-10-25 [facility], 1.2.840.1 [id number] 409930 7112 Methodi 08:30:00 09:15:51 Visit Greyson NelsonHAbhijeet 56446.1.[address] 3.430.2.7 Hospit a .3.153409 l .8 2021-10-24 2021-10-24 [facility], 1.2.840.1 [id number] 52722 79607 Methodi 11:30:00 23:59:00 Encounter Edbrianan Neely.H. 99557.1.[address] 3.430.2.7 Hospit a .3.038021 l .8 2021-10-24 2021-10-24 Travel 1.2.840.1 1.2.903.834 6632 760327 Methodi 00:00:00 00:00:[address] 3.430.2.7 0.2.7.3.698 Ho spita .3.387958 084.8 l .8 2021-10-22 2021-10-22 Abstract Donn, 1.2.840.1 [id number] 2099 567458 Methodi 00:00:00 00:00:[address] 3.430.2.7 Hospit a .3.457445 l .8 2021-10-22 2021-10-22 Travel 1.2.840.1 1.2.540.342 8430 735383 Methodi 00:00:00 00:00:[address] 3.430.2.7 0.2.7.3.698 Ho spita .3.146681 084.8 l .8 2021-10-22 2021-10-22 Orders Eduardo, 1.2.840.1 [id number] 680022 0534 Methodi 00:00:00 00:00:00 Only Kiki 57925.1.[address] 3.430.2.7 Hospit a .3.728101 l .8 2021-07-11 2021-07-11 Outpatient Hodge_D VFP VFP [id number] -20 [facility] 07:45:00 07:45:00 813116 Family Practic e 2021-05-01 2021-05-01 Outpatient JARROD, [facility] [id number] 9822 [place] 00:00:00 00:00:00 VICKIE [address] 2021-04-17 2021-04-17 Outpatient Hodge_D VFP VFP [id number] -20 [facility] 04:21:00 04:21:00 539677 Family Practic e 2021-04-17 2021-04-17 Bach-Sindy VFP [place] - [id number] [facility] 00:00:00 00:00:00 Nancy Uriarte [facility] Fami ly [place]: [address] [facility] [address], [place] [address] , Ph. 2021-04-13 2021-04-13 Outpatient ECHO, [facility] [id number] 524 [place] 00:00:00 00:00:00 ANGELIQUE [address] 2021-03-29 2021-03-29 Outpatient DAVIDA Villanueva RADI [id number] [facility] 06:56:00 06:56:00 Ghassan [facility] 2021-03-22 2021-03-22 Outpatient JARROD, [facility] [id number] 7244 [place] 00:00:00 00:00:00 VICKIE [address] 2021-03-16 2021-03-17 Outpatient EL ARAYA [facility] 064 107 [id number] [place] 00:00:00 00:00:[address] 2021-02-13 2021-02-13 Outpatient JARROD, [facility] [id number] 3333 [place] 00:00:00 00:00:00 VICKIE [address] 2021-01-25 2021-01-25 Outpatient JARROD, [facility] [id number] 3813 [place] 00:00:00 00:00:00 VICKIE [address] 2021-01-12 2021-01-12 Inpatient JARROD, [facility] 379 [id number] 475 [place] 00:00:00 00:00:00 VICKIE [address] 2021-01-10 2021-01-10 Outpatient JARROD, [facility] [id number] 6555 [place] 00:00:00 00:00:00 VICKIE [address] 2021-01-10 2021-01-10 Outpatient REUL, ROSS [facility] 2100 [id number] [place] 00:00:00 00:00:[address] 2021-01-02 2021-01-02 Outpatient JARROD, [facility] [id number] 8773 [place] 00:00:00 00:00:00 VICKIE 823 Method i 2020-12-08 2020-12-08 Outpatient ECHO, [facility] [id number] 068 [place] 00:00:00 00:00:00 ANGELIQUE [address] 2020-11-02 2020-11-02 Outpatient [facility] [id number] 847 [place] 00:00:00 00:00:00 019 [facility] 2020-10-26 2020-10-27 Outpatient ECHO, [facility] [id number] [place] 00:00:00 00:00:00 ANGELIQUE [address] 2020-10-23 2020-10-23 Outpatient ECHO, [facility] [id number] [place] 00:00:00 00:00:00 ANGELIQUE [address] 2020-10-13 2020-10-13 Outpatient ECHO, [facility] [id number] [place] 00:00:00 00:00:00 ANGELIQUE [address] 2020-10-13 2020-10-13 Outpatient ECHO, [facility] [id number] [place] 00:00:00 00:00:00 ANGELIQUE [address] 2020-09-21 2020-09-21 Outpatient [facility] [id number] eClinic 11:45:00 11:45:00 [facility] Med Care Med 2020-09-20 2020-09-20 Outpatient [facility] [id number] [facility]Clinic 16:06:00 16:06:00 [facility] Med Care Med 2020-09-15 2020-09-15 Emergency MATEUS BIRD [facility] [id number] [place] 00:00:00 00:00:[address] 2020-09-13 2020-09-13 Outpatient [facility] [id number] eClinic 15:00:00 15:00:00 [facility] Med Care Med 2020-08-11 2020-08-11 Outpatient MATTEO, [facility] [id number] [place] 00:00:00 00:00:00 ANGELIQUE 721 [facility] 2020-07-18 2020-07-18 Emergency KATE, [facility] [id number] 44 [place] 00:00:00 00:00:00 CHEL [address] 2020-07-13 2020-07-13 Outpatient Hodge_D VFP VFP [id number] [facility] 10:59:00 10:59:00 Family Practic e 2020-07-07 2020-07-07 Outpatient Hodge_D VFP VFP [id number] [facility] 05:53:00 05:53:00 Family Practic e 2020-07-07 2020-07-07 Bach-Sindy VFP [place] - [id number] [facility] 00:00:00 00:00:00 Nancy Uriarte, [facility] Fami ly PA: [id number] Medical - [facility] [address], [place] [address] , Ph. 2020-07-05 2020-07-05 Outpatient Hodge_D VFP VFP [id number] [facility] 10:20:00 10:20:00 Family Practic e 2020-06-21 2020-06-21 Leatha Wanpecia [id number] [place] 15:40:00 15:40:00 t; jean marie QUEEN - The Phys [facility] Deborah MOODY, trini VO M.D. [address] Jeferson ORANTES 2020-06-02 2020-06-02 Outpatient SHANAE BrightCL LABO [id number] [facility] 18:00:00 18:00:00 Ghassan 79 [facility] 2020-06-02 2020-06-02 Outpatient SHANAE Bright SIST [id number] [facility] 17:19:00 17:19:00 Ghassan [address] [facility] 2020-05-25 2020-05-25 Outpatient ELVIN NIELSEN [facility] [id number] [place] 00:00:00 00:00:[address] 2020-04-28 2020-04-28 Outpatient Hodge_D VFP VFP [id number] [facility] 03:19:00 03:19:00 [id number] Family Practic e 2020-04-21 2020-04-21 Outpatient MATTEO, [facility] [id number] [place] 00:00:00 00:00:00 ANGELIQUE Vila [facility] 2020-04-18 2020-04-18 Outpatient Hodge_D VFP VFP [id number] [facility] 08:40:00 08:40:00 [id number] Family Practic e 2020-04-14 2020-04-14 Outpatient Hodge_D VFP VFP [id number] [facility] 11:39:00 11:39:00 Family Practic e 2020-04-14 2020-04-14 Bach-Sindy VFP [place] - [id number] [facility] 00:00:00 00:00:00 [facility], [facility] Fami ly PA: [id number] Medical [facility]_HOU_[facility] [address], Clinical [facility] [address] , Ph. 2020-04-13 2020-04-13 Outpatient Hodge_D VFP VFP [id number] [facility] 11:21:00 11:21:00 Family Practic e 2020-04-12 2020-04-12 Outpatient Hodge_D VFP VFP [id number] -[id number] [facility] 11:54:00 11:54:00 Family Practic e 2020-04-03 2020-04-03 Outpatient SIMEON BARAKAT [facility] [id number] [place] 00:00:00 00:00:[address] 2020-03-29 2020-03-29 Outpatient YUVAL, SIMEON [facility] [id number] [place] 00:00:00 00:00:[address] 2020-03-24 2020-03-24 Outpatient YUVALSIMEON [facility] [id number] [place] 00:00:00 00:00:[address] 2020-03-24 2020-03-24 Outpatient YUVALSIMEON [facility] [id number] [place] 00:00:00 00:00:[address] 2020-03-21 2020-03-21 Outpatient JARROD, [facility] [id number] [place] 00:00:00 00:00:00 VICKIE [address] 2020-03-03 2020-03-04 Outpatient Esthela CRUZ, [facility] [id number] [facility] 17:36:00 10:45:00 [facility] 2020-02-29 2020-02-29 [id number] 07:25:00 12:55:00 CELESTINO [facility] 2020-02-14 2020-02-14 Outpatient [facility] [id number] [place] 00:00:00 00:00:[address] 2020-02-10 2020-02-10 Outpatient Hodge_D VFP VFP [id number] -[id number] [facility] 06:57:00 06:57:00 [id number] Family Practic e 2020-02-03 2020-02-03 Outpatient [facility] [id number] eClinic 15:54:00 15:54:00 [facility] 2020-02-03 2020-02-03 [facility] [facility] [id number] eClinic 15:30:00 15:30:00 [facility] Med 2020-02-02 2020-02-02 Outpatient [facility] [id number] eClinic 15:11:00 15:11:00 [facility] Med 2020-01-18 2020-01-31 Outpatient JARROD, [facility] [id number] [place] 00:00:00 00:00:00 VICKIE [address] 2020-01-27 2020-01-29 Inpatient NEASON, [facility] 064 [id number] [place] 00:00:00 00:00:00 NICHOLE [address] 2019-12-21 2019-12-21 Outpatient JARROD [facility] [id number] [place] 00:00:00 00:00:00 VICKIE [address] 2019-12-13 2019-12-13 Outpatient 2.16.840. 2.16.840.1. 1 [id number] eClinic 10:17:00 10:17:00 [id number]. [id number] alWorks 4.391.11. [id number] 2019-12-13 2019-12-13 Outpatient [facility] [id number] eClinic 06:29[facility]00 [facility] 2019-12-10 2019-12-10 Outpatient [facility] [id number] eClinic 14:15:00 14:15:00 [facility] Med 2019-12-10 2019-12-10 Outpatient [facility] [id number] eClinic 07:46:00 07:46:00 [facility] [employer] [facility] Med Care Med 2019-12-08 2019-12-08 Outpatient [facility] [id number] eClinic 10:57:00 10:57:00 [facility] [employer] [facility] Med Care Med 2019-11-14 2019-12-05 Inpatient JESSICA [facility] [id number] [place] 00:00:00 00:00:[address] 2019-11-11 2019-11-11 Emergency TU, TARUNN-TE [facility] [id number] [place] 00:00:00 00:00:[address] 2019-09-28 2019-09-28 Outpatient [facility] ALBERTO 7512 [place] 07:11:00 07:11:00 l Dick Hugooria contreras [facility] 2019-09-07 2019-09-07 Outpatient [facility] [id number] eClinic 11:06:00 11:06:00 [facility] [employer] [facility] Med Care Med 2019-09-06 2019-09-06 Outpatient [facility] [id number] eClinic 14:45:00 14:45:00 [facility] [employer] [facility] Med Care Med 2019-09-06 2019-09-06 Outpatient [facility] [id number] eClinic 08:39:00 08:39:00 [place] [facility] Med 2019-08-31 2019-08-31 Outpatient [facility] [id number] eClinic 09:00:00 09:00:00 [place] [facility] Care Med 2019-08-30 2019-08-30 Outpatient [facility] [id number] eClinic 10:30:00 10:30:00 [facility] alW orks Prime [facility] Med Care Med 2019-08-29 2019-08-29 Emergency E [facility] 7511 [place] 21:24:00 21:24:00 l Dick [facility] 2019-08-11 2019-08-11 Office BRENNAN Douglas [id number] 08:40:37 09:46:28 Visit Kanu Barreto AMBULATOR 350.1.13.21 Y 0.2.7.2.686 [id number] 2019-08-06 2019-08-06 Outpatient [facility] [id number] eClinic 11:33:00 11:33:00 [facility] Angelica orks [facility] Med Care Med 2019-07-29 2019-07-29 Outpatient 2.16.840. 2.16.840.1. 1 [id number] eClinic 10:25:00 10:25:00 [id number]. [id number] alWorks 4.391.11. [id number] 4701 2019-07-28 2019-07-28 Outpatient [facility] [id number] eClinic 16:28:00 16:28:00 [place] [facility] Med 2019-07-27 2019-07-27 Outpatient [facility] [id number] eClinic 23:18:00 23:18:00 [place] [facility] Care Med 2019-07-22 2019-07-22 Outpatient [facility] [id number] eClinic 18:14:00 18:14:00 [place] [facility] Med Care Med 2019-07-20 2019-07-20 Outpatient [facility] [id number] eClinic 13:45:00 13:45:00 [place] [facility] Care Med 2019-07-20 2019-07-20 Outpatient [facility] [id number] eClinic 07:35:00 07:35:00 [place] [facility] Med Care Med 2019-07-19 2019-07-19 Outpatient [facility] [id number] eClinic 09:52:00 09:52:00 [place] [facility] Care Med 2019-07-15 2019-07-15 Outpatient [facility] [id number] eClinic 08:27:00 08:27:00 [facility] al orks [facility] Med Care Med 2019-07-11 2019-07-11 Outpatient [facility] [id number] eClinic 20:50:00 20:50:00 [facility] al orks [facility] Med Care Med 2019-07-04 2019-07-04 Outpatient [facility] [id number] eClinic 14:54:00 14:54:00 [facility] al orks [facility] Med Care Med 2019-07-02 2019-07-02 Outpatient [facility] [id number] eClinic 11:15:00 11:15:00 [facility] orks Prime Care Med Care Med 2019-06-23 2019-06-23 [facility] Multispecia [id number] [place] 16:40:00 16:40:00 t; jean marie QUEEN - The [facility] Deborah MOODY, trini VO M.D. [address] Jeferson ORANTES 2019-05-31 2019-05-31 Outpatient [facility] [id number] eClinic 16:50:00 16:50:00 [facility] orks Prime [facility] Med Care Med 2019-05-17 2019-05-17 Outpatient [facility] [id number] eClinic 16:48:00 16:48:00 [place] [facility] Med Care Med 2019-04-21 2019-04-21 Outpatient [facility] [id number] eClinic 09:42:00 09:42:00 [facility] al orks Prime [facility] Med Care Med 2019-03-02 2019-04-02 Outpatient C LUCRETIA, OMDarrian PT PREMIER 1000 [id number] [place] 10:58:00 23:59:00 [facility] 2019-02-08 2019-02-08 Outpatient [facility] [id number] eClinic 15:45:00 15:45:00 [facility] alW orks Prime [facility] Med Care Med 2019-02-04 2019-02-04 Outpatient [facility] [id number] eClinic 08:25:00 08:25:00 [facility] alW orks Prime [facility] Med Care Med 2019-01-27 2019-01-27 Outpatient [facility] [id number] eClinic 09:43:00 09:43:00 [facility] orks Prime Care Med Care Med 2019-01-27 2019-01-27 Outpatient [facility] [id number] eClinic 08:30:00 08:30:00 [facility] al orks Prime [facility] Med Care Med 2018-12-21 2018-12-21 Appointmen SHAWNEE, [facility] UTP [id number] [place] 08:40:00 08:40:00 t; ANALIA MALLORY M.D. P hysici MARC, M.D. [facility] 2018-11-10 2018-11-17 [facility] [id number] 10:20:00 13:06:32 2018-11-10 2018-11-10 Appointmichael GUZMAN [facility] [id number] [place] 10:20:00 10:20:00 t; BERNICE, Multi-Speci [facility] chi MOODY M.D. Clinic Jeanine ORANTES M.D. 2018-11-09 2018-11-09 Leatha CUMMINGS, YUSUF [facility] [id number] [place] 13:40:00 13:40:00 t; Micki LACKEY i, M.D. ans OSSAMA, M.D. 2018-10-18 2018-10-18 Outpatient [facility] [id number] eClinic 22:20:00 22:20:00 [facility] alW orks [facility] Med Care Med 2018-10-16 2018-10-16 Outpatient [facility] [id number] eClinic 13:52:00 13:52:00 [facility] alW orks Prime [facility] Med Care Med 2018-10-16 2018-10-16 Outpatient [facility] [id number] eClinic 08:15:00 08:15:00 [facility] al orva [facility] Med Care Med 2018-10-08 2018-10-08 Outpatient [facility] [id number] eClinic 10:24:00 10:24:00 [facility] Med Care Med 2018-10-08 2018-10-08 [facility] [id number] eClinic 09:15:00 09:15:00 [facility] Med Care Med 2018-10-05 2018-10-05 Appointmen [id number] [place] 08:00:00 08:00:00 t; ANALIA MALLORY M.D. Eder HELMS M.D. ans 2018-08-10 2018-08-10 Leatha CUMMINGS, YUSUF [place] 4 [id number] [place] 13:40:00 13:40:00 t; ZIYAD Multi-Speci Ph Jeferson [address] OSSAMA 3 Jeferson 2018-08-07 2018-08-07 [facility] [id number] eClinic 16:00:00 16:00:00 [facility] Med Care Med 2018-06-18 2018-06-18 [facility] [id number] eClinic 13:15:00 13:15:00 [facility] Med Care Med 2018-06-09 2018-06-09 YUSUF Gómez [place] 4 [id number] [place] 13:40:00 13:40:00 t; Hali LACKEY-Speci Ph Jeferson [address] OSSAMA 1 Jeferson 2018-05-26 2018-05-26 YUSUF Gómez UTP [id number] [place] 15:00:00 15:00:00 t; Micki LACKEY i, M.D. ans OSSAMA, M.D. 2018-05-13 2018-05-13 AppointYUSUF Freedman UTP [id number] [place] 10:00:00 10:00:00 t; TINO MART, Ph Jeferson Mercedes M.D. 2018-04-16 2018-04-16 [facility] [id number] eClinic 16:52:00 16:52:00 [facility] Med Care Med 2018-04-14 2018-04-14 [facility] [id number] eClinic 07:17:00 07:17:00 [place] [facility] Med Care Med 2018-04-01 2018-04-01 Outpatient [facility] [id number] eClinic 11:15:00 11:15:00 [place] [facility] Med Care Med 2018-02-26 2018-02-26 Outpatient [facility] [id number] eClinic 06:24:00 06:24:00 [place] [facility] Med Care Med 2018-02-16 2018-02-16 Outpatient [facility] [id number] eClinic 14:45:00 14:45:00 [place] [facility] Med Care Med 2017-12-09 2017-12-09 Outpatient [facility] [id number] eClinic 11:37:00 11:37:00 [place] [facility] Med Care Med 2017-12-09 2017-12-09 Outpatient [facility] [id number] eClinic 11:00:00 11:00:00 [place] [facility] Med Care Med 2017-12-01 2017-12-01 Outpatient [facility] [id number] eClinic 07:27:00 07:27:00 [place] [facility] Med Care Med 2017-11-28 2017-11-28 Outpatient [facility] [id number] eClinic 10:30:00 10:30:00 [place] [facility] Med Care Med 2017-09-03 2017-09-03 Outpatient Kalpana - Kalpana - [id number] eClinic 08:42:00 08:42:00 [facility] [employer] 2017-07-15 2017-07-15 Outpatient [facility] [id number] eClinic 21:24:00 21:24:00 [place] [facility] Med Care Med 2017-07-07 2017-07-07 Outpatient Kalpana - Kalpana - [id number] eClinic 11:32:00 11:32:00 [facility] [employer] 2017-07-04 2017-07-04 Outpatient [facility] [id number] eClinic 13:00:00 13:00:00 [place] [facility] Med Care Med 2017-07-04 2017-07-04 Outpatient [facility] [id number] eClinic 13:00:00 13:00:00 [facility] Angelica ormini [facility] Med Care Med 2017-06-23 2017-06-23 Appointmen YUSUF SAXENA UTP [id number] [place] 14:30:00 14:30:00 t; MATEO SAXENA ans 2017-06-18 2017-06-18 Outpatient [facility] [id number] eClinic 05:24:00 05:24:00 [facility] orva Prime [facility] Med Care Med 2017-06-05 2017-06-05 Outpatient [facility] [id number] eClinic 13:30:00 13:30:00 [facility] abdais orva [facility] Med Care Med 2017-05-15 2017-05-15 Appointmen ODESSAYUSUF VALDEZ UTP [id number] [place] 07:45:00 07:45:00 t; MATEO SAXENA 2017-03-07 2017-03-07 Appointmen ODESSAYUSUF VALDEZ UTP [id number] [place] 14:00:00 14:00:00 t; MATEO SAXENA Results Test Description Test Time Test Comments Results Result Comments Source ECG 12 lead 2023-04-11 20:03:34 Test Item Value Reference Range Interpretation Comme nts Ventricular rate (test code = 253) 74 Atrial rate (test code = 255) 202 QRSD interval (test code = 260) 112 QT interval (test code = 264) 376 QTC interval (test code = 265) 417 QRS axis 1 (test code = 268) 60 T wave axis (test code = 270) 44 EKG impression (test code = 273) Atrial fibrillation-Voltage criter ia for left ventricular hypertrophy-Abnormal ECG-In automated comparison with ECG of 03-APR-2023 09:47,-No significant change was found- [facility] [id number] 19:36:00 Test Item Value Reference Range Interpretation Comments Antibody ID (test code = 29838-1) POS, Anti-C [facility] [id number] 15:55:44 Test Item Value Reference Range Interpretation Comments Case number (test code = [id number]) Surgical pathology See link below for report (test code = PDF Lab Report [id number]) Result status (test code This is Final Report = [id number]) for [id number] [facility] (COVID-19), qualitative [id number] 19:46:00 Test Item Value Reference Range Interpretation Comments SARS-CoV-2 NOT DETECTED NOT DETECTED A Not Detected result RNA (test means that SARS -CoV-2 RNA code = was notpresent in the 73299-9) specimen above the limit of detection. A Not Detected result does not rule out the possibilityof C OVID-19 and should not be used as the sole basis fortreatment or patient management deci sions. If COVID-19is stil l suspected, base d on exposure histor y togetherwith ot her clinical findin gs, re-testing shou ld be considered in t he context of clinical obs ervations andepidemiologi ruby data for patient man agement decisions. Test Method: Nucleic Acid Amplification T est includingrevers e industrial sales manager p olymerase chain reaction (RT-PCR)and tra nscription mediated amplif ication (TMA). The test method meets the [place] Ce nters for Disease Control andprevention ( CDC) pre departure and a rrival requirementfor viral test for COVID-19 da elina November 02 1.Testing requirements fo r traveling february c hange with time.The paticherie t is responsible for determining the testrequirement s for each nation while th ey are traveling. This test has been authorized by the FDA under an Em ergency Use Authorizati on (EUA) for use by authorizedlabor paris. Please review t he "Fact Sheets" and FDA authorizedlabel ing available for [facility] care providers andpa tients using the [employer] websites:https: //www.ques tdiagnostics.co m/home/Cov id-19/HCP/NAAT/ fact-sheet 2 https://www.que stdiagnost ics.com/home/Co vid-19/Pat ients/NAAT/fact -sheet2 Due to the curr ent public health emergenc y, [facility] is accepting sampl es from appropriateclin ical sources collect ed using wide variety of swabs and transport media for COVID-19. Not detectedtest re sults derived from sp ecimens received in non-commerciall y manufactured vi ral collection kits or thosenot yet au thorized by FDA for COVI D-19 testing should becautiously ev aluated and take extra precautions suc h asadditional cl inical monitoring, inc luding collectionof an additional spec imen. Additional info rmation about COVID-19 can be foundat the [facility] website:www.Health[facility] stDiagnost Minglebox.com/Covid19 . For patients with a Detected or Inconclusive testresult, ple ase see CDC's COVID-19 Treatments and Medications page located at https://www.cdc .gov/coron avirus/2019-nco v/your-hea lth/treatments- for-severe -illness.html f or information on COVID-19 therapeutics. F or patients with a Not Detected test r esult, please see CDC' sVaccines for COVID-19 pa ge located athttps://www.c dc.gov/cor onavirus/2019-n cov/vaccin es/index.htmlfo r information on COVID-19 vaccines. RAC (test Performing code = RAC) Organization Information: Site ID: RGA Name: [facility] Address: [address] [place] [id number] Director: Thien Field [facility] [id number] 19:47:00 Test Item Value Reference Range Interpretation Comments POC creatinine (test 1.3 mg/dl 0.7-1.2 H Operato r Name: Kayli code = 08210-5) Carolina e ID: [id number] Lab Interpretation Abnormal (test code = 86747-2) [facility] MRI C-SPINE W/O [id number] 09:47:00 [facility] : 1955 Sex: M PatientName: AISHA PARKER Unit No: [id number] EXAMS: CPT CODE: [id number] MRI C-SPINE W/O CONT 87000 DIAGNOSIS: 1. At C2-3 there is no evidence for disc bulge or herniation, bony canal or foraminal stenosis.Asymmetric left facet degeneration is present. 2. At [...] the patient is status post anterior fusion andthe canal is stenotic with an AP diameter of 11 mm. Marked right foraminal narrowing is present withmoderate left-sided stenosis. Facet degeneration is present. 6. At C7-T1 there is no evidence for disc bulge or herniation, bony canal or foraminal stenosis. COMMENT: COMPARISON: No prior exams available. Scans were performed in the sagittal and axial planes utilizing T1, gradient echo, T2 and inversion recovery images. Postsurgical change is present from C5 to C7. Disc degeneration is present at thenonoperative levels. The cord appears normal in size and signal. at 0947 Reported and signed by: Ghassan Clay MD CC: Ghassan Bright M.D. Technologist: Joana Chirinos(R) Transcribed D/ (0947) [facility] AISHA [facility]ARKER [address] [facility] PHYS: Ghassan Stanley MD :1955 AGE: 66 SEX: M [place], [place] [address] LOC: Y.MRI PHONE #: [phone] EXAM DATE: 03/29/2021 STATUS: REG CLI FAX #: [phone] RAD #: [id number] D/C DT PAGE 1 Signed Report Patient Name: AISHA PARKER Unit No: [id number] EXAMS: CPT CODE: [id number] MRI C-SPINE W/O CONT 78997 (Continued) Orig Print D/T: S: 03/29/2021 (0950) [facility] NAME: AISHA PARKER[address] [facility] PHYS: Ghassan Stanley MD : 1955 AGE: 66 SEX: M [place], [place] [address] LOC: Y.MRI PHONE #: [phone] EXAM DATE: 03/29/2021 STATUS: REG CLI FAX #:[phone] RAD #: [id number] D/C DT PAGE 2 Signed Report- XR C-SPINE 4-5 [id number] 08:44:00 [facility] : 1955 Sex: M Patient Name: AISHA PARKER Unit No: [id number] EXAMS: CPT CODE: [id number] XR C-SPINE 4-5 V 84478 Cervical spine 2 views plus flexion and extension COMMENT: Anterior fusion has been performed from C5 to C7.Vertebral body heights and interspaces are maintained. Grade 1 spondylolisthesis is seen at C2-3, C3-4 and C4-5. Abnormal motion is present at C2-3 with reduction of the spondylolisthesis Electronica lly Signed by Ghassan Clay MD on 03/29/2021 at 0844 Reported and signed by: Ghassan Clay MD CC: Ghassan Bright M.D. Technologist: RT Tate.(R) Transcribed D/ (0844) t.SDR.JCL [facility] NAME: AISHA PARKER [address] [place] [address] PHYS: Ghassan Stanley MD : 1955 AGE: 66 SEX: M [place] [address] LOC: Y.MRI PHONE #: [phone] EXAM DATE: 03/29/2021 STATUS: REG CLI FAX #: [phone] RAD #: [id number] D/C DT PAGE 1 Signed Report Patient Name: AISHA PARKER Unit No: [id number] EXAMS: CPT CODE: [id number] XR C-SPINE 4-5 V 36572 (Continued) Orig Print D/T: S: 03/29/2021 (0847) [facility] NAME: AISHA PARKER [address] [place] [address] PHYS: Ghassan Stanley MD : 1955 AGE: 66 SEX: M [place] [address] LOC: Y.MRI PHONE #: [phone] EXAM DATE: 03/29/2021 STATUS: REG CLI FAX #: [phone] RAD #: [id number] D/C DT PAGE 2 Signed SevoruOLWP-DvL-8 (COVID-19) RNA [Presence] in Respiratory specimen by BRADLEY with probe [id number] 21:33:21 Test Item Value Reference Range Interpretation Comments SARS-CoV-2 (COVID-19) RNA Not detected Not-Detected [Presence] in Respiratory specimen by BRADLEY with probe detection (test code = 39639-2) Whether patient is employed in a healthcare setting (test code = 77526-4) Whether the patient has symptoms related to condition of interest (test code = 47349-5) Patient was hospitalized because of this condition (test code = 07208-0) Whether the patient was admitted to intensive care unit (ICU) for condition of interest (test code = 03913-1) Whether patient resides in a congregate care setting (test code = 02829-8) YORDY PASTORSARS-CoV-2 (COVID-19) RNA [Presence] in Respiratory specimen by BRADLEY with probe [id number] 22:10:45 Test Item Value Reference Range Interpretation Comments SARS-CoV-2 (COVID-19) RNA Not detected Not-Detected [Presence] in Respiratory specimen by BRADLEY with probe detection (test code = 00114-5) SCALES BAHAI PARHZSVS-TgV-3 (COVID-19) RNA [Presence] in Respiratory specimen by BRADLEY with probe [id number] 23:42:53 Test Item Value Reference Range Interpretation Comments SARS-CoV-2 (COVID-19) RNA Not detected Not-Detected [Presence] in Respiratory specimen by BRADLEY with probe detection (test code = 54754-0) YORDY [facility] C BY [id number] 15:03:00 Test Item Value Reference Range Interpretation Comments HEPATITIC C BY PCR NEGATIVE NONE DETECT Negative: HCV RNA Not (test code = HEPCT) Detected DONE AT: [address] [address] HEPATITIS C BY [id number] 14:04:00 Test Item Value Reference Range Interpretation Comments HEPATITIS C BY PCR Negative Negative Negative: HCV RNA Not (test code = HEPCT) Detected Performed At: [facility] [address] [place], [place] [id number] ra Nir AGUILA Ph:[phone] 4 - XR SPINE 1 V SPEC [id number] 10:25:00 Patient Name: AISHA PARKER Unit No: [id number] EXAMS: CPT CODE: [id number] XR SPINE 1 V SPEC [id number] LATERAL INTRAOPERATIVE VIEWS OF THE CERVICAL [...] M.D. Technologist: NASIR ROMO (RT.R) Transcribed D/ (1025) IreneGVG [facility] NAME: [address]LEXANDRE [address]YS: Ghassan Stanley MD : 1955 AGE: 65 SEX: M [place] [address] LOC: Y.523 A PHONE #: [phone] EXAM DATE: 06/06/2020 STATUS: ADM IN FAX #: [phone] RAD #: [id number] D/C DT PAGE 1 Signed Report Patient Name: AISHA PARKER Unit No: [id number] EXAMS: CPT CODE: [id number] XR SPINE 1 V SPEC LEVEL 57515 (Continued) Orig Print D/T: S: 06/07/2020 (1028) [facility] NAME: ALEXANDRE PARKER[address] PHYS: Ghassan Stanley MD : 1955 AGE: 65 SEX: M [place] [address] LOC: Y.523 A PHONE #: [phone] DATE: 06/06/2020 STATUS: ADM IN FAX #: [phone] RAD #: [id number] D/C DT PAGE 2 Signed Report- XR SPINE 1 V SPEC [id number] 10:25:00 Patient Name: AISHA PARKER Unit No: [id number] EXAMS: CPT CODE: [id number] XR SPINE 1 V SPEC [id number] 3 LATERAL INTRAOPERATIVE VIEWS OF THE CERVICAL [...] M.D. Technologist: NASIR ROMO (RT.R) Transcribed D/ (1025) IreneGVG [facility] NAME: AISHA PARKER [address] [place] [address] PHYS: Ghassan Stanley MD : 1955 AGE: 65 SEX: M [place] [address] LOC: Y.523 A PHONE #: [phone] EXAM DATE: 06/06/2020 STATUS: ADM IN FAX #: [phone] RAD #: [id number] D/C DT PAGE 1 Signed Report Patient Name: AISHA PARKER Unit No: [id number] EXAMS: CPT CODE: [id number] XR SPINE 1 V SPEC LEVEL 08417 (Continued) Orig Print D/T: S: 06/07/2020 (1028) [facility] NAME: AISHA PARKER [address] [place] [address] PHYS: Ghassan Stanley MD : 1955 AGE: 65 SEX: M [place] [address] LOC: Y.523 A PHONE #: [phone] EXAM DATE: 06/06/2020 STATUS: ADM IN FAX #: [phone] RAD #: [id number] D/C DT PAGE 2 Signed Report- XR SPINE 1 V SPEC [id number] 10:25:00 Patient Name: AISHA PARKER Unit No: [id number] EXAMS: CPT CODE: [id number] XR SPINE 1 V SPEC [id number] 3 LATERAL INTRAOPERATIVE VIEWS OF THE CERVICAL SPINE Film 1: Metal marker overlies soft tissues anterior to C6-7. Film 2: Anterior screws overlie the C5 and C6 vertebral bodies. Film 3: Patient status post anterior discectomy at the C5-6 and C6-7 levels with interbody bone grafts and anterior interconnecting plate. at 1025 Reported a nd signed by: Vinny Almgauer MD CC: Ghassan Bright M.D. Technologist: NASIR ROMO (RT.R) Transcribed D/ (1025) Norah.GVG [facility] NAME: AISHA PARKER [address] [place] [address] PHYS: Ghassan Stanley MD : 1955 AGE: 65 SEX: M [place] [address] LOC: Y.523 A PHONE #: [phone] EXAM DATE: 06/06/2020 STATUS: ADM IN FAX #: [phone] RAD #: [id number] D/C DT PAGE 1 Signed Report Patient Name: AISHA PARKER Unit No: [id number] EXAMS: CPTCODE: [id number] XR SPINE 1 V SPEC LEVEL 96423 (Continued) Orig Print D/T: S: 06/07/2020 (1028) [facility] NAME: AISHA BROOKS [address] [place] [address] PHYS: Ghassan Stanley MD : 1955 AGE: 65 SEX: M [place] [address] LOC: Y.523 A PHONE #: [phone] EXAM DATE: 06/06/2020 STATUS: ADM IN FAX #: [phone] RAD #: [id number] D/C DT PAGE 2 Signed ReportPROTHROMBIN TIME 2020-06-07 07:09:00 Test Item Value Reference Range Interpretation [...] IS PATIENT ON ANTICOAGULANTS ? YTHROMBOPLASTIN TIME [id number] 07:09:00 Test Item Value Reference Range Interpretation Comments PTT ACTIVATED (test code = APTT) 30.4 secs 24.9-37.0 N IS PATIENT ON ANTICOAGULANTS ? YBASIC METABOLIC [id number] 06:54:00 Test Item Value Reference Range Interpretation [...] RATE (test code = GFR) mL/mi n/1.73 n1Rzpknalvv Range:Healthy Adults >90 mL/min/1.73 m2 For Chronic Kidney Disease: Stage II Mild Decrease i n GFR 60-90 Stage III Moderate Decrea se in GFR 30-59 St age IV Severe Decre ase in GFR 15-29 St age V Kidney Failur e <15 CREATININE (test code 1.21 mg/dL 0.55-1.30 N = CREAT) CALCIUM (test code = 8.4 mg/dL 8.2-10.1 N CA) Novel Coronavirus 2018 [id number] 04:58:00 Test Item Value Reference Range Interpretation Comments Novel Coronavirus 2018 Inhouse (test Negative Negative code = COVNONPUI) Novel Coronavirus 2019 [id number] 04:57:00 Test Item Value Reference Range Interpretation Comments Novel Coronavirus 2018 Inhouse (test Negative Negative code = COVNONPUI) ACUTE HEPATITIS [id number] 21:10:00 Test Item Value Reference Range Interpretation Comments AB HEPATITIS A IGM NONREACTIVE NONREACTIVE (test code = HAVMAB) AG HEPATITIS B NONREACTIVE NONREACTIVE SURFACE (test code = HBSAG) AB HEPATITIS B NONREACTIVE NONREACTIVE CORE IGM (test code = HBCMAB) AB HEPATITIS C EQUIVOCAL NONREACTIVE A Reported to [ ]by [facility], (test code = on 06/02/20 at [facility]) 2103.RESULTS VE RIFIED BY REPEAT ANALYSIS RESULTS CALLED TO DENNY ORD .READ BACK & CONFIRME D? YES.BY F.LAB.IR1 06/02.Reported t kodi Frank O.by REBECACD, on 06/02/20 at 210 7.Results faxed to the do ctor's office. SIGNAL TO CUTOFF 1.28 <0.80 H (test code = CUTOFF) AB HIV 21:10:00 Test Item Value Reference Range Interpretation Comments AB HIV 1 (test code NONREACTIVE NONREACTIVE Done by [employer] Centaur = HIV1AB) 4th Gen HIV Ag/ Ab Combo Screen ACUTE HEPATITIS [id number] 21:04:00 Test Item Value Reference Range Interpretation Comments AB HEPATITIS A IGM NONREACTIVE NONREACTIVE (test code = HAVMAB) AG HEPATITIS B NONREACTIVE NONREACTIVE SURFACE (test code = HBSAG) AB HEPATITIS B NONREACTIVE NONREACTIVE CORE IGM (test code = HBCMAB) AB HEPATITIS C EQUIVOCAL NONREACTIVE A Reported to [ ]by [facility], (test code = on 06/02/20 at [facility]) [...] HIV Ag/ Ab Combo Screen ACUTE HEPATITIS [id number] 21:03:00 Test Item Value Reference Range Interpretation [...] .READ BACK & CONFIRME D? YES.BY F.LAB.IR1 08/28 /20 2103. SIGNAL TO CUTOFF 1.28 <0.80 H (test code = CUTOFF) AB HIV 1 21:03:00 Test Item Value Reference Range Interpretation Comments AB HIV 1 2 (test NONREACTIVE NONREACTIVE Done by [employer] mens Centaur code = [id number]) 4th Gen HIV Ag/Ab Combo Screen ACUTE HEPATITIS [id number] 19:27:00 Test Item Value Reference Range Interpretation [...] 1 (test code NONREACTIVE NONREACTIVE Done by Ziva Softwareaur = HIV1AB) 4th Gen HIV Ag/ Ab Combo Screen ACUTE HEPATITIS [id number] 19:26:00 Test Item Value Reference Range Interpretation [...] 2 (test NONREACTIVE NONREACTIVE Done by Sie LuckyPennie Centaur code = [id number]) 4th Gen HIV Ag/Ab Combo Screen ACUTE HEPATITIS [id number] 18:53:00 Test Item Value Reference Range Interpretation [...] (test code = HIV1AB) NONREACTIVE ACUTE HEPATITIS [id number] 18:53:00 Test Item Value Reference Range Interpretation [...] AB HIV 1 2 (test code = KUM35NG) NONREACTIVE COMPREHENSIVE METABOLIC [id number] 18:22:00 Test Item Value Reference Range Interpretation [...] RATE (test code = GFR) mL/mi n/1.73 [id number] Range:Healthy Adults >90 mL/min/1.73 m2 For Chronic Kidney Disease: Stage II Mild Decrease i n GFR 60-90 Stage III Moderate Decrea se in GFR 30-59 S tage IV Severe Decre ase in GFR 15-29 [...] N TOTAL (test code = ALKP) PROTHROMBIN [id number] 18:20:00 Test Item Value Reference Range Interpretation [...] BLOOD, PT every other day NTHROMBOPLASTIN TIME [id number] 18:20:00 Test Item Value Reference Range Interpretation Comments PTT ACTIVATED (test code = APTT) 39.6 secs 24.9-37.0 H IS PATIENT ON ANTICOAGULANTS ? YLIST ANTICOAGULANT/ANTI PLT MEDICATION : CoumadinHas Lab been notified if Patient is on Heparin Drip? NOIf Yes, order CBC, OCCULT BLOOD, PT every other day NCBC W/AUTO [id number] 18:16:00 Test Item Value Reference Range Interpretation [...] 0-0 N code = NRBC) [QL] CMP [id number] 08:02:00 Test Item Value Reference Range Interpretation [...] eGFR NON-AFR. 59 > OR = 60 VINCENTIAN (test code {ML/MIN/1.7} = eGFR NON-AFR. VINCENTIAN) eGFR 69 > OR = 60 N VINCENTIAN (test code {ML/MIN/1.7} = eGFR ) BUN/CREATININE [...] mg/dl 0.2-1.2 N Normal (test code = 29087-1) ALKALINE 55 u/l 35-144 N PHOSPHATASE (test code = ALKALINE PHOSPHATASE) AST; Normal (test 19 u/l 10-35 N code = 1916-6) ALT; Normal (test 15 u/l 9-46 N code = 1742-6) [facility][QL] ALKALINE PHOSPHATASE, BONE [id number] 08:02:00 Test Item Value Reference Range Interpretation Comments BONE SPECIFIC (test code = BONE 12.7 {mcg/L} 7.6-14.9 SPECIFIC) [facility]- XR C-SPINE 4-5 [id number] 06:38:00 Patient Name: AISHA PARKER Unit No: [id number] EXAMS: CPT CODE: [id number] XR C-SPINE 4-5 V [id number]: Concurrent MRI. IMAGES PROVIDED: 4 FINDINGS: Grade 1 spondylolisthesis of C4-C5 and grade 1 retrolisthesis of C5-C6. No pathologic motion with flexion/extension. No acute fracture. Marked disc degeneration is seen at C5-C6 and C6-C7. Moderate cervical facet hypertrophy. Sternotomy wires are present. Visualized lungs are clear. IMPRESSION: Advanced cervical spondylosis without evidence of dynamic instability. at 0638 Reported and signed by: Michael Driver M.D. CC: Ghassan Bright M.D. Technologist: BRIAN KENNEDY RT(R) Transcribed D/ (0638) [facility] NAME: AISHA PARKER [address] [place] [address] PHYS: Ghassan Stanley MD : 1955 AGE: 65 SEX: M [place] [address] LOC: Y.MRI PHONE #: [phone] EXAM DATE: 04/20/2020 STATUS: DEP CLI FAX #: [phone] RAD #: [id number] D/C DT PAGE 1 Signed Report Patient Name: AISHA PARKER Unit No: [id number] EXAMS: CPT CODE: [id number] XR C-SPINE 4-5 V 59028 (Continued) Orig Print D/T: S: 04/21/2020 (0641) [facility] NAME: AISHA PARKER [address] [place] [address] PHYS: Ghassan Stanley MD : 1955 AGE: 65 SEX: M [place] [address] LOC: Y.MRI PHONE #: [phone] EXAM DATE: 04/20/2020 STATUS: DEP CLI FAX #: [phone] RAD #: [id number] D/C DT PAGE 2 Signed Report- MRI LW JNT W/O CONT [id number] 11:40:00 Patient Name: AISHA PARKER Unit No: [id number] EXAMS: CPT CODE: [id number] MRI LW JNT W/O CONT [id number] TECHNIQUE: Multiplanar, multisequence MRI of the right knee without contrast. COMPARISON: None available. FINDINGS: Menisci: Complex medial meniscal tear is demonstrated with a prominent horizontal component extending from the posterior horn to the meniscal body. The free edge of the posterior h orn is displaced centrally. There is also horizontal signal within the lateral meniscal body, concerning for possible tear. Ligament and tendons: ACL and PCL are intact. Collateral ligaments are maintained. Mild quadriceps tendinosis is seen without evidence of tear. The patellar tendon is normal. Cartilage/ bone: Broad partial-thickness cartilage loss of the patellar apex and lateral patellar facetis greatest at the superior patellar apex with there is prominent subchondral edema. Low-grade cartilage irregularity of the medial compartment is noted diffusely without evidence of full-thickness defect. The lateral compartment cartilage is maintained. No acute fracture. Other: A small joint effusion is present. Large popliteal cyst. IMPRESSION: 1. Complex medial meniscal tear with prominent horizontal component extending from the posterior horn and meniscal body. 2. Possible horizontal tear of the lateral meniscal body. 3. High-grade cartilage degeneration of the patellar apex/medial patellar facet. at 1140 Reported and signed by: Michael Driver M.D. CC: Obinna Wallace MD Technologist: Joana Chirinos(R) Transcribed D/ (1140) [facility] NAME: AISHA PARKER [address] [place] [address] PHYS: Obinna Prince MD : 1955 AGE: 65 SEX: M [place] [address] LOC: Y.MRI PHONE #: [phone] EXAM DATE: 04/20/2020 STATUS: REG CLI FAX #: [phone] RAD #: [id number] D/C DT PAGE 1 Signed Report Patient Name: AISHA PARKER Unit No: [id number] EXAMS: CPT CODE: [id number] MRI LW JNT W/[place] [address] (Continued) Orig Print D/T: S: 04/20/2020 (1143)[facility] NAME: AISHA PARKER [address] [place] [address] PHYS: Obinna Prince MD : 1955 AGE: 65 SEX: M [place] [address] LOC: Y.MRI PHONE #: [phone] EXAM DATE: 04/20/2020 STATUS: REG CLI FAX #: [phone] RAD #: [id number] D/C DT PAGE 2 Signed Report- MRI C-SPINE W/O [id number] 10:59:00 Patient Name: AISHA PARKER Unit No: [id number] EXAMS: CPT CODE: [id number] MRI C-SPINE W/O CONT 66387 TECHNIQUE: Multiplanar, multisequence MRI examination performed of [...] osteophyte complex is noted as well as severe bilateral uncovertebral and facet hypertrophy. There is [...] right. Severe central canal stenosis is noted with slight mass effect on the spinal cord. C7/T1: No significant disc bulge or herniation. Mild bilateral facet hypertrophy. There is moderate bilateral foraminal stenosis. No significant central canal stenosis IMPRESSION: Advanced cervical spondylosis with severe central canal stenosis at C5-C6 and C6-C7. at 1059 Reported and signed by: Michael Driver M.D. [facility] NAME: AISHA PARKER [address] [facility] PHYS: Ghassan Stanley MD : 1955 AGE: 65 SEX: M [place] [address] LOC: Y.MRI PHONE #: [phone] EXAM DATE: 04/20/2020 STATUS: REG CLI FAX #: [phone] RAD #: [id number] D/C DT PAGE 1 Signed Report (CONTINUED) Patient Name: AISHA PARKER Unit No: [id number] EXAMS: CPT CODE: [id number] MRI C-SPINE W/O CONT 58140 (Continued) CC: Ghassan Bright M.D. Technologist: Joana Chirinos(R) Transcribed D/ (1059) [facility] NAME: AISHA PARKER [address] [place] [address] PHYS: Ghassan Stanley MD : 1955 AGE: 65 SEX: M [place] [address] LOC: Y.MRI PHONE #: [phone] EXAM DATE: 04/20/2020 STATUS: REG CLI FAX #: [phone] RAD #: [id number] D/C DT PAGE 2 Signed Report Patient Name: AISHA PARKER Unit No: [id number] EXAMS: CPT CODE: [id number] MRI C-SPINE W/O CONT 24582 (Continued) Orig Print D/T: S: 04/20/2020 (1102) [facility] NAME: AISHA PARKER [address] [place] [address] PHYS: Ghassan Prakash MD : 1955 AGE: 65 SEX: M [place] [address] LOC: Y.MRI PHONE #: [phone] EXAM DATE: 04/20/2020 STATUS: REG CLI FAX #: [phone] RAD #: [id number]/C DT PAGE 3 Signed Report- XR FLUORO FOR SPINE [id number] 19:27:00 Patient Name: AISHA PARKER Unit No: [id number] EXAMS: CPT CODE: [id number] XR FLUORO FOR SPINE [id number] LUMBAR EPIRADICULAR INJECTION REFERRAL PHYSICIAN: Ghassan Bright M.D. PREOPERATIVE DIAGNOSIS: Lumbar Radiculitis POSTOPERATIVE DIAGNOSIS: L3-4 lateral listhesis with right L3-4 disc displacement, lateral recess and foraminal stenosis with right L3 and right L4 radicular pain PROCEDURES PERFORMED:Fluoroscopically guided needle localization of the right L3 and right L4 spinal nerves with transforaminal epidurograms and epidural injection of local anesthetic and steroid. FINDINGS: Good flow seen through the right L4-5 foramen. Horizontal root changes with cephalad displacement of the nerve root s leeve through the foramen was seen at the L3-4 level. Moderate anterior epidural displacement seen across the L2-3 and L3-4 discs. Provocation was negative. Anesthetic response was positive with the patient noting relief of his right low back and lower extremity pain. Preinjection VAS 4/10. Postinjection VAS 0/10. Steroid response pending follow-up. ESTIMATED BLOOD LOSS: Minimal ANESTHESIA: TIVA COMPLICATIONS: None DETAILS OF PROCEDURE: After obtaining stable vital signs, informed consent and IV access, with no contraindications, the patient was taken to the operating room and placed in a prone position with all extremities padded and appropriate monitors placed. The patient was sterilely prepped and draped over the lumbosacral spine. Using fluoroscopic visualization the insertion sites were marked for paravertebral approaches and using standard technique, a 25 gauge needle was advanced to the base of each pedicle without paresthesias. Isovue-300 contrast 0.2 mL of was injected incrementally with frequent negative aspirations to produce each epidurogram. There were no signs of intravascular orintrathecal uptake. Bupivicaine 0.75% 0.25 mL with lidocaine [...] Technologist: WOLF JUAN RT(R) Transcribed D/ (1926) [facility]: A[facility] [address] [facility] PHYS: Vickie Drew MD [place], [place] [address] : 1955 AGE: 64 SEX: M LOC: ZURI PHONE #: [phone] EXAM DATE: 09/17/2019 STATUS: REG [facility] FAX #: [phone] RAD #: [id number] D/C DT PAGE 1 Signed Report Patient Name: AISHA PARKER Unit No: [id number] EXAMS: CPT CODE: [id number] XR FLUORO FOR SPINE INJ 93639 (Continued) Orig Print D/T: S: 09/17/2019 (1931) [facility] NAME: AISHA PARKER [address] [facility] PHYS: Vickie Drew MD [place], [place] [address] : 1955 AGE: 64 SEX: M LOC: ZURI PHONE #: [phone] EXAM DATE: 09/17/2019 STATUS: REG [facility] [place] FAX #: [phone] RAD #: [id number] D/C DT PAGE 2 Signed Report- XR L-SPINE W/BEND [id number] 12:16:00 Patient Name: AISHA PARKER Unit No: [id number] EXAMS: CPT CODE: [id number] XR L-SPINE W/BEND [id number] LUMBAR SPINE 5 VIEWS PLUS FLEXION AND EXTENSION COMMENT: COMPARISON: No prior exams available.Vertebral body heights are maintained. There is interspace narrowing and endplate degenerative change from L2 to L5. Lumbar scoliosis convex left is present. No abnormal motion is seen with flexion and extension. Increased bone density is seen in the left side of the pubic symphysis and the superior and inferior pubic rami the etiology of which is not certain. This may represent Paget's disease. Correlation is recommended. at 1216 Reported and signed by: Ghassan Clay MD CC: Ghassan Bright M.D. Technologist: RT DIMITRI(R) Transcribed D/ (1216) [facility] NAME: AISHA PARKER [address] [place] [address] PHYS: Ghassan Stanley MD : 1955 AGE: 64 SEX: M [place] [address] LOC: Y.RAD PHONE #: [phone] EXAM DATE: 08/09/2019 STATUS: DEP CLI FAX#: [phone] RAD #: [id number] D/C DT PAGE 1 Signed Report Patient Name: AISHA PARKER Unit No: [id number] EXAMS: CPT CODE: [id number] XR L-SPINE W/BEND VIEW 52129 (Continued) Orig Print D/T: S: 08/10/2019 (1219) [facility] NAME: AISHA PARKER [address] [place] [address] PHYS: Ghassan Stanley MD : 1955 AGE: 64 SEX: M [place] [address] LOC: Y.RAD PHONE #: [phone] EXAM DATE: 08/09/2019 STATUS: DEP CLI FAX #: [phone] RAD #: [id number] D/C DT PAGE2 Signed Report- CT L-SPINE W/O [id number] 07:14:00 Patient Name: AISHA PARKER Unit No: [id number] EXAMS: CPT CODE: [id number] CT L-SPINE W/O [id number] DIAGNOSIS: 1. At L1-2 there is no evidence for disc bulge or herniation. Facet degeneration is present with slight narrowing of the central canal. No foraminal narrowing is seen. 2. At L2-3 there are bilateral L2 spondylolysis defects with a mild spondylolisthesis. Endplate spur formation is seen with disc bulging. Moderate right foraminal narrowing is present with mild left-sided stenosis. Mild central canal stenosis is seen with facet degeneration. 3. At L3-4 there are bilateral L3 spondylolysis defects with marked disc and endplate degenerative change and a grade 1 spondylolisthesis. 6 mmof disc bulging is seen lateralizing into the right neural foramen with marked right foraminal narrowing and mild left-sided stenosis. Moderate constriction of the thecal sac is present due to facet and ligamentum flavum hypertrophic and degenerative change and disc. 4. At L4-5 there are bilateral O0kpdszaihxebpj defects with a mild spondylolisthesis. 3 mm [...] and reconstructions were obtained. 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 A scoliosis convex left is present. Disc configurations are as described. Spondylitic changes are as noted. The description these findings assumes a normal count of 5 lumbar typevertebra. at 0714 Reported and signed by: Ghassan Clay MD CC: Ghassan Bright M.D. Technologist: RT Raul(R) CTDI: DLP: Trnscrpt: 08/10/2019 (0714) [facility] NAME: AISHA PARKER [address] [place] [address] PHYS: Ghassan Stanley MD : 1955 AGE: 64 SEX: M [place], [place] [address] LOC: Y.RAD PHONE #: [phone] EXAM DATE: 08/09/2019 STATUS: DEP CLI FAX #: [phone] RAD #: [id number] D/C DT PAGE 1 Signed Report Patient Name: AISHA PARKER Unit No: [id number] EXAMS: CPT CODE: [id number] CT L-SPINE W/O CONTRAST 87002 (Continued) Orig Print D/T: S: 08/10/2019 (0717)[facility] NAME: AISHA PARKER [address] [facility] PHYS: Ghassan Stanley MD : 1955 AGE: 64 SEX: M [place], [place] [address] LOC: SIM PHONE #: [phone] EXAM DATE: 08/09/2019 STATUS: CRISTI NEW FAX #: [phone] RAD #: [id number] D/C DT PAGE 2 Signed Report[QLH] CMP W/EGFR 2019-05-28 11:27:00 Test Item Value Reference Range Interpretation [...] eGFR NON- 54 > OR = 60 VINCENTIAN (test {ML/MIN/1.7} code = eGFR NON-) eGFR 63 > OR = 60 N VINCENTIAN (test {ML/MIN/1.7} code = eGFR ) BUN/CREATININE [...] mg/dl 0.2-1.2 N Normal (test code = 84875-8) ALKALINE 56 u/l 40-115 N PHSPHATASE (test code = ALKALINE PHSPHATASE) AST; Normal (test 20 u/l 10-35 N code = 1916-6) ALT; Normal (test 17 u/l 9-46 N code = 1742-6) [facility][QL] ALKALINE PHOSPHATASE, BONE [id number] 11:27:00 Test Item Value Reference Range Interpretation Comments BONE SPECIFIC (test code = BONE 11.0 {mcg/L} 7.6-14.9 SPECIFIC) [facility][QL] CMP [id number] 10:50:01 Test Item Value Reference Range Interpretation Comments Sodium Level 142 {mEq/l} 135-145 (test code = 2951-2) Potassium Level 4.6 {mEq/l} 3.5-5.1 (test code = 2823-3) Chloride Level 105 {mEq/l} 95-109 (test code = 2075-0) Carbon Dioxide; 33 {mEq/l} 24-32 Above High Threshold (test code = 2027-) AGAP; Below Low 8.6 {mEq/l} 10.0-20.0 Threshold (test code = 76882-8) Glucose Lvl (test 77 mg/dl 70-99 Adult refe rence range code = 2345-7) values reflec t the clinical guidel inesof the [place] Diabet es Association. Creatinine Lvl; 1.50 mg/dl [...] g/dl 2.7-4.2 Low Threshold (test code = 96236-1) A/G Ratio; Above 1.7 0.7-1.6 High Threshold (test code = 1759-0) Calcium Level 8.9 mg/dl 8.5-10.5 Total (test code = 49201-8) ALT (test code = 29 u/l 0-65 1743-4) AST (test code = 26 u/l 0-37 20112-5) Alk Phos (test 48 u/l 39-136 code = 1783-0) Bili Total (test 1.1 mg/dl 0.2-1.3 code = 1974-) eGFR (test code = 50 The eGFR i s calculated 93555-1) {ML/MIN/1.7} using the CKD-E PI formula. In [...] be multiplied by t he estimated BMI. [facility]] ALKALINE PHOSPHATASE, BONE [id number] 10:50:01 Test Item Value Reference Range Interpretation Comments Alkaline Phosphatase 11.4 {UG/L} 7.5-25.4 Perform ed At: [facility] (test code = [facility] Alkaline Phosphatase [facility] [place], [place] [address]Ztyceh ra Nir AGUILA Ph:[phone] [facility][QL] CMP [id number] 14:30:01 Test Item Value Reference Range Interpretation Comments Sodium Level 141 {mEq/l} 135-145 (test code = 2951-2) Potassium Level 4.2 {mEq/l} 3.5-5.1 (test code = 2823-3) Chloride Level 107 {mEq/l} 95-109 (test code = 2074-0) Carbon Dioxide 27 {mEq/l} 24-32 (test code = 2027-) AGAP (test code = 11.2 {mEq/l} 10.0-20.0 08997-6) Glucose Lvl (test 90 mg/dl 70-99 Adult refe rence range code = 2345-7) values reflec t the clinical guidel inesof the [place] Diabet es Association. Creatinine Lvl; 1.80 mg/dl [...] g/dl 2.7-4.2 Low Threshold (test code = 41203-7) A/G Ratio (test 1.5 0.7-1.6 code = 1759-0) Calcium Level 8.5 mg/dl 8.5-10.5 Total (test code = 90179-9) ALT (test code = 35 u/l 0-65 1743-4) AST (test code = 24 u/l 0-37 64641-8) Alk Phos (test 111 u/l 39-136 code = 1783-0) Bili Total (test 1.2 mg/dl 0.2-1.3 code = 1974-) eGFR (test code = 40 The eGFR i s calculated 02200-2) {ML/MIN/1.7} using the CKD-E PI formula. In [...] be multiplied by t he estimated BMI. [facility][QL] VITAMIN D, 25-HYDROXY, LC/[id number] 07:25:00 Test Item Value Reference Range Interpretation [...] D, (D2,D3), LC/MS/MS is recommended: order code 97532 (pat ients >2yrs). For mor e information on this test, go to:http://educa tion.ques tdiagnostics.co m/faq/FAQ 163(This link i s being provided for informational/e ducationa l purposes only .) [facility][QL] CBC (INCLUDES DIFF/PLT)2018-05-27 07:25:00 Test Item Value Reference Range Interpretation Comments WHITE BLOOD CELL COUNT 4.4 {Thousand/u} 3.8-10.8 N (test code = WHITE BLOOD CELL COUNT) RED BLOOD CELL COUNT (test 4.84 {Million/uL} 4.20-5.80 N code = RED BLOOD CELL COUNT) HEMAGLOBIN; Normal (test 15.0 g/dl 13.2-17.1 N code = 78990-3) HEMATOCRIT; Normal (test 43.3 % 38.5-50.0 N code = 4544-3) MCV; Normal (test code = 89.5 fL 80.0-100.0 N 787-2) MCHC; Normal (test code = 34.6 g/dl 32.0-36.0 N 12326-3) RDW; Normal (test code = 12.8 % 11.0-15.0 N 788-0) PLATELET COUNT; Below Low 93 {Thousand/u} 140-400 Threshold (test code = 777-3) MPV; Above High Threshold 12.8 fL 7.5-12.5 (test code = 79241-7) ABSOLUTE NEUTROPHILS (test 2882 {cells/uL} 2042-5718 N code = ABSOLUTE NEUTROPHILS) ABSOLUTE LYMPHOCYTES [...] Normal (test 6.5 % N code = 87884-8) EOSINOPHILS; Normal (test 2.5 % N code = 82387-4) BASOPHILS; Normal (test 0.7 % N code = 31055-4) [facility][QL] ALKALINE PHOSPHATASE, BONE [id number] 07:25:00 Test Item Value Reference Range Interpretation Comments BONE SPECIFIC (test code = BONE 33.7 {mcg/L} 7.6-14.9 SPECIFIC) [facility][QL] PTH, INTACT (WITHOUT CALCIUM)2018-05-27 07:25:00 Test Item Value Reference Range Interpretation Comments PARATHYROID 68 pg/ml 14-64 Interpretive Gu john Intact PTH HORMONE, INTACT Calcium----- (test code = ---- ---Normal PARATHYROID Parathyroid No rmal HORMONE, INTACT) NormalHypop arathyroidism Low or Low Normal LowHyperparathy roidism Primary Normal or High High Secondary High Normal or Low Tertiary High HighNon-Parathy roid Hypercalcemia L ow or Low Normal High [facility][QL] TSH, 3RD GENERATION W/REFLEX TO [id number] 07:25:00 Test Item Value Reference Range Interpretation Comments TSH, 3RD GENERATION W/REFLEX TO 3.15 {MIU/L} 0.40-4.50 N FT4 (test code = TSH, 3RD GENERATION W/REFLEX TO FT4) [facility][QL] PHOSPHATE ( PHOSPHORUS)2018-05-27 07:25:00 Test Item Value Reference Range Interpretation Comments PHOSPHATE ( PHOSPHORUS) (test 3.6 mg/dl 2.5-4.5 N code = PHOSPHATE ( PHOSPHORUS)) [facility][QL] CMP [id number] 07:25:00 Test Item Value Reference Range Interpretation [...] eGFR NON- 53 > OR = 60 VINCENTIAN (test {ML/MIN/1.7} code = eGFR NON-) eGFR 62 > OR = 60 N VINCENTIAN (test {ML/MIN/1.7} code = eGFR ) BUN/CREATININE [...] mg/dl 0.2-1.2 N Normal (test code = 02998-7) ALKALINE 121 u/l 40-115 PHSPHATASE (test code = ALKALINE PHSPHATASE) AST; Normal (test 19 u/l 10-35 N code = 1916-6) ALT; Normal (test 16 u/l 9-46 N code = 1742-6) [facility][U] XRAY HIP UNILATERAL MIN 2 VWS RIGHT [id number] 09:50:00 Images acquired, not reported on this accession number.[facility] Notes Date/Time Note Provider Source 2020-06-07 09:56:00-00:00 [facility] ([facility]) Pain Management Progress Note REPORT#:[id number] REPORT STATUS: Signed DATE:06/07/20 TIME: 955 PATIENT: AISHA PARKER UNIT #: [id number] ROOM/BED: [address] : [birth year] AGE: 65 SEX: M ATTEND: Daisy Bright MD ADM AUTHOR: Marcie Montes AIRCRAFT STRUCTURAL DESIGN ENGINEER * ALL edits or amendments must be made on the OneDoc/computer document * Subjective Chief Complaint: NECK PAIN S/P ACDF Comments: Last Documented: Result Date Time Pulse Ox 99 06/07 927 O2 Delivery Nasal cannula 06/07 927 O2 Flow Rate 3.051226 06/07 0927 B/P 115/74 06/07 0700 B/P Mean 87.5 06/07 07 Temp 36.5 06/07 0700 Pulse 73 06/07 0700 Resp 17 06/07 0700 FiO2 32 06/07 0208 History: PMH: GERD, HTN, AVR-REPLACED 3 TIMES POD: 1 APMS RN: Briseyda GUERRERO RN Medication: MORPHINE Pump settings: BASAL RATE: O DOSE: 1 MG DELAY: 8 MIN POLICE BOOKING OFFICER USE: OCCASIONAL Activity status: PT SITTING UP IN BED WATCHING TV. Pain: STATES HAS LITTLE PAIN Physical Exam: VAS: 2 LOS: 1 Resp Quality: 1 Side Effects: NONE PT APPEARS COMFORTABLE AT THIS TIME. Plan: POLICE BOOKING OFFICER TO BE DC'D BY FLOOR NURSE THIS AM PT TO TRANSITION TO ORAL PAIN MEDS ANTICIPATE D/C HOME TODAY. at 0958 RPT #:[id number] END OF REPORT 2020-06-07 09:56:00-00:00 [facility] Pain Management Progress Note REPORT#:[id number] REPORT STATUS: Signed DATE:06/07/20 TIME: 955 PATIENT: AISHA PARKER UNIT #: [id number] ROOM/BED: [address] : [birth year] AGE: 65 SEX: M ATTEND: Daisy Bright MD ADM AUTHOR: Marcie Montes NP * ALL edits or amendments must be made on the OneDoc/computer document * Subjective Chief Complaint: NECK PAIN S/P ACDF Comments: Last Documented: Result Date Time Pulse Ox 99 06/07 927 O2 Delivery Nasal cannula 06/07 927 O2 Flow Rate 3.957908 06/07 927 B/P 115/74 06/07 07 B/P Mean 87.5 06/07 07 Temp 36.5 06/07 07 Pulse 73 06/07 07 Resp 17 06/07 07 FiO2 32 06/07 0208 History: PMH: GERD, HTN, AVR-REPLACED 3 TIMES POD: 1 APMS RN: Briseyda GUERRERO RN Medication: MORPHINE Pump settings: BASAL RATE: O DOSE: 1 MG DELAY: 8 MIN POLICE BOOKING OFFICER USE: OCCASIONAL Activity status: PT SITTING UP IN BED WATCHING TV. Pain: STATES HAS LITTLE PAIN Physical Exam: VAS: 2 LOS: 1 Resp Quality: 1 Side Effects: NONE PT APPEARS COMFORTABLE AT THIS TIME. Plan: POLICE BOOKING OFFICER TO BE DC'D BY FLOOR NURSE THIS AM PT TO TRANSITION TO ORAL PAIN MEDS ANTICIPATE D/C HOME TODAY. at 0958 at 0639 RPT #:[id number] END OF REPORT 2020-06-07 07:45:00-00:00 [facility]) Internal Medicine Prog. Note REPORT#:[id number] REPORT STATUS: Signed DATE:06/07/20 TIME: 744 PATIENT: AISHA PARKER UNIT #: [id number] [facility] AGE: 65 SEX: M ATTEND: Daisy Bright MD ADM AUTHOR: Sebastián Patel MD * ALL edits or amendments must be made on the OneDoc/e2e Materials document * Subjective Patient reports: no complain ts, no abdominal pain, no chest pain, no dizziness ( when getting OOB), no heartb urn, no nausea, no shortness of breath, no vomiting, feeling better, good urine output, pain controll ed, passing flatus Objective General VS/I O: Vital Signs Date Temp Pulse Resp B/P B/P Mean Pulse Ox FiO2 06/06-06/07 96.8-98.6 66-82 12-19 102-133/60-94 78.9-87.5 12-100 32 Last Documented: Result Date Time Pulse Ox 99 06/07 0700 B/P 115/74 06/07 0700 B/P Mean 87.5 06/07 0700 O2 Delivery Nasal cannula 06/07 07 Temp 97.7 06/07 0700 Pulse 73 06/07 0700 Resp 17 06/07 0700 O2 Flow Rate 3.597638 06/07 0348 FiO2 32 06/07 0208 24 [...] bowel sounds, soft, no distention Genitourinary: no garner Extremities: Extremities: no calf tenderness, no edema Results Findings/Data: Laboratory Tests 06/07/20 0440: [Embedded Image Not Available] Laboratory Tests 06/07 [...] Patel MD on 11/25 at 0854 RPT #:[id number] END OF REPORT 2020-06-07 06:29:00-00:00 [facility] ([facility]) Ortho / Spine Progress Note REPORT#:[id number] REPORT STATUS: Signed DATE:06/07/20 TIME: 628 PATIENT: AISHA PARKER UNIT #: [id number] ROOM/BED: [address] : [birth year] AGE: 65 SEX: M ATTEND: Daisy Bright MD ADM AUTHOR: Ghassan Bright MD * ALL edits or amendments must be made on the OneDoc/computer document * Subjective Patient Reports: ambulating, feeling better, waldo n controlled Nursing Reports: HEMOVAC OUTPUT 30 CC`S Objective General VS/I O: Vital Signs: Date Time Temp Pulse Resp B/P B/P Pulse O2 O2 F low FiO2 Mean Ox Delivery Rate 06/07 0348 98.1 76 18 114/74 87.2 97 Nasal 3.00 0000 cannula 06/07 0208 95 Nasal 3.297712 32 cannula 06/06 2236 98.6 78 16 111/71 84.5 97 Nasal 3.00 0000 cannula 06/06 191 96 Nasal 3.554365 32 cannula 06/06 191 Nasal 3.074132 cannula 06/06 1909 96.8 82 16 104/66 78.9 96 Nasal 3.00 0000 cannula 06/06 1840 80 15 109/62 100 Nasal 3.924277 cannula 06/06 1825 97.9 81 12 108/64 100 Nasal 3.292619 cannula 06/06 1820 Simple 6.527696 mask 06/06 1810 79 14 110/62 100 Nasal 3.469982 cannula 06/06 1755 75 12 106/62 100 Nasal 3.885672 cannula 06/06 1740 73 13 102/60 100 Nasal 3.162130 cannula 06/06 1725 98.0 71 13 115/71 100 Nasal 3.744479 cannula 06/06 1710 68 13 130/81 100 Nasal 3.963235 cannula 06/06 1655 68 12 132/71 100 Simple 6.068566 mask 06/06 1640 66 19 118/68 12 Simple 6.210495 mask 06/06 0831 97.9 68 16 133/94 [...] MD on 0 06/07/20 at 0632 RPT #:[id number] END OF REPORT 2020-06-06 20:56:00-00:00 [facility] ([facility]) Ortho / Spine Progress Note REPORT#:[id number] REPORT STATUS: Signed DATE:06/06/20 TIME: 2055 PATIENT: AISHA PARKER UNIT #: [id number] ROOM/BED: [address] : [birth year] AGE: 65 SEX: M ATTEND: Daisy Bright MD ADM AUTHOR: Ghassan Bright MD * ALL edits or amendments must be made on the OneDoc/computer document * Subjective Patient Reports: comfortable, pain controlled Objective General VS/I O: Vital Signs: Date Time Temp Pulse Resp B/P B/P Pulse O2 O2 F low FiO2 Mean Ox Delivery Rate 06/06 191 Nasal 3.067595 cannula 06/06 190 96.8 82 16 104/66 78.9 96 Nasal 3.00 0000 cannula 06/06 1840 80 15 109/62 100 Nasal 3.843418 cannula 06/06 1825 97.9 81 12 108/64 100 Nasal 3.488800 cannula 06/06 1820 Simple 6.417136 mask 06/06 1810 79 14 110/62 100 Nasal 3.473638 cannula 06/06 1755 75 12 106/62 100 Nasal 3.532919 cannula 06/06 1740 73 13 102/60 100 Nasal 3.672342 cannula 06/06 1725 98.0 71 13 115/71 100 Nasal 3.060075 cannula 06/06 1710 68 13 130/81 100 Nasal 3.657573 cannula 06/06 1655 68 12 132/71 100 Simple 6.448543 mask 06/06 1640 66 19 118/68 12 Simple 6.092841 mask 06/06 0831 97.9 68 16 133/94 [...] Ghassan Bright MD on 0 06/06/20 at 6 RPT #:[id number] END OF REPORT 2020-06-06 20:07:00-00:00 [facility] ([facility]) Brief Op Note REPORT#:[id number] REPORT STATUS: Signed DATE:06/06/20 TIME: 2006 PATIENT: AISHA PARKER UNIT #: [id number] ROOM/BED: [address] : [birth year] AGE: 65 SEX: M ATTEND: Daisy rBight MD ADM AUTHOR: Ghassan Bright MD * ALL edits or amendments must be made on the el ectronic/computer document * Op/Inv Proc Note - Brief Pre-procedure diagnosis: STENOSIS C5-6 AND C6-7 Post-procedure diagnosis: same as pre procedure dx Procedures performed: ACDF C5-6 AND C6-7 Primary Surgeon: RYAN Performance Makeup Artist(s): PAUL Findings: SEE DICTATION TO FOLLOW Complications: none Estimated blood loss in ml's: 20 CC`S Specimens removed/altered: none Electronically Signed by Ghassan Bright MD on 0 06/06/20 at 2007 RPT #:[id number] END OF REPORT 2020-06-06 19:50:00-00:00 [id number], [place] [address] PATIENT NAME: AISHA PARKER ADMIT DATE: 0 ACCOUNT NO: [id number] ROOM NO: Y.523 AGE: 65 REPORT TYPE: [...] adequate pain control with his m orphine POLICE BOOKING OFFICER. PAST MEDICAL HISTORY: Paroxysmal atrial fibrilla tion. [...] of breath/wheezing, metoprolol PATIENT NAME: AISHA PARKER [address] tartrate 12.5 mg b.i.d. FAMILY HISTORY: Mother had hypertension, coronar y artery disease. 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 H e does not smoke and occasionally [...] distention. EXTREMITIES: No clubbing, cyanosis, or edema. N o calf or thigh swelling or posterior tenderness [...] low-bob t diet as tolerated. 2. Thigh-high ELINA hose. 3. Sequential compression devices to both [...] hospitalization. Dictated By: Sebastián Patel MD WT: CON:DANIEL/STEFFEN/SANDRITA Conf#: [id number]/DID#: [id number] Authenticated by Sebastián Patel MD On 06/09/2020 08:27:06 AM Electronically Signed by Sebastián Patel MD on at 0827 PATIENT NAME: AISHA PARKER 1177 2020-06-06 19:25:00-00:00 [facility] ([facility]) Internal Medicine Prog. Note REPORT#:[id number] REPORT STATUS: Signed DATE:06/06/20 TIME: 1924 PATIENT: AISHA PARKER UNIT #: [id number] ROOM/BED: [address] : [birth year] AGE: 65 SEX: M ATTEND: Daisy Bright MD ADM AUTHOR: Sebastián Patel MD * ALL edits or amendments must be made on the el Swopboard/computer document * Subjective Comments: Consult Note Dictated Objective General VS/I O: Vital Signs Date Temp Pulse Resp B/P B/P Mean Pulse Ox FiO2 06/06 96.8-98.0 66-82 12 102-133/60-94 78.9 Last Documented: Result Date Time O2 Delivery Nasal cannula 06/06 1911 O2 Flow Rate 3.551116 06/06 1911 Pulse Ox 96 06/06 1909 B/P 104/66 06/06 1909 B/P Mean 78.9 06/06 1909 Temp 96.8 06/06 1909 Pulse 82 06/06 1909 Resp 16 06/06 1909 Patient Weight Weight (lb): 212 Weight (oz): 1.36 Weight (kg): 96.200 Diagnosis, Assessment Plan Problem List/A P: 1. Afib 2. Gastro-esophageal reflux disease without eso phagitis 3. Hypogonadism male 4. History of CVA (cerebrovascular accident) 5. CKD (chronic kidney disease), stage III Electronically Signed by Sebastián Patel MD on 10/25 at 1959 RPT #:[id number] END OF REPORT
--- NOTE | 2023-04-13 11:37 | RAD REPORT ---
EXAM DESCRIPTION: RAD - Chest Pa And Lat (2 Views) - 04/13/2023 10:38 am CLINICAL HISTORY: COUGH COMPARISON: Chest Single View dated 10/31/2022; CHEST SINGLE VIEW dated 10/20/2010; CHEST SINGLE VIEW dated 10/20/2010; CHEST SINGLE VIEW dated 09/27/2010; Head C Spine Cap W Con dated 02/21/2023 TECHNIQUE: PA and lateral views of the chest were obtained. FINDINGS: The lungs are clear. Bibasilar atelectasis. Heart size is normal and central vasculature i s within normal limits. No pleural effusion or pneumothorax seen. Prosthetic aortic valve in place. N o acute bony finding noted. Surgical clips in the superior mediastinum and right axilla, stable. Supe rior endplate compression deformity at T8 appears stable compared to the most recent CT. IMPRESSION: No acute cardiopulmonary process. Stable findings as above.
[2023-04-13] MEDS ORDERED: dexAMETHasone 10 MG/ML VIAL ONE (11:42)
--- NOTE | 2023-04-13 11:43 | ER ---
Nurse's Notes [facility] Name: Guy Mcgregor Age: 68 yrs Sex: Male : 1955 Arrival Date: 04/13/2023 Time: 09:33 Bed 14 Private MD: Diagnosis: Acute upper respiratory infection, unspecified Presentation: 04/13 09:35 Chief complaint: Productive cough with greenish cook sputum, SOB, sinus congestion, and hb sore throat x 5 days. Coronavirus screen: Client presents with at least one sign or symptom that may indicate coronavirus-19. Provider contacted for isolation considerations. Ebola Screen: No symptoms or risks identified at this time. Initial Sepsis Screen: Does the patient meet any 2 criteria? No. Patient's initial sepsis screen is negative. Does the patient have a suspected source of infection? No. Patient's initial sepsis screen is negative. Risk Assessment: Do you want to hurt yourself or someone else? Patient reports no desire to harm self or others. Onset of symptoms was April 08, 2023. 09:35 Method Of Arrival: Ambulatory 09:35 Acuity: UMU 3 hb Triage Assessment: 10:30 General: Appears in no apparent distress. comfortable, Behavior is calm, cooperative. db Neuro: Level of Consciousness is awake, alert, obeys commands, Oriented to person, place, time, situation. Historical: - Allergies: 09:49 Amiodarone; hb 09:49 Nitroglycerin; hb 09:49 Soqtnyi-Cgp-Ofs Reductase Inhibitors; hb - Home Meds: 09:49 Warfarin Oral [Active]; anastrozole oral [Active]; Metoprolol Tartrate Oral [Active]; hb esomeprazole magnesium oral [Active]; - PMHx: 09:49 Hypertension; Acid Reflux; hb - PSHx: 09:49 AAA Repair; Aortic Valve Replacement x 3; Back; Wrist - Left; Clavicle - Right; Elbow - hb Right; Hip Replacement - Right; Cholecystectomy; Shoulder - Right; - Immunization history:: Adult Immunizations up to date. - Social history:: Smoking status: Patient denies any tobacco usage or history of. Screenin:59 [facility] ED Fall Risk Assessment (Adult) History of falling in the last 3 months, db including since admission No falls in past 3 months (0 pts) Confusion or Disorientation No (0 pts) Intoxicated or Sedated No (0 pts) Impaired Gait No (0 pts) Mobility Assist Device Used No (0 pt) Altered Elimination No (0 pt) Score/Fall Risk Level 0 - 2 = Low Risk Oriented to surroundings, Maintained a safe environment. Abuse screen: Denies threats or abuse. Denies injuries from another. Nutritional screening: No deficits noted. Tuberculosis screening: No symptoms or risk factors identified. Assessment: 10:11 Reassessment: Patient appears in no apparent distress at this time. Patient and/or db family updated on plan of care and expected duration. Pain level reassessed. Patient is alert, oriented x 3, equal unlabored respirations, skin warm/dry/pink. General: Appears in no apparent distress. comfortable, Behavior is calm, cooperative. Pain: Complains of pain in sore throat. Neuro: Level of Consciousness is awake, alert, obeys commands, Oriented to person, place, time, situation. Respiratory: Airway is patent Respiratory effort is even, unlabored, Respiratory pattern is regular, symmetrical. 10:31 Reassessment: pt to radiology. db 11:30 Reassessment: Patient appears in no apparent distress at this time. Patient and/or db family updated on plan of care and expected duration. Pain level reassessed. Patient is alert, oriented x 3, equal unlabored respirations, skin warm/dry/pink. General: Appears in no apparent distress. comfortable, Behavior is calm, cooperative. Vital Signs: 09:35 BP 151 / 105; Pulse 69; Resp 18; Temp 98(O); Pulse Ox 97% on R/A; Weight 91.17 kg; hb Height 5 ft. 2 in. ; Pain 11/15; 11:30 BP 150 / 98; Pulse 72; Resp 18; Pulse Ox 98% on R/A; db 09:35 Body Mass Index 36.76 (91.17 kg, 157.48 cm) hb 09:35 Pain Scale: Adult hb ED Course: 09:35 Patient arrived in ED. ts1 09:39 Lena Gay PA-C is PHCP. sb4 09:39 Obdulio Mendoza MD is Attending Physician. sb4 09:47 Patient has correct armband on for positive identification. Bed in low position. Call mm9 light in reach. Pulse ox on. NIBP on. 09:57 Triage completed. hb 09:59 Amanda Covarrubias, RN is Primary Nurse. db 10:30 Arm band placed on Patient placed in an exam room. db 10:39 Chest Pa And Lat (2 Views) XRAY In Process Unspecified. EDMS 12:00 No provider procedures requiring assistance completed. Patient did not have IV access db during this emergency room visit. Administered Medications: 11:39 Not Given (Physician Discretion): Dexamethasone IM 10 mg IM once sb4 11:57 Drug: Rocephin (cefTRIAXone) IM 1 grams Route: IM; Site: right vastus lateralis; db 12:01 Follow up: Response: No adverse reaction db Medication: 12:00 VIS not applicable for this client. db Outcome: 11:42 Discharge ordered by . sb4 12:00 Discharged to home ambulatory. db 12:00 Condition: stable 12:00 Discharge instructions given to patient, Instructed on discharge instructions, follow up and referral plans. Prescriptions given X 1. 12:01 Patient left the ED. db Signatures: Dispatcher [employer] EDIN Julissa Echeverria RN RN Amanda Covarrubias, RN RN Lena Gay, PA-C PA-C sb4 Viktoriya Jensen mm9 Анна Tan, PAS PAS ts1
--- NOTE | 2023-04-13 11:43 | EDPHYS ---
Physician Documentation [facility] Name: Guy Mcgregor Age: 68 yrs Sex: Male : 1955 Arrival Date: 04/13/2023 Time: 09:33 Bed 14 Private MD: FRANSICO Physician Obdulio Mendoza HPI: 04/13 11:01 This 68 yrs old Male presents to ER via Ambulatory with complaints of Chest Congestion, sb4 Cough. 11:01 Onset: The symptoms/episode began/occurred 1 week(s) ago. Associated signs and sb4 symptoms: Pertinent positives: congestion, cough, sore throat, Pertinent negatives: chest pain, fever, shortness of breath. Modifying factors:. Modifying factors: The patient symptoms are alleviated by nothing, the patient symptoms are aggravated by nothing. The patient has been recently seen by a physician:. 68 year old male with complex medical history, aortic valve replacement x 3, AAA repair, GERD scheduled for fundiplication on Friday presents with complaints of congestion and productive cough. he states the symptoms started about a week ago. he discussed the symptoms with his GI doctor performing the surgery who said it would resolve on its own but it has gotten worse. He is concerned that he won't be able to have the surgery. Historical: - Allergies: 09:49 Amiodarone; hb 09:49 Nitroglycerin; hb 09:49 Jcroals-Bsd-Sur Reductase Inhibitors; hb - Home Meds: 09:49 Warfarin Oral [Active]; anastrozole oral [Active]; Metoprolol Tartrate Oral [Active]; hb esomeprazole magnesium oral [Active]; - PMHx: 09:49 Hypertension; Acid Reflux; hb - PSHx: 09:49 AAA Repair; Aortic Valve Replacement x 3; Back; Wrist - Left; Clavicle - Right; Elbow - hb Right; Hip Replacement - Right; Cholecystectomy; Shoulder - Right; - Immunization history:: Adult Immunizations up to date. - Social history:: Smoking status: Patient denies any tobacco usage or history of. ROS: 11:01 Constitutional: Negative for fever, chills, and weight loss. sb4 11:01 ENT: Positive for sinus congestion, sore throat. 11:01 Respiratory: Positive for cough, with green sputum, Negative for dyspnea on exertion, hemoptysis, orthopnea, shortness of breath, wheezing. 11:01 All other systems are negative. Exam: 11:01 Constitutional: This is a well developed, well nourished patient who is awake, alert, sb4 and in no acute distress. Head/Face: Normocephalic, atraumatic. Eyes: Extra-ocular motions intact. Periorbital areas with no swelling, redness, or edema. ENT: Mucous membranes moist. Cardiovascular: Regular rate and rhythm with a normal S1 and S2. Respiratory: Lungs have equal breath sounds bilaterally, clear to auscultation and percussion. No rales, rhonchi or wheezes noted. No increased work of breathing, no retractions or nasal flaring. Abdomen/GI: Soft, non-tender, no distension. Skin: Warm, dry with normal turgor. Normal color with no rashes, no lesions, and no evidence of cellulitis. MS/ Extremity: Pulses equal, no cyanosis. Neurovascular intact. Full, normal range of motion. Neuro: Awake and alert, GCS 15, oriented to person, place, time, and situation. Cranial nerves II-XII grossly intact. Motor strength 5/5 in all extremities. Sensory grossly intact. Cerebellar exam normal. Normal gait. Vital Signs: 09:35 BP 151 / 105; Pulse 69; Resp 18; Temp 98(O); Pulse Ox 97% on R/A; Weight 91.17 kg; hb Height 5 ft. 2 in. ; Pain 2/10; 11:30 BP 150 / 98; Pulse 72; Resp 18; Pulse Ox 98% on R/A; db 09:35 Body Mass Index 36.76 (91.17 kg, 157.48 cm) hb 09:35 Pain Scale: Adult hb MDM: 09:47 Patient medically screened. sb4 11:01 Differential diagnosis: viral Infection, bacterial infection, URI, bronchitis, sb4 pneumonia. 11:40 Data reviewed: vital signs, nurses notes, radiologic studies, plain films, I have sb4 discussed the patient's presentation/case with the attending Emergency Department Physician;. I considered the following discharge prescriptions or medication management in the emergency department Medications were administered in the Emergency Department. See MAR. Independent interpretation of the following test(s) in the Emergency Department X-Ray: My interpretation is My interpretation of the x-ray images are no acute consolidation. Test considered but Not performed: Labs: Not indicated at this time. Care significantly affected by the following chronic conditions: Aortic valve repair x3 on warfarin. 04/13 10:08 Order name: Chest Pa And Lat (2 Views) XRAY; Complete Time: 11:37 sb4 Administered Medications: 11:39 Not Given (Physician Discretion): Dexamethasone IM 10 mg IM once sb4 11:57 Drug: Rocephin (cefTRIAXone) IM 1 grams Route: IM; Site: right vastus lateralis; db 12:01 Follow up: Response: No adverse reaction db Disposition Summary: 04/13/23 11:42 Discharge Ordered Location: Home sb4 Problem: an ongoing problem sb4 Symptoms: have improved sb4 Condition: Stable sb4 Diagnosis - Acute upper respiratory infection, unspecified sb4 Followup: sb4 - With: Private Physician - When: As needed - Reason: Recheck today's complaints, Re-evaluation by your physician Discharge Instructions: - Discharge Summary Sheet sb4 - Upper Respiratory Infection, Adult, Mien-yi-Opdi sb4 Forms: - Medication Reconciliation Form sb4 - Thank You Letter sb4 - Antibiotic Education sb4 - Prescription Opioid Use sb4 - [email or web address] sb4 Prescriptions: - Augmentin 875-125 mg Oral Tablet - take 1 tablet by ORAL route every 12 hours for 10 days; 20 tablet; Refills: 0, sb4 Product Selection Permitted Signatures: Dispatcher [employer] Julissa Victoria, RN RN Amanda Toth, RN RN Lena Dominguez, KAMLA CASON sb4
[2023-04-13] MEDS ORDERED: LIDOCAINE 1% MPF 2 ML AMPULE ONE (11:55)
[2023-04-13] MEDS ORDERED: CEFTRIAXONE 1000 MG/VIAL ONE (11:55)
== END 2023-04-13 12:01 | disposition home or self-care (01) ==
LOC: ER 09:33
DX: J06.9 Acute upper respiratory infection, unspecified (principal); I10 Essential (primary) hypertension; Z95.4 Presence of other heart-valve replacement; Z79.01 Long term (current) use of anticoagulants; Z88.8 Allergy status to other drugs, medicaments and biological substances
CPT/HCPCS: 71046; 96372; 99284; J0696; J1100

== ENCOUNTER 2024-10-16 10:54 | Emergency (ER) | payer OTHER ==
[2024-10-16] MEDS ORDERED: predniSONE 20 MG TAB ONE (11:53)
[2024-10-16] MEDS ORDERED: BENZONATATE 100 MG CAP PO ONE (11:53)
[2024-10-16] MEDS ORDERED: ALBUTEROL 2.5 MG/3 ML NEB SOL ONE (11:53)
[2024-10-16] MEDS ORDERED: IPRATROPIUM BROM 0.5MG/2.5ML ONE (11:53)
[2024-10-16 12:28] LABS: SARS-CoV-2 Antigen CONTROL BLUE LINE VIS/BG OK; SARS-CoV-2 Antigen Rapid Res Negative (Negative)
--- NOTE | 2024-10-16 13:10 | ER ---
Nurse's Notes [facility] Name: Guy Mcgregor Age: 69 yrs Sex: Male : 1955 Arrival Date: 10/16/2024 Time: 10:54 Bed 11 Private MD: Diagnosis: Influenza due to identified novel influenza A virus with other respiratory manifestations Presentation: 10/16 11:03 Chief complaint: Patient states: Cough, SOB, congestion, body aches for 6-7 days. ll1 Coronavirus screen: Client indicates they have traveled out of the [place] in the last 14 days. Client traveled to: [facility] cough unrelated to allergies, difficulty breathing. Ebola Screen: Patient denies travel to an Ebola-affected area in the 21 days before illness onset. Initial Sepsis Screen: Does the patient meet any 2 criteria? No. Patient's initial sepsis screen is negative. Does the patient have a suspected source of infection? No. Patient's initial sepsis screen is negative. Risk Assessment: Do you want to hurt yourself or someone else? Patient reports no desire to harm self or others. Onset of symptoms was October 09, 2024. 11:03 Method Of Arrival: Ambulatory ll1 11:03 Acuity: UMU 3 ll1 Triage Assessment: 11:03 General: Appears in no apparent distress. Behavior is calm, cooperative, appropriate ll1 for age. Pain: Complains of pain in body Quality of pain is described as aching. Neuro: Reports headache weakness. Respiratory: Reports shortness of breath cough that is Onset: The symptoms/episode began/occurred 6-7 days. 13:22 Respiratory: the patient has mild shortness of breath. iw Historical: - Allergies: 11:03 Amiodarone; ll1 11:03 Nitroglycerin; ll1 11:03 Bloczyb-Oiu-Gjl Reductase Inhibitors; ll1 - PMHx: 11:03 acid reflux; Hypertension; ll1 - PSHx: 11:03 Aortic Valve Replacement x 3; back; Cholecystectomy; Clavicle - Right; Elbow - Right; ll1 Hip Replacement - Right; Shoulder - Right; wrist - left; AAA repair; - Immunization history:: Adult Immunizations up to date. - Infectious Disease History:: Denies. - Social history:: Smoking status: Patient denies any tobacco usage or history of. Screenin:21 [facility] ED Fall Risk Assessment (Adult) History of falling in the last 3 months, iw including since admission No falls in past 3 months (0 pts) Confusion or Disorientation No (0 pts) Intoxicated or Sedated No (0 pts) Impaired Gait No (0 pts) Mobility Assist Device Used No (0 pt) Altered Elimination No (0 pt) Score/Fall Risk Level 0 - 2 = Low Risk Oriented to surroundings, Maintained a safe environment. Abuse screen: Denies threats or abuse. Nutritional screening: No deficits noted. Tuberculosis screening: No symptoms or risk factors identified. Assessment: 12:00 Reassessment: No changes from previously documented assessment. Patient and/or family ll1 updated on plan of care and expected duration. Pain level reassessed. 13:21 Cardiovascular: Denies chest pain, Rhythm is regular. Respiratory: Airway is patent iw Respiratory effort is even, unlabored, Vital Signs: 11:03 BP 135 / 93; Pulse 82; Resp 18; Temp 97.6; Pulse Ox 100% on R/A; Weight 87.09 kg; ll1 Height 6 ft. 1 in. ; Pain 3/10; 13:20 BP 134 / 78; Pulse 98; Resp 19; Pulse Ox 97% on R/A; iw 11:03 Body Mass Index 25.33 (87.09 kg, 185.42 cm) ll1 11:03 Pain Scale: Adult ll1 ED Course: 10:56 Patient arrived in ED. mr 11:00 Obdulio Tolbert PA is PHCP. cp 11:00 Dmitri Lynn MD is Attending Physician. cp 11:04 Triage completed. ll1 11:21 Arm band placed on Patient placed in an exam room, on a stretcher. ll1 11:59 Richard Alvarado, GLENROY is Primary Nurse. ll1 12:00 COVID swab sent to lab. Flu and/or RSV swab sent to lab. ll1 12:53 XRAY Chest Pa And Lat (2 Views) In Process Unspecified. EDMS 13:21 Patient has correct armband on for positive identification. Provided Education on: . iw 13:21 No provider procedures requiring assistance completed. Patient did not have IV access iw during this emergency room visit. Administered Medications: 11:59 Drug: Tessalon Perle PO 200 mg PO once Route: PO; ll1 11:59 Drug: DuoNeb Nebulize (2.5 mg - 0.5 mg) 3 ml Nebulizer once Route: Nebulizer; ll1 11:59 Drug: predniSONE PO 60 mg PO once Route: PO; ll1 Medication: 13:21 VIS not applicable for this client. iw Outcome: 13:09 Discharge ordered by . preeti 13:21 Discharged to home ambulatory, iw 13:21 Condition: good 13:21 Discharge instructions given to patient, Instructed on discharge instructions, follow up and referral plans. medication usage, Demonstrated understanding of instructions, follow-up care, medications, Prescriptions given X 5 13:22 Patient left the ED. iw Signatures: Dispatcher [employer] EDMS Laurie Haro, Reg Reg mr Irais Felix RN RN iw Obdulio Tolbert PA PA cp Lewis, Lynsay, RN RN ll1
--- NOTE | 2024-10-16 13:10 | EDPHYS ---
Physician Documentation [facility] Name: Guy Mcgregor Age: 69 yrs Sex: Male : 1955 Arrival Date: 10/16/2024 Time: 10:54 Bed 11 Private MD: ED Physician Dmitri Lynn HPI: 10/16 11:50 This 69 yrs old Male presents to ER via Ambulatory with complaints of Shortness Of cp Breath, Cough, Sinus Congestion. 11:50 The patient has shortness of breath with light activity. cp 11:50 Onset: The symptoms/episode began/occurred 1 week(s) ago. cp 11:50 Associated signs and symptoms: Pertinent positives: chest pain, productive cough, sinus cp congestion, Pertinent negatives: diaphoresis, fever, hemoptysis, vomiting. Severity of symptoms: in the emergency department the symptoms are unchanged despite home interventions. 11:50 Patient reports recent trip out of the country in which he was seen for similar cp symptoms and treated with 3 day course of antibiotics. Historical: - Allergies: 11:03 Amiodarone; ll1 11:03 Nitroglycerin; ll1 11:03 Zpolkst-Ojq-Vvh Reductase Inhibitors; ll1 - PMHx: 11:03 acid reflux; Hypertension; ll1 - PSHx: 11:03 Aortic Valve Replacement x 3; back; Cholecystectomy; Clavicle - Right; Elbow - Right; ll1 Hip Replacement - Right; Shoulder - Right; wrist - left; AAA repair; - Immunization history:: Adult Immunizations up to date. - Infectious Disease History:: Denies. - Social history:: Smoking status: Patient denies any tobacco usage or history of. ROS: 11:55 Constitutional: Positive for body aches, Negative for fever, poor PO intake, cp 11:55 Eyes: Negative for injury, pain, redness, and discharge, cp 11:55 ENT: Positive for sinus congestion, sore throat, 11:55 Cardiovascular: Negative for chest pain, edema, 11:55 Respiratory: Positive for cough, "sounds productive", shortness of breath, on exertion. 11:55 Abdomen/GI: Negative for abdominal pain, vomiting, diarrhea, constipation, 11:55 All other systems are negative, Exam: 12:00 Constitutional: The patient appears in no acute distress, alert, awake, non-toxic, well cp developed, well nourished, 12:00 Head/Face: Normocephalic, atraumatic. cp 12:00 Eyes: Periorbital structures: appear normal, Conjunctiva: normal, no exudate, no injection, Sclera: no appreciated abnormality, Lids and lashes: appear normal, bilaterally, 12:00 ENT: External ear(s): are unremarkable, Ear canal(s): are normal, clear, TM's: dullness, bilaterally, Nose: is normal, Mouth: Lips: moist, Oral mucosa: moist, Posterior pharynx: Airway: no evidence of obstruction, patent, erythema, that is mild, exudate, is not appreciated, 12:00 Neck: ROM/movement: is normal, is supple, without pain, no range of motions limitations, 12:00 Chest/axilla: Inspection: normal, 12:00 Cardiovascular: Rate: normal, 12:00 Respiratory: the patient does not display signs of respiratory distress, Respirations: normal, no use of accessory muscles, no retractions, labored breathing, is not present, Breath sounds: bronchial sounds, that are mild, are heard diffusely, stridor, is not appreciated, wheezing: that is mild, is heard diffusely, 12:00 Abdomen/GI: Inspection: abdomen appears normal, Palpation: abdomen is soft and non-tender, in all quadrants, 12:00 Back: pain, is absent, ROM is normal, Vital Signs: 11:03 BP 135 / 93; Pulse 82; Resp 18; Temp 97.6; Pulse Ox 100% on R/A; Weight 87.09 kg; ll1 Height 6 ft. 1 in. ; Pain 3/10; 13:20 BP 134 / 78; Pulse 98; Resp 19; Pulse Ox 97% on R/A; iw 11:03 Body Mass Index 25.33 (87.09 kg, 185.42 cm) ll1 11:03 Pain Scale: Adult ll1 MDM: 11:00 Medical Screening Exam initiated 12:00 Differential diagnosis: Bronchitis CHF exacerbation, Chronic Obstructive Pulmonary cp Disease pneumonia, Pneumothorax pulmonary edema, Pulmonary Embolism Unstable Angina. 13:09 Data reviewed: vital signs, nurses notes, lab test result(s), radiologic studies, plain cp films, and as a result, I will discharge patient. 13:09 I considered the following discharge prescriptions or medication management in the cp emergency department Medications were administered in the Emergency Department. See MAR. Counseling: I had a detailed discussion with the patient and/or guardian regarding the historical points, exam findings, and any diagnostic results supporting the discharge/admit diagnosis, lab results, radiology results, to return to the emergency department if symptoms worsen or persist or if there are any questions or concerns that arise at home. Response to treatment: the patient's symptoms have mildly improved after treatment, and as a result, I will discharge patient. 10/16 11:44 Order name: SARS RAPID; Complete Time: 12:35 cp 10/16 11:44 Order name: RSV; Complete Time: 12:35 cp 10/16 11:44 Order name: Influenza Screen (a \\T\\ B); Complete Time: 12:35 cp 10/16 12:35 Interpretation: Reviewed. cp 10/16 11:44 Order name: XRAY Chest Pa And Lat (2 Views); Complete Time: 13:16 cp 10/16 13:17 Interpretation: Report reviewed. cp Administered Medications: 11:59 Drug: Tessalon Perle PO 200 mg PO once Route: PO; ll1 11:59 Drug: DuoNeb Nebulize (2.5 mg - 0.5 mg) 3 ml Nebulizer once Route: Nebulizer; ll1 11:59 Drug: predniSONE PO 60 mg PO once Route: PO; ll1 Disposition Summary: 10/16/24 13:09 Discharge Ordered Notes: Location: Home cp Problem: new cp Symptoms: have improved cp Condition: Stable cp Diagnosis - Influenza due to identified novel influenza A virus with other respiratory cp manifestations Followup: cp - With: Private Physician - When: 2 - 3 days - Reason: Worsening of condition Discharge Instructions: - Discharge Summary Sheet cp - Influenza, Adult cp Forms: - Medication Reconciliation Form cp - Antibiotic Education cp - Prescription Opioid Use cp - Patient Portal Instructions cp - Leadership Thank You Letter cp Prescriptions: - Bromfed DM 2-30-10 mg/5 mL Oral syrup - administer 10 milliliter ORAL route every 6 hours as needed for cough; 240 cp milliliter; Refills: 0, Product Selection Permitted - albuterol sulfate 90 mcg/actuation Inhalation HFA Aerosol Inhaler - inhale 1 puff INHALATION route every 4-6 hours as needed for shortness of cp breath or wheezing; 1 unit; Refills: 0, Product Selection Permitted - Tamiflu 75 mg Oral Capsule - take 1 capsule ORAL route every 12 hours for 5 days; 10 capsule; Refills: 0, cp Product Selection Permitted - Zithromax Z-Alfred 250 mg Oral Tablet - take 1 tablet ORAL route as directed for 5 days Day 1 - take two (2) tablets cp one time. Day 2, 3, 4 , 5 take one (1) tablet once daily.; 6 tablet; Refills: 0, Product Selection Permitted - Medrol (Alfred) 4 mg Oral Tablets, Dose Pack - take 1 tablet ORAL route as directed - follow package instructions; 1 packet; cp Refills: 0, Product Selection Permitted Signatures: Dispatcher [employer] Irais Valencia RN RN Obdulio Scott PA PA Richard Sandhu RN RN ll1
--- NOTE | 2024-10-16 13:15 | RAD REPORT ---
EXAMINATION: TWO VIEW CHEST XR CLINICAL INDICATION: Male, 69 years old. [facility] MAIN Cough;SOB Bed Name: 11 TECHNIQUE: 2 view radiographs of the chest were performed. COMPARISON: 04/13/2023 FINDINGS: The lungs are again hyper inflated and clear. No pneumothorax or sizable effusion. The heart is antionette l in size. Mediastinal contours are unchanged, with prostatic valve in place. Mid thoracic anterior wedge compression deformity, stable. IMPRESSION: No acute or significant abnormalities.
[2024-10-19 15:19] VITALS: BP 134/78; TEMP 97.6; O2SAT 97
== END 2024-10-16 13:22 | disposition home or self-care (01) ==
LOC: ER 10:54
DX: J09.X2 Influenza due to identified novel influenza A virus with other respiratory manifestations (principal); K21.9 Gastro-esophageal reflux disease without esophagitis; I10 Essential (primary) hypertension
CPT/HCPCS: 36415; 87807; 87804 ×2; 71046; 99284; 87811; J7512; J7613; J7644

== ENCOUNTER 2024-11-13 14:25 | Emergency (ER) | payer OTHER ==
[2024-11-13 15:04] LABS: Absolute Lymphocytes (CBC) 0.9 K/uL (0.7-4.9); Absolute Monocytes 0.5 K/uL (0.1-1.3); Basophils % 0.4 % (0-1.3); Eosinophils % 0.7 % (0-4.4); Hemoglobin 13.2 g/dL (13.6-17.9); Lymphocytes % 13.9 % (15.3-44.8); MCH 31.3 pg (27.0-35.0); MCHC 33.8 g/dL (32.0-36.0); MCV 92.6 fL (80-100); MPV 9.5 fL (7.6-11.3); Monocytes % 7.8 % (3.3-12.3); Neutrophils % 77.2 % (41.7-73.7); Nucleated Red Blood Cells % 0.1 % (0-0); Platelets 118 thou/uL (152-406); RBC Red Blood Cell Count 4.21 M/uL (4.33-5.43)
[2024-11-13 15:21] LABS: Anion Gap 8.8 mEq/L (5.0-15.0); Potassium 3.8 mEq/L (3.5-5.1)
[2024-11-13 15:54] LABS: PT Prothrombin Time 26.4 SECONDS (9.4-12.5); PTT, Activated Partial Thromb 29.5 SECONDS (24.3-36.9); Protime INR 2.54
--- NOTE | 2024-11-13 16:45 | RAD REPORT ---
EXAMINATION: CTA PELVIS WITH CONTRAST and bilateral lower extremity CLINICAL INDICATION: Male, 69 years old.No TECHNIQUE: CTA pelvis with bilateral lower extremity was performed, after the administration of IV c ontrast, as per department protocol. MIPS were created. Axial, sagittal and coronal reconstructions were obtained. One or more of the following dose reduction techniques were used: Auto mated exposure control, adjustment of the mA and/or kV according to patient size, and/or iterative reconstruction. Unless otherwise specified, incidental findings do not require dedicated imaging foll ow-up. [id number]. COMPARISON: No prior exam. FINDINGS: VASCULAR: ABDOMINAL AORTA AND OTHER VESSELS: Mild atherosclerotic changes. No stenosis or aneurysm. RIGHT INFLOW (ILIAC): Patent RIGHT OUTFLOW (FEM-POP): Patent LEFT INFLOW (ILIAC): Patent LEFT OUTFLOW (FEM-POP): Patent NONVASCULAR: PERITONEUM: No abnormal free fluid. No free air. LYMPH NODES: No pathologic lymphadenopathy. ABDOMINAL WALL: No significant abnormality. SMALL BOWEL/COLON: Small bowel has normal course and caliber. No colonic wall thickening or pericolon ic inflammatory changes. URINARY BLADDER: Underdistended but grossly unremarkable. REPRODUCTIVE ORGANS: No pathologic process. MUSCULOSKELETAL: Intramuscular suspected in the left abductor muscular structure. No evidence of acti ve bleeding. Right hip arthroplasty. Degenerative changes are present in the spine. ADDITIONAL FINDINGS: None. IMPRESSION: 1. No flow-limiting stenosis or evidence of active arterial bleeding in the pelvis or proximal lower extremities. Intramuscular hematoma in the left adductor musculature.
--- NOTE | 2024-11-13 17:08 | EDPHYS ---
Physician Documentation [facility] Name: Guy Mcgregor Age: 69 yrs Sex: Male : 1955 Arrival Date: 11/13/2024 Time: 14:25 Bed 15 Private MD: ED Physician Antonio Ji HPI: 11/13 14:40 This 69 yrs old Male presents to ER via Ambulatory with complaints of Leg Swelling, sb4 Left. 14:40 Patient reports left thigh pain and swelling after an intense workout yesterday. States sb4 that he has "torn arteries" in his legs before and is concerned that is what happened again. Denies any ecchymosis, erythema, or warmth. States the pain is now extending from his knee to his back. Historical: - Allergies: 14:39 Amiodarone; hb 14:39 Nitroglycerin; hb 14:39 Merlwid-Vgx-Cgi Reductase Inhibitors; hb - PMHx: 14:39 acid reflux; Hypertension; hb - PSHx: 14:39 AAA repair; Aortic Valve Replacement x 3; back; Cholecystectomy; Clavicle - Right; hb Elbow - Right; Hip Replacement - Right; Shoulder - Right; wrist - left; - Immunization history:: Adult Immunizations up to date. - Infectious Disease History:: Denies. - Social history:: Smoking status: Patient denies any tobacco usage or history of. ROS: 14:40 Constitutional: Negative for fever, chills, and weight loss, sb4 14:40 MS/extremity: Positive for pain, swelling, tenderness, of the left quadriceps, 14:40 All other systems are negative, Exam: 14:40 Constitutional: This is a well developed, well nourished patient who is awake, alert, sb4 and in no acute distress. Head/Face: Normocephalic, atraumatic. Eyes: Extra-ocular motions intact. Periorbital areas with no swelling, redness, or edema. ENT: Mucous membranes moist. Respiratory: No increased work of breathing, no retractions or nasal flaring. 14:40 Musculoskeletal/extremity: ROM: limited active range of motion due to pain, limited passive range of motion due to pain, Circulation is intact in all extremities. Pulses: are normal with no appreciated deficits, Perfusion: the extremity is normally perfused throughout, Sensation intact. Compartment Syndrome exam of affected extremity: is normal. no numbness, no tingling, no sensation deficit, no palor, no weak pulses, Vital Signs: 14:37 BP 138 / 92; Pulse 82; Resp 16; Temp 97.8(TE); Pulse Ox 98% on R/A; Weight 87.09 kg; hb Height 6 ft. 1 in. ; Pain 8/10; 16:12 BP 127 / 86; Pulse 75; Resp 18; Pulse Ox 99% on R/A; ph 17:25 BP 124 / 78; Pulse 71; Resp 18; Temp 97.2; Pulse Ox 100% on R/A; ph 14:37 Body Mass Index 25.33 (87.09 kg, 185.42 cm) hb 14:37 Pain Scale: Adult hb MDM: 14:31 Medical Screening Exam initiated sb4 17:11 Data reviewed: vital signs, nurses notes, radiologic studies, and as a result, I will sb4 discharge patient. Counseling: I had a detailed discussion with the patient and/or guardian regarding the historical points, exam findings, and any diagnostic results supporting the discharge/admit diagnosis, lab results, radiology results, the need for outpatient follow up, for definitive care, a orthopedic surgeon, to return to the emergency department if symptoms worsen or persist or if there are any questions or concerns that arise at home. 17:11 ED course: CTA showing a left adductor intramuscular hematoma. His examination is sb4 negative for compartment syndrome. He has good femoral and pedal pulses. Patient is stable for discharge home. 11/13 14:37 Order name: CBC with Diff; Complete Time: 15:09 sb4 11/13 14:37 Order name: BMP; Complete Time: 15:23 sb4 11/13 14:37 Order name: CPK; Complete Time: 15:23 sb4 11/13 14:43 Order name: PT-INR; Complete Time: 15:55 sb4 11/13 14:43 Order name: Ptt, Activated; Complete Time: 15:55 sb4 11/13 14:37 Order name: Pelvis Angio CT; Complete Time: 16:46 sb4 11/13 14:41 Order name: Lower Ext Angio; Complete Time: 16:46 EDMS 11/13 14:37 Order name: IV Start; Complete Time: 15:02 sb4 11/13 14:38 Order name: Gown patient; Complete Time: 15:01 sb4 11/13 17:12 Order name: Jamia; Complete Time: 17:24 sb4 Administered Medications: No medications were administered Disposition Summary: 11/13/24 17:07 Discharge Ordered Notes: Location: Home sb4 Problem: new sb4 Symptoms: are unchanged sb4 Condition: Stable sb4 Diagnosis - Intramuscular hematoma- left adductor sb4 Followup: sb4 - With: lAverto Leslie MD - When: 2 - 3 days - Reason: Recheck today's complaints, Re-evaluation by your physician Discharge Instructions: - Discharge Summary Sheet sb4 - Hematoma, Iqld-ss-Lsgp sb4 Forms: - Patient Portal Instructions sb4 - Leadership Thank You Letter sb4 Signatures: Dispatcher [employer] Julissa Victoria RN RN Lena Velazquez PAMyraC PA-C sb4 Corrections: (The following items were deleted from the chart) 14:38 14:38 CBC+H.LAB.BRZ ordered. EDMS EDMS 14:38 14:38 BASIC METABOLIC PANEL+C.LAB.BRZ ordered. EDMS EDMS 14:38 14:38 CREATINE PHOSPHOKINASE+C.LAB.BRZ ordered. EDMS EDMS 14:38 14:38 Pelvis Angio+CT.RAD.BRZ ordered. EDMS EDMS
--- NOTE | 2024-11-13 17:08 | ER ---
Nurse's Notes [facility] Name: Guy Mcgregor Age: 69 yrs Sex: Male : 1955 Arrival Date: 11/13/2024 Time: 14:25 Bed 15 Private MD: Diagnosis: Intramuscular hematoma- left adductor Presentation: 11/13 14:37 Chief complaint: Worsening left thigh pain and swelling x 2-3 days, pain now radiates hb to left knee and left low back. Coronavirus screen: At this time, the client does not indicate any symptoms associated with coronavirus-19. Ebola Screen: No symptoms or risks identified at this time. Initial Sepsis Screen: Does the patient meet any 2 criteria? No. Patient's initial sepsis screen is negative. Does the patient have a suspected source of infection? No. Patient's initial sepsis screen is negative. Risk Assessment: Do you want to hurt yourself or someone else? Patient reports no desire to harm self or others. Onset of symptoms was November 11, 2024. 14:37 Method Of Arrival: Ambulatory hb 14:37 Acuity: UMU 3 hb Historical: - Allergies: 14:39 Amiodarone; hb 14:39 Nitroglycerin; hb 14:39 Qjcvzey-Vyk-Uku Reductase Inhibitors; hb - PMHx: 14:39 acid reflux; Hypertension; hb - PSHx: 14:39 AAA repair; Aortic Valve Replacement x 3; back; Cholecystectomy; Clavicle - Right; hb Elbow - Right; Hip Replacement - Right; Shoulder - Right; wrist - left; - Immunization history:: Adult Immunizations up to date. - Infectious Disease History:: Denies. - Social history:: Smoking status: Patient denies any tobacco usage or history of. Screenin:59 [facility] ED Fall Risk Assessment (Adult) History of falling in the last 3 months, ph including since admission No falls in past 3 months (0 pts) Confusion or Disorientation No (0 pts) Intoxicated or Sedated No (0 pts) Impaired Gait Yes (1 pt) Mobility Assist Device Used No (0 pt) Altered Elimination No (0 pt) Score/Fall Risk Level 0 - 2 = Low Risk Oriented to surroundings, Maintained a safe environment, Hourly rounding (assess needs \T\ fall precautionary measures) done. Abuse screen: Denies threats or abuse. Denies injuries from another. Nutritional screening: No deficits noted. Tuberculosis screening: No symptoms or risk factors identified. Assessment: 15:00 General: Appears in no apparent distress. Behavior is calm, cooperative. Pain: ph Complains of pain in left leg Pain radiates to left low back. Neuro: Level of Consciousness is awake, alert, obeys commands, Oriented to person, place, time, situation. Cardiovascular: Capillary refill < 3 seconds in bilateral fingers Patient's skin is warm and dry. Respiratory: Airway is patent Respiratory effort is even, unlabored. Derm: Skin is pink, warm \T\ dry. 16:11 Reassessment: Patient appears in no apparent distress at this time. Patient and/or ph family updated on plan of care and expected duration. Pain level reassessed. Patient is alert, oriented x 3, equal unlabored respirations, skin warm/dry/pink. Pt taken for CT scan. Vital Signs: 14:37 BP 138 / 92; Pulse 82; Resp 16; Temp 97.8(TE); Pulse Ox 98% on R/A; Weight 87.09 kg; hb Height 6 ft. 1 in. ; Pain 8/10; 16:12 BP 127 / 86; Pulse 75; Resp 18; Pulse Ox 99% on R/A; ph 17:25 BP 124 / 78; Pulse 71; Resp 18; Temp 97.2; Pulse Ox 100% on R/A; ph 14:37 Body Mass Index 25.33 (87.09 kg, 185.42 cm) hb 14:37 Pain Scale: Adult hb ED Course: 14:28 Patient arrived in ED. mr 14:28 Lena Gay PA-C is PHCP. sb4 14:28 Antonio Ji MD is Attending Physician. sb4 14:39 Triage completed. hb 14:39 Arm band placed on. hb 14:43 Ara David, RN is Primary Nurse. ph 15:00 Patient has correct armband on for positive identification. Placed in gown. Bed in low ph position. Call light in reach. Side rails up X 1. Pulse ox on. NIBP on. Door closed. Noise minimized. Warm blanket given. 15:00 Initial lab(s) drawn, by me, sent to lab. Missed attempt(s): 20 gauge in right ph antecubital area. Bleeding controlled, band aid applied, catheter tip intact. Inserted saline lock: 20 gauge in right forearm, using aseptic technique. Blood collected. Flushed with 10 mL NS. 15:01 Ptt, Activated Sent. ph 15:01 PT-INR Sent. ph 15:02 CPK Sent. ph 15:02 BMP Sent. ph 15:02 CBC with Diff Sent. ph 16:[address] In Process Unspecified. EDMS 16:28 Lower Ext Angio In Process Unspecified. EDMS 17:06 Alverto Leslie MD is Referral Physician. sb4 17:24 No provider procedures requiring assistance completed. IV discontinued, intact, ph bleeding controlled, No redness/swelling at site. Pressure dressing applied. Administered Medications: No medications were administered Medication: 15:00 VIS not applicable for this client. ph Outcome: 17:07 Discharge ordered by . sb4 17:24 Discharged to home ambulatory, with crutches, ph 17:24 Condition: good 17:24 Discharge instructions given to patient, Instructed on discharge instructions, follow up and referral plans. Demonstrated understanding of instructions, follow-up care, 17:25 Patient left the ED. ph Signatures: Dispatcher [employer] [facility] TahirLaurie, Reg Reg mr Ara David RN RN Julissa Echeverria RN RN Lena Velazquez, PASandra PAMyraC sb4 Corrections: (The following items were deleted from the chart) 14:40 14:37 BP 138 / 92; Pulse 82bpm; Resp 16bpm; Pulse Ox 98% RA; Temp 97.8F Temporal; Pain hb 8/10, Adult; hb
[2024-11-13 17:46] VITALS: BP 124/78; TEMP 97.2; O2SAT 100
== END 2024-11-13 17:25 | disposition home or self-care (01) ==
LOC: ER 14:25
DX: S70.12XA Contusion of left thigh, initial encounter (principal); Z96.641 Presence of right artificial hip joint
CPT/HCPCS: 85025; 80048; 36415; 82550; 85610; 85730; 73706; 72191; 99284; Q9967